=== PATIENT | male | born 1950 | race Caucasian/White ===

== ENCOUNTER → 2016-05-20 | Outpatient (CLI) | payer MEDICARE, BC | LOC: MW.CHNEURO 14:39 | PROVIDERS: ATTEND Psychiatry & Neurology Neuromuscular Medicine | DX: G62.9 Polyneuropathy, unspecified (principal) | CPT/HCPCS: 36415; 82607; 83921; 84165; 99204 ==

== ENCOUNTER 2016-06-06 11:41 | Emergency (ER) | payer MEDICARE, BC ==
[2016-06-06] MEDS ORDERED: Bacitracin Oint 1 GM U/D Packet TOP ONE (12:20)
--- NOTE | 2016-06-06 12:21 | EDM.PDOC ---
ED HPI Trauma - General Chief Complaint: Lower Extremity Injury/Pain Stated Complaint: SICK Time Seen by Provider: 06/06/16 12:00 Source: Reports: Patient History Limitations: Reports: No limitations - History of Present Illness INITIAL COMMENTS - FREE TEXT/NARRATIVE: History of present illness: [65-year-old male presenting with acute onset blister to bottom of right foot immediately under the fifth digit. Patient indicates that he has neuropathy to both of his legs and feet, is receiving treatment for this and has no problems. Cannot indicates when the blister appeared to indicated this morning when he got to the bathroom it had ruptured and sprayed blood everywhere. Patient comes in today seeking treatment.] Review of systems: As per history of present illness and below otherwise all systems reviewed and negative. Past medical history: As per history of present illness and as reviewed below otherwise noncontributory. Surgical history: As per history of present illness and as reviewed below otherwise noncontributory. Social history: No reported history of drug or alcohol abuse. Family history: As per history of present illness and as reviewed below otherwise noncontributory. Physical exam: HEENT: Atraumatic, normocephalic, pupils reactive, negative for conjunctival pallor or scleral icterus, mucous membranes moist, throat clear, neck supple, nontender, trachea midline. Lungs: Clear to auscultation, breath sounds equal bilaterally, chest nontender. Heart: S1S2, regular, negative for clicks, rubs, or JVD. Abdomen: Soft, nondistended, nontender. Negative for masses or hepatosplenomegaly. Negative for costovertebral tenderness. Pelvis: Stable nontender. Genitourinary: Deferred. Rectal: Deferred. Extremities: Atraumatic, negative for cords or calf pain. Neurovascular unremarkable. Neuro: Awake, alert, oriented. Cranial nerves II through XII unremarkable. Cerebellum unremarkable. Motor and sensory unremarkable throughout. Exam nonfocal. Skin: Blood blister to pedal aspect of right foot. Immediately beneath the fourth and fifth phalanges. Skin slightly flat with blood having already drained out. No current purulent and/or excessive erythema beyond the blister. Flap of skin still intact. Patient indicates he has no neuropathies to bilateral feet and he does tend to check him but he doesn't know how he obtained this blister. Diagnostics: [] Therapeutics: [] Impression: [Blood blister on right foot Plan: [Antibiotics followup with PCP] Definitive disposition and diagnosis as appropriate pending reevaluation and review of above. Allergies/ADRs: Allergies No Known Allergies Allergy (Verified 06/06/16 11:48) Home Medications: Ambulatory Orders Cephalexin [Keflex] 500 mg PO QID #40 capsule 06/06/16 Hydrochlorothiazide [Hydrochlorothiazide] 12.5 mg PO DAILY 06/06/16 [Confirmed 06/06/16] Past Medical History HEENT History: Reports: None Cardiovascular History: Reports: Hypertension Respiratory History: Reports: Sleep apnea Gastrointestinal History: Reports: None Genitourinary History: Reports: None Musculoskeletal History: Reports: Amputation Other Musculoskeletal History: tip of right middle finger Neurological History: Reports: None Psychiatric History: Reports: None Endocrine/Metabolic History: Reports: Obesity/BMI 30+ Hematologic History: Reports: B12 deficiency Immunologic History: Reports: None Oncologic (Cancer) History: Reports: None Dermatologic History: Reports: None - Infectious Disease History Infectious Disease History: Reports: Chicken pox, Measles - Past Surgical History Head Surgeries/Procedures: Reports: None Social & Family History - Family History Family Medical History: Noncontributory - Tobacco Use Smoking Status *Q: Never Smoker - Caffeine Use Caffeine Use: Reports: Coffee - Recreational Drug Use Recreational Drug Use: No Review of Systems - Review of Systems Review Of Systems: See Below (See history of present illness) Trauma Exam - Physical Exam Exam: See Below (See history of present illness) Course - Vital Signs Last Recorded V/S: Last Vital Signs Temp 37.4 C 06/06/16 11:46 Pulse 84 06/06/16 11:46 Resp 18 06/06/16 11:46 BP 198/88 H 06/06/16 11:46 Pulse Ox 96 06/06/16 11:46 - Orders/Labs/Meds Meds: Medications Discontinued Medications Generic Name Dose Route Start Last Admin Trade Name Freq PRN Reason Stop Dose Admin Bacitracin 1 dose 06/06/16 12:20 Bacitracin Oint 1 Gm TOP 06/06/16 12:21 ONETIME ONE Departure - Departure Time of Disposition: 12:23 Disposition: Home, Self-Care 01 Condition: good Clinical Impression: Broken skin Prescriptions: Cephalexin [Keflex] 500 mg PO QID #40 capsule Forms: ED Department Discharge Additional Instructions: The following information is given to patients seen in the emergency department who are being discharged to home. This information is to outline your options for follow-up care. We provide all patients seen in our emergency department with a follow-up referral. The need for follow-up, as well as the timing and circumstances, are variable depending upon the specifics of your emergency department visit. If you don't have a primary care physician on staff, we will provide you with a referral. We always advise you to contact your personal physician following an emergency department visit to inform them of the circumstance of the visit and for follow-up with them and/or the need for any referrals to a consulting specialist. The emergency department will also refer you to a specialist when appropriate. This referral assures that you have the opportunity for follow-up care with a specialist. All of these measure are taken in an effort to provide you with optimal care, which includes your follow-up. Under all circumstances we always encourage you to contact your private physician who remains a resource for coordinating your care. When calling for follow-up care, please make the office aware that this follow-up is from your recent emergency room visit. If for any reason you are refused follow-up, please contact the [facility] Emergency Department at and asked to speak to the emergency department charge nurse. Take medication as directed Followup with PCP or neurologist in one to 2 days Return to ED as needed as discussed
[2016-06-06 14:19] VITALS: BP 152/70
== END 2016-06-06 12:50 | disposition home or self-care (01) ==
LOC: MW.ED 11:41
DX: S90.821A Blister (nonthermal), right foot, initial encounter (principal); I10 Essential (primary) hypertension; E66.9 Obesity, unspecified; Z79.899 Other long term (current) drug therapy; X58.XXXA Exposure to other specified factors, initial encounter
CPT/HCPCS: 99282; 99283

== ENCOUNTER → 2016-06-14 | Outpatient (CLI) | payer MEDICARE, BC ==
--- NOTE | 2016-06-14 13:48 | CR ---
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 No fracture or acute osseous abnormality is noted. Moderate Achilles and plantar ca lcaneal enthesophytes are present. Bone mineralization is otherwise normal. IMPRESSION: Degenerative changes without acute findings.
== END ==
LOC: MW.CHIM 11:09
PROVIDERS: ATTEND Internal Medicine
DX: L97.519 Non-pressure chronic ulcer of other part of right foot with unspecified severity (principal); I10 Essential (primary) hypertension; G60.3 Idiopathic progressive neuropathy
CPT/HCPCS: 73620-26-RT; 73620-RT; 99214

== ENCOUNTER 2018-12-24 12:53 | Inpatient (IN) | payer MEDICARE, BC ==
[2018-12-24] MEDS ORDERED: Sodium Chloride 0.9% 1,000 ML IV ONE (13:28)
--- NOTE | 2018-12-24 13:33 | EDM.PDOC ---
ED HPI GENERAL MEDICAL PROBLEM - General Chief Complaint: Lower Extremity Injury/Pain Stated Complaint: LEFT LEG CONCERN;SWOLLEN Time Seen by Provider: 12/24/18 13:24 - History of Present Illness INITIAL COMMENTS - FREE TEXT/NARRATIVE: HISTORY AND PHYSICAL: History of present illness: Patient is a 68-year-old white male who presents with concern of redness pain swelling of the left lower extremity primarily distal leg and foot. Patient has a history of neuropathy of which the etiology remains unclear he states this is been worse over the last 2-3 days he denies associated trauma there's been no fever chills chest pain shortness breath or other concern. Patient denies known diabetes Review of systems: As per history of present illness and below otherwise all systems reviewed and negative. Past medical history: As per history of present illness and as reviewed below otherwise noncontributory. Surgical history: As per history of present illness and as reviewed below otherwise noncontributory. Social history: No reported history of drug or alcohol abuse. Family history: As per history of present illness and as reviewed below otherwise noncontributory. Physical exam: HEENT: Atraumatic, normocephalic, pupils reactive, negative for conjunctival pallor or scleral icterus, mucous membranes moist, throat clear, neck supple, nontender, trachea midline. Lungs: Clear to auscultation, breath sounds equal bilaterally, chest nontender. Heart: S1S2, regular, negative for clicks, rubs, or JVD. Abdomen: Soft, nondistended, nontender. Negative for masses or hepatosplenomegaly. Negative for costovertebral tenderness. Pelvis: Stable nontender. Genitourinary: Deferred. Rectal: Deferred. Extremities: Patient has erythema of the distal leg with marked swelling of the left foot and great toe with a callus on the plantar aspect over the distal first metatarsal there is some malodor to this neurovascular exam is unremarkable Neuro: Awake, alert, oriented. Cranial nerves II through XII unremarkable. Cerebellum unremarkable. Motor and sensory unremarkable throughout. Exam nonfocal. Diagnostics: CBC CMP blood culture 2 x-ray left tib-fib ankle and foot CRP ESR Therapeutics: Vancomycin 1 g IV clindamycin 900 mg IV Impression: #1 cellulitis left lower extremity #2 history of neuropathy Definitive disposition and diagnosis as appropriate pending reevaluation and review of above. - Related Data Allergies Allergy/AdvReac Type Severity Reaction Status Date / Time Penicillins Allergy Other Verified 12/24/18 13:38 Home Meds: Home Meds Allopurinol [Zyloprim] 1 tab PO DAILY 12/24/18 [History] Multivitamin [Multivitamins] 1 each PO DAILY 12/24/18 [History] Triamterene/Hydrochlorothiazid [Triamterene-HCTZ 37.5-25 MG] 1 tab PO DAILY [History] Past Medical History HEENT History: Reports: None Cardiovascular History: Reports: Hypertension Respiratory History: Reports: Sleep Apnea Gastrointestinal History: Reports: None Genitourinary History: Reports: None Musculoskeletal History: Reports: Amputation Other Musculoskeletal History: tip of right middle finger Neurological History: Reports: None Psychiatric History: Reports: None Endocrine/Metabolic History: Reports: Obesity/BMI 30+ Hematologic History: Reports: B12 Deficiency Immunologic History: Reports: None Oncologic (Cancer) History: Reports: None Dermatologic History: Reports: None - Infectious Disease History Infectious Disease History: Reports: Chicken Pox, Measles - Past Surgical History Head Surgeries/Procedures: Reports: None Social & Family History - Family History Family Medical History: Noncontributory - Caffeine Use Caffeine Use: Reports: Coffee Review of Systems - Review of Systems Review Of Systems: Comprehensive ROS is negative, except as noted in HPI. ED EXAM, GENERAL - Physical Exam Exam: See Below (dictation) Course - Vital Signs Last Recorded V/S: Last Vital Signs Temp 36.4 C 12/24/18 13:36 Pulse 74 12/24/18 13:36 Resp 18 12/24/18 13:36 BP 157/66 H 12/24/18 13:36 Pulse Ox 95 12/24/18 13:36 - Orders/Labs/Meds Orders: Active Orders 24 hr Category Date Time Status Patient Status [ADT] Stat ADT 12/24/18 13:34 Active COMPREHENSIVE METABOLIC PN,CMP [CHEM] Stat Lab 12/24/18 14:05 Received CRP [C-REACTIVE PROTEIN] [CHEM] Stat Lab 12/24/18 13:33 Ordered CULTURE BLOOD [BC] Stat Lab 12/24/18 14:05 Received CULTURE BLOOD [BC] Stat Lab 12/24/18 14:10 Results ESR [SEDIMENTATION RATE AUTO] [HEME] Stat Lab 12/24/18 13:33 Ordered INR,PT,PROTHROMBIN TIME [COAG] Stat Lab 12/24/18 14:10 Received UA RFX KIMBERLY AND CULT IF INDIC [URIN] Stat Lab 12/24/18 13:27 Ordered Vancomycin 1 gm Med 12/24/18 13:28 Active Sodium Chloride 0.9% [Normal Saline (AdvBag)] 250 ml IV ONETIME Blood Culture x2 Reflex Set [OM.PC] Stat Oth 12/24/18 13:27 Ordered Medication Orders Vancomycin HCl 1 gm/ Sodium (Chloride) 250 mls @ 166 mls/hr IV ONETIME ONE Stop: 12/24/18 14:58 Last Admin: 12/24/18 14:19 Dose: 166 mls/hr Labs: Laboratory Tests 12/24/18 Range/Units 14:10 WBC 14.26 H (4.0-11.0) K/uL RBC 5.21 (4.50-5.90) M/uL Hgb 15.8 (13.0-17.0) g/dL Hct 47.1 (38.0-50.0) % MCV 90.4 (80.0-98.0) fL MCH 30.3 (27.0-32.0) pg MCHC 33.5 (31.0-37.0) g/dL RDW Std Deviation 45.3 (28.0-62.0) fl RDW Coeff of Janeth 14 (11.0-15.0) % Plt Count 268 (150-400) K/uL MPV 10.30 (7.40-12.00) fL Neut % (Auto) 82.2 H (48.0-80.0) % Lymph % (Auto) 8.4 L (16.0-40.0) % [place] % (Auto) 8.2 (0.0-15.0) % Eos % (Auto) 1.1 (0.0-7.0) % Baso % (Auto) 0.1 (0.0-1.5) % Neut # (Auto) 11.7 H (1.4-5.7) K/uL Lymph # (Auto) 1.2 (0.6-2.4) K/uL [place] # (Auto) 1.2 H (0.0-0.8) K/uL Eos # (Auto) 0.2 (0.0-0.7) K/uL Baso # (Auto) 0.0 (0.0-0.1) K/uL Nucleated RBC % 0.0 /100WBC Nucleated RBCs # 0 K/uL Meds: Medications Generic Name Dose Route Start Last Admin Trade Name Leonila PRN Reason Stop Dose Admin Vancomycin HCl 1 gm/ Sodium 250 mls @ 166 mls/hr 12/24/18 13:28 12/24/18 14: 19 Chloride IV 12/24/18 14:58 166 mls/hr ONETIME ONE Administration Discontinued Medications Generic Name Dose Route Start Last Admin Trade Name Leonila PRN Reason Stop Dose Admin Sodium Chloride 1,000 mls @ 999 mls/hr 12/24/18 13:28 12/24/18 14:15 Normal Saline IV 12/24/18 14:28 999 mls/hr STAT ONE Administration Clindamycin Phosphate 900 mg/ 56 mls @ 100 mls/hr 12/24/18 13:33 Sodium Chloride IV 12/24/18 14:06 ONETIME ONE Departure - Departure Time of Disposition: 14:36 Disposition: Home, Self-Care 01 Condition: Good Clinical Impression: Cellulitis - Discharge Information Referrals: Edwar Valadez MD [Primary Care Provider] - Forms: ED Department Discharge - My Orders Last 24 Hours: My Active Orders 12/24/18 13:27 UA RFX KIMBERLY AND CULT IF INDIC [URIN] Stat Blood Culture x2 Reflex Set [OM.PC] Stat 12/24/18 13:28 Vancomycin 1 gm Sodium Chloride 0.9% [Normal Saline (AdvBag)] 250 ml IV ONETIME 12/24/18 13:33 CRP [C-REACTIVE PROTEIN] [CHEM] Stat ESR [SEDIMENTATION RATE AUTO] [HEME] Stat 12/24/18 13:34 Patient Status [ADT] Stat 12/24/18 14:05 COMPREHENSIVE METABOLIC PN,CMP [CHEM] Stat CULTURE BLOOD [BC] Stat 12/24/18 14:10 CULTURE BLOOD [BC] Stat INR,PT,PROTHROMBIN TIME [COAG] Stat - Assessment/Plan Last 24 Hours: My Active Orders 12/24/18 13:27 UA RFX KIMBERLY AND CULT IF INDIC [URIN] Stat Blood Culture x2 Reflex Set [OM.PC] Stat 12/24/18 13:28 Vancomycin 1 gm Sodium Chloride 0.9% [Normal Saline (AdvBag)] 250 ml IV ONETIME 12/24/18 13:33 CRP [C-REACTIVE PROTEIN] [CHEM] Stat ESR [SEDIMENTATION RATE AUTO] [HEME] Stat 12/24/18 13:34 Patient Status [ADT] Stat 12/24/18 14:05 COMPREHENSIVE METABOLIC PN,CMP [CHEM] Stat CULTURE BLOOD [BC] Stat 12/24/18 14:10 CULTURE BLOOD [BC] Stat INR,PT,PROTHROMBIN TIME [COAG] Stat
--- NOTE | 2018-12-24 14:20 | CR ---
Indication: Pain left lower leg. Older to the bottom of the foot. Technique: Two views of the left foot were obtained. Comparison: None Findings: Degenerative changes the left foot are identified. A plantar calcaneal spur is identified. Enthesophyte is identified at the insertion site of the Achilles down calcaneus. Probable ulcer is identified at the level of the metatarsophalangeal joint spaces. No bony erosions are identified. Impression: No bony erosions. Dictated by Laura Francis MD @ Dec 24 2018 2:18PM Signed by Dr. Laura Francis @ Dec 24 2018 2:19PM
--- NOTE | 2018-12-24 14:20 | CR ---
Indication: Pain left lower leg. Technique: Single AP portable view of the chest was obtained. Comparison: None Findings: Heart is normal in size. The lungs are clear. No infiltrate, pleural effusion, or pneumothorax is identified. Impression: No acute cardiopulmonary process. Dictated by Laura Francis MD @ Dec 24 2018 2:16PM Signed by Dr. Laura Francis @ Dec 24 2018 2:18PM
--- NOTE | 2018-12-24 14:22 | CR ---
Indication: Left leg swollen and red. Altered the bottom of the left foot. Technique: Two views of the left lower leg were obtained. Comparison: None Findings: Degenerative changes are identified at the level of the knee and ankle. Small plantar calcaneal spur is identified. No bony erosions are identified. Impression: Degenerative change. Dictated by Laura Francis MD @ Dec 24 2018 2:19PM Signed by Dr. Laura Francis @ Dec 24 2018 2:19PM
[2018-12-24 14:50] LABS: CARBON DIOXIDE,CO2 24.6 mmol/L (21.0-32.0); POTASSIUM,K 4.1 mmol/L (3.5-5.1)
[2018-12-24] MEDS ORDERED: Albuterol/Ipratropium 3.0-0.5 MG/3 ML Neb Soln NEB PRN (14:59)
[2018-12-24] MEDS ORDERED: Ondansetron 4 MG/2 ML SDV IVPUSH PRN (14:59)
[2018-12-24] MEDS ORDERED: HYDROmorphone 1 MG/ML Syringe IVPUSH ONE (15:03)
--- NOTE | 2018-12-24 15:15 | PCM.HP.2 ---
H&P History of Present Illness - General Date of Service: 12/24/18 Admit Problem/Dx: Admission Diagnosis/Problem Admission Diagnosis/Problem Cellulitis Source of Information: Patient History Limitations: Reports: No Limitations - History of Present Illness Initial Comments - Free Text/Narative: Patient is a 68-year-old male with PMH of HTN and Neuropathy of unknown origin who presents to ER with concern of increasing redness, pain, swelling, open draining wound of the left lower extremity in his distal leg and foot. Patient denies associated trauma there's been no fever chills chest pain shortness breath or other concern. 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 In ER patient received IV vancomycin and clindamycin. Xray of foot showed no bony involvement. Patient is being admitted for management of cellulitis of Left Lower extremity. Onset of Symptoms: Reports: Gradual Duration of Symptoms: Reports: Day(s): Quality: Reports: Dull Severity: Moderate left foot Pain Score (Numeric/FACES): 8 - Related Data Allergies/Adverse Reactions: Allergies Allergy/AdvReac Type Severity Reaction Status Date / Time Penicillins Allergy Other Verified 12/24/18 13:38 Home Medications: Home Meds Allopurinol [Zyloprim] 1 tab PO DAILY 12/24/18 [History] Multivitamin [Multivitamins] 1 each PO DAILY 12/24/18 [History] Triamterene/Hydrochlorothiazid [Triamterene-HCTZ 37.5-25 MG] 1 tab PO DAILY [History] Past Medical History HEENT History: Reports: None Cardiovascular History: Reports: Hypertension Respiratory History: Reports: Sleep Apnea Gastrointestinal History: Reports: None Genitourinary History: Reports: None Musculoskeletal History: Reports: Amputation Other Musculoskeletal History: tip of right middle finger Neurological History: Reports: None Psychiatric History: Reports: None Endocrine/Metabolic History: Reports: Obesity/BMI 30+ Hematologic History: Reports: B12 Deficiency Immunologic History: Reports: None Oncologic (Cancer) History: Reports: None Dermatologic History: Reports: None - Infectious Disease History Infectious Disease History: Reports: Chicken Pox, Measles - Past Surgical History Head Surgeries/Procedures: Reports: None Social & Family History - Family History Family Medical History: Noncontributory - Tobacco Use Smoking Status *Q: Never Smoker - Caffeine Use Caffeine Use: Reports: Coffee - Recreational Drug Use Recreational Drug Use: No H&P Review of Systems - Review of Systems: Review Of Systems: See Below General: Reports: Malaise, Weakness. Denies: Fever, Chills, Fatigue, Night Sweats HEENT: Denies: Headaches, Rhinitis Pulmonary: Denies: Shortness of Breath, Wheezing Cardiovascular: Denies: Chest Pain, Palpitations Gastrointestinal: Denies: Abdominal Pain, Anorexia, Black Stool, Diarrhea, Decreased Appetite Genitourinary: Denies: Dysuria, Frequency Musculoskeletal: Denies: Neck Pain, Shoulder Pain Skin: Denies: Cyanosis, Jaundice Exam - Exam Exam: See Below - Vital Signs Vital Signs: Last Vital Signs Temp 36.9 C 12/24/18 14:43 Pulse 71 12/24/18 14:43 Resp 18 12/24/18 14:43 BP 156/66 H 12/24/18 14:43 Pulse Ox 95 12/24/18 14:43 Weight: 109.769 kg - Exam General: Alert, Oriented HEENT: Conjunctiva Clear Neck: Supple, Trachea Midline Lungs: Clear to Auscultation, Normal Respiratory Effort Cardiovascular: Regular Rate, Regular Rhythm GI/Abdominal Exam: Normal Bowel Sounds, Soft, Non-Tender Extremities: Joint Swelling, Increased Warmth, Redness, Other (left foot redness , swelling) - Patient Data Lab Results Last 24 hrs: Laboratory Results - last 24 hr 12/24/18 12/24/18 12/24/18 Range/Units 14:05 14:10 14:10 WBC 14.26 H (4.0-11.0) K/uL RBC 5.21 (4.50-5.90) M/uL Hgb 15.8 (13.0-17.0) g/dL Hct 47.1 (38.0-50.0) % MCV 90.4 (80.0-98.0) fL MCH 30.3 (27.0-32.0) pg MCHC 33.5 (31.0-37.0) g/dL RDW Std Deviation 45.3 (28.0-62.0) fl RDW Coeff of Janeth 14 (11.0-15.0) % Plt Count 268 (150-400) K/uL MPV 10.30 (7.40-12.00) fL Neut % (Auto) 82.2 H (48.0-80.0) % Lymph % (Auto) 8.4 L (16.0-40.0) % Rice % (Auto) 8.2 (0.0-15.0) % Eos % (Auto) 1.1 (0.0-7.0) % Baso % (Auto) 0.1 (0.0-1.5) % Neut # (Auto) 11.7 H (1.4-5.7) K/uL Lymph # (Auto) 1.2 (0.6-2.4) K/uL Rice # (Auto) 1.2 H (0.0-0.8) K/uL Eos # (Auto) 0.2 (0.0-0.7) K/uL Baso # (Auto) 0.0 (0.0-0.1) K/uL Nucleated RBC % 0.0 /100WBC Nucleated RBCs # 0 K/uL INR 0.97 Lactate (0.20-2.00) mmol/L Sodium 136 (136-148) mmol/L Potassium 4.1 (3.5-5.1) mmol/L Chloride 101 (98-107) mmol/L Carbon Dioxide 24.6 (21.0-32.0) mmol/L BUN 12 (7.0-18.0) mg/dL Creatinine 1.3 (0.8-1.3) mg/dL Est Cr Clr Drug Dosing 56.31 mL/min Estimated GFR (MDRD) 54.6 ml/min Glucose 93 (74-106) mg/dL Calcium 9.2 (8.5-10.1) mg/dL Total Bilirubin 1.2 H (0.2-1.0) mg/dL AST 27 (15-37) IU/L ALT 22 (14-63) IU/L Alkaline Phosphatase 108 (46-116) U/L Total Protein 8.6 H (6.4-8.2) g/dL Albumin 3.2 L (3.4-5.0) g/dL Globulin 5.4 H (2.6-4.0) g/dL Albumin/Globulin Ratio 0.6 L (0.9-1.6) // Range/Units 14:10 WBC (4.0-11.0) K/uL RBC (4.50-5.90) M/uL Hgb (13.0-17.0) g/dL Hct (38.0-50.0) % MCV (80.0-98.0) fL MCH (27.0-32.0) pg MCHC (31.0-37.0) g/dL RDW Std Deviation (28.0-62.0) fl RDW Coeff of Janeth (11.0-15.0) % Plt Count (150-400) K/uL MPV (7.40-12.00) fL Neut % (Auto) (48.0-80.0) % Lymph % (Auto) (16.0-40.0) % Rice % (Auto) (0.0-15.0) % Eos % (Auto) (0.0-7.0) % Baso % (Auto) (0.0-1.5) % Neut # (Auto) (1.4-5.7) K/uL Lymph # (Auto) (0.6-2.4) K/uL Rice # (Auto) (0.0-0.8) K/uL Eos # (Auto) (0.0-0.7) K/uL Baso # (Auto) (0.0-0.1) K/uL Nucleated RBC % /100WBC Nucleated RBCs # K/uL INR Lactate 1.6 (0.20-2.00) mmol/L Sodium (136-148) mmol/L Potassium (3.5-5.1) mmol/L Chloride (98-107) mmol/L Carbon Dioxide (21.0-32.0) mmol/L BUN (7.0-18.0) mg/dL Creatinine (0.8-1.3) mg/dL Est Cr Clr Drug Dosing mL/min Estimated GFR (MDRD) ml/min Glucose (74-106) mg/dL Calcium (8.5-10.1) mg/dL Total Bilirubin (0.2-1.0) mg/dL AST (15-37) IU/L ALT (14-63) IU/L Alkaline Phosphatase (46-116) U/L Total Protein (6.4-8.2) g/dL Albumin (3.4-5.0) g/dL Globulin (2.6-4.0) g/dL Albumin/Globulin Ratio (0.9-1.6) Result Diagrams: 12/24/18 14:10 12/24/18 14:05 Percy Results Last 24 hrs: Microbiology 12/24/18 14:10 Anaerobic Blood Culture - Final Blood - Venous *Q Meaningful Use (ADM) - VTE Risk Assess *Q Each Risk Factor Represents 2 Points: Age 60 - 74 Years Total Score 2 Point Risk Factors: 2 - Problem List (1) Cellulitis SNOMED Code(s): 889054138 ICD Code: L03.90 - CELLULITIS, UNSPECIFIED Status: Acute Current Visit: Yes (2) HTN (hypertension) SNOMED Code(s): 43797298 ICD Code: I10 - ESSENTIAL (PRIMARY) HYPERTENSION Status: Acute Current Visit: Yes Problem List Initiated/Reviewed/Updated: Yes Orders Last 24hrs: Active Orders 24 hr Category Date Time Status Patient Status [ADT] Stat ADT 12/24/18 13:34 Active Patient Status [ADT] Stat ADT 12/24/18 14:38 Active Ambulate [RC] ASDIRECTED Care 12/24/18 14:59 Ordered Oxygen Therapy [RC] PRN Care 12/24/18 14:59 Ordered Pulse Oximetry [RC] PRN Care 12/24/18 15:00 Ordered RT Aerosol Therapy [RC] ASDIRECTED Care 12/24/18 15:03 Ordered VTE/DVT Education [RC] PER UNIT ROUTINE Care 12/24/18 14:59 Ordered Vital Signs [RC] Q4H Care 12/24/18 14:59 Ordered Heart Healthy Diet [DIET] Diet 12/24/18 Dinner Ordered BMP [BASIC METABOLIC PANEL,BMP] [CHEM] AM Lab 12/25/18 05:11 Ordered CBC WITH AUTO DIFF [HEME] AM Lab 12/25/18 05:11 Ordered CRP [C-REACTIVE PROTEIN] [CHEM] Stat Lab 12/24/18 13:33 Ordered CULTURE BLOOD [BC] Stat Lab 12/24/18 14:05 Received CULTURE BLOOD [BC] Stat Lab 12/24/18 14:10 Results CULTURE MRSA [RM] Stat Lab 12/24/18 14:59 Ordered ESR [SEDIMENTATION RATE AUTO] [HEME] Stat Lab 12/24/18 13:33 Ordered MAGNESIUM [CHEM] AM Lab 12/25/18 05:11 Ordered PHOSPHORUS [CHEM] AM Lab 12/25/18 05:11 Ordered UA RFX PERCY AND CULT IF INDIC [URIN] Stat Lab 12/24/18 13:27 Ordered Albuterol/Ipratropium [DuoNeb 3.0-0.5 MG/3 ML] Med 12/24/18 14:59 Ordered 3 ml NEB Q4HRRT PRN Allopurinol [Zyloprim] Med 12/25/18 09:00 Ordered 300 mg PO DAILY Clindamycin Phosphate [Cleocin] 300 mg Med 12/24/18 20:00 Ordered Sodium Chloride 0.9% [Normal Saline] 50 ml IV Q8H Ketorolac [Toradol] Med 12/24/18 14:59 Ordered 30 mg IV Q6H PRN Morphine Med 12/24/18 14:59 Ordered 2 mg IVPUSH Q4H PRN Multivitamin [Multivitamins] Med 12/25/18 09:00 Ordered 1 each PO DAILY Ondansetron [Zofran] Med 12/24/18 14:59 Ordered 4 mg IVPUSH Q4H PRN Pharmacy to Dose - Vancomycin Med 12/24/18 15:15 Ordered 1 dose .XX ASDIRECTED amLODIPine [Norvasc] Med 12/24/18 15:15 Ordered 5 mg PO DAILY Blood Culture x2 Reflex Set [OM.PC] Stat Oth 12/24/18 13:27 Ordered Resuscitation Status Routine Resus Stat 12/24/18 14:59 Ordered Medication Orders Albuterol/Ipratropium (Duoneb 3.0-0.5 Mg/3 Ml) 3 ml NEB Q4HRRT PRN PRN Reason: Shortness Of Breath/wheezing Allopurinol (Zyloprim) 300 mg PO DAILY ANNA Amlodipine Besylate (Norvasc) 5 mg PO DAILY ANNA Clindamycin Phosphate 300 mg/ (Sodium Chloride) 52 mls @ 100 mls/hr IV Q8H ANNA Ketorolac Tromethamine (Toradol) 30 mg IV Q6H PRN PRN Reason: Pain (moderate 4-6) Morphine Sulfate (Morphine) 2 mg IVPUSH Q4H PRN PRN Reason: Pain (severe 7-10) Stop: 12/25/18 15:01 Non-Formulary Medication (Multivitamin [Multivitamins]) 1 each PO DAILY ANNA Ondansetron HCl (Zofran) 4 mg IVPUSH Q4H PRN PRN Reason: Nausea/Vomiting Vancomycin HCl (Pharmacy To Dose - Vancomycin) 1 dose .XX ASDIRECTED ANNA Assessment/Plan Comment:: A/P: 1) Cellulitis: likely secondary to the wound on left foot, plantar aspect Leucocytosis, no concern of sepsis currently X-ray foot shows no bony involvement cont IV vancomycin and IV clindamycin f/u on vancomycin trough Would care pain control with Toradol and morphine f/u on blood cultures , f/u on MRSA check HbA1c 2)HTN: start amlodipine
[2018-12-24 15:39] LABS: HEMOGLOBIN A1C 5.1 % (4.5-6.2)
[2018-12-24] MEDS ORDERED: Clindamycin Phosphate in D5W 900 MG in Premix Bag 1 BAG IV ONE ×2 (16:15)
[2018-12-24] MEDS ORDERED: Clindamycin Phosphate in D5W 300 MG in Premix Bag 1 BAG IV SCH ×2 (16:15)
[2018-12-24] MEDS: amLODIPine 5 MG Tab PO SCH (16:20)
[2018-12-24] MEDS: Sodium Chloride 0.9% 1,000 ML IV SCH (18:43)
[2018-12-24] MEDS: Ketorolac 30 MG/ML SDV IV PRN (19:22)
--- NOTE | 2018-12-24 20:00 | US ---
INDICATION: Left calf swelling. COMPARISON: None. TECHNIQUE: A compression venous ultrasound exam was performed of the left lower extremity using montes-scale imaging, color Doppler and spectral Doppler analysis. FINDINGS: Sonographic imaging of the left lower extremity demonstrates normal compressibility and color Doppler venous blood flow within the common femoral vein, deep femoral vein, and the proximal greater saphenous vein. Within the thigh, the femoral vein is patent and compressible. At a lower level, the popliteal and posterior tibial veins also show normal compressibility and color Doppler venous blood flow. Limited imaging of the contralateral groin demonstrates a normal spectral waveform and color Doppler venous blood flow within the right common femoral vein. IMPRESSION: Normal venous ultrasound exam. No evidence of deep vein thrombosis within the left lower extremity. Dictated by Laura Francis MD @ Dec 24 2018 8:00PM Signed by Dr. Laura Francis @ Dec 24 2018 8:00PM
[2018-12-24] MEDS: Morphine 10 MG/ML Syringe IVPUSH PRN (22:02)
[2018-12-24] MEDS: Clindamycin Phosphate in D5W 300 MG in Premix Bag 1 BAG IV SCH ×2 (23:27)
[2018-12-25] MEDS: Morphine 10 MG/ML Syringe IVPUSH PRN (04:26)
[2018-12-25] MEDS: Ketorolac 30 MG/ML SDV IV PRN ×2 (06:22→18:34)
[2018-12-25] MEDS: Sodium Chloride 0.9% 1,000 ML IV SCH ×2 (06:24→19:27)
[2018-12-25 06:33] LABS: CARBON DIOXIDE,CO2 24.9 mmol/L (21.0-32.0); POTASSIUM,K 3.2 mmol/L (3.5-5.1)
[2018-12-25] MEDS: Multivitamins with Iron/Calcium/Folic Acid/Minerals Tab PO SCH (08:59)
[2018-12-25] MEDS: amLODIPine 5 MG Tab PO SCH (08:59)
[2018-12-25] MEDS ORDERED: Allopurinol 300 MG Tab PO SCH (09:00)
[2018-12-25] MEDS: Clindamycin Phosphate in D5W 300 MG in Premix Bag 1 BAG IV SCH ×2 (09:01)
[2018-12-25] MEDS ORDERED: Potassium Chloride 20 MEQ Tab.ER PO STA (12:07)
[2018-12-25] MEDS ORDERED: Calcium Carbonate 500 MG Tab.Chew PO ONE (12:08)
[2018-12-25] MEDS: Cefepime 2 GM in Premix Bag 1 BAG IV SCH ×2 (12:21→18:33)
[2018-12-25] MEDS: metroNIDAZOLE 250 MG Tab PO SCH ×2 (13:23→20:41)
--- NOTE | 2018-12-25 17:58 | PCM.PN ---
<Wili Melgar M - Last Filed: 12/25/18 18:00> - General Info Date of Service: 12/25/18 Subjective Update: 68-year-old male admitted for left foot cellulitis. Currently on IV vancomycin, metronidazole PO and IV cefepime. X-rays negative for bone involvement. Venous Doppler U/S ruled out DVT. At bedside this morning, patient reports no complaints. Remains afebrile and reports improvement in the redness and swelling of his left foot - Patient Data Vitals - Most Recent: Last Vital Signs Temp 97.4 F 12/25/18 16:00 Pulse 61 12/25/18 16:00 Resp 18 12/25/18 16:00 BP 133/64 12/25/18 16:00 Pulse Ox 95 12/25/18 16:00 Weight - Most Recent: 109.769 kg I&O - Last 24 Hours: Intake & Output 12/25/18 12/25/18 12/25/18 06:59 14:59 22:59 Intake Total 2610 Output Total 900 Balance 1710 Lab Results Last 24 Hours: Laboratory Results - last 24 hr 12/25/18 12/25/18 12/25/18 Range/Units 05:12 06:05 06:05 WBC 9.32 (4.0-11.0) K/uL RBC 4.31 L (4.50-5.90) M/uL Hgb 13.0 (13.0-17.0) g/dL Hct 39.1 (38.0-50.0) % MCV 90.7 (80.0-98.0) fL MCH 30.2 (27.0-32.0) pg MCHC 33.2 (31.0-37.0) g/dL RDW Std Deviation 44.9 (28.0-62.0) fl RDW Coeff of Janeth 14 (11.0-15.0) % Plt Count 216 (150-400) K/uL MPV 9.50 (7.40-12.00) fL Neut % (Auto) 74.8 (48.0-80.0) % Lymph % (Auto) 11.1 L (16.0-40.0) % [place] % (Auto) 9.0 (0.0-15.0) % Eos % (Auto) 4.8 (0.0-7.0) % Baso % (Auto) 0.3 (0.0-1.5) % Neut # (Auto) 7.0 H (1.4-5.7) K/uL Lymph # (Auto) 1.0 (0.6-2.4) K/uL [place] # (Auto) 0.8 (0.0-0.8) K/uL Eos # (Auto) 0.5 (0.0-0.7) K/uL Baso # (Auto) 0.0 (0.0-0.1) K/uL Nucleated RBC % 0.0 /100WBC Nucleated RBCs # 0 K/uL Sodium 133 L (136-148) mmol/L Potassium 3.2 L (3.5-5.1) mmol/L Chloride 98 (98-107) mmol/L Carbon Dioxide 24.9 (21.0-32.0) mmol/L BUN 17 (7.0-18.0) mg/dL Creatinine 1.2 (0.8-1.3) mg/dL Est Cr Clr Drug Dosing 61.94 mL/min Estimated GFR (MDRD) 59.9 ml/min Glucose 95 (74-106) mg/dL Calcium 7.5 L (8.5-10.1) mg/dL Phosphorus 3.1 (2.6-4.7) mg/dL Magnesium 1.9 (1.8-2.4) mg/dL Urine Color YELLOW Urine Appearance SLT CLOUDY Urine pH 6.0 (5.0-8.0) Ur Specific [place] 1.010 (1.001-1.035) Urine Protein NEGATIVE (NEGATIVE) mg/dL Urine Glucose (UA) NEGATIVE (NEGATIVE) mg/dL Urine Ketones TRACE H (NEGATIVE) mg/dL Urine Occult Blood LARGE H (NEGATIVE) Urine Nitrite NEGATIVE (NEGATIVE) Urine Bilirubin NEGATIVE (NEGATIVE) Urine Urobilinogen 2.0 H (<2.0) EU/dL Ur Leukocyte Esterase NEGATIVE (NEGATIVE) Urine RBC 12-18 (0-2/HPF) Urine WBC 0-3 (0-5/HPF) Ur Epithelial Cells OCCASIONAL (NONE-FEW) Urine Bacteria RARE (NEGATIVE) Percy Results Last 24 Hours: Microbiology 12/24/18 14:10 Aerobic Blood Culture - Preliminary Blood - Venous NO GROWTH AFTER 1 DAY Anaerobic Blood Culture - Final 12/24/18 14:05 Aerobic Blood Culture - Preliminary Blood - Venous - Lab Draw NO GROWTH AFTER 1 DAY Anaerobic Blood Culture - Preliminary NO GROWTH AFTER 1 DAY Med Orders - Current: Current Medications Albuterol/Ipratropium (Duoneb 3.0-0.5 Mg/3 Ml) 3 ml NEB Q4HRRT PRN PRN Reason: Shortness Of Breath/wheezing Amlodipine Besylate (Norvasc) 5 mg PO DAILY [facility] Last Admin: 12/25/18 08:59 Dose: 5 mg Sodium Chloride (Normal Saline) 1,000 mls @ 100 mls/hr IV ASDIRECTED [facility] Last Admin: 12/25/18 06:24 Dose: 100 mls/hr Vancomycin HCl 1.25 gm/ Sodium (Chloride) 250 mls @ 250 mls/hr IV Q12H [facility] Last Admin: 12/25/18 15:06 Dose: 250 mls/hr Cefepime HCl 2 gm/ Premix 50 mls @ 100 mls/hr IV Q8H [facility] Last Admin: 12/25/18 12:21 Dose: 100 mls/hr Ketorolac Tromethamine (Toradol) 30 mg IV Q6H PRN PRN Reason: Pain (moderate 4-6) Last Admin: 12/25/18 06:22 Dose: 30 mg Metronidazole (Metronidazole) 500 mg PO Q8H [facility] Last Admin: 12/25/18 13:23 Dose: 500 mg Multivitamins/Minerals (Thera M Plus) 1 tab PO DAILY [facility] Last Admin: 12/25/18 08:59 Dose: 1 tab Ondansetron HCl (Zofran) 4 mg IVPUSH Q4H PRN PRN Reason: Nausea/Vomiting Discontinued Medications Allopurinol (Zyloprim) 300 mg PO DAILY [facility] Calcium Carbonate/Glycine (Tums) 1,000 mg PO ONETIME ONE Stop: 12/25/18 12:09 Last Admin: 12/25/18 13:24 Dose: 1,000 mg Hydromorphone HCl (Dilaudid) 1 mg IVPUSH ONETIME ONE Stop: 12/24/18 15:04 Last Admin: 12/24/18 15:11 Dose: 1 mg Sodium Chloride (Normal Saline) 1,000 mls @ 999 mls/hr IV STAT ONE Stop: 12/24/18 14:28 Last Admin: 12/24/18 14:15 Dose: 999 mls/hr Vancomycin HCl 1 gm/ Sodium (Chloride) 250 mls @ 166 mls/hr IV ONETIME ONE Stop: 12/24/18 14:58 Last Admin: 12/24/18 14:19 Dose: 166 mls/hr Clindamycin Phosphate 900 mg/ (Premix) 50 mls @ 100 mls/hr IV ONETIME ONE Stop: 12/24/18 16:44 Last Admin: 12/24/18 16:22 Dose: 100 mls/hr Clindamycin Phosphate 300 mg/ (Premix) 50 mls @ 100 mls/hr IV Q8H [facility] Last Admin: 12/25/18 09:01 Dose: 100 mls/hr Morphine Sulfate (Morphine) 2 mg IVPUSH Q4H PRN PRN Reason: Pain (severe 7-10) Stop: 12/25/18 15:01 Last Admin: 12/25/18 04:26 Dose: 2 mg Potassium Chloride (Klor-Con M20) 40 meq PO ONETIME STA Stop: 12/25/18 12:08 Last Admin: 12/25/18 13:23 Dose: 40 meq Vancomycin HCl (Pharmacy To Dose - Vancomycin) 1 dose .XX ASDIRECTED ANNA - Exam General: Alert, Oriented, Cooperative, No Acute Distress Lungs: Clear to Auscultation Cardiovascular: Regular Rate, Regular Rhythm GI/Abdominal Exam: Normal Bowel Sounds, Soft, Non-Tender, No Distention Extremities: Other (Left lower extremity: edema and erythema extending from ankle level to distal toes. Warm to touch, non-tender to palpation. Full ROM of foot and digits.) Peripheral Pulses: 1+: Posterior Tibial (L), Posterior Tibial (R) - Problem List & Annotations (1) Hypokalemia SNOMED Code(s): 54639150 Code(s): E87.6 - HYPOKALEMIA Status: Acute Current Visit: Yes (2) Hypocalcemia SNOMED Code(s): 3334895 Code(s): E83.51 - HYPOCALCEMIA Status: Acute Current Visit: Yes (3) Cellulitis SNOMED Code(s): 508578524 Code(s): L03.90 - CELLULITIS, UNSPECIFIED Status: Acute Current Visit: Yes (4) HTN (hypertension) SNOMED Code(s): 81586547 Code(s): I10 - ESSENTIAL (PRIMARY) HYPERTENSION Status: Acute Current Visit: Yes - Problem List Review Problem List Initiated/Reviewed/Updated: Yes - My Orders Last 24 Hours: My Active Orders 12/25/18 12:15 metroNIDAZOLE 500 mg PO Q8H - Assessment Assessment:: Assessment: 1. Cellulitis of left lower extremity. 2. Hypokalemia. 3. Hypocalcemia, mild. 4. Hypertension. 5. Hematuria, chronic. 6. Leukocytosis, resolved. 7. Past medical history of peripheral neuropathy. Plan: 1. For cellulitis, will continue with IV vancomycin, IV cefepime and metronidazole as per pharmacy recommendation. Will also consult wound care. Noted clinical improvement in area of erythema and edema and will continue to monitor. Blood cultures and wound cultures are pending. 2. For hypokalemia, will replete with KCl 40 mEq PO. Will recheck with AM labs. 3. For hypocalcemia, will replete with calcium carbonate PO. Will monitor with AM labs. 4. For hypertension, continue amlodipine 5 mg PO qd. 5. For chronic hematuria, will require outpatient follow-up with urology. - Plan Plan:: A/P: 1) Cellulitis: likely secondary to the wound on left foot, plantar aspect Leucocytosis, no concern of sepsis currently X-ray foot shows no bony involvement cont IV vancomycin and IV clindamycin f/u on vancomycin trough Would care pain control with Toradol and morphine f/u on blood cultures , f/u on MRSA check HbA1c 2)HTN: start amlodipine <Huseyin Hahn - Last Filed: 12/31/18 09:10> - Patient Data Vitals - Most Recent: Last Vital Signs Temp 37.0 C 12/31/18 08:00 Pulse 76 12/31/18 08:00 Resp 14 12/31/18 08:00 BP 164/76 H 12/31/18 08:23 Pulse Ox 91 L 12/31/18 08:00 I&O - Last 24 Hours: Intake & Output 12/30/18 12/31/18 12/31/18 22:59 06:59 14:59 Intake Total 880 813 Output Total 295 750 Balance 585 63 Lab Results Last 24 Hours: Laboratory Results - last 24 hr 12/31/18 12/31/18 Range/Units 05:55 05:55 WBC 6.03 (4.0-11.0) K/uL RBC 4.30 L (4.50-5.90) M/uL Hgb 13.4 (13.0-17.0) g/dL Hct 39.1 (38.0-50.0) % MCV 90.9 (80.0-98.0) fL MCH 31.2 (27.0-32.0) pg MCHC 34.3 (31.0-37.0) g/dL RDW Std Deviation 45.9 (28.0-62.0) fl RDW Coeff of Janeth 14 (11.0-15.0) % Plt Count 307 (150-400) K/uL MPV 9.50 (7.40-12.00) fL Neut % (Auto) 57.7 (48.0-80.0) % Lymph % (Auto) 24.7 (16.0-40.0) % [place] % (Auto) 10.4 (0.0-15.0) % Eos % (Auto) 6.5 (0.0-7.0) % Baso % (Auto) 0.7 (0.0-1.5) % Neut # (Auto) 3.5 (1.4-5.7) K/uL Lymph # (Auto) 1.5 (0.6-2.4) K/uL [place] # (Auto) 0.6 (0.0-0.8) K/uL Eos # (Auto) 0.4 (0.0-0.7) K/uL Baso # (Auto) 0.0 (0.0-0.1) K/uL Nucleated RBC % 0.0 /100WBC Nucleated RBCs # 0 K/uL Sodium 142 (136-148) mmol/L Potassium 4.5 (3.5-5.1) mmol/L Chloride 110 H (98-107) mmol/L Carbon Dioxide 26.8 (21.0-32.0) mmol/L BUN 8 (7.0-18.0) mg/dL Creatinine 1.0 (0.8-1.3) mg/dL Est Cr Clr Drug Dosing 74.33 mL/min Estimated GFR (MDRD) > 60.0 ml/min Glucose 88 (74-106) mg/dL Calcium 8.2 L (8.5-10.1) mg/dL Med Orders - Current: Current Medications Acetaminophen (Tylenol Extra Strength) 500 mg PO Q6H PRN PRN Reason: Headache Last Admin: 12/30/18 15:57 Dose: 500 mg Hydrocodone Bitart/Acetaminophen ([place] 325-5 Mg) 1 tab PO Q6H PRN PRN Reason: Pain Last Admin: 12/30/18 23:58 Dose: 1 tab Albuterol/Ipratropium (Duoneb 3.0-0.5 Mg/3 Ml) 3 ml NEB Q4HRRT PRN PRN Reason: Shortness Of Breath/wheezing Last Admin: 12/29/18 04:13 Dose: 3 ml Amlodipine Besylate (Norvasc) 5 mg PO DAILY [facility] Last Admin: 12/31/18 08:23 Dose: 5 mg Benzonatate (Tessalon Perles) 100 mg PO TID PRN PRN Reason: Cough Last Admin: 12/31/18 08:23 Dose: 100 mg Cyanocobalamin (Vitamin B12) 1,000 mcg PO DAILY [facility] Last Admin: 12/30/18 09:08 Dose: 1,000 mcg Daptomycin 700 mg/ Sodium (Chloride) 14 mls @ 420 mls/hr IV Q24H [facility] Last Admin: 12/30/18 11:27 Dose: 420 mls/hr Lactated Ringer's (Ringers, Lactated) 1,000 mls @ 75 mls/hr IV ASDIRECTED [facility] Last Admin: 12/31/18 00:01 Dose: 75 mls/hr Pantoprazole Sodium 40 mg/ (Sodium Chloride) 10 mls @ 300 mls/hr IV BIDAC [facility] Last Admin: 12/31/18 06:34 Dose: 300 mls/hr Ketorolac Tromethamine (Toradol) 30 mg IV Q6H PRN PRN Reason: Pain (moderate 4-6) Last Admin: 12/30/18 14:29 Dose: 30 mg Multivitamins/Minerals (Thera M Plus) 1 tab PO DAILY [facility] Last Admin: 12/30/18 08:17 Dose: 1 tab Ondansetron HCl (Zofran) 4 mg IVPUSH Q4H PRN PRN Reason: Nausea/Vomiting Last Admin: 12/29/18 09:25 Dose: 4 mg Discontinued Medications Albuterol (Proventil Neb Soln) 2.5 mg NEB ONETIME PRN PRN Reason: Wheezing Allopurinol (Zyloprim) 300 mg PO DAILY [facility] Atropine Sulfate (Atropine 0.1 Mg/Ml) 0.5 mg IVPUSH ASDIRECTED PRN PRN Reason: Hypo-perfusion Atropine Sulfate (Atropine 0.1 Mg/Ml) 1 mg IVPUSH ASDIRECTED PRN PRN Reason: Hypo-Perfusion Bupivacaine HCl (Marcaine 0.5%) Confirm Administered Dose 30 ml .ROUTE .STK-MED ONE Stop: 12/28/18 11:43 Calcium Carbonate/Glycine (Tums) 1,000 mg PO ONETIME ONE Stop: 12/25/18 12:09 Last Admin: 12/25/18 13:24 Dose: 1,000 mg Daptomycin (Cubicin) 700 mg IV Q24H [facility] Dextrose/Water (Dextrose 50% In Water) 50 ml IVPUSH ASDIRECTED PRN PRN Reason: Hypoglycemia Epinephrine HCl (Epinephrine 1:10,000) 1 mg IVPUSH ASDIRECTED PRN PRN Reason: ACLS Guidelines Fentanyl (Fentanyl) 50 mcg IVPUSH ONETIME ONE Stop: 12/28/18 10:45 Last Admin: 12/28/18 12:01 Dose: Not Given Fentanyl (Sublimaze) 50 mcg IVPUSH ONETIME ONE Stop: 12/28/18 11:31 Last Admin: 12/28/18 11:31 Dose: 50 mcg Fentanyl (Sublimaze) Confirm Administered Dose 100 mcg .ROUTE .STK-MED ONE Stop: 12/28/18 11:41 Fentanyl (Sublimaze) 50 mcg IVPUSH Q5M PRN PRN Reason: Pain Hydromorphone HCl (Dilaudid) 1 mg IVPUSH ONETIME ONE Stop: 12/24/18 15:04 Last Admin: 12/24/18 15:11 Dose: 1 mg Sodium Chloride (Normal Saline) 1,000 mls @ 999 mls/hr IV STAT ONE Stop: 12/24/18 14:28 Last Admin: 12/24/18 14:15 Dose: 999 mls/hr Vancomycin HCl 1 gm/ Sodium (Chloride) 250 mls @ 166 mls/hr IV ONETIME ONE Stop: 12/24/18 14:58 Last Admin: 11/17/19 14:19 Dose: 166 mls/hr Sodium Chloride (Normal Saline) 1,000 mls @ 100 mls/hr IV ASDIRECTED [facility] Last Admin: 12/26/18 07:21 Dose: 100 mls/hr Vancomycin HCl 1.25 gm/ Sodium (Chloride) 250 mls @ 250 mls/hr IV Q12H [facility] Last Admin: 12/26/18 01:19 Dose: 250 mls/hr Clindamycin Phosphate 900 mg/ (Premix) 50 mls @ 100 mls/hr IV ONETIME ONE Stop: 12/24/18 16:44 Last Admin: 12/24/18 16:22 Dose: 100 mls/hr Clindamycin Phosphate 300 mg/ (Premix) 50 mls @ 100 mls/hr IV Q8H [facility] Last Admin: 12/25/18 09:01 Dose: 100 mls/hr Cefepime HCl 2 gm/ Premix 50 mls @ 100 mls/hr IV Q8H [facility] Last Admin: 12/26/18 02:36 Dose: 100 mls/hr Vancomycin HCl 1 gm/ Sodium (Chloride) 250 mls @ 166 mls/hr IV Q12H [facility] Last Admin: 12/26/18 02:35 Dose: Not Given Vancomycin HCl 1.25 gm/ Sodium (Chloride) 250 mls @ 250 mls/hr IV Q12H [facility] Sodium Chloride (Normal Saline) 1,000 mls @ 75 mls/hr IV ASDIRECTED [facility] Last Admin: 12/29/18 20:54 Dose: 75 mls/hr Sodium Chloride (Normal Saline) Confirm Administered Dose 20 mls @ as directed .ROUTE .STK-MED ONE Stop: 12/28/18 12:36 Iopamidol (Isovue Multipack-370 (76%)) 100 ml IVPUSH ONETIME STA Stop: 12/29/18 12:47 Last Admin: 12/29/18 12:47 Dose: 100 ml Lidocaine (Xylocaine-Mpf 2%) Confirm Administered Dose 5 ml .ROUTE .STK-MED ONE Stop: 12/28/18 11:41 Metronidazole (Metronidazole) 500 mg PO Q8H [facility] Last Admin: 12/27/18 03:45 Dose: 500 mg Midazolam HCl (Versed 1 Mg/Ml) Confirm Administered Dose 2 mg .ROUTE .STK-MED ONE Stop: 12/28/18 11:41 Morphine Sulfate (Morphine) 2 mg IVPUSH Q4H PRN PRN Reason: Pain (severe 7-10) Stop: 12/25/18 15:01 Last Admin: 12/25/18 04:26 Dose: 2 mg Naloxone HCl (Narcan) 0.1 mg IVPUSH ASDIRECTED PRN PRN Reason: Respiratory Depression Potassium Chloride (Klor-Con M20) 40 meq PO ONETIME STA Stop: 12/25/18 12:08 Last Admin: 12/25/18 13:23 Dose: 40 meq Propofol (Diprivan 20 Ml) Confirm Administered Dose 200 mg .ROUTE .STK-MED ONE Stop: 12/28/18 11:41 Vancomycin HCl (Pharmacy To Dose - Vancomycin) 1 dose .XX ASDIRECTED [facility] - Problem List & Annotations (1) Cellulitis SNOMED Code(s): 977072324 Code(s): L03.90 - CELLULITIS, UNSPECIFIED Status: Acute Current Visit: Yes Qualifiers: Site of cellulitis of extremity: toe Laterality: left (2) HTN (hypertension) SNOMED Code(s): 17994022 Code(s): I10 - ESSENTIAL (PRIMARY) HYPERTENSION Status: Acute Current Visit: Yes - My Orders Last 24 Hours: My Active Orders 12/30/18 23:15 Pantoprazole [ProTONIX IV] 40 mg Sodium Chloride 0.9% [Normal Saline] 10 ml IV BIDAC - Plan Plan:: I have seen and examined the patient, i have discussed the management plan with the resident and agree with the documentation unless specified otherwise in my note.
[2018-12-26] MEDS: Cefepime 2 GM in Premix Bag 1 BAG IV SCH (02:36)
[2018-12-26] MEDS: metroNIDAZOLE 250 MG Tab PO SCH ×3 (03:45→20:12)
[2018-12-26] MEDS: Sodium Chloride 0.9% 1,000 ML IV SCH (07:21)
[2018-12-26] MEDS: Ketorolac 30 MG/ML SDV IV PRN ×3 (07:33→22:25)
[2018-12-26 07:52] LABS: CARBON DIOXIDE,CO2 26.2 mmol/L (21.0-32.0); POTASSIUM,K 4.5 mmol/L (3.5-5.1)
[2018-12-26] MEDS: Multivitamins with Iron/Calcium/Folic Acid/Minerals Tab PO SCH (10:24)
[2018-12-26] MEDS: amLODIPine 5 MG Tab PO SCH (10:25)
[2018-12-26] MEDS ORDERED: SODIUM CHLORIDE 0.9% IV SCH (10:30)
[2018-12-26] MEDS ORDERED: DAPTOMYCIN IV SCH (10:30)
[2018-12-26] MEDS ORDERED: DAPTOmycin 500 MG Vial IV SCH (10:30)
[2018-12-26] MEDS: SODIUM CHLORIDE 0.9% IV SCH (11:14)
[2018-12-26] MEDS: DAPTOMYCIN IV SCH (11:14)
--- NOTE | 2018-12-26 11:52 | PCM.PN ---
- General Info Date of Service: 12/26/18 Subjective Update: Patient notes that his left leg swelling and redness has only minimally improved since yesterday. Denies any pain, fevers, shortness of breath. - Patient Data Vitals - Most Recent: Last Vital Signs Temp 97.6 F 12/26/18 08:00 Pulse 69 12/26/18 08:00 Resp 16 12/26/18 08:00 BP 130/60 12/26/18 10:25 Pulse Ox 94 L 12/26/18 08:00 Weight - Most Recent: 242 lb I&O - Last 24 Hours: Intake & Output 12/25/18 12/26/18 12/26/18 22:59 06:59 14:59 Intake Total 900 1520 684 Output Total 960 1950 Balance -60 -430 684 Lab Results Last 24 Hours: Laboratory Results - last 24 hr 12/26/18 12/26/18 12/26/18 Range/Units 01:30 07:31 07:31 WBC 7.85 (4.0-11.0) K/uL RBC 4.45 L (4.50-5.90) M/uL Hgb 13.2 (13.0-17.0) g/dL Hct 40.6 (38.0-50.0) % MCV 91.2 (80.0-98.0) fL MCH 29.7 (27.0-32.0) pg MCHC 32.5 (31.0-37.0) g/dL RDW Std Deviation 45.2 (28.0-62.0) fl RDW Coeff of Janeth 14 (11.0-15.0) % Plt Count 260 (150-400) K/uL MPV 9.40 (7.40-12.00) fL Neut % (Auto) 74.2 (48.0-80.0) % Lymph % (Auto) 11.8 L (16.0-40.0) % [place] % (Auto) 8.3 (0.0-15.0) % Eos % (Auto) 5.2 (0.0-7.0) % Baso % (Auto) 0.5 (0.0-1.5) % Neut # (Auto) 5.8 H (1.4-5.7) K/uL Lymph # (Auto) 0.9 (0.6-2.4) K/uL [place] # (Auto) 0.7 (0.0-0.8) K/uL Eos # (Auto) 0.4 (0.0-0.7) K/uL Baso # (Auto) 0.0 (0.0-0.1) K/uL Nucleated RBC % 0.0 /100WBC Nucleated RBCs # 0 K/uL Sodium 143 (136-148) mmol/L Potassium 4.5 (3.5-5.1) mmol/L Chloride 111 H (98-107) mmol/L Carbon Dioxide 26.2 (21.0-32.0) mmol/L BUN 15 (7.0-18.0) mg/dL Creatinine 1.2 (0.8-1.3) mg/dL Est Cr Clr Drug Dosing 61.94 mL/min Estimated GFR (MDRD) 59.9 ml/min Glucose 100 (74-106) mg/dL Calcium 8.4 L (8.5-10.1) mg/dL Vancomycin Trough 19.4 H (5.0-10.0) ug/mL Percy Results Last 24 Hours: Microbiology 12/24/18 15:41 MRSA Culture - Final Nares, Right (Mrsa) Staphylococcus Aureus 12/24/18 15:22 Wound Culture - Final Metatarsal, Left (Mrsa) Staphylococcus Aureus Normal Urogenital Carly 12/24/18 14:10 Aerobic Blood Culture - Preliminary Blood - Venous NO GROWTH AFTER 1 DAY Anaerobic Blood Culture - Final 12/24/18 14:05 Aerobic Blood Culture - Preliminary Blood - Venous - Lab Draw NO GROWTH AFTER 1 DAY Anaerobic Blood Culture - Preliminary NO GROWTH AFTER 1 DAY Med Orders - Current: Current Medications Albuterol/Ipratropium (Duoneb 3.0-0.5 Mg/3 Ml) 3 ml NEB Q4HRRT PRN PRN Reason: Shortness Of Breath/wheezing Amlodipine Besylate (Norvasc) 5 mg PO DAILY [facility] Last Admin: 12/26/18 10:25 Dose: 5 mg Daptomycin 700 mg/ Sodium (Chloride) 14 mls @ 420 mls/hr IV Q24H [facility] Last Admin: 12/26/18 11:14 Dose: 420 mls/hr Ketorolac Tromethamine (Toradol) 30 mg IV Q6H PRN PRN Reason: Pain (moderate 4-6) Last Admin: 12/26/18 07:33 Dose: 30 mg Metronidazole (Metronidazole) 500 mg PO Q8H [facility] Last Admin: 12/26/18 03:45 Dose: 500 mg Multivitamins/Minerals (Thera M Plus) 1 tab PO DAILY [facility] Last Admin: 12/26/18 10:24 Dose: 1 tab Ondansetron HCl (Zofran) 4 mg IVPUSH Q4H PRN PRN Reason: Nausea/Vomiting Discontinued Medications Allopurinol (Zyloprim) 300 mg PO DAILY [facility] Calcium Carbonate/Glycine (Tums) 1,000 mg PO ONETIME ONE Stop: 12/25/18 12:09 Last Admin: 12/25/18 13:24 Dose: 1,000 mg Daptomycin (Cubicin) 700 mg IV Q24H [facility] Hydromorphone HCl (Dilaudid) 1 mg IVPUSH ONETIME ONE Stop: 12/24/18 15:04 Last Admin: 12/24/18 15:11 Dose: 1 mg Sodium Chloride (Normal Saline) 1,000 mls @ 999 mls/hr IV STAT ONE Stop: 12/24/18 14:28 Last Admin: 12/24/18 14:15 Dose: 999 mls/hr Vancomycin HCl 1 gm/ Sodium (Chloride) 250 mls @ 166 mls/hr IV ONETIME ONE Stop: 12/24/18 14:58 Last Admin: 12/24/18 14:19 Dose: 166 mls/hr Sodium Chloride (Normal Saline) 1,000 mls @ 100 mls/hr IV ASDIRECTED [facility] Last Admin: 12/26/18 07:21 Dose: 100 mls/hr Vancomycin HCl 1.25 gm/ Sodium (Chloride) 250 mls @ 250 mls/hr IV Q12H [facility] Last Admin: 12/26/18 01:19 Dose: 250 mls/hr Clindamycin Phosphate 900 mg/ (Premix) 50 mls @ 100 mls/hr IV ONETIME ONE Stop: 12/24/18 16:44 Last Admin: 12/24/18 16:22 Dose: 100 mls/hr Clindamycin Phosphate 300 mg/ (Premix) 50 mls @ 100 mls/hr IV Q8H [facility] Last Admin: 12/25/18 09:01 Dose: 100 mls/hr Cefepime HCl 2 gm/ Premix 50 mls @ 100 mls/hr IV Q8H [facility] Last Admin: 12/26/18 02:36 Dose: 100 mls/hr Vancomycin HCl 1 gm/ Sodium (Chloride) 250 mls @ 166 mls/hr IV Q12H [facility] Last Admin: 12/26/18 02:35 Dose: Not Given Vancomycin HCl 1.25 gm/ Sodium (Chloride) 250 mls @ 250 mls/hr IV Q12H [facility] Morphine Sulfate (Morphine) 2 mg IVPUSH Q4H PRN PRN Reason: Pain (severe 7-10) Stop: 12/25/18 15:01 Last Admin: 12/25/18 04:26 Dose: 2 mg Potassium Chloride (Klor-Con M20) 40 meq PO ONETIME STA Stop: 12/25/18 12:08 Last Admin: 12/25/18 13:23 Dose: 40 meq Vancomycin HCl (Pharmacy To Dose - Vancomycin) 1 dose .XX ASDIRECTED [facility] - Exam General: No Acute Distress Lungs: Clear to Auscultation Cardiovascular: Regular Rate, Regular Rhythm Extremities: Other (Left foot edema and erythema minimally changed since previous exam. Warm to touch, no ttp.) - Problem List & Annotations (1) Hypokalemia SNOMED Code(s): 23892578 Code(s): E87.6 - HYPOKALEMIA Status: Acute Current Visit: Yes (2) Hypocalcemia SNOMED Code(s): 1852305 Code(s): E83.51 - HYPOCALCEMIA Status: Acute Current Visit: Yes (3) Cellulitis SNOMED Code(s): 402339495 Code(s): L03.90 - CELLULITIS, UNSPECIFIED Status: Acute Current Visit: Yes (4) HTN (hypertension) SNOMED Code(s): 01917547 Code(s): I10 - ESSENTIAL (PRIMARY) HYPERTENSION Status: Acute Current Visit: Yes - Problem List Review Problem List Initiated/Reviewed/Updated: Yes - My Orders Last 24 Hours: My Active Orders 12/25/18 12:15 metroNIDAZOLE 500 mg PO Q8H 12/26/18 11:06 [facility] [Consult to Wound Care Services] [CONS] Routine - Assessment Assessment:: Assessment: 1. Cellulitis of left lower extremity. 2. Hypertension. 3. Hematuria, chronic. 4. Hypokalemia, resolved 5. Hypocalcemia, resolved. 6. Leukocytosis, resolved. 7. Past medical history of peripheral neuropathy. Plan: 1. For cellulitis, will start IV daptomycin. Wound culture growing MRSA. Blood culture negative. X-ray showed no bone involvement. Will also consult wound care. 2. For hypertension, continue amlodipine 5 mg PO qd. 3. For chronic hematuria, will require rescheduling of CT abd/pelvis with hematuria protocol and follow-up with urology.
[2018-12-27] MEDS: metroNIDAZOLE 250 MG Tab PO SCH (03:45)
[2018-12-27 05:22] LABS: BLOOD UREA NITROGEN,BUN 18 mg/dL (7.0-18.0); CARBON DIOXIDE,CO2 22.4 mmol/L (21.0-32.0); CHLORIDE,CL 109 mmol/L (98-107); GLUCOSE RANDOM 94 mg/dL (74-106); POTASSIUM,K 4.2 mmol/L (3.5-5.1); SODIUM,NA 142 mmol/L (136-148)
[2018-12-27] MEDS: Multivitamins with Iron/Calcium/Folic Acid/Minerals Tab PO SCH (09:15)
[2018-12-27] MEDS: amLODIPine 5 MG Tab PO SCH (09:15)
[2018-12-27] MEDS: Ketorolac 30 MG/ML SDV IV PRN ×2 (09:16→16:58)
[2018-12-27] MEDS: DAPTOMYCIN IV SCH (11:44)
[2018-12-27] MEDS: SODIUM CHLORIDE 0.9% IV SCH (11:44)
--- NOTE | 2018-12-27 15:15 | PCM.PN ---
- General Info Date of Service: 12/27/18 Subjective Update: Patient reports having diarrhea overnight. Reports that swelling and redness of left foot has improved since yesterday. Denies fevers, chills, nausea or vomiting. - Patient Data Vitals - Most Recent: Last Vital Signs Temp 98.6 F 12/27/18 12:00 Pulse 62 12/27/18 12:00 Resp 18 12/27/18 12:00 BP 129/64 12/27/18 12:00 Pulse Ox 96 12/27/18 12:00 Weight - Most Recent: 242 lb I&O - Last 24 Hours: Intake & Output 12/27/18 12/27/18 12/27/18 06:59 14:59 22:59 Intake Total 940 Output Total 1050 Balance -110 Lab Results Last 24 Hours: Laboratory Results - last 24 hr 12/27/18 12/27/18 Range/Units 04:40 04:40 WBC 8.86 (4.0-11.0) K/uL RBC 4.41 L (4.50-5.90) M/uL Hgb 13.3 (13.0-17.0) g/dL Hct 40.0 (38.0-50.0) % MCV 90.7 (80.0-98.0) fL MCH 30.2 (27.0-32.0) pg MCHC 33.3 (31.0-37.0) g/dL RDW Std Deviation 44.5 (28.0-62.0) fl RDW Coeff of Janeth 14 (11.0-15.0) % Plt Count 289 (150-400) K/uL MPV 9.50 (7.40-12.00) fL Neut % (Auto) 73.5 (48.0-80.0) % Lymph % (Auto) 12.6 L (16.0-40.0) % [place] % (Auto) 9.0 (0.0-15.0) % Eos % (Auto) 4.3 (0.0-7.0) % Baso % (Auto) 0.6 (0.0-1.5) % Neut # (Auto) 6.5 H (1.4-5.7) K/uL Lymph # (Auto) 1.1 (0.6-2.4) K/uL [place] # (Auto) 0.8 (0.0-0.8) K/uL Eos # (Auto) 0.4 (0.0-0.7) K/uL Baso # (Auto) 0.1 (0.0-0.1) K/uL Nucleated RBC % 0.0 /100WBC Nucleated RBCs # 0 K/uL Sodium 142 (136-148) mmol/L Potassium 4.2 (3.5-5.1) mmol/L Chloride 109 H (98-107) mmol/L Carbon Dioxide 22.4 (21.0-32.0) mmol/L BUN 18 (7.0-18.0) mg/dL Creatinine 1.1 (0.8-1.3) mg/dL Est Cr Clr Drug Dosing 67.57 mL/min Estimated GFR (MDRD) > 60.0 ml/min Glucose 94 (74-106) mg/dL Calcium 8.4 L (8.5-10.1) mg/dL Total Bilirubin 0.5 (0.2-1.0) mg/dL AST 25 (15-37) IU/L ALT 14 (14-63) IU/L Alkaline Phosphatase 83 (46-116) U/L Total Protein 6.6 (6.4-8.2) g/dL Albumin 2.4 L (3.4-5.0) g/dL Globulin 4.2 H (2.6-4.0) g/dL Albumin/Globulin Ratio 0.6 L (0.9-1.6) Percy Results Last 24 Hours: Microbiology 12/24/18 14:10 Aerobic Blood Culture - Preliminary Blood - Venous NO GROWTH AFTER 3 DAYS Anaerobic Blood Culture - Final 12/24/18 14:05 Aerobic Blood Culture - Preliminary Blood - Venous - Lab Draw NO GROWTH AFTER 3 DAYS Anaerobic Blood Culture - Preliminary NO GROWTH AFTER 3 DAYS 12/27/18 08:10 C. difficile Antigen & Toxins A,B - Final Stool / Feces Med Orders - Current: Current Medications Albuterol/Ipratropium (Duoneb 3.0-0.5 Mg/3 Ml) 3 ml NEB Q4HRRT PRN PRN Reason: Shortness Of Breath/wheezing Amlodipine Besylate (Norvasc) 5 mg PO DAILY [facility] Last Admin: 12/27/18 09:15 Dose: 5 mg Daptomycin 700 mg/ Sodium (Chloride) 14 mls @ 420 mls/hr IV Q24H [facility] Last Admin: 12/27/18 11:44 Dose: 420 mls/hr Ketorolac Tromethamine (Toradol) 30 mg IV Q6H PRN PRN Reason: Pain (moderate 4-6) Last Admin: 12/27/18 09:16 Dose: 30 mg Multivitamins/Minerals (Thera M Plus) 1 tab PO DAILY [facility] Last Admin: 12/27/18 09:15 Dose: 1 tab Ondansetron HCl (Zofran) 4 mg IVPUSH Q4H PRN PRN Reason: Nausea/Vomiting Discontinued Medications Allopurinol (Zyloprim) 300 mg PO DAILY [facility] Calcium Carbonate/Glycine (Tums) 1,000 mg PO ONETIME ONE Stop: 12/25/18 12:09 Last Admin: 12/25/18 13:24 Dose: 1,000 mg Daptomycin (Cubicin) 700 mg IV Q24H [facility] Hydromorphone HCl (Dilaudid) 1 mg IVPUSH ONETIME ONE Stop: 12/24/18 15:04 Last Admin: 12/24/18 15:11 Dose: 1 mg Sodium Chloride (Normal Saline) 1,000 mls @ 999 mls/hr IV STAT ONE Stop: 12/24/18 14:28 Last Admin: 12/24/18 14:15 Dose: 999 mls/hr Vancomycin HCl 1 gm/ Sodium (Chloride) 250 mls @ 166 mls/hr IV ONETIME ONE Stop: 12/24/18 14:58 Last Admin: 12/24/18 14:19 Dose: 166 mls/hr Sodium Chloride (Normal Saline) 1,000 mls @ 100 mls/hr IV ASDIRECTED [facility] Last Admin: 12/26/18 07:21 Dose: 100 mls/hr Vancomycin HCl 1.25 gm/ Sodium (Chloride) 250 mls @ 250 mls/hr IV Q12H [facility] Last Admin: 12/26/18 01:19 Dose: 250 mls/hr Clindamycin Phosphate 900 mg/ (Premix) 50 mls @ 100 mls/hr IV ONETIME ONE Stop: 12/24/18 16:44 Last Admin: 12/24/18 16:22 Dose: 100 mls/hr Clindamycin Phosphate 300 mg/ (Premix) 50 mls @ 100 mls/hr IV Q8H [facility] Last Admin: 12/25/18 09:01 Dose: 100 mls/hr Cefepime HCl 2 gm/ Premix 50 mls @ 100 mls/hr IV Q8H [facility] Last Admin: 12/26/18 02:36 Dose: 100 mls/hr Vancomycin HCl 1 gm/ Sodium (Chloride) 250 mls @ 166 mls/hr IV Q12H [facility] Last Admin: 12/26/18 02:35 Dose: Not Given Vancomycin HCl 1.25 gm/ Sodium (Chloride) 250 mls @ 250 mls/hr IV Q12H [facility] Metronidazole (Metronidazole) 500 mg PO Q8H [facility] Last Admin: 12/27/18 03:45 Dose: 500 mg Morphine Sulfate (Morphine) 2 mg IVPUSH Q4H PRN PRN Reason: Pain (severe 7-10) Stop: 12/25/18 15:01 Last Admin: 12/25/18 04:26 Dose: 2 mg Potassium Chloride (Klor-Con M20) 40 meq PO ONETIME STA Stop: 12/25/18 12:08 Last Admin: 12/25/18 13:23 Dose: 40 meq Vancomycin HCl (Pharmacy To Dose - Vancomycin) 1 dose .XX ASDIRECTED [facility] - Exam General: Alert, Oriented, Cooperative, No Acute Distress Lungs: Clear to Auscultation Cardiovascular: Regular Rate, Regular Rhythm Skin: Other (edema and erythema of left foot shows significant interval improvement. not warm to touch, non-tender to palpation.) - Problem List & Annotations (1) Hypokalemia SNOMED Code(s): 10594494 Code(s): E87.6 - HYPOKALEMIA Status: Acute Current Visit: Yes (2) Hypocalcemia SNOMED Code(s): 0610001 Code(s): E83.51 - HYPOCALCEMIA Status: Acute Current Visit: Yes (3) Cellulitis SNOMED Code(s): 866718190 Code(s): L03.90 - CELLULITIS, UNSPECIFIED Status: Acute Current Visit: Yes (4) HTN (hypertension) SNOMED Code(s): 08840604 Code(s): I10 - ESSENTIAL (PRIMARY) HYPERTENSION Status: Acute Current Visit: Yes - Problem List Review Problem List Initiated/Reviewed/Updated: Yes - My Orders Last 24 Hours: My Active Orders 12/27/18 14:25 Foot w wo Cont Lt [MR] Urgent - Assessment Assessment:: Assessment: 1. Cellulitis of left lower extremity. 2. Hypertension. 3. Hematuria, chronic. 4. Hypokalemia, resolved 5. Hypocalcemia, resolved. 6. Leukocytosis, resolved. 7. Past medical history of peripheral neuropathy. Plan: 1. For cellulitis, continue IV daptomycin. Wound culture growing MRSA. Blood culture negative. X-ray showed no bone involvement. MRI is pending. Orthopedic surgery consulted and recommended keeping patient NPO at midnight and to get wound care to place wound vac. 2. For hypertension, continue amlodipine 5 mg PO qd. 3. For chronic hematuria, will require rescheduling of CT abd/pelvis with hematuria protocol and follow-up with urology outpatient.
--- NOTE | 2018-12-27 17:28 | MR ---
HISTORY: Left foot wound. TECHNIQUE: Axial, sagittal and coronal T1, proton density, proton density fat-sat, stir and postcontrast T1 images with fat saturation were obtained of the left foot. COMPARISON: Radiographs 12/24/2018. FINDINGS: There is a soft tissue wound involving the plantar medial aspect of the forefoot present at approximately the proximal phalangeal level of the great toe. Soft tissue tract extends towards the distal margin of the medial sesamoid. There is associated underlying soft tissue signal abnormality and enhancement compatible with cellulitis. There is no localized soft tissue fluid collection. First MTP joint degenerative changes are present with high-grade cartilage loss, minor effusion and synovitis. There is bone marrow edema and increased enhancement involving the 1st metatarsal head and 1st digit proximal phalanx. Bone marrow edema is also noted within the medial greater than lateral sesamoid bones. There is only partial effacement of the fatty marrow signal within the medial sesamoid bone as seen on axial T1 precontrast image #23 of series 301. Without complete effacement of the fatty marrow signal, the changes are not specific for osteomyelitis and the differential includes both limited area of osteomyelitis or reactive marrow changes. No definite osteomyelitis of the 1st metatarsal head, 1st digit proximal phalanx or lateral sesamoid bone as the fatty marrow is maintained within those bones on the precontrast T1 images. - There is generalized soft tissue edema involving the foot. Atrophy of the foot musculature compatible with chronic denervation changes. No acute fracture. Plantar calcaneal spur. Thickening of proximal plantar fascia. IMPRESSION: 1. Soft tissue wound involving the plantar medial aspect of the forefoot present at approximately the great toe proximal phalangeal level. There is associated cellulitis without a well-defined fluid collection. A soft tissue tract extends from the region of the ulcer towards the distal margin of the medial sesamoid bone. 2. Abnormal marrow signal within the medial sesamoid bone for which osteomyelitis is not excluded. Without complete effacement of the fatty marrow signal, the changes are not specific for osteomyelitis and the differential includes both limited area of osteomyelitis or reactive marrow changes. 3. The marrow changes involving the 1st metatarsal head, lateral sesamoid bone and 1st digit proximal phalanx are likely degenerative or reactive. 4. First MTP joint degenerative changes with minor effusion and synovitis. Dictated by Imtiaz Luke MD @ Dec 28 2018 6:57AM Signed by Dr. Imtiaz Luke @ Dec 28 2018 7:10AM
[2018-12-28] MEDS: Ketorolac 30 MG/ML SDV IV PRN ×3 (00:21→17:03)
--- NOTE | 2018-12-28 05:39 | PCM.CONS ---
H&P History of Present Illness - General Date of Service: 12/27/18 Admit Problem/Dx: Admission Diagnosis/Problem Admission Diagnosis/Problem Cellulitis with abscess left foot medial to big toe Source of Information: Patient, Provider, RN History Limitations: Reports: No Limitations - History of Present Illness Onset of Symptoms: Reports: Gradual Duration of Symptoms: Reports: Day(s): Location: Reports: Lower Extremity, Left Quality: Reports: Burning, Dull, Pressure Severity: Moderate Improves with: Reports: Immobilization Worsens with: Reports: Movement Associated Symptoms: Reports: No Other Symptoms left foot Pain Score (Numeric/FACES): 2 - Related Data Allergies/Adverse Reactions: Allergies Allergy/AdvReac Type Severity Reaction Status Date / Time Penicillins Allergy Other Verified 12/24/18 15:46 Home Medications: Home Meds Allopurinol [Zyloprim] 1 tab PO DAILY 12/24/18 [History] Cyanocobalamin (Vitamin B12) [Vitamin B12] 1 tab PO DAILY 12/24/18 [History] Multivit-Min/FA/Lycopen/Lutein [Centrum Silver Tablet] 1 tab PO DAILY 12/24/18 [ History] Multivitamin [Multivitamins] 1 each PO DAILY 12/24/18 [History] Triamterene/Hydrochlorothiazid [Triamterene-HCTZ 37.5-25 MG] 1 tab PO DAILY [History] Past Medical History HEENT History: Reports: None Cardiovascular History: Reports: Hypertension Respiratory History: Reports: Sleep Apnea Gastrointestinal History: Reports: None Genitourinary History: Reports: None Musculoskeletal History: Reports: Amputation Other Musculoskeletal History: tip of right middle finger Neurological History: Reports: None Psychiatric History: Reports: None Endocrine/Metabolic History: Reports: Obesity/BMI 30+ Hematologic History: Reports: B12 Deficiency Immunologic History: Reports: None Oncologic (Cancer) History: Reports: None Dermatologic History: Reports: None - Infectious Disease History Infectious Disease History: Reports: Chicken Pox, Measles - Past Surgical History Head Surgeries/Procedures: Reports: None Social & Family History - Family History Family Medical History: Noncontributory - Tobacco Use Smoking Status *Q: Never Smoker - Caffeine Use Caffeine Use: Reports: Coffee - Alcohol Use Days Per Week of Alcohol Use: 7 Number of Drinks Per Day: 6 Total Drinks Per Week: 42 Date of Last Drink: 12/23/18 - Recreational Drug Use Recreational Drug Use: No H&P Review of Systems - Review of Systems: Review Of Systems: See Below General: Reports: No Symptoms HEENT: Reports: No Symptoms Pulmonary: Reports: No Symptoms Cardiovascular: Reports: No Symptoms Gastrointestinal: Reports: No Symptoms Genitourinary: Reports: No Symptoms Musculoskeletal: Reports: Foot Pain, Joint Pain Skin: Reports: No Symptoms Psychiatric: Reports: No Symptoms Neurological: Reports: No Symptoms Hematologic/Lymphatic: Reports: No Symptoms Immunologic: Reports: No Symptoms Exam - Exam Exam: See Below - Vital Signs Vital Signs: Last Vital Signs Temp 36.9 C 12/28/18 04:00 Pulse 65 12/28/18 04:00 Resp 18 12/28/18 04:00 BP 118/64 12/28/18 04:00 Pulse Ox 93 L 12/28/18 04:00 Weight: 109.769 kg - Exam General: Alert, Oriented, Cooperative HEENT: Conjunctiva Clear, Hearing Intact, Mucosa Moist & Vermilion, Pupils Equal, Pupils Reactive Neck: Supple, Trachea Midline Lungs: Normal Respiratory Effort GI/Abdominal Exam: No Distention Extremities: Leg Pain, Limited Range of Motion, Increased Warmth Peripheral Pulses: 2+: Posterior Tibial (L), Dorsalis Pedis (L) Skin: Ecchymosis, Wound Neuro Extensive - Mental Status: Alert, Oriented x3, Normal Mood/Affect, Normal Cognition, Memory Intact Psychiatric: Alert, Normal Affect, Normal Mood - Patient Data Result Diagrams: 12/27/18 04:40 12/27/18 04:40 Percy Results Last 24 hrs: Microbiology 12/24/18 14:10 Aerobic Blood Culture - Preliminary Blood - Venous NO GROWTH AFTER 3 DAYS Anaerobic Blood Culture - Final 12/24/18 14:05 Aerobic Blood Culture - Preliminary Blood - Venous - Lab Draw NO GROWTH AFTER 3 DAYS Anaerobic Blood Culture - Preliminary NO GROWTH AFTER 3 DAYS 12/27/18 08:10 C. difficile Antigen & Toxins A,B - Final Stool / Feces Consult PN Assessment/Plan POD#: 0 Procedures: Procedures ASSAY OF BLOOD/URIC ACID (05/27/17) ASSAY THYROID STIM HORMONE (05/27/17) COMPLETE CBC W/AUTO DIFF WBC (05/27/17) COMPREHEN METABOLIC PANEL (05/27/17) EMERGENCY DEPT VISIT (06/06/16) LIPID PANEL (05/27/17) OFFICE/OUTPATIENT VISIT EST (05/27/17) ORGANIC ACID SINGLE QUANT (05/20/16) PROTEIN E-PHORESIS SERUM (05/20/16) ROUTINE VENIPUNCTURE (05/27/17) THER/PROPH/DIAG IV INF ADDON (06/06/17) THER/PROPH/DIAG IV INF INIT (06/06/17) VIT D 1 25-DIHYDROXY (05/27/17) VITAMIN B-12 (05/20/16) Problem List Initiated/Reviewed/Updated: Yes Plan: A: 68 year old male treated for cellulitis. Wound care nurse was concerned about medial wound near great toe. P: tracked 3 cm with q tip. No pain during probe. 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 no osteomyelitis of MTP but has degenerative change To OR 12/28 at noon for I and D, wound vac placement Continue Abx IV Requesting Provider: suellen Date Consult Requested: 12/27/18 Reason for Consult: left foot abscess Patient History Reviewed: Yes Admission H&P Reviewed: Yes Notified Requestor: Yes Time Spent (in minutes): 45
[2018-12-28 05:52] LABS: BLOOD UREA NITROGEN,BUN 14 mg/dL (7.0-18.0); CARBON DIOXIDE,CO2 24.9 mmol/L (21.0-32.0); CHLORIDE,CL 110 mmol/L (98-107); GLUCOSE RANDOM 99 mg/dL (74-106); SODIUM,NA 142 mmol/L (136-148)
--- NOTE | 2018-12-28 07:17 | PCM.PREANE ---
Preanesthetic Assessment - Anesthesia/Transfusion/Family Hx Anesthesia History: Prior Anesthesia Without Reaction Family History of Anesthesia Reaction: No Transfusion History: No Prior Transfusion(s) - Physical Assessment NPO Status Date: 12/28/18 NPO Status Time: 00:05 Vital Signs: Last Vital Signs Temp 36.9 C 12/28/18 04:00 Pulse 65 12/28/18 04:00 Resp 18 12/28/18 04:00 BP 118/64 12/28/18 04:00 Pulse Ox 93 L 12/28/18 04:00 Height: 1.82 m Weight: 109.769 kg ASA Class: 2 Mental Status: Alert & Oriented x3 Dentition: Reports: Normal Dentition Cardiovascular: Regular Rate, Regular Rhythm - Lab Values: Laboratory Last Values WBC 5.41 K/uL (4.0-11.0) 12/28/18 05:18 RBC 4.56 M/uL (4.50-5.90) 12/28/18 05:18 Hgb 13.5 g/dL (13.0-17.0) 12/28/18 05:18 Hct 41.5 % (38.0-50.0) 12/28/18 05:18 MCV 91.0 fL (80.0-98.0) 12/28/18 05:18 MCH 29.6 pg (27.0-32.0) 12/28/18 05:18 MCHC 32.5 g/dL (31.0-37.0) 12/28/18 05:18 RDW Std Deviation 45.2 fl (28.0-62.0) 12/28/18 05:18 RDW Coeff of Janeth 14 % (11.0-15.0) 12/28/18 05:18 Plt Count 288 K/uL (150-400) 12/28/18 05:18 MPV 9.40 fL (7.40-12.00) 12/28/18 05:18 Neut % (Auto) 73.8 % (48.0-80.0) 12/28/18 05:18 Lymph % (Auto) 14.4 % (16.0-40.0) L 12/28/18 05:18 [place] % (Auto) 8.1 % (0.0-15.0) 12/28/18 05:18 Eos % (Auto) 3.0 % (0.0-7.0) 12/28/18 05:18 Baso % (Auto) 0.7 % (0.0-1.5) 12/28/18 05:18 Neut # (Auto) 4.0 K/uL (1.4-5.7) 12/28/18 05:18 Lymph # (Auto) 0.8 K/uL (0.6-2.4) 12/28/18 05:18 [place] # (Auto) 0.4 K/uL (0.0-0.8) 12/28/18 05:18 Eos # (Auto) 0.2 K/uL (0.0-0.7) 12/28/18 05:18 Baso # (Auto) 0.0 K/uL (0.0-0.1) 12/28/18 05:18 Nucleated RBC % 0.0 /100WBC 12/28/18 05:18 Nucleated RBCs # 0 K/uL 12/28/18 05:18 ESR 35 mm/hr (0-19) H 12/24/18 15:15 INR 0.97 12/24/18 14:10 Lactate 1.6 mmol/L (0.20-2.00) 12/24/18 14:10 Sodium 142 mmol/L (136-148) 12/28/18 05:18 Potassium 4.0 mmol/L (3.5-5.1) 12/28/18 05:18 Chloride 110 mmol/L (98-107) H 12/28/18 05:18 Carbon Dioxide 24.9 mmol/L (21.0-32.0) 12/28/18 05:18 BUN 14 mg/dL (7.0-18.0) 12/28/18 05:18 Creatinine 1.1 mg/dL (0.8-1.3) 12/28/18 05:18 Est Cr Clr Drug Dosing 67.57 mL/min 12/28/18 05:18 Estimated GFR (MDRD) > 60.0 ml/min 12/28/18 05:18 Glucose 99 mg/dL (74-106) 12/28/18 05:18 Hemoglobin A1c 5.1 % (4.5-6.2) 12/24/18 15:15 Calcium 7.8 mg/dL (8.5-10.1) L 12/28/18 05:18 Phosphorus 3.1 mg/dL (2.6-4.7) 12/25/18 06:05 Magnesium 1.9 mg/dL (1.8-2.4) 12/25/18 06:05 Total Bilirubin 0.5 mg/dL (0.2-1.0) 12/27/18 04:40 AST 25 IU/L (15-37) 12/27/18 04:40 ALT 14 IU/L (14-63) 12/27/18 04:40 Alkaline Phosphatase 83 U/L (46-116) 12/27/18 04:40 C-Reactive Protein 25.10 mg/dL (0.00-0.90) H 12/24/18 14:05 Total Protein 6.6 g/dL (6.4-8.2) 12/27/18 04:40 Albumin 2.4 g/dL (3.4-5.0) L 12/27/18 04:40 Globulin 4.2 g/dL (2.6-4.0) H 12/27/18 04:40 Albumin/Globulin Ratio 0.6 (0.9-1.6) L 12/27/18 04:40 Urine Color YELLOW 12/25/18 05:12 Urine Appearance SLT CLOUDY 12/25/18 05:12 Urine pH 6.0 (5.0-8.0) 12/25/18 05:12 Ur Specific [place] 1.010 (1.001-1.035) 12/25/18 05:12 Urine Protein NEGATIVE mg/dL (NEGATIVE) 12/25/18 05:12 Urine Glucose (UA) NEGATIVE mg/dL (NEGATIVE) 12/25/18 05:12 Urine Ketones TRACE mg/dL (NEGATIVE) H 12/25/18 05:12 Urine Occult Blood LARGE (NEGATIVE) H 12/25/18 05:12 Urine Nitrite NEGATIVE (NEGATIVE) 12/25/18 05:12 Urine Bilirubin NEGATIVE (NEGATIVE) 12/25/18 05:12 Urine Urobilinogen 2.0 EU/dL (<2.0) H 12/25/18 05:12 Ur Leukocyte Esterase NEGATIVE (NEGATIVE) 12/25/18 05:12 Urine RBC 12-18 (0-2/HPF) 12/25/18 05:12 Urine WBC 0-3 (0-5/HPF) 12/25/18 05:12 Ur Epithelial Cells OCCASIONAL (NONE-FEW) 12/25/18 05:12 Urine Bacteria RARE (NEGATIVE) 12/25/18 05:12 Vancomycin Trough 19.4 ug/mL (5.0-10.0) H 12/26/18 01:30 - Allergies Allergies/Adverse Reactions: Allergies Allergy/AdvReac Type Severity Reaction Status Date / Time Penicillins Allergy Other Verified 12/24/18 15:46 - Acknowledgements Anesthesia Type Planned: General Anesthesia Pt an Appropriate Candidate for the Planned Anesthesia: Yes Alternatives and Risks of Anesthesia Discussed w Pt/Guardian: Yes Pt/Guardian Understands and Agrees with Anesthesia Plan: Yes PreAnesthesia Questionnaire HEENT History: Reports: None Cardiovascular History: Reports: Hypertension Respiratory History: Reports: Sleep Apnea Gastrointestinal History: Reports: None Genitourinary History: Reports: None Musculoskeletal History: Reports: Amputation Other Musculoskeletal History: tip of right middle finger Neurological History: Reports: None Psychiatric History: Reports: None Endocrine/Metabolic History: Reports: Obesity/BMI 30+ Hematologic History: Reports: B12 Deficiency Immunologic History: Reports: None Oncologic (Cancer) History: Reports: None Dermatologic History: Reports: None - Infectious Disease History Infectious Disease History: Reports: Chicken Pox, Measles - Past Surgical History Head Surgeries/Procedures: Reports: None - SUBSTANCE USE Smoking Status *Q: Never Smoker Days Per Week of Alcohol Use: 7 Number of Drinks Per Day: 6 Total Drinks Per Week: 42 Date of Last Drink: 12/23/18 Recreational Drug Use History: No - HOME MEDS Home Medications: Home Meds Allopurinol [Zyloprim] 1 tab PO DAILY 12/24/18 [History] Cyanocobalamin (Vitamin B12) [Vitamin B12] 1 tab PO DAILY 12/24/18 [History] Multivit-Min/FA/Lycopen/Lutein [Centrum Silver Tablet] 1 tab PO DAILY 12/24/18 [ History] Multivitamin [Multivitamins] 1 each PO DAILY 12/24/18 [History] Triamterene/Hydrochlorothiazid [Triamterene-HCTZ 37.5-25 MG] 1 tab PO DAILY [History] - CURRENT (IN HOUSE) MEDS Current Meds: Current Medications Albuterol/Ipratropium (Duoneb 3.0-0.5 Mg/3 Ml) 3 ml NEB Q4HRRT PRN PRN Reason: Shortness Of Breath/wheezing Amlodipine Besylate (Norvasc) 5 mg PO DAILY [facility] Last Admin: 12/27/18 09:15 Dose: 5 mg Daptomycin 700 mg/ Sodium (Chloride) 14 mls @ 420 mls/hr IV Q24H [facility] Last Admin: 12/27/18 11:44 Dose: 420 mls/hr Ketorolac Tromethamine (Toradol) 30 mg IV Q6H PRN PRN Reason: Pain (moderate 4-6) Last Admin: 12/28/18 00:21 Dose: 30 mg Multivitamins/Minerals (Thera M Plus) 1 tab PO DAILY [facility] Last Admin: 12/27/18 09:15 Dose: 1 tab Ondansetron HCl (Zofran) 4 mg IVPUSH Q4H PRN PRN Reason: Nausea/Vomiting Discontinued Medications Allopurinol (Zyloprim) 300 mg PO DAILY [facility] Calcium Carbonate/Glycine (Tums) 1,000 mg PO ONETIME ONE Stop: 12/25/18 12:09 Last Admin: 12/25/18 13:24 Dose: 1,000 mg Daptomycin (Cubicin) 700 mg IV Q24H [facility] Hydromorphone HCl (Dilaudid) 1 mg IVPUSH ONETIME ONE Stop: 12/24/18 15:04 Last Admin: 12/24/18 15:11 Dose: 1 mg Sodium Chloride (Normal Saline) 1,000 mls @ 999 mls/hr IV STAT ONE Stop: 12/24/18 14:28 Last Admin: 12/24/18 14:15 Dose: 999 mls/hr Vancomycin HCl 1 gm/ Sodium (Chloride) 250 mls @ 166 mls/hr IV ONETIME ONE Stop: 12/24/18 14:58 Last Admin: 12/24/18 14:19 Dose: 166 mls/hr Sodium Chloride (Normal Saline) 1,000 mls @ 100 mls/hr IV ASDIRECTED [facility] Last Admin: 12/26/18 07:21 Dose: 100 mls/hr Vancomycin HCl 1.25 gm/ Sodium (Chloride) 250 mls @ 250 mls/hr IV Q12H [facility] Last Admin: 12/26/18 01:19 Dose: 250 mls/hr Clindamycin Phosphate 900 mg/ (Premix) 50 mls @ 100 mls/hr IV ONETIME ONE Stop: 12/24/18 16:44 Last Admin: 12/24/18 16:22 Dose: 100 mls/hr Clindamycin Phosphate 300 mg/ (Premix) 50 mls @ 100 mls/hr IV Q8H [facility] Last Admin: 12/25/18 09:01 Dose: 100 mls/hr Cefepime HCl 2 gm/ Premix 50 mls @ 100 mls/hr IV Q8H [facility] Last Admin: 12/26/18 02:36 Dose: 100 mls/hr Vancomycin HCl 1 gm/ Sodium (Chloride) 250 mls @ 166 mls/hr IV Q12H [facility] Last Admin: 12/26/18 02:35 Dose: Not Given Vancomycin HCl 1.25 gm/ Sodium (Chloride) 250 mls @ 250 mls/hr IV Q12H [facility] Metronidazole (Metronidazole) 500 mg PO Q8H [facility] Last Admin: 12/27/18 03:45 Dose: 500 mg Morphine Sulfate (Morphine) 2 mg IVPUSH Q4H PRN PRN Reason: Pain (severe 7-10) Stop: 12/25/18 15:01 Last Admin: 12/25/18 04:26 Dose: 2 mg Potassium Chloride (Klor-Con M20) 40 meq PO ONETIME STA Stop: 12/25/18 12:08 Last Admin: 12/25/18 13:23 Dose: 40 meq Vancomycin HCl (Pharmacy To Dose - Vancomycin) 1 dose .XX ASDIRECTED [facility]
[2018-12-28] MEDS: Sodium Chloride 0.9% 1,000 ML IV SCH ×2 (08:08→14:38)
[2018-12-28] MEDS: amLODIPine 5 MG Tab PO SCH (08:10)
[2018-12-28] MEDS: Multivitamins with Iron/Calcium/Folic Acid/Minerals Tab PO SCH (08:11)
[2018-12-28] MEDS: SODIUM CHLORIDE 0.9% IV SCH (10:41)
[2018-12-28] MEDS: DAPTOMYCIN IV SCH (10:41)
[2018-12-28] MEDS ORDERED: fentaNYL 50 MCG/ML SDV IVPUSH ONE (10:44)
--- NOTE | 2018-12-28 10:49 | PCM.PN ---
- General Info Date of Service: 12/28/18 Admission Dx/Problem (Free Text): At bedside this morning patient reports no complaints. Notes improvement in erythema and edema of left foot. Will be going to OR today. - Patient Data Vitals - Most Recent: Last Vital Signs Temp 98.7 F 12/28/18 07:23 Pulse 71 12/28/18 07:23 Resp 16 12/28/18 07:23 BP 111/66 12/28/18 08:10 Pulse Ox 95 12/28/18 07:23 Weight - Most Recent: 242 lb I&O - Last 24 Hours: Intake & Output 12/27/18 12/28/18 12/28/18 22:59 06:59 14:59 Intake Total 800 600 Output Total 350 600 Balance 450 0 Lab Results Last 24 Hours: Laboratory Results - last 24 hr 12/28/18 12/28/18 Range/Units 05:18 05:18 WBC 5.41 (4.0-11.0) K/uL RBC 4.56 (4.50-5.90) M/uL Hgb 13.5 (13.0-17.0) g/dL Hct 41.5 (38.0-50.0) % MCV 91.0 (80.0-98.0) fL MCH 29.6 (27.0-32.0) pg MCHC 32.5 (31.0-37.0) g/dL RDW Std Deviation 45.2 (28.0-62.0) fl RDW Coeff of Janeth 14 (11.0-15.0) % Plt Count 288 (150-400) K/uL MPV 9.40 (7.40-12.00) fL Neut % (Auto) 73.8 (48.0-80.0) % Lymph % (Auto) 14.4 L (16.0-40.0) % Jones % (Auto) 8.1 (0.0-15.0) % Eos % (Auto) 3.0 (0.0-7.0) % Baso % (Auto) 0.7 (0.0-1.5) % Neut # (Auto) 4.0 (1.4-5.7) K/uL Lymph # (Auto) 0.8 (0.6-2.4) K/uL Jones # (Auto) 0.4 (0.0-0.8) K/uL Eos # (Auto) 0.2 (0.0-0.7) K/uL Baso # (Auto) 0.0 (0.0-0.1) K/uL Nucleated RBC % 0.0 /100WBC Nucleated RBCs # 0 K/uL Sodium 142 (136-148) mmol/L Potassium 4.0 (3.5-5.1) mmol/L Chloride 110 H (98-107) mmol/L Carbon Dioxide 24.9 (21.0-32.0) mmol/L BUN 14 (7.0-18.0) mg/dL Creatinine 1.1 (0.8-1.3) mg/dL Est Cr Clr Drug Dosing 67.57 mL/min Estimated GFR (MDRD) > 60.0 ml/min Glucose 99 (74-106) mg/dL Calcium 7.8 L (8.5-10.1) mg/dL Percy Results Last 24 Hours: Microbiology 12/24/18 14:10 Aerobic Blood Culture - Preliminary Blood - Venous NO GROWTH AFTER 3 DAYS Anaerobic Blood Culture - Final 12/24/18 14:05 Aerobic Blood Culture - Preliminary Blood - Venous - Lab Draw NO GROWTH AFTER 3 DAYS Anaerobic Blood Culture - Preliminary NO GROWTH AFTER 3 DAYS 12/27/18 08:10 C. difficile Antigen & Toxins A,B - Final Stool / Feces Med Orders - Current: Current Medications Albuterol/Ipratropium (Duoneb 3.0-0.5 Mg/3 Ml) 3 ml NEB Q4HRRT PRN PRN Reason: Shortness Of Breath/wheezing Amlodipine Besylate (Norvasc) 5 mg PO DAILY [facility] Last Admin: 12/28/18 08:10 Dose: 5 mg Daptomycin 700 mg/ Sodium (Chloride) 14 mls @ 420 mls/hr IV Q24H [facility] Last Admin: 12/28/18 10:41 Dose: 420 mls/hr Sodium Chloride (Normal Saline) 1,000 mls @ 75 mls/hr IV ASDIRECTED [facility] Last Admin: 12/28/18 08:08 Dose: 75 mls/hr Ketorolac Tromethamine (Toradol) 30 mg IV Q6H PRN PRN Reason: Pain (moderate 4-6) Last Admin: 12/28/18 08:11 Dose: 30 mg Multivitamins/Minerals (Thera M Plus) 1 tab PO DAILY [facility] Last Admin: 12/28/18 08:11 Dose: 1 tab Ondansetron HCl (Zofran) 4 mg IVPUSH Q4H PRN PRN Reason: Nausea/Vomiting Discontinued Medications Allopurinol (Zyloprim) 300 mg PO DAILY [facility] Calcium Carbonate/Glycine (Tums) 1,000 mg PO ONETIME ONE Stop: 12/25/18 12:09 Last Admin: 12/25/18 13:24 Dose: 1,000 mg Daptomycin (Cubicin) 700 mg IV Q24H [facility] Hydromorphone HCl (Dilaudid) 1 mg IVPUSH ONETIME ONE Stop: 12/24/18 15:04 Last Admin: 12/24/18 15:11 Dose: 1 mg Sodium Chloride (Normal Saline) 1,000 mls @ 999 mls/hr IV STAT ONE Stop: 12/24/18 14:28 Last Admin: 12/24/18 14:15 Dose: 999 mls/hr Vancomycin HCl 1 gm/ Sodium (Chloride) 250 mls @ 166 mls/hr IV ONETIME ONE Stop: 12/24/18 14:58 Last Admin: 12/24/18 14:19 Dose: 166 mls/hr Sodium Chloride (Normal Saline) 1,000 mls @ 100 mls/hr IV ASDIRECTED [facility] Last Admin: 12/26/18 07:21 Dose: 100 mls/hr Vancomycin HCl 1.25 gm/ Sodium (Chloride) 250 mls @ 250 mls/hr IV Q12H [facility] Last Admin: 12/26/18 01:19 Dose: 250 mls/hr Clindamycin Phosphate 900 mg/ (Premix) 50 mls @ 100 mls/hr IV ONETIME ONE Stop: 12/24/18 16:44 Last Admin: 12/24/18 16:22 Dose: 100 mls/hr Clindamycin Phosphate 300 mg/ (Premix) 50 mls @ 100 mls/hr IV Q8H [facility] Last Admin: 12/25/18 09:01 Dose: 100 mls/hr Cefepime HCl 2 gm/ Premix 50 mls @ 100 mls/hr IV Q8H [facility] Last Admin: 12/26/18 02:36 Dose: 100 mls/hr Vancomycin HCl 1 gm/ Sodium (Chloride) 250 mls @ 166 mls/hr IV Q12H [facility] Last Admin: 12/26/18 02:35 Dose: Not Given Vancomycin HCl 1.25 gm/ Sodium (Chloride) 250 mls @ 250 mls/hr IV Q12H [facility] Metronidazole (Metronidazole) 500 mg PO Q8H [facility] Last Admin: 12/27/18 03:45 Dose: 500 mg Morphine Sulfate (Morphine) 2 mg IVPUSH Q4H PRN PRN Reason: Pain (severe 7-10) Stop: 12/25/18 15:01 Last Admin: 12/25/18 04:26 Dose: 2 mg Potassium Chloride (Klor-Con M20) 40 meq PO ONETIME STA Stop: 12/25/18 12:08 Last Admin: 12/25/18 13:23 Dose: 40 meq Vancomycin HCl (Pharmacy To Dose - Vancomycin) 1 dose .XX ASDIRECTED [facility] - Exam General: Alert, Oriented, Cooperative, No Acute Distress Lungs: Clear to Auscultation Cardiovascular: Regular Rate, Regular Rhythm Extremities: Other (left foot erythema and edema improved since last exam. Wound on medial left big toe non-draining.) - Problem List & Annotations (1) Hypokalemia SNOMED Code(s): 17288433 Code(s): E87.6 - HYPOKALEMIA Status: Acute Current Visit: Yes (2) Hypocalcemia SNOMED Code(s): 8108558 Code(s): E83.51 - HYPOCALCEMIA Status: Acute Current Visit: Yes (3) Cellulitis SNOMED Code(s): 125629964 Code(s): L03.90 - CELLULITIS, UNSPECIFIED Status: Acute Current Visit: Yes (4) HTN (hypertension) SNOMED Code(s): 07246702 Code(s): I10 - ESSENTIAL (PRIMARY) HYPERTENSION Status: Acute Current Visit: Yes - Problem List Review Problem List Initiated/Reviewed/Updated: Yes - My Orders Last 24 Hours: My Active Orders 12/27/18 15:16 Notify Provider Consults [RC] ASDIRECTED Consult to Orthopedics [CONS] Routine 12/27/18 Dinner NPO After Midnight [Nothing per Oral After Midnight Diet] [DIET] - Assessment Assessment:: Assessment: 1. Cellulitis of left lower extremity with concern of osteomyelitis. 2. Hypertension. 3. Hematuria, chronic. 4. Hypokalemia, resolved 5. Hypocalcemia, resolved. 6. Leukocytosis, resolved. 7. Past medical history of peripheral neuropathy. Plan: 1. MRI of left foot could not exclude osteomyelitis of of medial sesamoid bone. Patient will be going to OR by orthopedic surgery for I and D and would vac placement. Will continue IV daptomycin. Patient has been NPO since midnight. 2. For hypertension, continue amlodipine 5 mg PO qd. 3. For chronic hematuria, will require rescheduling of CT abd/pelvis with hematuria protocol and follow-up with urology outpatient.
[2018-12-28] MEDS ORDERED: fentaNYL 100 MCG/2 ML SDV IVPUSH ONE (11:30)
[2018-12-28] MEDS ORDERED: Lidocaine 2% 5 ML SDV ONE (11:40)
[2018-12-28] MEDS ORDERED: Propofol 200 MG/20 ML SDV ONE (11:40)
[2018-12-28] MEDS ORDERED: fentaNYL 100 MCG/2 ML SDV ONE (11:40)
[2018-12-28] MEDS ORDERED: Midazolam 1 MG/ML 2 ML SDV ONE (11:40)
[2018-12-28] MEDS ORDERED: Bupivacaine 0.5% 30 ML SDV ONE (11:42)
[2018-12-28] MEDS ORDERED: Sodium Chloride 0.9% 20 ML ONE (12:35)
--- NOTE | 2018-12-28 13:34 | PCM.SN ---
- Free Text/Narrative Note: Comes to OR with a 22g in right FA. Dr Munoz states he will remain inpatient for IV antibiotics. Second IV site is preferred. TQ applied to right forearm. Site cleansed with chloraprep. 18g IV started on first attempt. Secured with tegaderm and tape. Flushed with NS.
[2018-12-28] MEDS ORDERED: 50% Dextrose in Water 50 ML Syringe IVPUSH PRN (13:35)
[2018-12-28] MEDS ORDERED: Naloxone 0.4 MG/ML Syringe IVPUSH PRN (13:35)
[2018-12-28] MEDS ORDERED: Atropine 0.1 MG/ML 10 ML Syringe IVPUSH PRN ×2 (13:35)
[2018-12-28] MEDS ORDERED: Albuterol 0.083% 2.5 MG/3 ML Neb Soln NEB PRN (13:35)
[2018-12-28] MEDS ORDERED: fentaNYL 100 MCG/2 ML SDV IVPUSH PRN (13:35)
[2018-12-28] MEDS ORDERED: EPINEPHrine 1:10,000 1 MG/10 ML Syringe IVPUSH PRN (13:35)
--- NOTE | 2018-12-28 14:04 | PCM.POSTAN ---
POST ANESTHESIA ASSESSMENT - MENTAL STATUS Mental Status: Alert, Oriented - VITAL SIGNS Vital Signs: Last Vital Signs Temp 36 C 12/28/18 13:27 Pulse 58 L 12/28/18 13:57 Resp 19 12/28/18 13:57 BP 129/59 L 12/28/18 13:57 Pulse Ox 93 L 12/28/18 13:57 - RESPIRATORY Respiratory Status: Respiratory Rate WNL, Airway Patent, O2 Saturation Stable - CARDIOVASCULAR CV Status: Pulse Rate WNL, Blood Pressure Stable - GASTROINTESTINAL GI Status: No Symptoms - PAIN Pain Score: 0 - POST OP HYDRATION Hydration Status: Adequate & Stable - OBSERVATIONS Free Text/Narrative:: No anesthesia problems
--- NOTE | 2018-12-28 14:26 | PCM.OPNOTE ---
- General Post-Op/Procedure Note Date of Surgery/Procedure: 12/28/18 Operative Procedure(s): irrigation and debridement left foot. wound vac application <50cm2 Pre Op Diagnosis: abscess left foot Post-Op Diagnosis: Same Anesthesia Technique: General ET Tube Primary Surgeon: Hguh Munoz EBL in mLs: 25 Complications: None Condition: Stable Free Text/Narrative:: Intake & Output 12/27/18 12/28/18 12/28/18 22:59 06:59 14:59 Intake Total 661 241 5534 Output Total 350 600 Balance 450 0 1000
--- NOTE | 2018-12-28 15:01 | PCM48HPAN ---
Post Anesthesia Note - EVALUATION WITHIN 48HRS OF ANESTHETIC Vital Signs in Normal Range: Yes Patient Participated in Evaluation: Yes Respiratory Function Stable: Yes Airway Patent: Yes Cardiovascular Function Stable: Yes Hydration Status Stable: Yes Pain Control Satisfactory: Yes Nausea and Vomiting Control Satisfactory: Yes Mental Status Recovered: Yes Vital Signs: Last Vital Signs Temp 37.0 C 12/28/18 14:45 Pulse 66 12/28/18 14:45 Resp 20 12/28/18 14:45 BP 138/66 12/28/18 14:45 Pulse Ox 95 12/28/18 14:45 - COMMENTS/OBSERVATIONS Free Text/Narrative:: no anesthesia problems
--- NOTE | 2018-12-28 15:56 | CR ---
EXAM DATE: 12/25/18 PATIENT'S AGE: 68 Left first toe: Single fluoroscopic spot view was obtained utilizing C-arm device. Surgical instruments are seen overlying the proximal phalanx. Fluoroscopy time is given as 6.6 seconds. Impression: 1. Procedural study as noted above. Diagnostic code #2 Report Signed by Proxy. ALESSANDRA
[2018-12-28] MEDS: Acetaminophen/HYDROcodone 325-5 MG Tab PO PRN (19:33)
[2018-12-29] MEDS: Benzonatate 100 MG Cap PO PRN ×3 (00:32→23:42)
[2018-12-29] MEDS: Ketorolac 30 MG/ML SDV IV PRN (03:47)
[2018-12-29] MEDS: Sodium Chloride 0.9% 1,000 ML IV SCH ×2 (03:49→20:54)
[2018-12-29 06:35] LABS: BLOOD UREA NITROGEN,BUN 12 mg/dL (7.0-18.0); CARBON DIOXIDE,CO2 21.8 mmol/L (21.0-32.0); CHLORIDE,CL 110 mmol/L (98-107); GLUCOSE RANDOM 89 mg/dL (74-106); POTASSIUM,K 3.8 mmol/L (3.5-5.1); SODIUM,NA 142 mmol/L (136-148)
--- NOTE | 2018-12-29 08:04 | PCM48HPAN ---
Post Anesthesia Note - EVALUATION WITHIN 48HRS OF ANESTHETIC Vital Signs in Normal Range: Yes Patient Participated in Evaluation: Yes Respiratory Function Stable: Yes Airway Patent: Yes Cardiovascular Function Stable: Yes Hydration Status Stable: Yes Pain Control Satisfactory: Yes Nausea and Vomiting Control Satisfactory: Yes Mental Status Recovered: Yes Vital Signs: Last Vital Signs Temp 36.8 C 12/29/18 04:00 Pulse 71 12/29/18 04:00 Resp 17 12/29/18 04:00 BP 140/72 12/29/18 04:00 Pulse Ox 94 L 12/29/18 04:00
[2018-12-29] MEDS: amLODIPine 5 MG Tab PO SCH (08:28)
[2018-12-29] MEDS: Multivitamins with Iron/Calcium/Folic Acid/Minerals Tab PO SCH (08:28)
[2018-12-29] MEDS: Acetaminophen/HYDROcodone 325-5 MG Tab PO PRN ×3 (09:25→23:42)
[2018-12-29] MEDS: DAPTOMYCIN IV SCH (11:27)
[2018-12-29] MEDS: SODIUM CHLORIDE 0.9% IV SCH (11:27)
[2018-12-29] MEDS ORDERED: Iopamidol 755 MG/ML 500 ML Multipack Bottle IVPUSH STA (12:46)
--- NOTE | 2018-12-29 13:40 | CT ---
CT abdomen and pelvis (without and with intravenous contrast) Comparison: No prior abdominal imaging is available. Technique: Multiple axial sections were obtained from above the dome of the diaphragm inferiorly through the pubic symphysis. Intravenous and oral contrast not utilized. Intravenous contrast then given and imaging was repeated through the abdomen and pelvis. Delayed images at 6 minutes were also obtained through the abdomen and pelvis. Findings: Fatty infiltration is noted throughout the liver. No focal parenchymal abnormality is appreciated within the liver. Spleen appears within normal limits. Adrenal glands show no nodule. Pancreas is within normal limits. Gallbladder contains no calcified gallstones. Kidney show no abnormal calcifications. Very minimal cortical cyst believed to be present within the left kidney. Slightly larger cortical cyst on the right side measuring 1.0 cm. No additional renal abnormalities are seen. Delayed images shows no filling defects within the opacified collecting systems. Ureters show contrast. Contrast is noted within the bladder on delayed images. Aorta shows no aneurysm. No retroperitoneal adenopathy is seen. No mesenteric abnormalities are seen. Appendix is not visualized with certainty. Small amount of free fluid is seen within the pelvis. No pelvic mass or adenopathy is seen. Small bilateral pleural effusions are present. Minimal adjacent compressive type atelectasis also noted within both lung bases. Bone window settings were reviewed which shows degenerative change scattered within the spine. Impression: 1. Small cyst within each kidney. No additional renal abnormality is seen. 2. Fatty infiltration within the liver. 3. Small bilateral pleural effusions with minimal compressive atelectasis within both lung bases. 4. Minimal fluid within the pelvis. Diagnostic code #3 MTDD
--- NOTE | 2018-12-29 14:48 | PCM.PN ---
- General Info Date of Service: 12/29/18 Subjective Update: Patient reports no complaints this morning. Patient had I and D by orthopedic surgery yesterday and reports feeling well today. He is complaining of cough and requesting medication for it. No fevers, productive sputum or shortness of breath. - Patient Data Vitals - Most Recent: Last Vital Signs Temp 97 F 12/29/18 08:00 Pulse 70 12/29/18 08:00 Resp 18 12/29/18 08:00 BP 155/73 H 12/29/18 08:28 Pulse Ox 97 12/29/18 12:00 Weight - Most Recent: 242 lb I&O - Last 24 Hours: Intake & Output 12/28/18 12/29/18 12/29/18 22:59 06:59 14:59 Intake Total 800 1460 Output Total 680 30 Balance 120 1430 Lab Results Last 24 Hours: Laboratory Results - last 24 hr 12/29/18 12/29/18 Range/Units 05:55 05:55 WBC 7.16 (4.0-11.0) K/uL RBC 4.54 (4.50-5.90) M/uL Hgb 13.3 (13.0-17.0) g/dL Hct 41.5 (38.0-50.0) % MCV 91.4 (80.0-98.0) fL MCH 29.3 (27.0-32.0) pg MCHC 32.0 (31.0-37.0) g/dL RDW Std Deviation 45.9 (28.0-62.0) fl RDW Coeff of Janeth 14 (11.0-15.0) % Plt Count 290 (150-400) K/uL MPV 9.20 (7.40-12.00) fL Neut % (Auto) 70.1 (48.0-80.0) % Lymph % (Auto) 14.9 L (16.0-40.0) % Blair % (Auto) 10.9 (0.0-15.0) % Eos % (Auto) 3.4 (0.0-7.0) % Baso % (Auto) 0.7 (0.0-1.5) % Neut # (Auto) 5.0 (1.4-5.7) K/uL Lymph # (Auto) 1.1 (0.6-2.4) K/uL Blair # (Auto) 0.8 (0.0-0.8) K/uL Eos # (Auto) 0.2 (0.0-0.7) K/uL Baso # (Auto) 0.1 (0.0-0.1) K/uL Nucleated RBC % 0.0 /100WBC Nucleated RBCs # 0 K/uL Sodium 142 (136-148) mmol/L Potassium 3.8 (3.5-5.1) mmol/L Chloride 110 H (98-107) mmol/L Carbon Dioxide 21.8 (21.0-32.0) mmol/L BUN 12 (7.0-18.0) mg/dL Creatinine 1.0 (0.8-1.3) mg/dL Est Cr Clr Drug Dosing 74.33 mL/min Estimated GFR (MDRD) > 60.0 ml/min Glucose 89 (74-106) mg/dL Calcium 7.9 L (8.5-10.1) mg/dL Total Bilirubin 0.4 (0.2-1.0) mg/dL AST 47 H (15-37) IU/L ALT 34 (14-63) IU/L Alkaline Phosphatase 70 (46-116) U/L Total Protein 6.4 (6.4-8.2) g/dL Albumin 2.2 L (3.4-5.0) g/dL Globulin 4.2 H (2.6-4.0) g/dL Albumin/Globulin Ratio 0.5 L (0.9-1.6) Percy Results Last 24 Hours: Microbiology 12/24/18 14:10 Aerobic Blood Culture - Final Blood - Venous NO GROWTH AFTER 5 DAYS Anaerobic Blood Culture - Final 12/24/18 14:05 Aerobic Blood Culture - Final Blood - Venous - Lab Draw NO GROWTH AFTER 5 DAYS Anaerobic Blood Culture - Final NO GROWTH AFTER 5 DAYS 12/28/18 12:42 Gram Stain - Preliminary Foot, Left Med Orders - Current: Current Medications Hydrocodone Bitart/Acetaminophen ([place] 325-5 Mg) 1 tab PO Q6H PRN PRN Reason: Pain Last Admin: 12/29/18 09:25 Dose: 1 tab Albuterol/Ipratropium (Duoneb 3.0-0.5 Mg/3 Ml) 3 ml NEB Q4HRRT PRN PRN Reason: Shortness Of Breath/wheezing Last Admin: 12/29/18 04:13 Dose: 3 ml Amlodipine Besylate (Norvasc) 5 mg PO DAILY [facility] Last Admin: 12/29/18 08:28 Dose: 5 mg Benzonatate (Tessalon Perles) 100 mg PO TID PRN PRN Reason: Cough Last Admin: 12/29/18 00:32 Dose: 100 mg Daptomycin 700 mg/ Sodium (Chloride) 14 mls @ 420 mls/hr IV Q24H [facility] Last Admin: 12/29/18 11:27 Dose: 420 mls/hr Sodium Chloride (Normal Saline) 1,000 mls @ 75 mls/hr IV ASDIRECTED [facility] Last Admin: 12/29/18 03:49 Dose: 75 mls/hr Ketorolac Tromethamine (Toradol) 30 mg IV Q6H PRN PRN Reason: Pain (moderate 4-6) Last Admin: 12/29/18 03:47 Dose: 30 mg Multivitamins/Minerals (Thera M Plus) 1 tab PO DAILY [facility] Last Admin: 12/29/18 08:28 Dose: 1 tab Ondansetron HCl (Zofran) 4 mg IVPUSH Q4H PRN PRN Reason: Nausea/Vomiting Last Admin: 12/29/18 09:25 Dose: 4 mg Discontinued Medications Albuterol (Proventil Neb Soln) 2.5 mg NEB ONETIME PRN PRN Reason: Wheezing Allopurinol (Zyloprim) 300 mg PO DAILY [facility] Atropine Sulfate (Atropine 0.1 Mg/Ml) 0.5 mg IVPUSH ASDIRECTED PRN PRN Reason: Hypo-perfusion Atropine Sulfate (Atropine 0.1 Mg/Ml) 1 mg IVPUSH ASDIRECTED PRN PRN Reason: Hypo-Perfusion Bupivacaine HCl (Marcaine 0.5%) Confirm Administered Dose 30 ml .ROUTE .STK-MED ONE Stop: 12/28/18 11:43 Calcium Carbonate/Glycine (Tums) 1,000 mg PO ONETIME ONE Stop: 12/25/18 12:09 Last Admin: 12/25/18 13:24 Dose: 1,000 mg Daptomycin (Cubicin) 700 mg IV Q24H [facility] Dextrose/Water (Dextrose 50% In Water) 50 ml IVPUSH ASDIRECTED PRN PRN Reason: Hypoglycemia Epinephrine HCl (Epinephrine 1:10,000) 1 mg IVPUSH ASDIRECTED PRN PRN Reason: ACLS Guidelines Fentanyl (Fentanyl) 50 mcg IVPUSH ONETIME ONE Stop: 12/28/18 10:45 Last Admin: 12/28/18 12:01 Dose: Not Given Fentanyl (Sublimaze) 50 mcg IVPUSH ONETIME ONE Stop: 12/28/18 11:31 Last Admin: 12/28/18 11:31 Dose: 50 mcg Fentanyl (Sublimaze) Confirm Administered Dose 100 mcg .ROUTE .STK-MED ONE Stop: 12/28/18 11:41 Fentanyl (Sublimaze) 50 mcg IVPUSH Q5M PRN PRN Reason: Pain Hydromorphone HCl (Dilaudid) 1 mg IVPUSH ONETIME ONE Stop: 12/24/18 15:04 Last Admin: 12/24/18 15:11 Dose: 1 mg Sodium Chloride (Normal Saline) 1,000 mls @ 999 mls/hr IV STAT ONE Stop: 12/24/18 14:28 Last Admin: 12/24/18 14:15 Dose: 999 mls/hr Vancomycin HCl 1 gm/ Sodium (Chloride) 250 mls @ 166 mls/hr IV ONETIME ONE Stop: 12/24/18 14:58 Last Admin: 12/24/18 14:19 Dose: 166 mls/hr Sodium Chloride (Normal Saline) 1,000 mls @ 100 mls/hr IV ASDIRECTED [facility] Last Admin: 12/26/18 07:21 Dose: 100 mls/hr Vancomycin HCl 1.25 gm/ Sodium (Chloride) 250 mls @ 250 mls/hr IV Q12H [facility] Last Admin: 12/26/18 01:19 Dose: 250 mls/hr Clindamycin Phosphate 900 mg/ (Premix) 50 mls @ 100 mls/hr IV ONETIME ONE Stop: 12/24/18 16:44 Last Admin: 12/24/18 16:22 Dose: 100 mls/hr Clindamycin Phosphate 300 mg/ (Premix) 50 mls @ 100 mls/hr IV Q8H [facility] Last Admin: 12/25/18 09:01 Dose: 100 mls/hr Cefepime HCl 2 gm/ Premix 50 mls @ 100 mls/hr IV Q8H [facility] Last Admin: 12/26/18 02:36 Dose: 100 mls/hr Vancomycin HCl 1 gm/ Sodium (Chloride) 250 mls @ 166 mls/hr IV Q12H [facility] Last Admin: 12/26/18 02:35 Dose: Not Given Vancomycin HCl 1.25 gm/ Sodium (Chloride) 250 mls @ 250 mls/hr IV Q12H [facility] Sodium Chloride (Normal Saline) Confirm Administered Dose 20 mls @ as directed .ROUTE .STK-MED ONE Stop: 12/28/18 12:36 Iopamidol (Isovue Multipack-370 (76%)) 100 ml IVPUSH ONETIME STA Stop: 12/29/18 12:47 Last Admin: 12/29/18 12:47 Dose: 100 ml Lidocaine (Xylocaine-Mpf 2%) Confirm Administered Dose 5 ml .ROUTE .STK-MED ONE Stop: 12/28/18 11:41 Metronidazole (Metronidazole) 500 mg PO Q8H [facility] Last Admin: 12/27/18 03:45 Dose: 500 mg Midazolam HCl (Versed 1 Mg/Ml) Confirm Administered Dose 2 mg .ROUTE .STK-MED ONE Stop: 12/28/18 11:41 Morphine Sulfate (Morphine) 2 mg IVPUSH Q4H PRN PRN Reason: Pain (severe 7-10) Stop: 12/25/18 15:01 Last Admin: 12/25/18 04:26 Dose: 2 mg Naloxone HCl (Narcan) 0.1 mg IVPUSH ASDIRECTED PRN PRN Reason: Respiratory Depression Potassium Chloride (Klor-Con M20) 40 meq PO ONETIME STA Stop: 12/25/18 12:08 Last Admin: 12/25/18 13:23 Dose: 40 meq Propofol (Diprivan 20 Ml) Confirm Administered Dose 200 mg .ROUTE .STK-MED ONE Stop: 12/28/18 11:41 Vancomycin HCl (Pharmacy To Dose - Vancomycin) 1 dose .XX ASDIRECTED [facility] - Exam General: Alert, Oriented, Cooperative, No Acute Distress Lungs: Clear to Auscultation, Normal Respiratory Effort Cardiovascular: Regular Rate, Regular Rhythm Extremities: Other (Left foot: edema and erythema decreased since previous exam , wound vac in place.) - Problem List & Annotations (1) Hypokalemia SNOMED Code(s): 61278332 Code(s): E87.6 - HYPOKALEMIA Status: Acute Current Visit: Yes (2) Hypocalcemia SNOMED Code(s): 9961395 Code(s): E83.51 - HYPOCALCEMIA Status: Acute Current Visit: Yes (3) Cellulitis SNOMED Code(s): 075171649 Code(s): L03.90 - CELLULITIS, UNSPECIFIED Status: Acute Current Visit: Yes (4) HTN (hypertension) SNOMED Code(s): 23469740 Code(s): I10 - ESSENTIAL (PRIMARY) HYPERTENSION Status: Acute Current Visit: Yes - Problem List Review Problem List Initiated/Reviewed/Updated: Yes - My Orders Last 24 Hours: My Active Orders 12/28/18 18:41 Benzonatate [Tessalon Perles] 100 mg PO TID PRN 12/28/18 19:07 Acetaminophen/HYDROcodone [[place] 325-5 MG] 1 tab PO Q6H PRN 12/29/18 08:00 Bladder Scan [RC] ASDIRECTED - Assessment Assessment:: Assessment: 1. Left foot cellulitis with abscess s/p I and D with wound vac placement POD#1. 2. Hematuria, chronic. 3. Hypertension. 4. Hypokalemia, resolved 5. Hypocalcemia, resolved. 6. Leukocytosis, resolved. 7. Past medical history of peripheral neuropathy. Plan: 1. For left foot cellulitis with abscess, patient was taken by orthopedic surgery for I and D and wound vac placement yesterday. Patient is stable and doing well after surgery. As per orthopedic surgery, patient will be going for further I and D today and replacement of wound vac. Will continue IV daptomycin. 2. For chronic hematuria, will order CT abd/pelvis with hematuria protocol today. 3. For hypertension, continue amlodipine 5 mg PO qd. 4. For DVT prophylaxis, patient is on SCD's. He was not started on anti- coagulation as to not worsen his chronic hematuria.
[2018-12-30] MEDS: Acetaminophen/HYDROcodone 325-5 MG Tab PO PRN ×3 (05:57→23:58)
[2018-12-30 06:23] LABS: BLOOD UREA NITROGEN,BUN 10 mg/dL (7.0-18.0); CARBON DIOXIDE,CO2 24.3 mmol/L (21.0-32.0); CHLORIDE,CL 110 mmol/L (98-107); GLUCOSE RANDOM 87 mg/dL (74-106); POTASSIUM,K 4.1 mmol/L (3.5-5.1); SODIUM,NA 142 mmol/L (136-148)
[2018-12-30] MEDS: Ketorolac 30 MG/ML SDV IV PRN ×2 (08:17→14:29)
[2018-12-30] MEDS: Benzonatate 100 MG Cap PO PRN ×3 (08:17→23:58)
[2018-12-30] MEDS: Multivitamins with Iron/Calcium/Folic Acid/Minerals Tab PO SCH (08:17)
[2018-12-30] MEDS: amLODIPine 5 MG Tab PO SCH (08:29)
--- NOTE | 2018-12-30 08:45 | PCM.PN ---
- General Info Date of Service: 12/30/18 Subjective Update: Patient reports sleeping well overnight, urinated and had bowel movement. Reports pain in his left foot on and off throughout the night. - Patient Data Vitals - Most Recent: Last Vital Signs Temp 97.5 F 12/30/18 08:00 Pulse 74 12/30/18 08:00 Resp 16 12/30/18 08:00 BP 147/73 H 12/30/18 08:29 Pulse Ox 93 L 12/30/18 08:00 Weight - Most Recent: 242 lb I&O - Last 24 Hours: Intake & Output 12/29/18 12/30/18 12/30/18 22:59 06:59 14:59 Intake Total 600 1498 Output Total 915 200 Balance -315 1298 Lab Results Last 24 Hours: Laboratory Results - last 24 hr 12/30/18 12/30/18 Range/Units 05:55 05:55 WBC 6.35 (4.0-11.0) K/uL RBC 4.51 (4.50-5.90) M/uL Hgb 13.1 (13.0-17.0) g/dL Hct 41.4 (38.0-50.0) % MCV 91.8 (80.0-98.0) fL MCH 29.0 (27.0-32.0) pg MCHC 31.6 (31.0-37.0) g/dL RDW Std Deviation 47.2 (28.0-62.0) fl RDW Coeff of Janeth 14 (11.0-15.0) % Plt Count 288 (150-400) K/uL MPV 9.50 (7.40-12.00) fL Neut % (Auto) 67.2 (48.0-80.0) % Lymph % (Auto) 17.6 (16.0-40.0) % [place] % (Auto) 10.1 (0.0-15.0) % Eos % (Auto) 4.6 (0.0-7.0) % Baso % (Auto) 0.5 (0.0-1.5) % Neut # (Auto) 4.3 (1.4-5.7) K/uL Lymph # (Auto) 1.1 (0.6-2.4) K/uL [place] # (Auto) 0.6 (0.0-0.8) K/uL Eos # (Auto) 0.3 (0.0-0.7) K/uL Baso # (Auto) 0.0 (0.0-0.1) K/uL Nucleated RBC % 0.0 /100WBC Nucleated RBCs # 0 K/uL Sodium 142 (136-148) mmol/L Potassium 4.1 (3.5-5.1) mmol/L Chloride 110 H (98-107) mmol/L Carbon Dioxide 24.3 (21.0-32.0) mmol/L BUN 10 (7.0-18.0) mg/dL Creatinine 1.0 (0.8-1.3) mg/dL Est Cr Clr Drug Dosing 74.33 mL/min Estimated GFR (MDRD) > 60.0 ml/min Glucose 87 (74-106) mg/dL Calcium 8.0 L (8.5-10.1) mg/dL Percy Results Last 24 Hours: Microbiology 12/24/18 14:10 Aerobic Blood Culture - Final Blood - Venous NO GROWTH AFTER 5 DAYS Anaerobic Blood Culture - Final 12/24/18 14:05 Aerobic Blood Culture - Final Blood - Venous - Lab Draw NO GROWTH AFTER 5 DAYS Anaerobic Blood Culture - Final NO GROWTH AFTER 5 DAYS Med Orders - Current: Current Medications Acetaminophen (Tylenol Extra Strength) 500 mg PO Q6H PRN PRN Reason: Headache Hydrocodone Bitart/Acetaminophen ([place] 325-5 Mg) 1 tab PO Q6H PRN PRN Reason: Pain Last Admin: 12/30/18 05:57 Dose: 1 tab Albuterol/Ipratropium (Duoneb 3.0-0.5 Mg/3 Ml) 3 ml NEB Q4HRRT PRN PRN Reason: Shortness Of Breath/wheezing Last Admin: 12/29/18 04:13 Dose: 3 ml Amlodipine Besylate (Norvasc) 5 mg PO DAILY ANNA Last Admin: 12/30/18 08:29 Dose: 5 mg Benzonatate (Tessalon Perles) 100 mg PO TID PRN PRN Reason: Cough Last Admin: 12/30/18 08:17 Dose: 100 mg Daptomycin 700 mg/ Sodium (Chloride) 14 mls @ 420 mls/hr IV Q24H ANNA Last Admin: 12/29/18 11:27 Dose: 420 mls/hr Sodium Chloride (Normal Saline) 1,000 mls @ 75 mls/hr IV ASDIRECTED [facility] Last Admin: 12/29/18 20:54 Dose: 75 mls/hr Ketorolac Tromethamine (Toradol) 30 mg IV Q6H PRN PRN Reason: Pain (moderate 4-6) Last Admin: 12/30/18 08:17 Dose: 30 mg Multivitamins/Minerals (Thera M Plus) 1 tab PO DAILY [facility] Last Admin: 12/30/18 08:17 Dose: 1 tab Non-Formulary Medication (Cyanocobalamin (Vitamin B12)) 1 tab PO DAILY [facility] Ondansetron HCl (Zofran) 4 mg IVPUSH Q4H PRN PRN Reason: Nausea/Vomiting Last Admin: 12/29/18 09:25 Dose: 4 mg Discontinued Medications Albuterol (Proventil Neb Soln) 2.5 mg NEB ONETIME PRN PRN Reason: Wheezing Allopurinol (Zyloprim) 300 mg PO DAILY [facility] Atropine Sulfate (Atropine 0.1 Mg/Ml) 0.5 mg IVPUSH ASDIRECTED PRN PRN Reason: Hypo-perfusion Atropine Sulfate (Atropine 0.1 Mg/Ml) 1 mg IVPUSH ASDIRECTED PRN PRN Reason: Hypo-Perfusion Bupivacaine HCl (Marcaine 0.5%) Confirm Administered Dose 30 ml .ROUTE .STK-MED ONE Stop: 12/28/18 11:43 Calcium Carbonate/Glycine (Tums) 1,000 mg PO ONETIME ONE Stop: 12/25/18 12:09 Last Admin: 12/25/18 13:24 Dose: 1,000 mg Daptomycin (Cubicin) 700 mg IV Q24H [facility] Dextrose/Water (Dextrose 50% In Water) 50 ml IVPUSH ASDIRECTED PRN PRN Reason: Hypoglycemia Epinephrine HCl (Epinephrine 1:10,000) 1 mg IVPUSH ASDIRECTED PRN PRN Reason: ACLS Guidelines Fentanyl (Fentanyl) 50 mcg IVPUSH ONETIME ONE Stop: 12/28/18 10:45 Last Admin: 12/28/18 12:01 Dose: Not Given Fentanyl (Sublimaze) 50 mcg IVPUSH ONETIME ONE Stop: 12/28/18 11:31 Last Admin: 12/28/18 11:31 Dose: 50 mcg Fentanyl (Sublimaze) Confirm Administered Dose 100 mcg .ROUTE .STK-MED ONE Stop: 12/28/18 11:41 Fentanyl (Sublimaze) 50 mcg IVPUSH Q5M PRN PRN Reason: Pain Hydromorphone HCl (Dilaudid) 1 mg IVPUSH ONETIME ONE Stop: 12/24/18 15:04 Last Admin: 12/24/18 15:11 Dose: 1 mg Sodium Chloride (Normal Saline) 1,000 mls @ 999 mls/hr IV STAT ONE Stop: 12/24/18 14:28 Last Admin: 12/24/18 14:15 Dose: 999 mls/hr Vancomycin HCl 1 gm/ Sodium (Chloride) 250 mls @ 166 mls/hr IV ONETIME ONE Stop: 12/24/18 14:58 Last Admin: 12/24/18 14:19 Dose: 166 mls/hr Sodium Chloride (Normal Saline) 1,000 mls @ 100 mls/hr IV ASDIRECTED [facility] Last Admin: 12/26/18 07:21 Dose: 100 mls/hr Vancomycin HCl 1.25 gm/ Sodium (Chloride) 250 mls @ 250 mls/hr IV Q12H [facility] Last Admin: 12/26/18 01:19 Dose: 250 mls/hr Clindamycin Phosphate 900 mg/ (Premix) 50 mls @ 100 mls/hr IV ONETIME ONE Stop: 12/24/18 16:44 Last Admin: 12/24/18 16:22 Dose: 100 mls/hr Clindamycin Phosphate 300 mg/ (Premix) 50 mls @ 100 mls/hr IV Q8H [facility] Last Admin: 12/25/18 09:01 Dose: 100 mls/hr Cefepime HCl 2 gm/ Premix 50 mls @ 100 mls/hr IV Q8H [facility] Last Admin: 12/26/18 02:36 Dose: 100 mls/hr Vancomycin HCl 1 gm/ Sodium (Chloride) 250 mls @ 166 mls/hr IV Q12H [facility] Last Admin: 12/26/18 02:35 Dose: Not Given Vancomycin HCl 1.25 gm/ Sodium (Chloride) 250 mls @ 250 mls/hr IV Q12H [facility] Sodium Chloride (Normal Saline) Confirm Administered Dose 20 mls @ as directed .ROUTE .STK-MED ONE Stop: 12/28/18 12:36 Iopamidol (Isovue Multipack-370 (76%)) 100 ml IVPUSH ONETIME STA Stop: 12/29/18 12:47 Last Admin: 12/29/18 12:47 Dose: 100 ml Lidocaine (Xylocaine-Mpf 2%) Confirm Administered Dose 5 ml .ROUTE .STK-MED ONE Stop: 12/28/18 11:41 Metronidazole (Metronidazole) 500 mg PO Q8H ANNA Last Admin: 12/27/18 03:45 Dose: 500 mg Midazolam HCl (Versed 1 Mg/Ml) Confirm Administered Dose 2 mg .ROUTE .STK-MED ONE Stop: 12/28/18 11:41 Morphine Sulfate (Morphine) 2 mg IVPUSH Q4H PRN PRN Reason: Pain (severe 7-10) Stop: 12/25/18 15:01 Last Admin: 12/25/18 04:26 Dose: 2 mg Naloxone HCl (Narcan) 0.1 mg IVPUSH ASDIRECTED PRN PRN Reason: Respiratory Depression Potassium Chloride (Klor-Con M20) 40 meq PO ONETIME STA Stop: 12/25/18 12:08 Last Admin: 12/25/18 13:23 Dose: 40 meq Propofol (Diprivan 20 Ml) Confirm Administered Dose 200 mg .ROUTE .STK-MED ONE Stop: 12/28/18 11:41 Vancomycin HCl (Pharmacy To Dose - Vancomycin) 1 dose .XX ASDIRECTED ANNA - Exam General: Alert, Oriented, Cooperative, No Acute Distress Lungs: Clear to Auscultation, Normal Respiratory Effort Cardiovascular: Regular Rate, Regular Rhythm GI/Abdominal Exam: Normal Bowel Sounds, Soft, Non-Tender, No Distention Extremities: Other (Left foot: wound vac in place. mild erythema and edema.) - Problem List & Annotations (1) Hypokalemia SNOMED Code(s): 38827681 Code(s): E87.6 - HYPOKALEMIA Status: Acute Current Visit: Yes (2) Hypocalcemia SNOMED Code(s): 9393248 Code(s): E83.51 - HYPOCALCEMIA Status: Acute Current Visit: Yes (3) Cellulitis SNOMED Code(s): 063947367 Code(s): L03.90 - CELLULITIS, UNSPECIFIED Status: Acute Current Visit: Yes (4) HTN (hypertension) SNOMED Code(s): 66825913 Code(s): I10 - ESSENTIAL (PRIMARY) HYPERTENSION Status: Acute Current Visit: Yes - Problem List Review Problem List Initiated/Reviewed/Updated: Yes - My Orders Last 24 Hours: My Active Orders 12/29/18 08:00 Bladder Scan [RC] ASDIRECTED 12/29/18 Dinner Regular Diet [DIET] 12/30/18 08:30 Acetaminophen [Tylenol Extra Strength] 500 mg PO Q6H PRN 12/30/18 09:00 Cyanocobalamin (Vitamin B12) 1 tab PO DAILY - Assessment Assessment:: Assessment: 1. Left foot cellulitis with abscess s/p I and D with wound vac placement POD#2. 2. Chronic hematuria. 3. Hypertension, stable. 4. Hypokalemia, resolved 5. Hypocalcemia, resolved. 6. Leukocytosis, resolved. 7. Past medical history of peripheral neuropathy. Plan: 1. For left foot cellulitis with abscess, patient will require additional I and D as per orthopedic surgery. Patient will be going for I and D tomorrow. Will continue IV daptomycin. Wound vac is in place. For pain, patient has norco 325/ 5 q6h prn. Wound cultures pending. 2. For chronic hematuria, CT abd/pelvis with hematuria protocol showed renal cyst in both left and right kidneys. Patient will need to follow-up with urologist in the outpatient setting. 3. For hypertension, continue amlodipine 5 mg PO qd. 4. For DVT prophylaxis, patient is on SCD's. He was not started on anti- coagulation because of chronic hematuria.
[2018-12-30] MEDS: Acetaminophen 500 MG Tab PO PRN ×2 (09:07→15:57)
[2018-12-30] MEDS: Cyanocobalamin (Vitamin B12) 500 MCG Tab PO SCH (09:08)
--- NOTE | 2018-12-30 11:06 | PCM.PN ---
- General Info Date of Service: 12/30/18 Functional Status: Reports: Pain Controlled, Tolerating Diet, Ambulating - Review of Systems General: Reports: No Symptoms Pulmonary: Reports: Cough Cardiovascular: Reports: No Symptoms Gastrointestinal: Reports: No Symptoms Genitourinary: Reports: No Symptoms Musculoskeletal: Reports: Foot Pain Skin: Reports: Mottled Neurological: Reports: No Symptoms Psychiatric: Reports: No Symptoms - Patient Data Vitals - Most Recent: Last Vital Signs Temp 36.4 C 12/30/18 08:00 Pulse 74 12/30/18 08:00 Resp 16 12/30/18 08:00 BP 147/73 H 12/30/18 08:29 Pulse Ox 93 L 12/30/18 08:00 Weight - Most Recent: 109.769 kg I&O - Last 24 Hours: Intake & Output 12/29/18 12/30/18 12/30/18 22:59 06:59 14:59 Intake Total 600 1498 1290 Output Total 915 200 Balance -315 1298 1290 Lab Results Last 24 Hours: Laboratory Results - last 24 hr 12/30/18 12/30/18 Range/Units 05:55 05:55 WBC 6.35 (4.0-11.0) K/uL RBC 4.51 (4.50-5.90) M/uL Hgb 13.1 (13.0-17.0) g/dL Hct 41.4 (38.0-50.0) % MCV 91.8 (80.0-98.0) fL MCH 29.0 (27.0-32.0) pg MCHC 31.6 (31.0-37.0) g/dL RDW Std Deviation 47.2 (28.0-62.0) fl RDW Coeff of Janeth 14 (11.0-15.0) % Plt Count 288 (150-400) K/uL MPV 9.50 (7.40-12.00) fL Neut % (Auto) 67.2 (48.0-80.0) % Lymph % (Auto) 17.6 (16.0-40.0) % [place] % (Auto) 10.1 (0.0-15.0) % Eos % (Auto) 4.6 (0.0-7.0) % Baso % (Auto) 0.5 (0.0-1.5) % Neut # (Auto) 4.3 (1.4-5.7) K/uL Lymph # (Auto) 1.1 (0.6-2.4) K/uL [place] # (Auto) 0.6 (0.0-0.8) K/uL Eos # (Auto) 0.3 (0.0-0.7) K/uL Baso # (Auto) 0.0 (0.0-0.1) K/uL Nucleated RBC % 0.0 /100WBC Nucleated RBCs # 0 K/uL Sodium 142 (136-148) mmol/L Potassium 4.1 (3.5-5.1) mmol/L Chloride 110 H (98-107) mmol/L Carbon Dioxide 24.3 (21.0-32.0) mmol/L BUN 10 (7.0-18.0) mg/dL Creatinine 1.0 (0.8-1.3) mg/dL Est Cr Clr Drug Dosing 74.33 mL/min Estimated GFR (MDRD) > 60.0 ml/min Glucose 87 (74-106) mg/dL Calcium 8.0 L (8.5-10.1) mg/dL Percy Results Last 24 Hours: Microbiology 12/24/18 14:10 Aerobic Blood Culture - Final Blood - Venous NO GROWTH AFTER 5 DAYS Anaerobic Blood Culture - Final 12/24/18 14:05 Aerobic Blood Culture - Final Blood - Venous - Lab Draw NO GROWTH AFTER 5 DAYS Anaerobic Blood Culture - Final NO GROWTH AFTER 5 DAYS Med Orders - Current: Current Medications Acetaminophen (Tylenol Extra Strength) 500 mg PO Q6H PRN PRN Reason: Headache Last Admin: 12/30/18 09:07 Dose: 500 mg Hydrocodone Bitart/Acetaminophen ([place] 325-5 Mg) 1 tab PO Q6H PRN PRN Reason: Pain Last Admin: 12/30/18 05:57 Dose: 1 tab Albuterol/Ipratropium (Duoneb 3.0-0.5 Mg/3 Ml) 3 ml NEB Q4HRRT PRN PRN Reason: Shortness Of Breath/wheezing Last Admin: 12/29/18 04:13 Dose: 3 ml Amlodipine Besylate (Norvasc) 5 mg PO DAILY ANNA Last Admin: 12/30/18 08:29 Dose: 5 mg Benzonatate (Tessalon Perles) 100 mg PO TID PRN PRN Reason: Cough Last Admin: 12/30/18 08:17 Dose: 100 mg Cyanocobalamin (Vitamin B12) 1,000 mcg PO DAILY [facility] Last Admin: 12/30/18 09:08 Dose: 1,000 mcg Daptomycin 700 mg/ Sodium (Chloride) 14 mls @ 420 mls/hr IV Q24H [facility] Last Admin: 12/29/18 11:27 Dose: 420 mls/hr Ketorolac Tromethamine (Toradol) 30 mg IV Q6H PRN PRN Reason: Pain (moderate 4-6) Last Admin: 12/30/18 08:17 Dose: 30 mg Multivitamins/Minerals (Thera M Plus) 1 tab PO DAILY [facility] Last Admin: 12/30/18 08:17 Dose: 1 tab Ondansetron HCl (Zofran) 4 mg IVPUSH Q4H PRN PRN Reason: Nausea/Vomiting Last Admin: 12/29/18 09:25 Dose: 4 mg Discontinued Medications Albuterol (Proventil Neb Soln) 2.5 mg NEB ONETIME PRN PRN Reason: Wheezing Allopurinol (Zyloprim) 300 mg PO DAILY [facility] Atropine Sulfate (Atropine 0.1 Mg/Ml) 0.5 mg IVPUSH ASDIRECTED PRN PRN Reason: Hypo-perfusion Atropine Sulfate (Atropine 0.1 Mg/Ml) 1 mg IVPUSH ASDIRECTED PRN PRN Reason: Hypo-Perfusion Bupivacaine HCl (Marcaine 0.5%) Confirm Administered Dose 30 ml .ROUTE .STK-MED ONE Stop: 12/28/18 11:43 Calcium Carbonate/Glycine (Tums) 1,000 mg PO ONETIME ONE Stop: 12/25/18 12:09 Last Admin: 12/25/18 13:24 Dose: 1,000 mg Daptomycin (Cubicin) 700 mg IV Q24H [facility] Dextrose/Water (Dextrose 50% In Water) 50 ml IVPUSH ASDIRECTED PRN PRN Reason: Hypoglycemia Epinephrine HCl (Epinephrine 1:10,000) 1 mg IVPUSH ASDIRECTED PRN PRN Reason: ACLS Guidelines Fentanyl (Fentanyl) 50 mcg IVPUSH ONETIME ONE Stop: 12/28/18 10:45 Last Admin: 12/28/18 12:01 Dose: Not Given Fentanyl (Sublimaze) 50 mcg IVPUSH ONETIME ONE Stop: 12/28/18 11:31 Last Admin: 12/28/18 11:31 Dose: 50 mcg Fentanyl (Sublimaze) Confirm Administered Dose 100 mcg .ROUTE .STK-MED ONE Stop: 12/28/18 11:41 Fentanyl (Sublimaze) 50 mcg IVPUSH Q5M PRN PRN Reason: Pain Hydromorphone HCl (Dilaudid) 1 mg IVPUSH ONETIME ONE Stop: 12/24/18 15:04 Last Admin: 12/24/18 15:11 Dose: 1 mg Sodium Chloride (Normal Saline) 1,000 mls @ 999 mls/hr IV STAT ONE Stop: 12/24/18 14:28 Last Admin: 12/24/18 14:15 Dose: 999 mls/hr Vancomycin HCl 1 gm/ Sodium (Chloride) 250 mls @ 166 mls/hr IV ONETIME ONE Stop: 12/24/18 14:58 Last Admin: 12/24/18 14:19 Dose: 166 mls/hr Sodium Chloride (Normal Saline) 1,000 mls @ 100 mls/hr IV ASDIRECTED [facility] Last Admin: 12/26/18 07:21 Dose: 100 mls/hr Vancomycin HCl 1.25 gm/ Sodium (Chloride) 250 mls @ 250 mls/hr IV Q12H [facility] Last Admin: 12/26/18 01:19 Dose: 250 mls/hr Clindamycin Phosphate 900 mg/ (Premix) 50 mls @ 100 mls/hr IV ONETIME ONE Stop: 12/24/18 16:44 Last Admin: 12/24/18 16:22 Dose: 100 mls/hr Clindamycin Phosphate 300 mg/ (Premix) 50 mls @ 100 mls/hr IV Q8H [facility] Last Admin: 12/25/18 09:01 Dose: 100 mls/hr Cefepime HCl 2 gm/ Premix 50 mls @ 100 mls/hr IV Q8H [facility] Last Admin: 12/26/18 02:36 Dose: 100 mls/hr Vancomycin HCl 1 gm/ Sodium (Chloride) 250 mls @ 166 mls/hr IV Q12H [facility] Last Admin: 12/26/18 02:35 Dose: Not Given Vancomycin HCl 1.25 gm/ Sodium (Chloride) 250 mls @ 250 mls/hr IV Q12H [facility] Sodium Chloride (Normal Saline) 1,000 mls @ 75 mls/hr IV ASDIRECTED [facility] Last Admin: 12/29/18 20:54 Dose: 75 mls/hr Sodium Chloride (Normal Saline) Confirm Administered Dose 20 mls @ as directed .ROUTE .STK-MED ONE Stop: 12/28/18 12:36 Iopamidol (Isovue Multipack-370 (76%)) 100 ml IVPUSH ONETIME STA Stop: 12/29/18 12:47 Last Admin: 12/29/18 12:47 Dose: 100 ml Lidocaine (Xylocaine-Mpf 2%) Confirm Administered Dose 5 ml .ROUTE .STK-MED ONE Stop: 12/28/18 11:41 Metronidazole (Metronidazole) 500 mg PO Q8H [facility] Last Admin: 12/27/18 03:45 Dose: 500 mg Midazolam HCl (Versed 1 Mg/Ml) Confirm Administered Dose 2 mg .ROUTE .STK-MED ONE Stop: 12/28/18 11:41 Morphine Sulfate (Morphine) 2 mg IVPUSH Q4H PRN PRN Reason: Pain (severe 7-10) Stop: 12/25/18 15:01 Last Admin: 12/25/18 04:26 Dose: 2 mg Naloxone HCl (Narcan) 0.1 mg IVPUSH ASDIRECTED PRN PRN Reason: Respiratory Depression Potassium Chloride (Klor-Con M20) 40 meq PO ONETIME STA Stop: 12/25/18 12:08 Last Admin: 12/25/18 13:23 Dose: 40 meq Propofol (Diprivan 20 Ml) Confirm Administered Dose 200 mg .ROUTE .STK-MED ONE Stop: 12/28/18 11:41 Vancomycin HCl (Pharmacy To Dose - Vancomycin) 1 dose .XX ASDIRECTED [facility] - Exam General: Alert, Oriented, Cooperative, No Acute Distress HEENT: Pupils Equal, Pupils Reactive, EOMI, Mucous Membr. Moist/[place] Lungs: Normal Respiratory Effort Extremities: Mottled Peripheral Pulses: 2+: Dorsalis Pedis (L) Skin: Warm, Dry, Intact Wound/Incisions: Healing Well, Dressing Dry and Intact, No Drainage Neurological: No New Focal Deficit Psy/Mental Status: Alert, Normal Affect, Normal Mood - Problem List & Annotations (1) Abscess of foot including toes SNOMED Code(s): 404583855 Code(s): L02.619 - CUTANEOUS ABSCESS OF UNSPECIFIED FOOT Status: Acute Current Visit: Yes (2) Cellulitis SNOMED Code(s): 287347441 Code(s): L03.90 - CELLULITIS, UNSPECIFIED Status: Acute Current Visit: Yes Qualifiers: Site of cellulitis of extremity: toe Laterality: left - Problem List Review Problem List Initiated/Reviewed/Updated: Yes - Assessment Assessment:: Assessment: 1. Left foot cellulitis with abscess s/p I and D with wound vac placement POD#2. 2. Chronic hematuria. 3. Hypertension, stable. 4. Hypokalemia, resolved 5. Hypocalcemia, resolved. 6. Leukocytosis, resolved. 7. Past medical history of peripheral neuropathy. Plan: 1. For left foot cellulitis with abscess, patient will require additional I and D as per orthopedic surgery. Patient will be going for I and D tomorrow. Will continue IV daptomycin. Wound vac is in place. For pain, patient has norco 325/ 5 q6h prn. Wound cultures pending. 2. For chronic hematuria, CT abd/pelvis with hematuria protocol showed renal cyst in both left and right kidneys. Patient will need to follow-up with urologist in the outpatient setting. 3. For hypertension, continue amlodipine 5 mg PO qd. 4. For DVT prophylaxis, patient is on SCD's. He was not started on anti- coagulation because of chronic hematuria. - Plan Plan:: A/P: Continue IV daptomycin per medicine pain control per medicine continue wound vac NPO at midnight and start LRS To OR tomorrow for vac change and partial closure
[2018-12-30] MEDS: SODIUM CHLORIDE 0.9% IV SCH (11:27)
[2018-12-30] MEDS: DAPTOMYCIN IV SCH (11:27)
[2018-12-31] MEDS: Lactated Ringers 1,000 ML IV SCH ×2 (00:01→13:59)
[2018-12-31 06:26] LABS: BLOOD UREA NITROGEN,BUN 8 mg/dL (7.0-18.0); CARBON DIOXIDE,CO2 26.8 mmol/L (21.0-32.0); CHLORIDE,CL 110 mmol/L (98-107); GLUCOSE RANDOM 88 mg/dL (74-106); POTASSIUM,K 4.5 mmol/L (3.5-5.1); SODIUM,NA 142 mmol/L (136-148)
[2018-12-31] MEDS: Pantoprazole 40 MG in Sodium Chloride 0.9% 10 ML IV SCH ×4 (06:34→15:59)
[2018-12-31] MEDS: amLODIPine 5 MG Tab PO SCH (08:23)
[2018-12-31] MEDS: Benzonatate 100 MG Cap PO PRN ×2 (08:23→14:58)
[2018-12-31] MEDS ORDERED: Midazolam 1 MG/ML 2 ML SDV ONE (10:01)
--- NOTE | 2018-12-31 10:48 | PCM.PREANE ---
Preanesthetic Assessment - Anesthesia/Transfusion/Family Hx Anesthesia History: Prior Anesthesia Without Reaction Family History of Anesthesia Reaction: No Transfusion History: No Prior Transfusion(s) - Physical Assessment NPO Status Date: 12/31/18 NPO Status Time: 00:05 Vital Signs: Last Vital Signs Temp 37.0 C 12/31/18 08:00 Pulse 76 12/31/18 08:00 Resp 14 12/31/18 08:00 BP 164/76 H 12/31/18 08:23 Pulse Ox 91 L 12/31/18 08:00 Height: 1.82 m Weight: 109.769 kg ASA Class: 2 - Lab Values: Laboratory Last Values WBC 6.03 K/uL (4.0-11.0) 12/31/18 05:55 RBC 4.30 M/uL (4.50-5.90) L 12/31/18 05:55 Hgb 13.4 g/dL (13.0-17.0) 12/31/18 05:55 Hct 39.1 % (38.0-50.0) 12/31/18 05:55 MCV 90.9 fL (80.0-98.0) 12/31/18 05:55 MCH 31.2 pg (27.0-32.0) 12/31/18 05:55 MCHC 34.3 g/dL (31.0-37.0) 12/31/18 05:55 RDW Std Deviation 45.9 fl (28.0-62.0) 12/31/18 05:55 RDW Coeff of Janeth 14 % (11.0-15.0) 12/31/18 05:55 Plt Count 307 K/uL (150-400) 12/31/18 05:55 MPV 9.50 fL (7.40-12.00) 12/31/18 05:55 Neut % (Auto) 57.7 % (48.0-80.0) 12/31/18 05:55 Lymph % (Auto) 24.7 % (16.0-40.0) 12/31/18 05:55 [place] % (Auto) 10.4 % (0.0-15.0) 12/31/18 05:55 Eos % (Auto) 6.5 % (0.0-7.0) 12/31/18 05:55 Baso % (Auto) 0.7 % (0.0-1.5) 12/31/18 05:55 Neut # (Auto) 3.5 K/uL (1.4-5.7) 12/31/18 05:55 Lymph # (Auto) 1.5 K/uL (0.6-2.4) 12/31/18 05:55 [place] # (Auto) 0.6 K/uL (0.0-0.8) 12/31/18 05:55 Eos # (Auto) 0.4 K/uL (0.0-0.7) 12/31/18 05:55 Baso # (Auto) 0.0 K/uL (0.0-0.1) 12/31/18 05:55 Nucleated RBC % 0.0 /100WBC 12/31/18 05:55 Nucleated RBCs # 0 K/uL 12/31/18 05:55 ESR 35 mm/hr (0-19) H 12/24/18 15:15 INR 0.97 12/24/18 14:10 Lactate 1.6 mmol/L (0.20-2.00) 12/24/18 14:10 Sodium 142 mmol/L (136-148) 12/31/18 05:55 Potassium 4.5 mmol/L (3.5-5.1) 12/31/18 05:55 Chloride 110 mmol/L (98-107) H 12/31/18 05:55 Carbon Dioxide 26.8 mmol/L (21.0-32.0) 12/31/18 05:55 BUN 8 mg/dL (7.0-18.0) 12/31/18 05:55 Creatinine 1.0 mg/dL (0.8-1.3) 12/31/18 05:55 Est Cr Clr Drug Dosing 74.33 mL/min 12/31/18 05:55 Estimated GFR (MDRD) > 60.0 ml/min 12/31/18 05:55 Glucose 88 mg/dL (74-106) 12/31/18 05:55 Hemoglobin A1c 5.1 % (4.5-6.2) 12/24/18 15:15 Calcium 8.2 mg/dL (8.5-10.1) L 12/31/18 05:55 Phosphorus 3.1 mg/dL (2.6-4.7) 12/25/18 06:05 Magnesium 1.9 mg/dL (1.8-2.4) 12/25/18 06:05 Total Bilirubin 0.4 mg/dL (0.2-1.0) 12/29/18 05:55 AST 47 IU/L (15-37) H 12/29/18 05:55 ALT 34 IU/L (14-63) 12/29/18 05:55 Alkaline Phosphatase 70 U/L (46-116) 12/29/18 05:55 C-Reactive Protein 25.10 mg/dL (0.00-0.90) H 12/24/18 14:05 Total Protein 6.4 g/dL (6.4-8.2) 12/29/18 05:55 Albumin 2.2 g/dL (3.4-5.0) L 12/29/18 05:55 Globulin 4.2 g/dL (2.6-4.0) H 12/29/18 05:55 Albumin/Globulin Ratio 0.5 (0.9-1.6) L 12/29/18 05:55 Urine Color YELLOW 12/25/18 05:12 Urine Appearance SLT CLOUDY 12/25/18 05:12 Urine pH 6.0 (5.0-8.0) 12/25/18 05:12 Ur Specific [place] 1.010 (1.001-1.035) 12/25/18 05:12 Urine Protein NEGATIVE mg/dL (NEGATIVE) 12/25/18 05:12 Urine Glucose (UA) NEGATIVE mg/dL (NEGATIVE) 12/25/18 05:12 Urine Ketones TRACE mg/dL (NEGATIVE) H 12/25/18 05:12 Urine Occult Blood LARGE (NEGATIVE) H 12/25/18 05:12 Urine Nitrite NEGATIVE (NEGATIVE) 12/25/18 05:12 Urine Bilirubin NEGATIVE (NEGATIVE) 12/25/18 05:12 Urine Urobilinogen 2.0 EU/dL (<2.0) H 12/25/18 05:12 Ur Leukocyte Esterase NEGATIVE (NEGATIVE) 12/25/18 05:12 Urine RBC 12-18 (0-2/HPF) 12/25/18 05:12 Urine WBC 0-3 (0-5/HPF) 12/25/18 05:12 Ur Epithelial Cells OCCASIONAL (NONE-FEW) 12/25/18 05:12 Urine Bacteria RARE (NEGATIVE) 12/25/18 05:12 Vancomycin Trough 19.4 ug/mL (5.0-10.0) H 12/26/18 01:30 - Allergies Allergies/Adverse Reactions: Allergies Allergy/AdvReac Type Severity Reaction Status Date / Time Penicillins Allergy Other Verified 12/24/18 15:46 - Acknowledgements Anesthesia Type Planned: MAC Pt an Appropriate Candidate for the Planned Anesthesia: Yes Alternatives and Risks of Anesthesia Discussed w Pt/Guardian: Yes Pt/Guardian Understands and Agrees with Anesthesia Plan: Yes PreAnesthesia Questionnaire HEENT History: Reports: None Cardiovascular History: Reports: Hypertension Respiratory History: Reports: Sleep Apnea Gastrointestinal History: Reports: None Genitourinary History: Reports: None Musculoskeletal History: Reports: Amputation Other Musculoskeletal History: tip of right middle finger Neurological History: Reports: None Psychiatric History: Reports: None Endocrine/Metabolic History: Reports: Obesity/BMI 30+ Hematologic History: Reports: B12 Deficiency Immunologic History: Reports: None Oncologic (Cancer) History: Reports: None Dermatologic History: Reports: None - Infectious Disease History Infectious Disease History: Reports: Chicken Pox, Measles - Past Surgical History Head Surgeries/Procedures: Reports: None - SUBSTANCE USE Smoking Status *Q: Never Smoker Days Per Week of Alcohol Use: 7 Number of Drinks Per Day: 6 Total Drinks Per Week: 42 Date of Last Drink: 12/23/18 Recreational Drug Use History: No - HOME MEDS Home Medications: Home Meds Allopurinol [Zyloprim] 1 tab PO DAILY 12/24/18 [History] Cyanocobalamin (Vitamin B12) [Vitamin B12] 1 tab PO DAILY 12/24/18 [History] Multivit-Min/FA/Lycopen/Lutein [Centrum Silver Tablet] 1 tab PO DAILY 12/24/18 [ History] Multivitamin [Multivitamins] 1 each PO DAILY 12/24/18 [History] Triamterene/Hydrochlorothiazid [Triamterene-HCTZ 37.5-25 MG] 1 tab PO DAILY [History] - CURRENT (IN HOUSE) MEDS Current Meds: Current Medications Acetaminophen (Tylenol Extra Strength) 500 mg PO Q6H PRN PRN Reason: Headache Last Admin: 12/30/18 15:57 Dose: 500 mg Hydrocodone Bitart/Acetaminophen ([place] 325-5 Mg) 1 tab PO Q6H PRN PRN Reason: Pain Last Admin: 12/30/18 23:58 Dose: 1 tab Albuterol/Ipratropium (Duoneb 3.0-0.5 Mg/3 Ml) 3 ml NEB Q4HRRT PRN PRN Reason: Shortness Of Breath/wheezing Last Admin: 12/29/18 04:13 Dose: 3 ml Amlodipine Besylate (Norvasc) 5 mg PO DAILY [facility] Last Admin: 12/31/18 08:23 Dose: 5 mg Benzonatate (Tessalon Perles) 100 mg PO TID PRN PRN Reason: Cough Last Admin: 12/31/18 08:23 Dose: 100 mg Cyanocobalamin (Vitamin B12) 1,000 mcg PO DAILY [facility] Last Admin: 12/30/18 09:08 Dose: 1,000 mcg Daptomycin 700 mg/ Sodium (Chloride) 14 mls @ 420 mls/hr IV Q24H [facility] Last Admin: 12/30/18 11:27 Dose: 420 mls/hr Lactated Ringer's (Ringers, Lactated) 1,000 mls @ 75 mls/hr IV ASDIRECTED [facility] Last Admin: 12/31/18 00:01 Dose: 75 mls/hr Pantoprazole Sodium 40 mg/ (Sodium Chloride) 10 mls @ 300 mls/hr IV BIDAC [facility] Last Admin: 12/31/18 06:34 Dose: 300 mls/hr Vancomycin HCl 1 gm/ Sodium (Chloride) 250 mls @ 166 mls/hr IV ONETIME ONE Stop: 12/31/18 11:44 Last Admin: 12/31/18 10:19 Dose: Not Given Ketorolac Tromethamine (Toradol) 30 mg IV Q6H PRN PRN Reason: Pain (moderate 4-6) Last Admin: 12/30/18 14:29 Dose: 30 mg Multivitamins/Minerals (Thera M Plus) 1 tab PO DAILY [facility] Last Admin: 12/30/18 08:17 Dose: 1 tab Ondansetron HCl (Zofran) 4 mg IVPUSH Q4H PRN PRN Reason: Nausea/Vomiting Last Admin: 12/29/18 09:25 Dose: 4 mg Discontinued Medications Albuterol (Proventil Neb Soln) 2.5 mg NEB ONETIME PRN PRN Reason: Wheezing Allopurinol (Zyloprim) 300 mg PO DAILY [facility] Atropine Sulfate (Atropine 0.1 Mg/Ml) 0.5 mg IVPUSH ASDIRECTED PRN PRN Reason: Hypo-perfusion Atropine Sulfate (Atropine 0.1 Mg/Ml) 1 mg IVPUSH ASDIRECTED PRN PRN Reason: Hypo-Perfusion Bupivacaine HCl (Marcaine 0.5%) Confirm Administered Dose 30 ml .ROUTE .STK-MED ONE Stop: 12/28/18 11:43 Calcium Carbonate/Glycine (Tums) 1,000 mg PO ONETIME ONE Stop: 12/25/18 12:09 Last Admin: 12/25/18 13:24 Dose: 1,000 mg Daptomycin (Cubicin) 700 mg IV Q24H [facility] Dextrose/Water (Dextrose 50% In Water) 50 ml IVPUSH ASDIRECTED PRN PRN Reason: Hypoglycemia Epinephrine HCl (Epinephrine 1:10,000) 1 mg IVPUSH ASDIRECTED PRN PRN Reason: ACLS Guidelines Fentanyl (Fentanyl) 50 mcg IVPUSH ONETIME ONE Stop: 12/28/18 10:45 Last Admin: 12/28/18 12:01 Dose: Not Given Fentanyl (Sublimaze) 50 mcg IVPUSH ONETIME ONE Stop: 12/28/18 11:31 Last Admin: 12/28/18 11:31 Dose: 50 mcg Fentanyl (Sublimaze) Confirm Administered Dose 100 mcg .ROUTE .STK-MED ONE Stop: 12/28/18 11:41 Fentanyl (Sublimaze) 50 mcg IVPUSH Q5M PRN PRN Reason: Pain Hydromorphone HCl (Dilaudid) 1 mg IVPUSH ONETIME ONE Stop: 12/24/18 15:04 Last Admin: 12/24/18 15:11 Dose: 1 mg Sodium Chloride (Normal Saline) 1,000 mls @ 999 mls/hr IV STAT ONE Stop: 12/24/18 14:28 Last Admin: 12/24/18 14:15 Dose: 999 mls/hr Vancomycin HCl 1 gm/ Sodium (Chloride) 250 mls @ 166 mls/hr IV ONETIME ONE Stop: 12/24/18 14:58 Last Admin: 12/24/18 14:19 Dose: 166 mls/hr Sodium Chloride (Normal Saline) 1,000 mls @ 100 mls/hr IV ASDIRECTED [facility] Last Admin: 12/26/18 07:21 Dose: 100 mls/hr Vancomycin HCl 1.25 gm/ Sodium (Chloride) 250 mls @ 250 mls/hr IV Q12H [facility] Last Admin: 12/26/18 01:19 Dose: 250 mls/hr Clindamycin Phosphate 900 mg/ (Premix) 50 mls @ 100 mls/hr IV ONETIME ONE Stop: 12/24/18 16:44 Last Admin: 12/24/18 16:22 Dose: 100 mls/hr Clindamycin Phosphate 300 mg/ (Premix) 50 mls @ 100 mls/hr IV Q8H [facility] Last Admin: 12/25/18 09:01 Dose: 100 mls/hr Cefepime HCl 2 gm/ Premix 50 mls @ 100 mls/hr IV Q8H [facility] Last Admin: 12/26/18 02:36 Dose: 100 mls/hr Vancomycin HCl 1 gm/ Sodium (Chloride) 250 mls @ 166 mls/hr IV Q12H [facility] Last Admin: 12/26/18 02:35 Dose: Not Given Vancomycin HCl 1.25 gm/ Sodium (Chloride) 250 mls @ 250 mls/hr IV Q12H [facility] Sodium Chloride (Normal Saline) 1,000 mls @ 75 mls/hr IV ASDIRECTED [facility] Last Admin: 12/29/18 20:54 Dose: 75 mls/hr Sodium Chloride (Normal Saline) Confirm Administered Dose 20 mls @ as directed .ROUTE .STK-MED ONE Stop: 12/28/18 12:36 Iopamidol (Isovue Multipack-370 (76%)) 100 ml IVPUSH ONETIME STA Stop: 12/29/18 12:47 Last Admin: 12/29/18 12:47 Dose: 100 ml Lidocaine (Xylocaine-Mpf 2%) Confirm Administered Dose 5 ml .ROUTE .STK-MED ONE Stop: 12/28/18 11:41 Metronidazole (Metronidazole) 500 mg PO Q8H [facility] Last Admin: 12/27/18 03:45 Dose: 500 mg Midazolam HCl (Versed 1 Mg/Ml) Confirm Administered Dose 2 mg .ROUTE .STK-MED ONE Stop: 12/28/18 11:41 Midazolam HCl (Versed 1 Mg/Ml) Confirm Administered Dose 2 mg .ROUTE .STK-MED ONE Stop: 12/31/18 10:02 Morphine Sulfate (Morphine) 2 mg IVPUSH Q4H PRN PRN Reason: Pain (severe 7-10) Stop: 12/25/18 15:01 Last Admin: 12/25/18 04:26 Dose: 2 mg Naloxone HCl (Narcan) 0.1 mg IVPUSH ASDIRECTED PRN PRN Reason: Respiratory Depression Potassium Chloride (Klor-Con M20) 40 meq PO ONETIME STA Stop: 12/25/18 12:08 Last Admin: 12/25/18 13:23 Dose: 40 meq Propofol (Diprivan 20 Ml) Confirm Administered Dose 200 mg .ROUTE .STK-MED ONE Stop: 12/28/18 11:41 Vancomycin HCl (Pharmacy To Dose - Vancomycin) 1 dose .XX ASDIRECTED [facility]
--- NOTE | 2018-12-31 10:48 | PCM.POSTAN ---
POST ANESTHESIA ASSESSMENT - MENTAL STATUS Mental Status: Oriented - VITAL SIGNS Vital Signs: Last Vital Signs Temp 37.0 C 12/31/18 08:00 Pulse 76 12/31/18 08:00 Resp 14 12/31/18 08:00 BP 164/76 H 12/31/18 08:23 Pulse Ox 91 L 12/31/18 08:00 - RESPIRATORY Respiratory Status: Respiratory Rate WNL, Airway Patent, O2 Saturation Stable - CARDIOVASCULAR CV Status: Pulse Rate WNL, Blood Pressure Stable - GASTROINTESTINAL GI Status: No Symptoms - POST OP HYDRATION Hydration Status: Adequate & Stable
--- NOTE | 2018-12-31 10:50 | PCM48HPAN ---
Post Anesthesia Note - EVALUATION WITHIN 48HRS OF ANESTHETIC Vital Signs in Normal Range: Yes Patient Participated in Evaluation: Yes Respiratory Function Stable: Yes Airway Patent: Yes Cardiovascular Function Stable: Yes Hydration Status Stable: Yes Pain Control Satisfactory: Yes Nausea and Vomiting Control Satisfactory: Yes Mental Status Recovered: Yes Vital Signs: Last Vital Signs Temp 37.0 C 12/31/18 08:00 Pulse 76 12/31/18 08:00 Resp 14 12/31/18 08:00 BP 164/76 H 12/31/18 08:23 Pulse Ox 91 L 12/31/18 08:00
--- NOTE | 2018-12-31 10:55 | PCM.PN ---
- General Info Date of Service: 12/31/18 Admission Dx/Problem (Free Text): At bedside this morning patient reports no complaints. Notes improvement in erythema and edema of left foot. Will be going to OR today. Subjective Update: Patient examined at bedside, ready to be taken to OR, has been NPO overnight, - Review of Systems General: Denies: Fever, Weakness, Fatigue Pulmonary: Denies: Shortness of Breath, Pleuritic Chest Pain Cardiovascular: Denies: Chest Pain, Palpitations Gastrointestinal: Denies: Abdominal Pain, Constipation, Decreased Appetite Genitourinary: Denies: Dysuria, Frequency, Burning Musculoskeletal: Denies: Neck Pain, Shoulder Pain, Arm Pain Skin: Denies: Cyanosis, Jaundice, Mottled Neurological: Denies: Confusion, Dizziness, Headache - Patient Data Vitals - Most Recent: Last Vital Signs Temp 37.0 C 12/31/18 08:00 Pulse 76 12/31/18 08:00 Resp 14 12/31/18 08:00 BP 164/76 H 12/31/18 08:23 Pulse Ox 91 L 12/31/18 08:00 Weight - Most Recent: 109.769 kg I&O - Last 24 Hours: Intake & Output 12/30/18 12/31/18 12/31/18 22:59 06:59 14:59 Intake Total 880 813 Output Total 295 750 Balance 585 63 Lab Results Last 24 Hours: Laboratory Results - last 24 hr 12/31/18 12/31/18 Range/Units 05:55 05:55 WBC 6.03 (4.0-11.0) K/uL RBC 4.30 L (4.50-5.90) M/uL Hgb 13.4 (13.0-17.0) g/dL Hct 39.1 (38.0-50.0) % MCV 90.9 (80.0-98.0) fL MCH 31.2 (27.0-32.0) pg MCHC 34.3 (31.0-37.0) g/dL RDW Std Deviation 45.9 (28.0-62.0) fl RDW Coeff of Janeth 14 (11.0-15.0) % Plt Count 307 (150-400) K/uL MPV 9.50 (7.40-12.00) fL Neut % (Auto) 57.7 (48.0-80.0) % Lymph % (Auto) 24.7 (16.0-40.0) % [place] % (Auto) 10.4 (0.0-15.0) % Eos % (Auto) 6.5 (0.0-7.0) % Baso % (Auto) 0.7 (0.0-1.5) % Neut # (Auto) 3.5 (1.4-5.7) K/uL Lymph # (Auto) 1.5 (0.6-2.4) K/uL [place] # (Auto) 0.6 (0.0-0.8) K/uL Eos # (Auto) 0.4 (0.0-0.7) K/uL Baso # (Auto) 0.0 (0.0-0.1) K/uL Nucleated RBC % 0.0 /100WBC Nucleated RBCs # 0 K/uL Sodium 142 (136-148) mmol/L Potassium 4.5 (3.5-5.1) mmol/L Chloride 110 H (98-107) mmol/L Carbon Dioxide 26.8 (21.0-32.0) mmol/L BUN 8 (7.0-18.0) mg/dL Creatinine 1.0 (0.8-1.3) mg/dL Est Cr Clr Drug Dosing 74.33 mL/min Estimated GFR (MDRD) > 60.0 ml/min Glucose 88 (74-106) mg/dL Calcium 8.2 L (8.5-10.1) mg/dL Med Orders - Current: Current Medications Acetaminophen (Tylenol Extra Strength) 500 mg PO Q6H PRN PRN Reason: Headache Last Admin: 12/30/18 15:57 Dose: 500 mg Hydrocodone Bitart/Acetaminophen ([place] 325-5 Mg) 1 tab PO Q6H PRN PRN Reason: Pain Last Admin: 12/30/18 23:58 Dose: 1 tab Albuterol/Ipratropium (Duoneb 3.0-0.5 Mg/3 Ml) 3 ml NEB Q4HRRT PRN PRN Reason: Shortness Of Breath/wheezing Last Admin: 12/29/18 04:13 Dose: 3 ml Amlodipine Besylate (Norvasc) 5 mg PO DAILY [facility] Last Admin: 12/31/18 08:23 Dose: 5 mg Benzonatate (Tessalon Perles) 100 mg PO TID PRN PRN Reason: Cough Last Admin: 12/31/18 08:23 Dose: 100 mg Cyanocobalamin (Vitamin B12) 1,000 mcg PO DAILY [facility] Last Admin: 12/30/18 09:08 Dose: 1,000 mcg Daptomycin 700 mg/ Sodium (Chloride) 14 mls @ 420 mls/hr IV Q24H [facility] Last Admin: 12/30/18 11:27 Dose: 420 mls/hr Lactated Ringer's (Ringers, Lactated) 1,000 mls @ 75 mls/hr IV ASDIRECTED [facility] Last Admin: 12/31/18 00:01 Dose: 75 mls/hr Pantoprazole Sodium 40 mg/ (Sodium Chloride) 10 mls @ 300 mls/hr IV BIDAC [facility] Last Admin: 12/31/18 06:34 Dose: 300 mls/hr Vancomycin HCl 1 gm/ Sodium (Chloride) 250 mls @ 166 mls/hr IV ONETIME ONE Stop: 12/31/18 11:44 Last Admin: 12/31/18 10:19 Dose: Not Given Ketorolac Tromethamine (Toradol) 30 mg IV Q6H PRN PRN Reason: Pain (moderate 4-6) Last Admin: 12/30/18 14:29 Dose: 30 mg Multivitamins/Minerals (Thera M Plus) 1 tab PO DAILY [facility] Last Admin: 12/30/18 08:17 Dose: 1 tab Ondansetron HCl (Zofran) 4 mg IVPUSH Q4H PRN PRN Reason: Nausea/Vomiting Last Admin: 12/29/18 09:25 Dose: 4 mg Discontinued Medications Albuterol (Proventil Neb Soln) 2.5 mg NEB ONETIME PRN PRN Reason: Wheezing Allopurinol (Zyloprim) 300 mg PO DAILY [facility] Atropine Sulfate (Atropine 0.1 Mg/Ml) 0.5 mg IVPUSH ASDIRECTED PRN PRN Reason: Hypo-perfusion Atropine Sulfate (Atropine 0.1 Mg/Ml) 1 mg IVPUSH ASDIRECTED PRN PRN Reason: Hypo-Perfusion Bupivacaine HCl (Marcaine 0.5%) Confirm Administered Dose 30 ml .ROUTE .STK-MED ONE Stop: 12/28/18 11:43 Calcium Carbonate/Glycine (Tums) 1,000 mg PO ONETIME ONE Stop: 12/25/18 12:09 Last Admin: 12/25/18 13:24 Dose: 1,000 mg Daptomycin (Cubicin) 700 mg IV Q24H [facility] Dextrose/Water (Dextrose 50% In Water) 50 ml IVPUSH ASDIRECTED PRN PRN Reason: Hypoglycemia Epinephrine HCl (Epinephrine 1:10,000) 1 mg IVPUSH ASDIRECTED PRN PRN Reason: ACLS Guidelines Fentanyl (Fentanyl) 50 mcg IVPUSH ONETIME ONE Stop: 12/28/18 10:45 Last Admin: 12/28/18 12:01 Dose: Not Given Fentanyl (Sublimaze) 50 mcg IVPUSH ONETIME ONE Stop: 12/28/18 11:31 Last Admin: 12/28/18 11:31 Dose: 50 mcg Fentanyl (Sublimaze) Confirm Administered Dose 100 mcg .ROUTE .STK-MED ONE Stop: 12/28/18 11:41 Fentanyl (Sublimaze) 50 mcg IVPUSH Q5M PRN PRN Reason: Pain Hydromorphone HCl (Dilaudid) 1 mg IVPUSH ONETIME ONE Stop: 12/24/18 15:04 Last Admin: 12/24/18 15:11 Dose: 1 mg Sodium Chloride (Normal Saline) 1,000 mls @ 999 mls/hr IV STAT ONE Stop: 12/24/18 14:28 Last Admin: 12/24/18 14:15 Dose: 999 mls/hr Vancomycin HCl 1 gm/ Sodium (Chloride) 250 mls @ 166 mls/hr IV ONETIME ONE Stop: 12/24/18 14:58 Last Admin: 12/24/18 14:19 Dose: 166 mls/hr Sodium Chloride (Normal Saline) 1,000 mls @ 100 mls/hr IV ASDIRECTED [facility] Last Admin: 12/26/18 07:21 Dose: 100 mls/hr Vancomycin HCl 1.25 gm/ Sodium (Chloride) 250 mls @ 250 mls/hr IV Q12H [facility] Last Admin: 12/26/18 01:19 Dose: 250 mls/hr Clindamycin Phosphate 900 mg/ (Premix) 50 mls @ 100 mls/hr IV ONETIME ONE Stop: 12/24/18 16:44 Last Admin: 12/24/18 16:22 Dose: 100 mls/hr Clindamycin Phosphate 300 mg/ (Premix) 50 mls @ 100 mls/hr IV Q8H [facility] Last Admin: 12/25/18 09:01 Dose: 100 mls/hr Cefepime HCl 2 gm/ Premix 50 mls @ 100 mls/hr IV Q8H [facility] Last Admin: 12/26/18 02:36 Dose: 100 mls/hr Vancomycin HCl 1 gm/ Sodium (Chloride) 250 mls @ 166 mls/hr IV Q12H [facility] Last Admin: 12/26/18 02:35 Dose: Not Given Vancomycin HCl 1.25 gm/ Sodium (Chloride) 250 mls @ 250 mls/hr IV Q12H [facility] Sodium Chloride (Normal Saline) 1,000 mls @ 75 mls/hr IV ASDIRECTED [facility] Last Admin: 12/29/18 20:54 Dose: 75 mls/hr Sodium Chloride (Normal Saline) Confirm Administered Dose 20 mls @ as directed .ROUTE .STK-MED ONE Stop: 12/28/18 12:36 Iopamidol (Isovue Multipack-370 (76%)) 100 ml IVPUSH ONETIME STA Stop: 12/29/18 12:47 Last Admin: 12/29/18 12:47 Dose: 100 ml Lidocaine (Xylocaine-Mpf 2%) Confirm Administered Dose 5 ml .ROUTE .STK-MED ONE Stop: 12/28/18 11:41 Metronidazole (Metronidazole) 500 mg PO Q8H [facility] Last Admin: 12/27/18 03:45 Dose: 500 mg Midazolam HCl (Versed 1 Mg/Ml) Confirm Administered Dose 2 mg .ROUTE .STK-MED ONE Stop: 12/28/18 11:41 Midazolam HCl (Versed 1 Mg/Ml) Confirm Administered Dose 2 mg .ROUTE .STK-MED ONE Stop: 12/31/18 10:02 Morphine Sulfate (Morphine) 2 mg IVPUSH Q4H PRN PRN Reason: Pain (severe 7-10) Stop: 12/25/18 15:01 Last Admin: 12/25/18 04:26 Dose: 2 mg Naloxone HCl (Narcan) 0.1 mg IVPUSH ASDIRECTED PRN PRN Reason: Respiratory Depression Potassium Chloride (Klor-Con M20) 40 meq PO ONETIME STA Stop: 12/25/18 12:08 Last Admin: 12/25/18 13:23 Dose: 40 meq Propofol (Diprivan 20 Ml) Confirm Administered Dose 200 mg .ROUTE .STK-MED ONE Stop: 12/28/18 11:41 Vancomycin HCl (Pharmacy To Dose - Vancomycin) 1 dose .XX ASDIRECTED [facility] - Exam General: Alert, Oriented, Cooperative Lungs: Clear to Auscultation, Normal Respiratory Effort Cardiovascular: Regular Rate, Regular Rhythm GI/Abdominal Exam: Normal Bowel Sounds, Soft Back Exam: Normal Inspection Extremities: Other (left leg cellulitis with wound vac) Skin: Warm Wound/Incisions: Healing Well - Problem List & Annotations (1) Cellulitis SNOMED Code(s): 022063189 Code(s): L03.90 - CELLULITIS, UNSPECIFIED Status: Acute Current Visit: Yes Qualifiers: Site of cellulitis of extremity: toe Laterality: left (2) HTN (hypertension) SNOMED Code(s): 43526765 Code(s): I10 - ESSENTIAL (PRIMARY) HYPERTENSION Status: Acute Current Visit: Yes - Problem List Review Problem List Initiated/Reviewed/Updated: Yes - My Orders Last 24 Hours: My Active Orders 12/30/18 23:15 Pantoprazole [ProTONIX IV] 40 mg Sodium Chloride 0.9% [Normal Saline] 10 ml IV BIDAC - Assessment Assessment:: Assessment/Plan: 1.Left foot cellulitis with abscess s/p I and D with wound vac placement POD#3, going for additional I and D as per orthopedic surgery. Will continue IV daptomycin. Wound vac is in place. Pain control with Leopold 325/5 q6h prn. Wound cultures pending. 2. For chronic hematuria, CT abd/pelvis with hematuria protocol showed renal cyst in both left and right kidneys. Patient will need to follow-up with urologist in the outpatient setting. 3. For hypertension, continue amlodipine 5 mg PO qd. 4. For DVT prophylaxis, cont SCD's. - Plan Plan:: I have seen and examined the patient, i have discussed the management plan with the resident and agree with the documentation unless specified otherwise in my note.
--- NOTE | 2018-12-31 10:59 | PCM.OPNOTE ---
- General Post-Op/Procedure Note Date of Surgery/Procedure: 12/31/18 Operative Procedure(s): repeat irrigation and debridement left foot. reapply wound vac <50cm2 Pre Op Diagnosis: left foot deep infection Post-Op Diagnosis: Same Anesthesia Technique: Moderate Sedation Primary Surgeon: Hugh Munoz EBL in mLs: 0 Complications: None Condition: Stable Free Text/Narrative:: Intake & Output 12/30/18 12/31/18 12/31/18 22:59 06:59 14:59 Intake Total 880 813 550 Output Total 295 750 Balance 585 63 550
[2018-12-31] MEDS: Cyanocobalamin (Vitamin B12) 500 MCG Tab PO SCH (11:12)
[2018-12-31] MEDS: DAPTOMYCIN IV SCH (11:12)
[2018-12-31] MEDS: SODIUM CHLORIDE 0.9% IV SCH (11:12)
[2018-12-31] MEDS: Multivitamins with Iron/Calcium/Folic Acid/Minerals Tab PO SCH (11:12)
[2018-12-31] MEDS: Acetaminophen/HYDROcodone 325-5 MG Tab PO PRN ×4 (11:15→23:52)
[2018-12-31] MEDS: Ketorolac 30 MG/ML SDV IV PRN (12:47)
[2018-12-31] MEDS: Acetaminophen 500 MG Tab PO PRN (19:53)
[2019-01-01] MEDS: Acetaminophen/HYDROcodone 325-5 MG Tab PO PRN ×4 (04:09→21:31)
[2019-01-01] MEDS: Benzonatate 100 MG Cap PO PRN ×2 (04:09→17:49)
[2019-01-01] MEDS: Acetaminophen 500 MG Tab PO PRN (04:26)
[2019-01-01 06:17] LABS: BLOOD UREA NITROGEN,BUN 6 mg/dL (7.0-18.0); CARBON DIOXIDE,CO2 27.2 mmol/L (21.0-32.0); CHLORIDE,CL 110 mmol/L (98-107); GLUCOSE RANDOM 85 mg/dL (74-106); POTASSIUM,K 3.9 mmol/L (3.5-5.1); SODIUM,NA 143 mmol/L (136-148)
[2019-01-01] MEDS: Pantoprazole 40 MG in Sodium Chloride 0.9% 10 ML IV SCH ×2 (06:41→17:48)
[2019-01-01] MEDS: Cyanocobalamin (Vitamin B12) 500 MCG Tab PO SCH (08:15)
[2019-01-01] MEDS: amLODIPine 5 MG Tab PO SCH (08:15)
[2019-01-01] MEDS: Multivitamins with Iron/Calcium/Folic Acid/Minerals Tab PO SCH (08:16)
[2019-01-01] MEDS ORDERED: Magnesium Oxide 400 MG Tab PO ONE (09:18)
--- NOTE | 2019-01-01 09:18 | PCM.PN ---
<Wili Melgar M - Last Filed: 01/01/19 19:29> - General Info Date of Service: 01/01/19 Subjective Update: Reports sleeping well overnight, tolerating food and having bowel movements. Reports his bowel movements appear to be less soft. Pain well controlled. - Patient Data Vitals - Most Recent: Last Vital Signs Temp 97.9 F 01/01/19 07:00 Pulse 64 01/01/19 07:00 Resp 18 01/01/19 07:00 BP 161/80 H 01/01/19 08:15 Pulse Ox 93 L 01/01/19 07:00 Weight - Most Recent: 109.769 kg I&O - Last 24 Hours: Intake & Output 12/31/18 01/01/19 01/01/19 22:59 06:59 14:59 Intake Total 2872 300 Output Total 2450 200 Balance 422 100 Lab Results Last 24 Hours: Laboratory Results - last 24 hr 01/01/19 01/01/19 Range/Units 05:50 05:50 WBC 6.31 (4.0-11.0) K/uL RBC 4.51 (4.50-5.90) M/uL Hgb 13.3 (13.0-17.0) g/dL Hct 40.7 (38.0-50.0) % MCV 90.2 (80.0-98.0) fL MCH 29.5 (27.0-32.0) pg MCHC 32.7 (31.0-37.0) g/dL RDW Std Deviation 45.3 (28.0-62.0) fl RDW Coeff of Janeth 14 (11.0-15.0) % Plt Count 326 (150-400) K/uL MPV 9.30 (7.40-12.00) fL Neut % (Auto) 63.1 (48.0-80.0) % Lymph % (Auto) 20.6 (16.0-40.0) % Grainger % (Auto) 10.8 (0.0-15.0) % Eos % (Auto) 4.9 (0.0-7.0) % Baso % (Auto) 0.6 (0.0-1.5) % Neut # (Auto) 4.0 (1.4-5.7) K/uL Lymph # (Auto) 1.3 (0.6-2.4) K/uL Grainger # (Auto) 0.7 (0.0-0.8) K/uL Eos # (Auto) 0.3 (0.0-0.7) K/uL Baso # (Auto) 0.0 (0.0-0.1) K/uL Nucleated RBC % 0.0 /100WBC Nucleated RBCs # 0 K/uL Sodium 143 (136-148) mmol/L Potassium 3.9 (3.5-5.1) mmol/L Chloride 110 H (98-107) mmol/L Carbon Dioxide 27.2 (21.0-32.0) mmol/L BUN 6 L (7.0-18.0) mg/dL Creatinine 1.1 (0.8-1.3) mg/dL Est Cr Clr Drug Dosing 67.57 mL/min Estimated GFR (MDRD) > 60.0 ml/min Glucose 85 (74-106) mg/dL Calcium 8.0 L (8.5-10.1) mg/dL Phosphorus 3.5 (2.6-4.7) mg/dL Magnesium 1.7 L (1.8-2.4) mg/dL Percy Results Last 24 Hours: Microbiology 12/28/18 12:42 Gram Stain - Preliminary Foot, Left Wound Culture - Final (Mrsa) Staphylococcus Aureus Skin Carly Anaerobic Culture - Final NO ANAEROBES ISOLATED Med Orders - Current: Current Medications Acetaminophen (Tylenol Extra Strength) 500 mg PO Q6H PRN PRN Reason: Headache Last Admin: 01/01/19 04:26 Dose: 500 mg Hydrocodone Bitart/Acetaminophen ([place] 325-5 Mg) 1 tab PO Q4H PRN PRN Reason: Pain Last Admin: 01/01/19 08:15 Dose: 1 tab Albuterol/Ipratropium (Duoneb 3.0-0.5 Mg/3 Ml) 3 ml NEB Q4HRRT PRN PRN Reason: Shortness Of Breath/wheezing Last Admin: 12/29/18 04:13 Dose: 3 ml Amlodipine Besylate (Norvasc) 5 mg PO DAILY ANNA Last Admin: 01/01/19 08:15 Dose: 5 mg Benzonatate (Tessalon Perles) 100 mg PO TID PRN PRN Reason: Cough Last Admin: 01/01/19 04:09 Dose: 100 mg Cyanocobalamin (Vitamin B12) 1,000 mcg PO DAILY [facility] Last Admin: 01/01/19 08:15 Dose: 1,000 mcg Daptomycin 700 mg/ Sodium (Chloride) 14 mls @ 420 mls/hr IV Q24H [facility] Last Admin: 12/31/18 11:12 Dose: 420 mls/hr Pantoprazole Sodium 40 mg/ (Sodium Chloride) 10 mls @ 300 mls/hr IV BIDAC [facility] Last Admin: 01/01/19 06:41 Dose: 300 mls/hr Ketorolac Tromethamine (Toradol) 30 mg IV Q6H PRN PRN Reason: Pain (moderate 4-6) Last Admin: 12/31/18 12:47 Dose: 30 mg Multivitamins/Minerals (Thera M Plus) 1 tab PO DAILY [facility] Last Admin: 01/01/19 08:16 Dose: 1 tab Ondansetron HCl (Zofran) 4 mg IVPUSH Q4H PRN PRN Reason: Nausea/Vomiting Last Admin: 12/29/18 09:25 Dose: 4 mg Discontinued Medications Hydrocodone Bitart/Acetaminophen ([place] 325-5 Mg) 1 tab PO Q6H PRN PRN Reason: Pain Last Admin: 12/31/18 11:15 Dose: 1 tab Albuterol (Proventil Neb Soln) 2.5 mg NEB ONETIME PRN PRN Reason: Wheezing Allopurinol (Zyloprim) 300 mg PO DAILY [facility] Atropine Sulfate (Atropine 0.1 Mg/Ml) 0.5 mg IVPUSH ASDIRECTED PRN PRN Reason: Hypo-perfusion Atropine Sulfate (Atropine 0.1 Mg/Ml) 1 mg IVPUSH ASDIRECTED PRN PRN Reason: Hypo-Perfusion Bupivacaine HCl (Marcaine 0.5%) Confirm Administered Dose 30 ml .ROUTE .STK-MED ONE Stop: 12/28/18 11:43 Calcium Carbonate/Glycine (Tums) 1,000 mg PO ONETIME ONE Stop: 12/25/18 12:09 Last Admin: 12/25/18 13:24 Dose: 1,000 mg Daptomycin (Cubicin) 700 mg IV Q24H [facility] Dextrose/Water (Dextrose 50% In Water) 50 ml IVPUSH ASDIRECTED PRN PRN Reason: Hypoglycemia Epinephrine HCl (Epinephrine 1:10,000) 1 mg IVPUSH ASDIRECTED PRN PRN Reason: ACLS Guidelines Fentanyl (Fentanyl) 50 mcg IVPUSH ONETIME ONE Stop: 12/28/18 10:45 Last Admin: 12/28/18 12:01 Dose: Not Given Fentanyl (Sublimaze) 50 mcg IVPUSH ONETIME ONE Stop: 12/28/18 11:31 Last Admin: 12/28/18 11:31 Dose: 50 mcg Fentanyl (Sublimaze) Confirm Administered Dose 100 mcg .ROUTE .STK-MED ONE Stop: 12/28/18 11:41 Fentanyl (Sublimaze) 50 mcg IVPUSH Q5M PRN PRN Reason: Pain Hydromorphone HCl (Dilaudid) 1 mg IVPUSH ONETIME ONE Stop: 12/24/18 15:04 Last Admin: 12/24/18 15:11 Dose: 1 mg Sodium Chloride (Normal Saline) 1,000 mls @ 999 mls/hr IV STAT ONE Stop: 12/24/18 14:28 Last Admin: 12/24/18 14:15 Dose: 999 mls/hr Vancomycin HCl 1 gm/ Sodium (Chloride) 250 mls @ 166 mls/hr IV ONETIME ONE Stop: 12/24/18 14:58 Last Admin: 12/24/18 14:19 Dose: 166 mls/hr Sodium Chloride (Normal Saline) 1,000 mls @ 100 mls/hr IV ASDIRECTED [facility] Last Admin: 12/26/18 07:21 Dose: 100 mls/hr Vancomycin HCl 1.25 gm/ Sodium (Chloride) 250 mls @ 250 mls/hr IV Q12H [facility] Last Admin: 12/26/18 01:19 Dose: 250 mls/hr Clindamycin Phosphate 900 mg/ (Premix) 50 mls @ 100 mls/hr IV ONETIME ONE Stop: 12/24/18 16:44 Last Admin: 12/24/18 16:22 Dose: 100 mls/hr Clindamycin Phosphate 300 mg/ (Premix) 50 mls @ 100 mls/hr IV Q8H [facility] Last Admin: 12/25/18 09:01 Dose: 100 mls/hr Cefepime HCl 2 gm/ Premix 50 mls @ 100 mls/hr IV Q8H [facility] Last Admin: 12/26/18 02:36 Dose: 100 mls/hr Vancomycin HCl 1 gm/ Sodium (Chloride) 250 mls @ 166 mls/hr IV Q12H [facility] Last Admin: 12/26/18 02:35 Dose: Not Given Vancomycin HCl 1.25 gm/ Sodium (Chloride) 250 mls @ 250 mls/hr IV Q12H [facility] Sodium Chloride (Normal Saline) 1,000 mls @ 75 mls/hr IV ASDIRECTED [facility] Last Admin: 12/29/18 20:54 Dose: 75 mls/hr Sodium Chloride (Normal Saline) Confirm Administered Dose 20 mls @ as directed .ROUTE .STK-MED ONE Stop: 12/28/18 12:36 Lactated Ringer's (Ringers, Lactated) 1,000 mls @ 75 mls/hr IV ASDIRECTED [facility] Last Admin: 12/31/18 13:59 Dose: 75 mls/hr Vancomycin HCl 1 gm/ Sodium (Chloride) 250 mls @ 166 mls/hr IV ONETIME ONE Stop: 12/31/18 11:44 Last Admin: 12/31/18 10:19 Dose: Not Given Iopamidol (Isovue Multipack-370 (76%)) 100 ml IVPUSH ONETIME STA Stop: 12/29/18 12:47 Last Admin: 12/29/18 12:47 Dose: 100 ml Lidocaine (Xylocaine-Mpf 2%) Confirm Administered Dose 5 ml .ROUTE .STK-MED ONE Stop: 12/28/18 11:41 Metronidazole (Metronidazole) 500 mg PO Q8H [facility] Last Admin: 12/27/18 03:45 Dose: 500 mg Midazolam HCl (Versed 1 Mg/Ml) Confirm Administered Dose 2 mg .ROUTE .STK-MED ONE Stop: 12/28/18 11:41 Midazolam HCl (Versed 1 Mg/Ml) Confirm Administered Dose 2 mg .ROUTE .STK-MED ONE Stop: 12/31/18 10:02 Morphine Sulfate (Morphine) 2 mg IVPUSH Q4H PRN PRN Reason: Pain (severe 7-10) Stop: 12/25/18 15:01 Last Admin: 12/25/18 04:26 Dose: 2 mg Naloxone HCl (Narcan) 0.1 mg IVPUSH ASDIRECTED PRN PRN Reason: Respiratory Depression Potassium Chloride (Klor-Con M20) 40 meq PO ONETIME STA Stop: 12/25/18 12:08 Last Admin: 12/25/18 13:23 Dose: 40 meq Propofol (Diprivan 20 Ml) Confirm Administered Dose 200 mg .ROUTE .STK-MED ONE Stop: 12/28/18 11:41 Vancomycin HCl (Pharmacy To Dose - Vancomycin) 1 dose .XX ASDIRECTED ANNA - Exam General: Alert, Oriented, Cooperative, No Acute Distress Lungs: Clear to Auscultation, Normal Respiratory Effort Cardiovascular: Regular Rate, Regular Rhythm GI/Abdominal Exam: Normal Bowel Sounds, Soft, Non-Tender, No Distention Extremities: Other (Left foot wound vac in place. Minimal erythema and mild edema.) - Problem List & Annotations (1) Hypokalemia SNOMED Code(s): 64864957 Code(s): E87.6 - HYPOKALEMIA Status: Acute (2) Hypocalcemia SNOMED Code(s): 5867693 Code(s): E83.51 - HYPOCALCEMIA Status: Acute (3) Cellulitis SNOMED Code(s): 307893601 Code(s): L03.90 - CELLULITIS, UNSPECIFIED Status: Acute Qualifiers: Site of cellulitis of extremity: toe Laterality: left (4) HTN (hypertension) SNOMED Code(s): 35468809 Code(s): I10 - ESSENTIAL (PRIMARY) HYPERTENSION Status: Acute - Problem List Review Problem List Initiated/Reviewed/Updated: Yes - Assessment Assessment:: Assessment/Plan: 1. Left foot cellulitis with abscess s/p I and D x2 with wound vac placement POD #4. Will continue IV daptomycin. Pain control with [place] 325/5 q6h prn. Wound cultures positive for MRSA. Patient will require long-term IV antibiotics and will require a PICC line. Attempts were made to make arrangement for PICC line placement at [facility] here in [place], however, no answer. Will reattempt tomorrow. 2. For chronic hematuria, CT abd/pelvis with hematuria protocol showed renal cyst in both left and right kidneys. Patient will need to follow-up with urologist in the outpatient setting. 3. For hypertension, continue amlodipine 5 mg PO qd. 4. For DVT prophylaxis, cont SCD's. <Huseyin Hahn - Last Filed: 01/03/19 20:20> - Patient Data Vitals - Most Recent: Last Vital Signs Temp 37.2 C 01/03/19 08:00 Pulse 65 01/03/19 08:00 Resp 17 01/03/19 08:00 BP 156/71 H 01/03/19 08:58 Pulse Ox 94 L 01/03/19 08:00 I&O - Last 24 Hours: Intake & Output 01/03/19 01/03/19 01/03/19 06:59 14:59 22:59 Intake Total 700 314 Output Total 1050 200 Balance -350 114 Lab Results Last 24 Hours: Laboratory Results - last 24 hr 01/03/19 01/03/19 Range/Units 06:13 06:13 WBC 7.92 (4.0-11.0) K/uL RBC 4.67 (4.50-5.90) M/uL Hgb 13.7 (13.0-17.0) g/dL Hct 41.4 (38.0-50.0) % MCV 88.7 (80.0-98.0) fL MCH 29.3 (27.0-32.0) pg MCHC 33.1 (31.0-37.0) g/dL RDW Std Deviation 44.1 (28.0-62.0) fl RDW Coeff of Janeth 14 (11.0-15.0) % Plt Count 308 (150-400) K/uL MPV 8.80 (7.40-12.00) fL Neut % (Auto) 66.7 (48.0-80.0) % Lymph % (Auto) 21.3 (16.0-40.0) % Grainger % (Auto) 7.2 (0.0-15.0) % Eos % (Auto) 4.2 (0.0-7.0) % Baso % (Auto) 0.6 (0.0-1.5) % Neut # (Auto) 5.3 (1.4-5.7) K/uL Lymph # (Auto) 1.7 (0.6-2.4) K/uL Grainger # (Auto) 0.6 (0.0-0.8) K/uL Eos # (Auto) 0.3 (0.0-0.7) K/uL Baso # (Auto) 0.1 (0.0-0.1) K/uL Nucleated RBC % 0.0 /100WBC Nucleated RBCs # 0 K/uL Sodium 141 (136-148) mmol/L Potassium 3.9 (3.5-5.1) mmol/L Chloride 108 H (98-107) mmol/L Carbon Dioxide 25.7 (21.0-32.0) mmol/L BUN 10 (7.0-18.0) mg/dL Creatinine 1.1 (0.8-1.3) mg/dL Est Cr Clr Drug Dosing 67.57 mL/min Estimated GFR (MDRD) > 60.0 ml/min Glucose 90 (74-106) mg/dL Calcium 8.4 L (8.5-10.1) mg/dL Med Orders - Current: Current Medications Discontinued Medications Acetaminophen (Tylenol Extra Strength) 500 mg PO Q6H PRN PRN Reason: Headache Last Admin: 01/01/19 04:26 Dose: 500 mg Hydrocodone Bitart/Acetaminophen ([place] 325-5 Mg) 1 tab PO Q6H PRN PRN Reason: Pain Last Admin: 12/31/18 11:15 Dose: 1 tab Hydrocodone Bitart/Acetaminophen ([place] 325-5 Mg) 1 tab PO Q4H PRN PRN Reason: Pain Last Admin: 01/03/19 08:59 Dose: 1 tab Albuterol (Proventil Neb Soln) 2.5 mg NEB ONETIME PRN PRN Reason: Wheezing Albuterol/Ipratropium (Duoneb 3.0-0.5 Mg/3 Ml) 3 ml NEB Q4HRRT PRN PRN Reason: Shortness Of Breath/wheezing Last Admin: 12/29/18 04:13 Dose: 3 ml Allopurinol (Zyloprim) 300 mg PO DAILY [facility] Amlodipine Besylate (Norvasc) 5 mg PO DAILY [facility] Last Admin: 01/02/19 09:12 Dose: 5 mg Amlodipine Besylate (Norvasc) 10 mg PO DAILY [facility] Last Admin: 01/03/19 08:58 Dose: 10 mg Atropine Sulfate (Atropine 0.1 Mg/Ml) 0.5 mg IVPUSH ASDIRECTED PRN PRN Reason: Hypo-perfusion Atropine Sulfate (Atropine 0.1 Mg/Ml) 1 mg IVPUSH ASDIRECTED PRN PRN Reason: Hypo-Perfusion Benzonatate (Tessalon Perles) 100 mg PO TID PRN PRN Reason: Cough Last Admin: 01/02/19 11:57 Dose: 100 mg Bupivacaine HCl (Marcaine 0.5%) Confirm Administered Dose 30 ml .ROUTE .STK-MED ONE Stop: 12/28/18 11:43 Calcium Carbonate/Glycine (Tums) 1,000 mg PO ONETIME ONE Stop: 12/25/18 12:09 Last Admin: 12/25/18 13:24 Dose: 1,000 mg Cyanocobalamin (Vitamin B12) 1,000 mcg PO DAILY [facility] Last Admin: 01/03/19 08:59 Dose: 1,000 mcg Daptomycin (Cubicin) 700 mg IV Q24H [facility] Dextrose/Water (Dextrose 50% In Water) 50 ml IVPUSH ASDIRECTED PRN PRN Reason: Hypoglycemia Epinephrine HCl (Epinephrine 1:10,000) 1 mg IVPUSH ASDIRECTED PRN PRN Reason: ACLS Guidelines Fentanyl (Fentanyl) 50 mcg IVPUSH ONETIME ONE Stop: 12/28/18 10:45 Last Admin: 12/28/18 12:01 Dose: Not Given Fentanyl (Sublimaze) 50 mcg IVPUSH ONETIME ONE Stop: 12/28/18 11:31 Last Admin: 12/28/18 11:31 Dose: 50 mcg Fentanyl (Sublimaze) Confirm Administered Dose 100 mcg .ROUTE .STK-MED ONE Stop: 12/28/18 11:41 Fentanyl (Sublimaze) 50 mcg IVPUSH Q5M PRN PRN Reason: Pain Hydromorphone HCl (Dilaudid) 1 mg IVPUSH ONETIME ONE Stop: 12/24/18 15:04 Last Admin: 12/24/18 15:11 Dose: 1 mg Sodium Chloride (Normal Saline) 1,000 mls @ 999 mls/hr IV STAT ONE Stop: 12/24/18 14:28 Last Admin: 12/24/18 14:15 Dose: 999 mls/hr Vancomycin HCl 1 gm/ Sodium (Chloride) 250 mls @ 166 mls/hr IV ONETIME ONE Stop: 12/24/18 14:58 Last Admin: 12/24/18 14:19 Dose: 166 mls/hr Sodium Chloride (Normal Saline) 1,000 mls @ 100 mls/hr IV ASDIRECTED [facility] Last Admin: 12/26/18 07:21 Dose: 100 mls/hr Vancomycin HCl 1.25 gm/ Sodium (Chloride) 250 mls @ 250 mls/hr IV Q12H [facility] Last Admin: 12/26/18 01:19 Dose: 250 mls/hr Clindamycin Phosphate 900 mg/ (Premix) 50 mls @ 100 mls/hr IV ONETIME ONE Stop: 12/24/18 16:44 Last Admin: 12/24/18 16:22 Dose: 100 mls/hr Clindamycin Phosphate 300 mg/ (Premix) 50 mls @ 100 mls/hr IV Q8H [facility] Last Admin: 12/25/18 09:01 Dose: 100 mls/hr Cefepime HCl 2 gm/ Premix 50 mls @ 100 mls/hr IV Q8H [facility] Last Admin: 12/26/18 02:36 Dose: 100 mls/hr Vancomycin HCl 1 gm/ Sodium (Chloride) 250 mls @ 166 mls/hr IV Q12H [facility] Last Admin: 12/26/18 02:35 Dose: Not Given Vancomycin HCl 1.25 gm/ Sodium (Chloride) 250 mls @ 250 mls/hr IV Q12H [facility] Daptomycin 700 mg/ Sodium (Chloride) 14 mls @ 420 mls/hr IV Q24H [facility] Last Admin: 01/03/19 11:44 Dose: 420 mls/hr Sodium Chloride (Normal Saline) 1,000 mls @ 75 mls/hr IV ASDIRECTED [facility] Last Admin: 12/29/18 20:54 Dose: 75 mls/hr Sodium Chloride (Normal Saline) Confirm Administered Dose 20 mls @ as directed .ROUTE .STK-MED ONE Stop: 12/28/18 12:36 Lactated Ringer's (Ringers, Lactated) 1,000 mls @ 75 mls/hr IV ASDIRECTED [facility] Last Admin: 12/31/18 13:59 Dose: 75 mls/hr Pantoprazole Sodium 40 mg/ (Sodium Chloride) 10 mls @ 300 mls/hr IV BIDAC [facility] Last Admin: 01/03/19 06:40 Dose: 300 mls/hr Vancomycin HCl 1 gm/ Sodium (Chloride) 250 mls @ 166 mls/hr IV ONETIME ONE Stop: 12/31/18 11:44 Last Admin: 12/31/18 10:19 Dose: Not Given Iopamidol (Isovue Multipack-370 (76%)) 100 ml IVPUSH ONETIME STA Stop: 12/29/18 12:47 Last Admin: 12/29/18 12:47 Dose: 100 ml Ketorolac Tromethamine (Toradol) 30 mg IV Q6H PRN PRN Reason: Pain (moderate 4-6) Last Admin: 01/02/19 11:58 Dose: 30 mg Lidocaine (Xylocaine-Mpf 2%) Confirm Administered Dose 5 ml .ROUTE .STK-MED ONE Stop: 12/28/18 11:41 Magnesium Oxide (Magnesium Oxide) 800 mg PO ONETIME ONE Stop: 01/01/19 09:19 Last Admin: 01/01/19 09:47 Dose: 800 mg Metronidazole (Metronidazole) 500 mg PO Q8H [facility] Last Admin: 12/27/18 03:45 Dose: 500 mg Midazolam HCl (Versed 1 Mg/Ml) Confirm Administered Dose 2 mg .ROUTE .STK-MED ONE Stop: 12/28/18 11:41 Midazolam HCl (Versed 1 Mg/Ml) Confirm Administered Dose 2 mg .ROUTE .STK-MED ONE Stop: 12/31/18 10:02 Morphine Sulfate (Morphine) 2 mg IVPUSH Q4H PRN PRN Reason: Pain (severe 7-10) Stop: 12/25/18 15:01 Last Admin: 12/25/18 04:26 Dose: 2 mg Multivitamins/Minerals (Thera M Plus) 1 tab PO DAILY [facility] Last Admin: 01/03/19 08:59 Dose: 1 tab Naloxone HCl (Narcan) 0.1 mg IVPUSH ASDIRECTED PRN PRN Reason: Respiratory Depression Ondansetron HCl (Zofran) 4 mg IVPUSH Q4H PRN PRN Reason: Nausea/Vomiting Last Admin: 12/29/18 09:25 Dose: 4 mg Potassium Chloride (Klor-Con M20) 40 meq PO ONETIME STA Stop: 12/25/18 12:08 Last Admin: 12/25/18 13:23 Dose: 40 meq Propofol (Diprivan 20 Ml) Confirm Administered Dose 200 mg .ROUTE .STK-MED ONE Stop: 12/28/18 11:41 Vancomycin HCl (Pharmacy To Dose - Vancomycin) 1 dose .XX ASDIRECTED [facility] - Problem List & Annotations (1) Cellulitis SNOMED Code(s): 752796872 Code(s): L03.90 - CELLULITIS, UNSPECIFIED Status: Acute Qualifiers: Site of cellulitis of extremity: toe Laterality: left (2) HTN (hypertension) SNOMED Code(s): 37569906 Code(s): I10 - ESSENTIAL (PRIMARY) HYPERTENSION Status: Acute - Plan Plan:: I have seen and evaluated the patient and agree with the residents note unless specified in my note
[2019-01-01] MEDS: SODIUM CHLORIDE 0.9% IV SCH (12:02)
[2019-01-01] MEDS: DAPTOMYCIN IV SCH (12:02)
[2019-01-02] MEDS: Pantoprazole 40 MG in Sodium Chloride 0.9% 10 ML IV SCH ×2 (06:32→17:28)
[2019-01-02 07:24] LABS: BLOOD UREA NITROGEN,BUN 7 mg/dL (7.0-18.0); CARBON DIOXIDE,CO2 28.8 mmol/L (21.0-32.0); CHLORIDE,CL 109 mmol/L (98-107); GLUCOSE RANDOM 83 mg/dL (74-106); POTASSIUM,K 4.3 mmol/L (3.5-5.1); SODIUM,NA 142 mmol/L (136-148)
[2019-01-02] MEDS: amLODIPine 5 MG Tab PO SCH (09:12)
[2019-01-02] MEDS: Multivitamins with Iron/Calcium/Folic Acid/Minerals Tab PO SCH (09:13)
[2019-01-02] MEDS: Cyanocobalamin (Vitamin B12) 500 MCG Tab PO SCH (09:13)
[2019-01-02] MEDS: Acetaminophen/HYDROcodone 325-5 MG Tab PO PRN ×2 (10:17→17:49)
[2019-01-02] MEDS: DAPTOMYCIN IV SCH (11:27)
[2019-01-02] MEDS: SODIUM CHLORIDE 0.9% IV SCH (11:27)
[2019-01-02] MEDS: Benzonatate 100 MG Cap PO PRN (11:57)
[2019-01-02] MEDS: Ketorolac 30 MG/ML SDV IV PRN (11:58)
--- NOTE | 2019-01-02 16:25 | PCM.PN ---
<Wili Melgar M - Last Filed: 01/02/19 16:20> - General Info Date of Service: 01/02/19 Subjective Update: Patient reports no complains this morning, pain well controlled, tolerating PO diet. - Patient Data Vitals - Most Recent: Last Vital Signs Temp 97.4 F 01/02/19 08:00 Pulse 72 01/02/19 08:15 Resp 18 01/02/19 08:00 BP 154/79 H 01/02/19 09:12 Pulse Ox 95 01/02/19 08:00 Weight - Most Recent: 109.769 kg I&O - Last 24 Hours: Intake & Output 01/02/19 01/02/19 01/02/19 06:59 14:59 22:59 Intake Total 750 Output Total 680 Balance 70 Lab Results Last 24 Hours: Laboratory Results - last 24 hr 01/02/19 01/02/19 Range/Units 06:11 06:11 WBC 6.09 (4.0-11.0) K/uL RBC 4.70 (4.50-5.90) M/uL Hgb 13.7 (13.0-17.0) g/dL Hct 41.9 (38.0-50.0) % MCV 89.1 (80.0-98.0) fL MCH 29.1 (27.0-32.0) pg MCHC 32.7 (31.0-37.0) g/dL RDW Std Deviation 44.4 (28.0-62.0) fl RDW Coeff of Janeth 14 (11.0-15.0) % Plt Count 323 (150-400) K/uL MPV 9.10 (7.40-12.00) fL Neut % (Auto) 58.8 (48.0-80.0) % Lymph % (Auto) 27.4 (16.0-40.0) % [place] % (Auto) 8.7 (0.0-15.0) % Eos % (Auto) 4.6 (0.0-7.0) % Baso % (Auto) 0.5 (0.0-1.5) % Neut # (Auto) 3.6 (1.4-5.7) K/uL Lymph # (Auto) 1.7 (0.6-2.4) K/uL [place] # (Auto) 0.5 (0.0-0.8) K/uL Eos # (Auto) 0.3 (0.0-0.7) K/uL Baso # (Auto) 0.0 (0.0-0.1) K/uL Nucleated RBC % 0.0 /100WBC Nucleated RBCs # 0 K/uL Sodium 142 (136-148) mmol/L Potassium 4.3 (3.5-5.1) mmol/L Chloride 109 H (98-107) mmol/L Carbon Dioxide 28.8 (21.0-32.0) mmol/L BUN 7 (7.0-18.0) mg/dL Creatinine 1.1 (0.8-1.3) mg/dL Est Cr Clr Drug Dosing 67.57 mL/min Estimated GFR (MDRD) > 60.0 ml/min Glucose 83 (74-106) mg/dL Calcium 8.4 L (8.5-10.1) mg/dL Magnesium 1.9 (1.8-2.4) mg/dL Med Orders - Current: Current Medications Acetaminophen (Tylenol Extra Strength) 500 mg PO Q6H PRN PRN Reason: Headache Last Admin: 01/01/19 04:26 Dose: 500 mg Hydrocodone Bitart/Acetaminophen ([place] 325-5 Mg) 1 tab PO Q4H PRN PRN Reason: Pain Last Admin: 01/02/19 10:17 Dose: 1 tab Albuterol/Ipratropium (Duoneb 3.0-0.5 Mg/3 Ml) 3 ml NEB Q4HRRT PRN PRN Reason: Shortness Of Breath/wheezing Last Admin: 12/29/18 04:13 Dose: 3 ml Amlodipine Besylate (Norvasc) 10 mg PO DAILY ANNA Benzonatate (Tessalon Perles) 100 mg PO TID PRN PRN Reason: Cough Last Admin: 01/02/19 11:57 Dose: 100 mg Cyanocobalamin (Vitamin B12) 1,000 mcg PO DAILY ANNA Last Admin: 01/02/19 09:13 Dose: 1,000 mcg Daptomycin 700 mg/ Sodium (Chloride) 14 mls @ 420 mls/hr IV Q24H ANNA Last Admin: 01/02/19 11:27 Dose: 420 mls/hr Pantoprazole Sodium 40 mg/ (Sodium Chloride) 10 mls @ 300 mls/hr IV BIDAC [facility] Last Admin: 01/02/19 06:32 Dose: 300 mls/hr Ketorolac Tromethamine (Toradol) 30 mg IV Q6H PRN PRN Reason: Pain (moderate 4-6) Last Admin: 01/02/19 11:58 Dose: 30 mg Multivitamins/Minerals (Thera M Plus) 1 tab PO DAILY [facility] Last Admin: 01/02/19 09:13 Dose: 1 tab Ondansetron HCl (Zofran) 4 mg IVPUSH Q4H PRN PRN Reason: Nausea/Vomiting Last Admin: 12/29/18 09:25 Dose: 4 mg Discontinued Medications Hydrocodone Bitart/Acetaminophen ([place] 325-5 Mg) 1 tab PO Q6H PRN PRN Reason: Pain Last Admin: 12/31/18 11:15 Dose: 1 tab Albuterol (Proventil Neb Soln) 2.5 mg NEB ONETIME PRN PRN Reason: Wheezing Allopurinol (Zyloprim) 300 mg PO DAILY [facility] Amlodipine Besylate (Norvasc) 5 mg PO DAILY [facility] Last Admin: 01/02/19 09:12 Dose: 5 mg Atropine Sulfate (Atropine 0.1 Mg/Ml) 0.5 mg IVPUSH ASDIRECTED PRN PRN Reason: Hypo-perfusion Atropine Sulfate (Atropine 0.1 Mg/Ml) 1 mg IVPUSH ASDIRECTED PRN PRN Reason: Hypo-Perfusion Bupivacaine HCl (Marcaine 0.5%) Confirm Administered Dose 30 ml .ROUTE .STK-MED ONE Stop: 12/28/18 11:43 Calcium Carbonate/Glycine (Tums) 1,000 mg PO ONETIME ONE Stop: 12/25/18 12:09 Last Admin: 12/25/18 13:24 Dose: 1,000 mg Daptomycin (Cubicin) 700 mg IV Q24H [facility] Dextrose/Water (Dextrose 50% In Water) 50 ml IVPUSH ASDIRECTED PRN PRN Reason: Hypoglycemia Epinephrine HCl (Epinephrine 1:10,000) 1 mg IVPUSH ASDIRECTED PRN PRN Reason: ACLS Guidelines Fentanyl (Fentanyl) 50 mcg IVPUSH ONETIME ONE Stop: 12/28/18 10:45 Last Admin: 12/28/18 12:01 Dose: Not Given Fentanyl (Sublimaze) 50 mcg IVPUSH ONETIME ONE Stop: 12/28/18 11:31 Last Admin: 12/28/18 11:31 Dose: 50 mcg Fentanyl (Sublimaze) Confirm Administered Dose 100 mcg .ROUTE .STK-MED ONE Stop: 12/28/18 11:41 Fentanyl (Sublimaze) 50 mcg IVPUSH Q5M PRN PRN Reason: Pain Hydromorphone HCl (Dilaudid) 1 mg IVPUSH ONETIME ONE Stop: 12/24/18 15:04 Last Admin: 12/24/18 15:11 Dose: 1 mg Sodium Chloride (Normal Saline) 1,000 mls @ 999 mls/hr IV STAT ONE Stop: 12/24/18 14:28 Last Admin: 12/24/18 14:15 Dose: 999 mls/hr Vancomycin HCl 1 gm/ Sodium (Chloride) 250 mls @ 166 mls/hr IV ONETIME ONE Stop: 12/24/18 14:58 Last Admin: 12/24/18 14:19 Dose: 166 mls/hr Sodium Chloride (Normal Saline) 1,000 mls @ 100 mls/hr IV ASDIRECTED [facility] Last Admin: 12/26/18 07:21 Dose: 100 mls/hr Vancomycin HCl 1.25 gm/ Sodium (Chloride) 250 mls @ 250 mls/hr IV Q12H [facility] Last Admin: 12/26/18 01:19 Dose: 250 mls/hr Clindamycin Phosphate 900 mg/ (Premix) 50 mls @ 100 mls/hr IV ONETIME ONE Stop: 12/24/18 16:44 Last Admin: 12/24/18 16:22 Dose: 100 mls/hr Clindamycin Phosphate 300 mg/ (Premix) 50 mls @ 100 mls/hr IV Q8H [facility] Last Admin: 12/25/18 09:01 Dose: 100 mls/hr Cefepime HCl 2 gm/ Premix 50 mls @ 100 mls/hr IV Q8H [facility] Last Admin: 12/26/18 02:36 Dose: 100 mls/hr Vancomycin HCl 1 gm/ Sodium (Chloride) 250 mls @ 166 mls/hr IV Q12H [facility] Last Admin: 12/26/18 02:35 Dose: Not Given Vancomycin HCl 1.25 gm/ Sodium (Chloride) 250 mls @ 250 mls/hr IV Q12H [facility] Sodium Chloride (Normal Saline) 1,000 mls @ 75 mls/hr IV ASDIRECTED [facility] Last Admin: 12/29/18 20:54 Dose: 75 mls/hr Sodium Chloride (Normal Saline) Confirm Administered Dose 20 mls @ as directed .ROUTE .STK-MED ONE Stop: 12/28/18 12:36 Lactated Ringer's (Ringers, Lactated) 1,000 mls @ 75 mls/hr IV ASDIRECTED [facility] Last Admin: 12/31/18 13:59 Dose: 75 mls/hr Vancomycin HCl 1 gm/ Sodium (Chloride) 250 mls @ 166 mls/hr IV ONETIME ONE Stop: 12/31/18 11:44 Last Admin: 12/31/18 10:19 Dose: Not Given Iopamidol (Isovue Multipack-370 (76%)) 100 ml IVPUSH ONETIME STA Stop: 12/29/18 12:47 Last Admin: 12/29/18 12:47 Dose: 100 ml Lidocaine (Xylocaine-Mpf 2%) Confirm Administered Dose 5 ml .ROUTE .STK-MED ONE Stop: 12/28/18 11:41 Magnesium Oxide (Magnesium Oxide) 800 mg PO ONETIME ONE Stop: 01/01/19 09:19 Last Admin: 01/01/19 09:47 Dose: 800 mg Metronidazole (Metronidazole) 500 mg PO Q8H [facility] Last Admin: 12/27/18 03:45 Dose: 500 mg Midazolam HCl (Versed 1 Mg/Ml) Confirm Administered Dose 2 mg .ROUTE .STK-MED ONE Stop: 12/28/18 11:41 Midazolam HCl (Versed 1 Mg/Ml) Confirm Administered Dose 2 mg .ROUTE .STK-MED ONE Stop: 12/31/18 10:02 Morphine Sulfate (Morphine) 2 mg IVPUSH Q4H PRN PRN Reason: Pain (severe 7-10) Stop: 12/25/18 15:01 Last Admin: 12/25/18 04:26 Dose: 2 mg Naloxone HCl (Narcan) 0.1 mg IVPUSH ASDIRECTED PRN PRN Reason: Respiratory Depression Potassium Chloride (Klor-Con M20) 40 meq PO ONETIME STA Stop: 12/25/18 12:08 Last Admin: 12/25/18 13:23 Dose: 40 meq Propofol (Diprivan 20 Ml) Confirm Administered Dose 200 mg .ROUTE .STK-MED ONE Stop: 12/28/18 11:41 Vancomycin HCl (Pharmacy To Dose - Vancomycin) 1 dose .XX ASDIRECTED ANNA - Exam General: Alert, Oriented, Cooperative, No Acute Distress Lungs: Clear to Auscultation, Normal Respiratory Effort Cardiovascular: Regular Rate, Regular Rhythm Extremities: Other (mild edema, minimal erythema of left foot. wound vac in place on left foot.) - Problem List & Annotations (1) Hypokalemia SNOMED Code(s): 83934036 Code(s): E87.6 - HYPOKALEMIA Status: Acute (2) Hypocalcemia SNOMED Code(s): 4054813 Code(s): E83.51 - HYPOCALCEMIA Status: Acute (3) Cellulitis SNOMED Code(s): 937126645 Code(s): L03.90 - CELLULITIS, UNSPECIFIED Status: Acute Qualifiers: Site of cellulitis of extremity: toe Laterality: left (4) HTN (hypertension) SNOMED Code(s): 84420407 Code(s): I10 - ESSENTIAL (PRIMARY) HYPERTENSION Status: Acute - Problem List Review Problem List Initiated/Reviewed/Updated: Yes - My Orders Last 24 Hours: My Active Orders 01/03/19 09:00 amLODIPine [Norvasc] 10 mg PO DAILY - Assessment Assessment:: Assessment/Plan: 1. Left foot cellulitis with abscess s/p I and D x2 with wound vac placement POD #5. Patient remains on IV daptomycin qd. Wound cultures positive for MRSA. Dr. Vela was contacted in [place], [place] and agreed to place patient's PICC line for long-term IV antibiotics. Patient has scheduled appointment with Dr. Vela in [place], [place] tomorrow afternoon for PICC line placement. Patient will require 4 more weeks of IV daptomycin q24h and will need to have follow-up with orthopedic surgeon on discharge. 2. For chronic hematuria, CT abd/pelvis with hematuria protocol showed renal cyst in both left and right kidneys. Patient will need to follow-up with urologist in the outpatient setting. 3. For hypertension, increase amlodipine to 10 mg PO qd. 4. For DVT prophylaxis, cont SCD's. <Huseyin Hahn - Last Filed: 01/03/19 20:27> - Patient Data Vitals - Most Recent: Last Vital Signs Temp 37.2 C 01/03/19 08:00 Pulse 65 01/03/19 08:00 Resp 17 01/03/19 08:00 BP 156/71 H 01/03/19 08:58 Pulse Ox 94 L 01/03/19 08:00 I&O - Last 24 Hours: Intake & Output 01/03/19 01/03/19 01/03/19 06:59 14:59 22:59 Intake Total 700 314 Output Total 1050 200 Balance -350 114 Lab Results Last 24 Hours: Laboratory Results - last 24 hr 01/03/19 01/03/19 Range/Units 06:13 06:13 WBC 7.92 (4.0-11.0) K/uL RBC 4.67 (4.50-5.90) M/uL Hgb 13.7 (13.0-17.0) g/dL Hct 41.4 (38.0-50.0) % MCV 88.7 (80.0-98.0) fL MCH 29.3 (27.0-32.0) pg MCHC 33.1 (31.0-37.0) g/dL RDW Std Deviation 44.1 (28.0-62.0) fl RDW Coeff of Janeth 14 (11.0-15.0) % Plt Count 308 (150-400) K/uL MPV 8.80 (7.40-12.00) fL Neut % (Auto) 66.7 (48.0-80.0) % Lymph % (Auto) 21.3 (16.0-40.0) % [place] % (Auto) 7.2 (0.0-15.0) % Eos % (Auto) 4.2 (0.0-7.0) % Baso % (Auto) 0.6 (0.0-1.5) % Neut # (Auto) 5.3 (1.4-5.7) K/uL Lymph # (Auto) 1.7 (0.6-2.4) K/uL [place] # (Auto) 0.6 (0.0-0.8) K/uL Eos # (Auto) 0.3 (0.0-0.7) K/uL Baso # (Auto) 0.1 (0.0-0.1) K/uL Nucleated RBC % 0.0 /100WBC Nucleated RBCs # 0 K/uL Sodium 141 (136-148) mmol/L Potassium 3.9 (3.5-5.1) mmol/L Chloride 108 H (98-107) mmol/L Carbon Dioxide 25.7 (21.0-32.0) mmol/L BUN 10 (7.0-18.0) mg/dL Creatinine 1.1 (0.8-1.3) mg/dL Est Cr Clr Drug Dosing 67.57 mL/min Estimated GFR (MDRD) > 60.0 ml/min Glucose 90 (74-106) mg/dL Calcium 8.4 L (8.5-10.1) mg/dL Med Orders - Current: Current Medications Discontinued Medications Acetaminophen (Tylenol Extra Strength) 500 mg PO Q6H PRN PRN Reason: Headache Last Admin: 01/01/19 04:26 Dose: 500 mg Hydrocodone Bitart/Acetaminophen ([place] 325-5 Mg) 1 tab PO Q6H PRN PRN Reason: Pain Last Admin: 12/31/18 11:15 Dose: 1 tab Hydrocodone Bitart/Acetaminophen ([place] 325-5 Mg) 1 tab PO Q4H PRN PRN Reason: Pain Last Admin: 01/03/19 08:59 Dose: 1 tab Albuterol (Proventil Neb Soln) 2.5 mg NEB ONETIME PRN PRN Reason: Wheezing Albuterol/Ipratropium (Duoneb 3.0-0.5 Mg/3 Ml) 3 ml NEB Q4HRRT PRN PRN Reason: Shortness Of Breath/wheezing Last Admin: 12/29/18 04:13 Dose: 3 ml Allopurinol (Zyloprim) 300 mg PO DAILY ANNA Amlodipine Besylate (Norvasc) 5 mg PO DAILY ANNA Last Admin: 01/02/19 09:12 Dose: 5 mg Amlodipine Besylate (Norvasc) 10 mg PO DAILY ANNA Last Admin: 01/03/19 08:58 Dose: 10 mg Atropine Sulfate (Atropine 0.1 Mg/Ml) 0.5 mg IVPUSH ASDIRECTED PRN PRN Reason: Hypo-perfusion Atropine Sulfate (Atropine 0.1 Mg/Ml) 1 mg IVPUSH ASDIRECTED PRN PRN Reason: Hypo-Perfusion Benzonatate (Tessalon Perles) 100 mg PO TID PRN PRN Reason: Cough Last Admin: 01/02/19 11:57 Dose: 100 mg Bupivacaine HCl (Marcaine 0.5%) Confirm Administered Dose 30 ml .ROUTE .STK-MED ONE Stop: 12/28/18 11:43 Calcium Carbonate/Glycine (Tums) 1,000 mg PO ONETIME ONE Stop: 12/25/18 12:09 Last Admin: 12/25/18 13:24 Dose: 1,000 mg Cyanocobalamin (Vitamin B12) 1,000 mcg PO DAILY ANNA Last Admin: 01/03/19 08:59 Dose: 1,000 mcg Daptomycin (Cubicin) 700 mg IV Q24H ANNA Dextrose/Water (Dextrose 50% In Water) 50 ml IVPUSH ASDIRECTED PRN PRN Reason: Hypoglycemia Epinephrine HCl (Epinephrine 1:10,000) 1 mg IVPUSH ASDIRECTED PRN PRN Reason: ACLS Guidelines Fentanyl (Fentanyl) 50 mcg IVPUSH ONETIME ONE Stop: 12/28/18 10:45 Last Admin: 12/28/18 12:01 Dose: Not Given Fentanyl (Sublimaze) 50 mcg IVPUSH ONETIME ONE Stop: 12/28/18 11:31 Last Admin: 12/28/18 11:31 Dose: 50 mcg Fentanyl (Sublimaze) Confirm Administered Dose 100 mcg .ROUTE .STK-MED ONE Stop: 12/28/18 11:41 Fentanyl (Sublimaze) 50 mcg IVPUSH Q5M PRN PRN Reason: Pain Hydromorphone HCl (Dilaudid) 1 mg IVPUSH ONETIME ONE Stop: 12/24/18 15:04 Last Admin: 12/24/18 15:11 Dose: 1 mg Sodium Chloride (Normal Saline) 1,000 mls @ 999 mls/hr IV STAT ONE Stop: 12/24/18 14:28 Last Admin: 12/24/18 14:15 Dose: 999 mls/hr Vancomycin HCl 1 gm/ Sodium (Chloride) 250 mls @ 166 mls/hr IV ONETIME ONE Stop: 12/24/18 14:58 Last Admin: 12/24/18 14:19 Dose: 166 mls/hr Sodium Chloride (Normal Saline) 1,000 mls @ 100 mls/hr IV ASDIRECTED [facility] Last Admin: 12/26/18 07:21 Dose: 100 mls/hr Vancomycin HCl 1.25 gm/ Sodium (Chloride) 250 mls @ 250 mls/hr IV Q12H [facility] Last Admin: 12/26/18 01:19 Dose: 250 mls/hr Clindamycin Phosphate 900 mg/ (Premix) 50 mls @ 100 mls/hr IV ONETIME ONE Stop: 12/24/18 16:44 Last Admin: 12/24/18 16:22 Dose: 100 mls/hr Clindamycin Phosphate 300 mg/ (Premix) 50 mls @ 100 mls/hr IV Q8H [facility] Last Admin: 12/25/18 09:01 Dose: 100 mls/hr Cefepime HCl 2 gm/ Premix 50 mls @ 100 mls/hr IV Q8H [facility] Last Admin: 12/26/18 02:36 Dose: 100 mls/hr Vancomycin HCl 1 gm/ Sodium (Chloride) 250 mls @ 166 mls/hr IV Q12H [facility] Last Admin: 12/26/18 02:35 Dose: Not Given Vancomycin HCl 1.25 gm/ Sodium (Chloride) 250 mls @ 250 mls/hr IV Q12H [facility] Daptomycin 700 mg/ Sodium (Chloride) 14 mls @ 420 mls/hr IV Q24H [facility] Last Admin: 01/03/19 11:44 Dose: 420 mls/hr Sodium Chloride (Normal Saline) 1,000 mls @ 75 mls/hr IV ASDIRECTED [facility] Last Admin: 12/29/18 20:54 Dose: 75 mls/hr Sodium Chloride (Normal Saline) Confirm Administered Dose 20 mls @ as directed .ROUTE .STK-MED ONE Stop: 12/28/18 12:36 Lactated Ringer's (Ringers, Lactated) 1,000 mls @ 75 mls/hr IV ASDIRECTED [facility] Last Admin: 12/31/18 13:59 Dose: 75 mls/hr Pantoprazole Sodium 40 mg/ (Sodium Chloride) 10 mls @ 300 mls/hr IV BIDAC [facility] Last Admin: 01/03/19 06:40 Dose: 300 mls/hr Vancomycin HCl 1 gm/ Sodium (Chloride) 250 mls @ 166 mls/hr IV ONETIME ONE Stop: 12/31/18 11:44 Last Admin: 12/31/18 10:19 Dose: Not Given Iopamidol (Isovue Multipack-370 (76%)) 100 ml IVPUSH ONETIME STA Stop: 12/29/18 12:47 Last Admin: 12/29/18 12:47 Dose: 100 ml Ketorolac Tromethamine (Toradol) 30 mg IV Q6H PRN PRN Reason: Pain (moderate 4-6) Last Admin: 01/02/19 11:58 Dose: 30 mg Lidocaine (Xylocaine-Mpf 2%) Confirm Administered Dose 5 ml .ROUTE .STK-MED ONE Stop: 12/28/18 11:41 Magnesium Oxide (Magnesium Oxide) 800 mg PO ONETIME ONE Stop: 01/01/19 09:19 Last Admin: 01/01/19 09:47 Dose: 800 mg Metronidazole (Metronidazole) 500 mg PO Q8H [facility] Last Admin: 12/27/18 03:45 Dose: 500 mg Midazolam HCl (Versed 1 Mg/Ml) Confirm Administered Dose 2 mg .ROUTE .STK-MED ONE Stop: 12/28/18 11:41 Midazolam HCl (Versed 1 Mg/Ml) Confirm Administered Dose 2 mg .ROUTE .STK-MED ONE Stop: 12/31/18 10:02 Morphine Sulfate (Morphine) 2 mg IVPUSH Q4H PRN PRN Reason: Pain (severe 7-10) Stop: 12/25/18 15:01 Last Admin: 12/25/18 04:26 Dose: 2 mg Multivitamins/Minerals (Thera M Plus) 1 tab PO DAILY [facility] Last Admin: 01/03/19 08:59 Dose: 1 tab Naloxone HCl (Narcan) 0.1 mg IVPUSH ASDIRECTED PRN PRN Reason: Respiratory Depression Ondansetron HCl (Zofran) 4 mg IVPUSH Q4H PRN PRN Reason: Nausea/Vomiting Last Admin: 12/29/18 09:25 Dose: 4 mg Potassium Chloride (Klor-Con M20) 40 meq PO ONETIME STA Stop: 12/25/18 12:08 Last Admin: 12/25/18 13:23 Dose: 40 meq Propofol (Diprivan 20 Ml) Confirm Administered Dose 200 mg .ROUTE .STK-MED ONE Stop: 12/28/18 11:41 Vancomycin HCl (Pharmacy To Dose - Vancomycin) 1 dose .XX ASDIRECTED ANNA - Problem List & Annotations (1) Cellulitis SNOMED Code(s): 249967396 Code(s): L03.90 - CELLULITIS, UNSPECIFIED Status: Acute Qualifiers: Site of cellulitis of extremity: toe Laterality: left (2) HTN (hypertension) SNOMED Code(s): 22423642 Code(s): I10 - ESSENTIAL (PRIMARY) HYPERTENSION Status: Acute - Assessment Assessment:: I have seen and evaluated the patient and agree with the residents note unless specified in my note
--- NOTE | 2019-01-02 18:42 | PCM.PN ---
- General Info Date of Service: 01/02/19 Admission Dx/Problem (Free Text): left foot abscess Functional Status: Reports: Pain Controlled, Tolerating Diet, Ambulating, Urinating - Review of Systems General: Reports: No Symptoms HEENT: Reports: No Symptoms Pulmonary: Reports: No Symptoms Cardiovascular: Reports: No Symptoms Gastrointestinal: Reports: No Symptoms Genitourinary: Reports: No Symptoms Musculoskeletal: Reports: Foot Pain Skin: Reports: No Symptoms Neurological: Reports: No Symptoms Psychiatric: Reports: No Symptoms - Patient Data Vitals - Most Recent: Last Vital Signs Temp 36.3 C 01/02/19 08:00 Pulse 72 01/02/19 08:15 Resp 18 01/02/19 08:00 BP 154/79 H 01/02/19 09:12 Pulse Ox 95 01/02/19 08:00 Weight - Most Recent: 109.769 kg I&O - Last 24 Hours: Intake & Output 01/02/19 01/02/19 01/02/19 06:59 14:59 22:59 Intake Total 116 30 3793 Output Total 680 530 Balance 70 14 632 Lab Results Last 24 Hours: Laboratory Results - last 24 hr 01/02/19 01/02/19 Range/Units 06:11 06:11 WBC 6.09 (4.0-11.0) K/uL RBC 4.70 (4.50-5.90) M/uL Hgb 13.7 (13.0-17.0) g/dL Hct 41.9 (38.0-50.0) % MCV 89.1 (80.0-98.0) fL MCH 29.1 (27.0-32.0) pg MCHC 32.7 (31.0-37.0) g/dL RDW Std Deviation 44.4 (28.0-62.0) fl RDW Coeff of Janeth 14 (11.0-15.0) % Plt Count 323 (150-400) K/uL MPV 9.10 (7.40-12.00) fL Neut % (Auto) 58.8 (48.0-80.0) % Lymph % (Auto) 27.4 (16.0-40.0) % [place] % (Auto) 8.7 (0.0-15.0) % Eos % (Auto) 4.6 (0.0-7.0) % Baso % (Auto) 0.5 (0.0-1.5) % Neut # (Auto) 3.6 (1.4-5.7) K/uL Lymph # (Auto) 1.7 (0.6-2.4) K/uL [place] # (Auto) 0.5 (0.0-0.8) K/uL Eos # (Auto) 0.3 (0.0-0.7) K/uL Baso # (Auto) 0.0 (0.0-0.1) K/uL Nucleated RBC % 0.0 /100WBC Nucleated RBCs # 0 K/uL Sodium 142 (136-148) mmol/L Potassium 4.3 (3.5-5.1) mmol/L Chloride 109 H (98-107) mmol/L Carbon Dioxide 28.8 (21.0-32.0) mmol/L BUN 7 (7.0-18.0) mg/dL Creatinine 1.1 (0.8-1.3) mg/dL Est Cr Clr Drug Dosing 67.57 mL/min Estimated GFR (MDRD) > 60.0 ml/min Glucose 83 (74-106) mg/dL Calcium 8.4 L (8.5-10.1) mg/dL Magnesium 1.9 (1.8-2.4) mg/dL Med Orders - Current: Current Medications Acetaminophen (Tylenol Extra Strength) 500 mg PO Q6H PRN PRN Reason: Headache Last Admin: 01/01/19 04:26 Dose: 500 mg Hydrocodone Bitart/Acetaminophen ([place] 325-5 Mg) 1 tab PO Q4H PRN PRN Reason: Pain Last Admin: 01/02/19 17:49 Dose: 1 tab Albuterol/Ipratropium (Duoneb 3.0-0.5 Mg/3 Ml) 3 ml NEB Q4HRRT PRN PRN Reason: Shortness Of Breath/wheezing Last Admin: 12/29/18 04:13 Dose: 3 ml Amlodipine Besylate (Norvasc) 10 mg PO DAILY ANNA Benzonatate (Tessalon Perles) 100 mg PO TID PRN PRN Reason: Cough Last Admin: 01/02/19 11:57 Dose: 100 mg Cyanocobalamin (Vitamin B12) 1,000 mcg PO DAILY ANNA Last Admin: 11/26/19 09:13 Dose: 1,000 mcg Daptomycin 700 mg/ Sodium (Chloride) 14 mls @ 420 mls/hr IV Q24H [facility] [place] Last Admin: 01/02/19 11:27 Dose: 420 mls/hr Pantoprazole Sodium 40 mg/ (Sodium Chloride) 10 mls @ 300 mls/hr IV BIDAC [facility] [place] Last Admin: 01/02/19 17:28 Dose: 300 mls/hr Ketorolac Tromethamine (Toradol) 30 mg IV Q6H PRN PRN Reason: Pain (moderate 4-6) Last Admin: 01/02/19 11:58 Dose: 30 mg Multivitamins/Minerals (Thera M Plus) 1 tab PO DAILY [facility] [place] Last Admin: 01/02/19 09:13 Dose: 1 tab Ondansetron HCl (Zofran) 4 mg IVPUSH Q4H PRN PRN Reason: Nausea/Vomiting Last Admin: 12/29/18 09:25 Dose: 4 mg Discontinued Medications Hydrocodone Bitart/Acetaminophen ([place] 325-5 Mg) 1 tab PO Q6H PRN PRN Reason: Pain Last Admin: 12/31/18 11:15 Dose: 1 tab Albuterol (Proventil Neb Soln) 2.5 mg NEB ONETIME PRN PRN Reason: Wheezing Allopurinol (Zyloprim) 300 mg PO DAILY [facility] [place] Amlodipine Besylate (Norvasc) 5 mg PO DAILY [facility] [place] Last Admin: 01/02/19 09:12 Dose: 5 mg Atropine Sulfate (Atropine 0.1 Mg/Ml) 0.5 mg IVPUSH ASDIRECTED PRN PRN Reason: Hypo-perfusion Atropine Sulfate (Atropine 0.1 Mg/Ml) 1 mg IVPUSH ASDIRECTED PRN PRN Reason: Hypo-Perfusion Bupivacaine HCl (Marcaine 0.5%) Confirm Administered Dose 30 ml .ROUTE .STK-MED ONE Stop: 12/28/18 11:43 Calcium Carbonate/Glycine (Tums) 1,000 mg PO ONETIME ONE Stop: 12/25/18 12:09 Last Admin: 12/25/18 13:24 Dose: 1,000 mg Daptomycin (Cubicin) 700 mg IV Q24H [facility] [place] Dextrose/Water (Dextrose 50% In Water) 50 ml IVPUSH ASDIRECTED PRN PRN Reason: Hypoglycemia Epinephrine HCl (Epinephrine 1:10,000) 1 mg IVPUSH ASDIRECTED PRN PRN Reason: ACLS Guidelines Fentanyl (Fentanyl) 50 mcg IVPUSH ONETIME ONE Stop: 12/28/18 10:45 Last Admin: 12/28/18 12:01 Dose: Not Given Fentanyl (Sublimaze) 50 mcg IVPUSH ONETIME ONE Stop: 12/28/18 11:31 Last Admin: 12/28/18 11:31 Dose: 50 mcg Fentanyl (Sublimaze) Confirm Administered Dose 100 mcg .ROUTE .STK-MED ONE Stop: 12/28/18 11:41 Fentanyl (Sublimaze) 50 mcg IVPUSH Q5M PRN PRN Reason: Pain Hydromorphone HCl (Dilaudid) 1 mg IVPUSH ONETIME ONE Stop: 12/24/18 15:04 Last Admin: 12/24/18 15:11 Dose: 1 mg Sodium Chloride (Normal Saline) 1,000 mls @ 999 mls/hr IV STAT ONE Stop: 12/24/18 14:28 Last Admin: 12/24/18 14:15 Dose: 999 mls/hr Vancomycin HCl 1 gm/ Sodium (Chloride) 250 mls @ 166 mls/hr IV ONETIME ONE Stop: 12/24/18 14:58 Last Admin: 12/24/18 14:19 Dose: 166 mls/hr Sodium Chloride (Normal Saline) 1,000 mls @ 100 mls/hr IV ASDIRECTED [facility] [place] Last Admin: 12/26/18 07:21 Dose: 100 mls/hr Vancomycin HCl 1.25 gm/ Sodium (Chloride) 250 mls @ 250 mls/hr IV Q12H [facility] [place] Last Admin: 12/26/18 01:19 Dose: 250 mls/hr Clindamycin Phosphate 900 mg/ (Premix) 50 mls @ 100 mls/hr IV ONETIME ONE Stop: 12/24/18 16:44 Last Admin: 12/24/18 16:22 Dose: 100 mls/hr Clindamycin Phosphate 300 mg/ (Premix) 50 mls @ 100 mls/hr IV Q8H [facility] [place] Last Admin: 12/25/18 09:01 Dose: 100 mls/hr Cefepime HCl 2 gm/ Premix 50 mls @ 100 mls/hr IV Q8H [facility] [place] Last Admin: 12/26/18 02:36 Dose: 100 mls/hr Vancomycin HCl 1 gm/ Sodium (Chloride) 250 mls @ 166 mls/hr IV Q12H [facility] [place] Last Admin: 12/26/18 02:35 Dose: Not Given Vancomycin HCl 1.25 gm/ Sodium (Chloride) 250 mls @ 250 mls/hr IV Q12H [facility] [place] Sodium Chloride (Normal Saline) 1,000 mls @ 75 mls/hr IV ASDIRECTED [facility] [place] Last Admin: 12/29/18 20:54 Dose: 75 mls/hr Sodium Chloride (Normal Saline) Confirm Administered Dose 20 mls @ as directed .ROUTE .STK-MED ONE Stop: 12/28/18 12:36 Lactated Ringer's (Ringers, Lactated) 1,000 mls @ 75 mls/hr IV ASDIRECTED [facility] [place] Last Admin: 12/31/18 13:59 Dose: 75 mls/hr Vancomycin HCl 1 gm/ Sodium (Chloride) 250 mls @ 166 mls/hr IV ONETIME ONE Stop: 12/31/18 11:44 Last Admin: 12/31/18 10:19 Dose: Not Given Iopamidol (Isovue Multipack-370 (76%)) 100 ml IVPUSH ONETIME STA Stop: 12/29/18 12:47 Last Admin: 12/29/18 12:47 Dose: 100 ml Lidocaine (Xylocaine-Mpf 2%) Confirm Administered Dose 5 ml .ROUTE .STK-MED ONE Stop: 12/28/18 11:41 Magnesium Oxide (Magnesium Oxide) 800 mg PO ONETIME ONE Stop: 01/01/19 09:19 Last Admin: 01/01/19 09:47 Dose: 800 mg Metronidazole (Metronidazole) 500 mg PO Q8H [facility] [place] Last Admin: 12/27/18 03:45 Dose: 500 mg Midazolam HCl (Versed 1 Mg/Ml) Confirm Administered Dose 2 mg .ROUTE .STK-MED ONE Stop: 12/28/18 11:41 Midazolam HCl (Versed 1 Mg/Ml) Confirm Administered Dose 2 mg .ROUTE .STK-MED ONE Stop: 12/31/18 10:02 Morphine Sulfate (Morphine) 2 mg IVPUSH Q4H PRN PRN Reason: Pain (severe 7-10) Stop: 12/25/18 15:01 Last Admin: 12/25/18 04:26 Dose: 2 mg Naloxone HCl (Narcan) 0.1 mg IVPUSH ASDIRECTED PRN PRN Reason: Respiratory Depression Potassium Chloride (Klor-Con M20) 40 meq PO ONETIME STA Stop: 12/25/18 12:08 Last Admin: 12/25/18 13:23 Dose: 40 meq Propofol (Diprivan 20 Ml) Confirm Administered Dose 200 mg .ROUTE .STK-MED ONE Stop: 12/28/18 11:41 Vancomycin HCl (Pharmacy To Dose - Vancomycin) 1 dose .XX ASDIRECTED ANNA - Exam Quality Assessment: DVT Prophylaxis General: Alert, Cooperative, No Acute Distress HEENT: Pupils Equal, Pupils Reactive, EOMI, Mucous Membr. Moist/[place] Neck: Supple, Trachea Midline Extremities: Non-Tender, Limited Range of Motion Peripheral Pulses: 2+: Dorsalis Pedis (L) Skin: Warm, Dry, Intact Wound/Incisions: Healing Well, Dressing Dry and Intact, No Drainage Neurological: No New Focal Deficit Psy/Mental Status: Alert, Normal Affect, Normal Mood - Problem List & Annotations (1) Abscess of foot including toes SNOMED Code(s): 813245669 Code(s): L02.619 - CUTANEOUS ABSCESS OF UNSPECIFIED FOOT Status: Acute Current Visit: Yes (2) Cellulitis SNOMED Code(s): 915450076 Code(s): L03.90 - CELLULITIS, UNSPECIFIED Status: Acute Current Visit: Yes Qualifiers: Site of cellulitis of extremity: toe Laterality: left - Problem List Review Problem List Initiated/Reviewed/Updated: Yes - Assessment Assessment:: Assessment/Plan: 1. Left foot cellulitis with abscess s/p I and D x2 with wound vac placement POD #5. Patient remains on IV daptomycin qd. Wound cultures positive for MRSA. Dr. Vela was contacted in [place], [place] and agreed to place patient's PICC line for long-term IV antibiotics. Patient has scheduled appointment with Dr. Vela in [place], [place] tomorrow afternoon for PICC line placement. Patient will require 4 more weeks of IV daptomycin q24h and will need to have follow-up with orthopedic surgeon on discharge. 2. For chronic hematuria, CT abd/pelvis with hematuria protocol showed renal cyst in both left and right kidneys. Patient will need to follow-up with urologist in the outpatient setting. 3. For hypertension, increase amlodipine to 10 mg PO qd. 4. For DVT prophylaxis, cont SCD's. - Plan Plan:: removed large wound vac and applied emely with difficulty. will eval in am for possible d/c tomorrow with iv abx
[2019-01-03] MEDS: Acetaminophen/HYDROcodone 325-5 MG Tab PO PRN ×2 (04:35→08:59)
[2019-01-03 06:36] LABS: BLOOD UREA NITROGEN,BUN 10 mg/dL (7.0-18.0); CARBON DIOXIDE,CO2 25.7 mmol/L (21.0-32.0); CHLORIDE,CL 108 mmol/L (98-107); GLUCOSE RANDOM 90 mg/dL (74-106); POTASSIUM,K 3.9 mmol/L (3.5-5.1); SODIUM,NA 141 mmol/L (136-148)
[2019-01-03] MEDS: Pantoprazole 40 MG in Sodium Chloride 0.9% 10 ML IV SCH (06:40)
[2019-01-03 08:15] VITALS: BP 156/71; PULSE 65
[2019-01-03] MEDS: Multivitamins with Iron/Calcium/Folic Acid/Minerals Tab PO SCH (08:59)
[2019-01-03] MEDS: Cyanocobalamin (Vitamin B12) 500 MCG Tab PO SCH (08:59)
[2019-01-03] MEDS ORDERED: amLODIPine 5 MG Tab PO SCH (09:00)
--- NOTE | 2019-01-03 09:19 | PCM.DCSUM1 ---
<Wili Melgar - Last Filed: 01/03/19 13:12> Discharge Summary - Hospital Course Free Text/Narrative:: 68-year-old male admitted for left foot cellulitis with abscess. He has a PMH of hypertension and neuropathy. MRI of left foot revealed abnormal marrow signal within medial sesamoid bone and osteomyelitis could not be excluded. Orthopedic surgery was consulted who preformed I and D x 2 with wound vac placement. Patient was also treated with IV daptomycin during his hospitalization. Wound cultures positive for MRSA. Preparations for PICC line insertion were made with Dr. Caballero in [place], [place] on day of discharge and patient is set up with daily IV daptomycin infusions at infusion center in [place] for an additional 28 days. Appropriate follow-up appointments were made with patient's PCP and orthopedic surgeon. Furthermore, CT abdomen/pelvis with hematuria protocol was done for chronic hematuria. This revealed small cyst within each kidney. Patient will require outpatient followup with urologist and he had appointment made prior to discharge. - Discharge Data Discharge Date: 01/03/19 Discharge Disposition: Home, Self-Care 01 Condition: Stable - Referral to Home Health Primary Care Physician: Edwar Valadez MD - Discharge Diagnosis/Problem(s) (1) Hypokalemia SNOMED Code(s): 09301001 ICD Code: E87.6 - HYPOKALEMIA Status: Acute (2) Hypocalcemia SNOMED Code(s): 5647651 ICD Code: E83.51 - HYPOCALCEMIA Status: Acute (3) Cellulitis SNOMED Code(s): 232366466 ICD Code: L03.90 - CELLULITIS, UNSPECIFIED Status: Acute Qualifiers: Site of cellulitis of extremity: toe Laterality: left (4) HTN (hypertension) SNOMED Code(s): 59922990 ICD Code: I10 - ESSENTIAL (PRIMARY) HYPERTENSION Status: Acute - Patient Summary/Data Operative Procedure(s) Performed: repeat irrigation and debridement left foot. reapply wound vac <50cm2 Consults: Consultations 12/24/18 15:37 Consult to Wound Care Services [CONS] Routine 12/26/18 11:06 Wound Corporate Law Assistant Consult [Consult to Wound Care Services] [CONS] Routine 12/27/18 15:16 Consult to Orthopedics [CONS] Routine - Patient Instructions Diet: Usual Diet as Tolerated Activity: As Tolerated Notify Provider of: Fever, Increased Pain, Swelling and Redness, Drainage, Nausea and/or Vomiting - Discharge Plan *PRESCRIPTION DRUG MONITORING PROGRAM REVIEWED*: Not Applicable *COPY OF PRESCRIPTION DRUG MONITORING REPORT IN PATIENT CINDY: Not Applicable Prescriptions/Med Rec: Hydrocodone/Acetaminophen [Hydrocodon-Acetaminophen 5-325] 1 each PO Q6H PRN # 28 tablet PRN Reason: Pain Home Medications: Home Meds Allopurinol [Zyloprim] 1 tab PO DAILY 12/24/18 [History] Cyanocobalamin (Vitamin B12) [Vitamin B12] 1 tab PO DAILY 12/24/18 [History] Multivit-Min/FA/Lycopen/Lutein [Centrum Silver Tablet] 1 tab PO DAILY 12/24/18 [ History] Multivitamin [Multivitamins] 1 each PO DAILY 12/24/18 [History] Triamterene/Hydrochlorothiazid [Triamterene-HCTZ 37.5-25 MG] 1 tab PO DAILY [History] Hydrocodone/Acetaminophen [Hydrocodon-Acetaminophen 5-325] 1 each PO Q6H PRN # 28 tablet 01/02/19 [Rx] DAPTOmycin [Cubicin] 700 mg IV Q24H vial 01/03/19 [Rx] Oxygen Therapy Mode: Room Air Patient Handouts: Acetaminophen; Hydrocodone tablets or capsules, Cellulitis, Adult, [id number], Incision and Drainage, Care After, Negative Pressure Wound Therapy, Daptomycin injection, Hematuria, Adult Referrals: Edwar Valadez MD [Primary Care Provider] - 01/24/19 10:30 am Hugh Munoz DO [Physician] - 01/09/19 1:15 pm - Discharge Summary/Plan Comment DC Time >30 min.: No - Patient Data Vitals - Most Recent: Last Vital Signs Temp 99.0 F 01/03/19 08:00 Pulse 65 01/03/19 08:00 Resp 17 01/03/19 08:00 BP 156/71 H 01/03/19 08:58 Pulse Ox 94 L 01/03/19 08:00 Weight - Most Recent: 109.769 kg I&O - Last 24 hours: Intake & Output 01/02/19 01/03/19 01/03/19 22:59 06:59 14:59 Intake Total 1162 700 Output Total 530 1050 Balance 632 -350 Lab Results - Last 24 hrs: Laboratory Results - last 24 hr 01/03/19 01/03/19 Range/Units 06:13 06:13 WBC 7.92 (4.0-11.0) K/uL RBC 4.67 (4.50-5.90) M/uL Hgb 13.7 (13.0-17.0) g/dL Hct 41.4 (38.0-50.0) % MCV 88.7 (80.0-98.0) fL MCH 29.3 (27.0-32.0) pg MCHC 33.1 (31.0-37.0) g/dL RDW Std Deviation 44.1 (28.0-62.0) fl RDW Coeff of Janeth 14 (11.0-15.0) % Plt Count 308 (150-400) K/uL MPV 8.80 (7.40-12.00) fL Neut % (Auto) 66.7 (48.0-80.0) % Lymph % (Auto) 21.3 (16.0-40.0) % [place] % (Auto) 7.2 (0.0-15.0) % Eos % (Auto) 4.2 (0.0-7.0) % Baso % (Auto) 0.6 (0.0-1.5) % Neut # (Auto) 5.3 (1.4-5.7) K/uL Lymph # (Auto) 1.7 (0.6-2.4) K/uL [place] # (Auto) 0.6 (0.0-0.8) K/uL Eos # (Auto) 0.3 (0.0-0.7) K/uL Baso # (Auto) 0.1 (0.0-0.1) K/uL Nucleated RBC % 0.0 /100WBC Nucleated RBCs # 0 K/uL Sodium 141 (136-148) mmol/L Potassium 3.9 (3.5-5.1) mmol/L Chloride 108 H (98-107) mmol/L Carbon Dioxide 25.7 (21.0-32.0) mmol/L BUN 10 (7.0-18.0) mg/dL Creatinine 1.1 (0.8-1.3) mg/dL Est Cr Clr Drug Dosing 67.57 mL/min Estimated GFR (MDRD) > 60.0 ml/min Glucose 90 (74-106) mg/dL Calcium 8.4 L (8.5-10.1) mg/dL Med Orders - Current: Current Medications Acetaminophen (Tylenol Extra Strength) 500 mg PO Q6H PRN PRN Reason: Headache Last Admin: 01/01/19 04:26 Dose: 500 mg Hydrocodone Bitart/Acetaminophen ([place] 325-5 Mg) 1 tab PO Q4H PRN PRN Reason: Pain Last Admin: 01/03/19 08:59 Dose: 1 tab Albuterol/Ipratropium (Duoneb 3.0-0.5 Mg/3 Ml) 3 ml NEB Q4HRRT PRN PRN Reason: Shortness Of Breath/wheezing Last Admin: 12/29/18 04:13 Dose: 3 ml Amlodipine Besylate (Norvasc) 10 mg PO DAILY [facility] Last Admin: 01/03/19 08:58 Dose: 10 mg Benzonatate (Tessalon Perles) 100 mg PO TID PRN PRN Reason: Cough Last Admin: 01/02/19 11:57 Dose: 100 mg Cyanocobalamin (Vitamin B12) 1,000 mcg PO DAILY ANNA Last Admin: 01/03/19 08:59 Dose: 1,000 mcg Daptomycin 700 mg/ Sodium (Chloride) 14 mls @ 420 mls/hr IV Q24H ANNA Last Admin: 01/02/19 11:27 Dose: 420 mls/hr Pantoprazole Sodium 40 mg/ (Sodium Chloride) 10 mls @ 300 mls/hr IV BIDAC ANNA Last Admin: 01/03/19 06:40 Dose: 300 mls/hr Ketorolac Tromethamine (Toradol) 30 mg IV Q6H PRN PRN Reason: Pain (moderate 4-6) Last Admin: 01/02/19 11:58 Dose: 30 mg Multivitamins/Minerals (Thera M Plus) 1 tab PO DAILY ANNA Last Admin: 01/03/19 08:59 Dose: 1 tab Ondansetron HCl (Zofran) 4 mg IVPUSH Q4H PRN PRN Reason: Nausea/Vomiting Last Admin: 12/29/18 09:25 Dose: 4 mg Discontinued Medications Hydrocodone Bitart/Acetaminophen ([place] 325-5 Mg) 1 tab PO Q6H PRN PRN Reason: Pain Last Admin: 12/31/18 11:15 Dose: 1 tab Albuterol (Proventil Neb Soln) 2.5 mg NEB ONETIME PRN PRN Reason: Wheezing Allopurinol (Zyloprim) 300 mg PO DAILY ANNA Amlodipine Besylate (Norvasc) 5 mg PO DAILY ANNA Last Admin: 01/02/19 09:12 Dose: 5 mg Atropine Sulfate (Atropine 0.1 Mg/Ml) 0.5 mg IVPUSH ASDIRECTED PRN PRN Reason: Hypo-perfusion Atropine Sulfate (Atropine 0.1 Mg/Ml) 1 mg IVPUSH ASDIRECTED PRN PRN Reason: Hypo-Perfusion Bupivacaine HCl (Marcaine 0.5%) Confirm Administered Dose 30 ml .ROUTE .STK-MED ONE Stop: 12/28/18 11:43 Calcium Carbonate/Glycine (Tums) 1,000 mg PO ONETIME ONE Stop: 12/25/18 12:09 Last Admin: 12/25/18 13:24 Dose: 1,000 mg Daptomycin (Cubicin) 700 mg IV Q24H ANNA Dextrose/Water (Dextrose 50% In Water) 50 ml IVPUSH ASDIRECTED PRN PRN Reason: Hypoglycemia Epinephrine HCl (Epinephrine 1:10,000) 1 mg IVPUSH ASDIRECTED PRN PRN Reason: ACLS Guidelines Fentanyl (Fentanyl) 50 mcg IVPUSH ONETIME ONE Stop: 12/28/18 10:45 Last Admin: 12/28/18 12:01 Dose: Not Given Fentanyl (Sublimaze) 50 mcg IVPUSH ONETIME ONE Stop: 12/28/18 11:31 Last Admin: 12/28/18 11:31 Dose: 50 mcg Fentanyl (Sublimaze) Confirm Administered Dose 100 mcg .ROUTE .STK-MED ONE Stop: 12/28/18 11:41 Fentanyl (Sublimaze) 50 mcg IVPUSH Q5M PRN PRN Reason: Pain Hydromorphone HCl (Dilaudid) 1 mg IVPUSH ONETIME ONE Stop: 12/24/18 15:04 Last Admin: 12/24/18 15:11 Dose: 1 mg Sodium Chloride (Normal Saline) 1,000 mls @ 999 mls/hr IV STAT ONE Stop: 12/24/18 14:28 Last Admin: 12/24/18 14:15 Dose: 999 mls/hr Vancomycin HCl 1 gm/ Sodium (Chloride) 250 mls @ 166 mls/hr IV ONETIME ONE Stop: 12/24/18 14:58 Last Admin: 12/24/18 14:19 Dose: 166 mls/hr Sodium Chloride (Normal Saline) 1,000 mls @ 100 mls/hr IV ASDIRECTED [facility] Last Admin: 12/26/18 07:21 Dose: 100 mls/hr Vancomycin HCl 1.25 gm/ Sodium (Chloride) 250 mls @ 250 mls/hr IV Q12H [facility] Last Admin: 12/26/18 01:19 Dose: 250 mls/hr Clindamycin Phosphate 900 mg/ (Premix) 50 mls @ 100 mls/hr IV ONETIME ONE Stop: 12/24/18 16:44 Last Admin: 12/24/18 16:22 Dose: 100 mls/hr Clindamycin Phosphate 300 mg/ (Premix) 50 mls @ 100 mls/hr IV Q8H [facility] Last Admin: 12/25/18 09:01 Dose: 100 mls/hr Cefepime HCl 2 gm/ Premix 50 mls @ 100 mls/hr IV Q8H [facility] Last Admin: 12/26/18 02:36 Dose: 100 mls/hr Vancomycin HCl 1 gm/ Sodium (Chloride) 250 mls @ 166 mls/hr IV Q12H [facility] Last Admin: 12/26/18 02:35 Dose: Not Given Vancomycin HCl 1.25 gm/ Sodium (Chloride) 250 mls @ 250 mls/hr IV Q12H [facility] Sodium Chloride (Normal Saline) 1,000 mls @ 75 mls/hr IV ASDIRECTED [facility] Last Admin: 12/29/18 20:54 Dose: 75 mls/hr Sodium Chloride (Normal Saline) Confirm Administered Dose 20 mls @ as directed .ROUTE .STK-MED ONE Stop: 12/28/18 12:36 Lactated Ringer's (Ringers, Lactated) 1,000 mls @ 75 mls/hr IV ASDIRECTED [facility] Last Admin: 12/31/18 13:59 Dose: 75 mls/hr Vancomycin HCl 1 gm/ Sodium (Chloride) 250 mls @ 166 mls/hr IV ONETIME ONE Stop: 12/31/18 11:44 Last Admin: 12/31/18 10:19 Dose: Not Given Iopamidol (Isovue Multipack-370 (76%)) 100 ml IVPUSH ONETIME STA Stop: 12/29/18 12:47 Last Admin: 12/29/18 12:47 Dose: 100 ml Lidocaine (Xylocaine-Mpf 2%) Confirm Administered Dose 5 ml .ROUTE .STK-MED ONE Stop: 12/28/18 11:41 Magnesium Oxide (Magnesium Oxide) 800 mg PO ONETIME ONE Stop: 01/01/19 09:19 Last Admin: 01/01/19 09:47 Dose: 800 mg Metronidazole (Metronidazole) 500 mg PO Q8H [facility] Last Admin: 12/27/18 03:45 Dose: 500 mg Midazolam HCl (Versed 1 Mg/Ml) Confirm Administered Dose 2 mg .ROUTE .STK-MED ONE Stop: 12/28/18 11:41 Midazolam HCl (Versed 1 Mg/Ml) Confirm Administered Dose 2 mg .ROUTE .STK-MED ONE Stop: 12/31/18 10:02 Morphine Sulfate (Morphine) 2 mg IVPUSH Q4H PRN PRN Reason: Pain (severe 7-10) Stop: 12/25/18 15:01 Last Admin: 12/25/18 04:26 Dose: 2 mg Naloxone HCl (Narcan) 0.1 mg IVPUSH ASDIRECTED PRN PRN Reason: Respiratory Depression Potassium Chloride (Klor-Con M20) 40 meq PO ONETIME STA Stop: 12/25/18 12:08 Last Admin: 12/25/18 13:23 Dose: 40 meq Propofol (Diprivan 20 Ml) Confirm Administered Dose 200 mg .ROUTE .STK-MED ONE Stop: 12/28/18 11:41 Vancomycin HCl (Pharmacy To Dose - Vancomycin) 1 dose .XX ASDIRECTED [facility] <Huseyin Hahn - Last Filed: 01/04/19 19:59> Discharge Summary - Hospital Course HPI Initial Comments: I have seen and evaluated the patient and agree with the residents note unless specified in my note - Referral to Home Health Primary Care Physician: Edwar Valadez MD - Discharge Diagnosis/Problem(s) (1) Cellulitis SNOMED Code(s): 210822628 ICD Code: L03.90 - CELLULITIS, UNSPECIFIED Status: Acute Qualifiers: Site of cellulitis of extremity: toe Laterality: left (2) HTN (hypertension) SNOMED Code(s): 08094734 ICD Code: I10 - ESSENTIAL (PRIMARY) HYPERTENSION Status: Acute - Patient Summary/Data Consults: Consultations 12/24/18 15:37 Consult to Wound Care Services [CONS] Routine 12/26/18 11:06 Wound Corporate Law Assistant Consult [Consult to Wound Care Services] [CONS] Routine 12/27/18 15:16 Consult to Orthopedics [CONS] Routine - Patient Data Vitals - Most Recent: Last Vital Signs Temp 37.2 C 01/03/19 08:00 Pulse 65 01/03/19 08:00 Resp 17 01/03/19 08:00 BP 156/71 H 01/03/19 08:58 Pulse Ox 94 L 01/03/19 08:00 Med Orders - Current: Current Medications Discontinued Medications Acetaminophen (Tylenol Extra Strength) 500 mg PO Q6H PRN PRN Reason: Headache Last Admin: 01/01/19 04:26 Dose: 500 mg Hydrocodone Bitart/Acetaminophen ([place] 325-5 Mg) 1 tab PO Q6H PRN PRN Reason: Pain Last Admin: 12/31/18 11:15 Dose: 1 tab Hydrocodone Bitart/Acetaminophen ([place] 325-5 Mg) 1 tab PO Q4H PRN PRN Reason: Pain Last Admin: 01/03/19 08:59 Dose: 1 tab Albuterol (Proventil Neb Soln) 2.5 mg NEB ONETIME PRN PRN Reason: Wheezing Albuterol/Ipratropium (Duoneb 3.0-0.5 Mg/3 Ml) 3 ml NEB Q4HRRT PRN PRN Reason: Shortness Of Breath/wheezing Last Admin: 12/29/18 04:13 Dose: 3 ml Allopurinol (Zyloprim) 300 mg PO DAILY ANNA Amlodipine Besylate (Norvasc) 5 mg PO DAILY [facility] Last Admin: 01/02/19 09:12 Dose: 5 mg Amlodipine Besylate (Norvasc) 10 mg PO DAILY ANNA Last Admin: 01/03/19 08:58 Dose: 10 mg Atropine Sulfate (Atropine 0.1 Mg/Ml) 0.5 mg IVPUSH ASDIRECTED PRN PRN Reason: Hypo-perfusion Atropine Sulfate (Atropine 0.1 Mg/Ml) 1 mg IVPUSH ASDIRECTED PRN PRN Reason: Hypo-Perfusion Benzonatate (Tessalon Perles) 100 mg PO TID PRN PRN Reason: Cough Last Admin: 01/02/19 11:57 Dose: 100 mg Bupivacaine HCl (Marcaine 0.5%) Confirm Administered Dose 30 ml .ROUTE .STK-MED ONE Stop: 12/28/18 11:43 Calcium Carbonate/Glycine (Tums) 1,000 mg PO ONETIME ONE Stop: 12/25/18 12:09 Last Admin: 12/25/18 13:24 Dose: 1,000 mg Cyanocobalamin (Vitamin B12) 1,000 mcg PO DAILY ANNA Last Admin: 01/03/19 08:59 Dose: 1,000 mcg Daptomycin (Cubicin) 700 mg IV Q24H ANNA Dextrose/Water (Dextrose 50% In Water) 50 ml IVPUSH ASDIRECTED PRN PRN Reason: Hypoglycemia Epinephrine HCl (Epinephrine 1:10,000) 1 mg IVPUSH ASDIRECTED PRN PRN Reason: ACLS Guidelines Fentanyl (Fentanyl) 50 mcg IVPUSH ONETIME ONE Stop: 12/28/18 10:45 Last Admin: 12/28/18 12:01 Dose: Not Given Fentanyl (Sublimaze) 50 mcg IVPUSH ONETIME ONE Stop: 12/28/18 11:31 Last Admin: 12/28/18 11:31 Dose: 50 mcg Fentanyl (Sublimaze) Confirm Administered Dose 100 mcg .ROUTE .STK-MED ONE Stop: 12/28/18 11:41 Fentanyl (Sublimaze) 50 mcg IVPUSH Q5M PRN PRN Reason: Pain Hydromorphone HCl (Dilaudid) 1 mg IVPUSH ONETIME ONE Stop: 12/24/18 15:04 Last Admin: 12/24/18 15:11 Dose: 1 mg Sodium Chloride (Normal Saline) 1,000 mls @ 999 mls/hr IV STAT ONE Stop: 12/24/18 14:28 Last Admin: 12/24/18 14:15 Dose: 999 mls/hr Vancomycin HCl 1 gm/ Sodium (Chloride) 250 mls @ 166 mls/hr IV ONETIME ONE Stop: 12/24/18 14:58 Last Admin: 12/24/18 14:19 Dose: 166 mls/hr Sodium Chloride (Normal Saline) 1,000 mls @ 100 mls/hr IV ASDIRECTED [facility] Last Admin: 12/26/18 07:21 Dose: 100 mls/hr Vancomycin HCl 1.25 gm/ Sodium (Chloride) 250 mls @ 250 mls/hr IV Q12H [facility] Last Admin: 12/26/18 01:19 Dose: 250 mls/hr Clindamycin Phosphate 900 mg/ (Premix) 50 mls @ 100 mls/hr IV ONETIME ONE Stop: 12/24/18 16:44 Last Admin: 12/24/18 16:22 Dose: 100 mls/hr Clindamycin Phosphate 300 mg/ (Premix) 50 mls @ 100 mls/hr IV Q8H [facility] Last Admin: 12/25/18 09:01 Dose: 100 mls/hr Cefepime HCl 2 gm/ Premix 50 mls @ 100 mls/hr IV Q8H [facility] Last Admin: 12/26/18 02:36 Dose: 100 mls/hr Vancomycin HCl 1 gm/ Sodium (Chloride) 250 mls @ 166 mls/hr IV Q12H [facility] Last Admin: 12/26/18 02:35 Dose: Not Given Vancomycin HCl 1.25 gm/ Sodium (Chloride) 250 mls @ 250 mls/hr IV Q12H [facility] Daptomycin 700 mg/ Sodium (Chloride) 14 mls @ 420 mls/hr IV Q24H [facility] Last Admin: 01/03/19 11:44 Dose: 420 mls/hr Sodium Chloride (Normal Saline) 1,000 mls @ 75 mls/hr IV ASDIRECTED [facility] Last Admin: 12/29/18 20:54 Dose: 75 mls/hr Sodium Chloride (Normal Saline) Confirm Administered Dose 20 mls @ as directed .ROUTE .STK-MED ONE Stop: 12/28/18 12:36 Lactated Ringer's (Ringers, Lactated) 1,000 mls @ 75 mls/hr IV ASDIRECTED [facility] Last Admin: 12/31/18 13:59 Dose: 75 mls/hr Pantoprazole Sodium 40 mg/ (Sodium Chloride) 10 mls @ 300 mls/hr IV BIDAC [facility] Last Admin: 01/03/19 06:40 Dose: 300 mls/hr Vancomycin HCl 1 gm/ Sodium (Chloride) 250 mls @ 166 mls/hr IV ONETIME ONE Stop: 12/31/18 11:44 Last Admin: 12/31/18 10:19 Dose: Not Given Iopamidol (Isovue Multipack-370 (76%)) 100 ml IVPUSH ONETIME STA Stop: 12/29/18 12:47 Last Admin: 12/29/18 12:47 Dose: 100 ml Ketorolac Tromethamine (Toradol) 30 mg IV Q6H PRN PRN Reason: Pain (moderate 4-6) Last Admin: 01/02/19 11:58 Dose: 30 mg Lidocaine (Xylocaine-Mpf 2%) Confirm Administered Dose 5 ml .ROUTE .STK-MED ONE Stop: 12/28/18 11:41 Magnesium Oxide (Magnesium Oxide) 800 mg PO ONETIME ONE Stop: 01/01/19 09:19 Last Admin: 01/01/19 09:47 Dose: 800 mg Metronidazole (Metronidazole) 500 mg PO Q8H [facility] Last Admin: 12/27/18 03:45 Dose: 500 mg Midazolam HCl (Versed 1 Mg/Ml) Confirm Administered Dose 2 mg .ROUTE .STK-MED ONE Stop: 12/28/18 11:41 Midazolam HCl (Versed 1 Mg/Ml) Confirm Administered Dose 2 mg .ROUTE .STK-MED ONE Stop: 12/31/18 10:02 Morphine Sulfate (Morphine) 2 mg IVPUSH Q4H PRN PRN Reason: Pain (severe 7-10) Stop: 12/25/18 15:01 Last Admin: 12/25/18 04:26 Dose: 2 mg Multivitamins/Minerals (Thera M Plus) 1 tab PO DAILY [facility] Last Admin: 01/03/19 08:59 Dose: 1 tab Naloxone HCl (Narcan) 0.1 mg IVPUSH ASDIRECTED PRN PRN Reason: Respiratory Depression Ondansetron HCl (Zofran) 4 mg IVPUSH Q4H PRN PRN Reason: Nausea/Vomiting Last Admin: 12/29/18 09:25 Dose: 4 mg Potassium Chloride (Klor-Con M20) 40 meq PO ONETIME STA Stop: 12/25/18 12:08 Last Admin: 12/25/18 13:23 Dose: 40 meq Propofol (Diprivan 20 Ml) Confirm Administered Dose 200 mg .ROUTE .STK-MED ONE Stop: 12/28/18 11:41 Vancomycin HCl (Pharmacy To Dose - Vancomycin) 1 dose .XX ASDIRECTED [facility]
[2019-01-03] MEDS: SODIUM CHLORIDE 0.9% IV SCH (11:44)
[2019-01-03] MEDS: DAPTOMYCIN IV SCH (11:44)
--- NOTE | 2019-01-06 10:38 | OR ---
SURGEON: Hugh Munoz DATE OF PROCEDURE: 12/31/2018 PREOPERATIVE DIAGNOSIS: Abscess, left foot. POSTOPERATIVE DIAGNOSIS: Abscess, left foot. PROCEDURE: Repeat irrigation and debridement of left foot and re-application of wound VAC, less than 50 cm, 3 x 2 x 2 cm. Irrigation and debridement include skin, subcutaneous tissue, muscle, tendon, and bone. PRIMARY SURGEON: Hugh Munoz DO. ANESTHESIA: Moderate sedation. FLUID: Lactated Ringer's solution. ESTIMATED BLOOD LOSS: 0. COMPLICATIONS: None. SPECIMEN: None. DISCHARGE DISPOSITION: Stable to PACU. HISTORY AND INDICATIONS FOR THE PROCEDURE: The patient previously had a wound VAC placed 2 to 3 days prior. This was a repeat I and D for re-application of wound VAC. Risks and benefits of the procedure were explained to the patient. Informed consent was obtained. DETAILS OF PROCEDURE: The patient was seen preoperatively in his hospital room where the operative site was marked. He was brought to the operative suite by Anesthesia staff where moderate sedation was administered. The left lower extremity was then prepped and draped in a sterile manner. Time-out was called identifying the correct patient, the correct procedure, the correct site, and that antibiotics had been given within appropriate period of time. Removed the previous wound VAC prior to prepping and draping. We then irrigated again with Betadine-soaked irrigation. I closed as much as I could with a #1 PDS horizontal mattress. I applied two of these sutures to close as much as I could and then reapplied the sponge on the wound VAC in the same manner. After our goals had been accomplished, the patient was allowed to awaken from general anesthesia and taken to the PACU in stable condition. [id number] / MODL /[id number]
--- NOTE | 2019-01-06 11:02 | OR ---
SURGEON: Hugh Munoz DATE OF PROCEDURE: 12/25/2018 PREOPERATIVE DIAGNOSIS: Left foot abscess. POSTOPERATIVE DIAGNOSIS: Left foot abscess. PROCEDURES: Irrigation and debridement of left foot; wound VAC application of less than 50 ; measuring 2 cm x 3 cm x 3 cm through the superficial to the skin, subcutaneous tissues, muscle, and down to bone. PRIMARY SURGEON: Hugh Munoz DO. ANESTHESIA: General endotracheal intubation. FLUID: Lactated Ringer's solution. ESTIMATED BLOOD LOSS: 25 mL. COMPLICATIONS: None. SPECIMEN: Cultures. DISCHARGE DISPOSITION: Stable to PACU. HISTORY AND INDICATIONS FOR THE PROCEDURE: The patient was part of the Medicine Service. He had been treated with IV antibiotics. The Wound Service felt that he had a deep infection. An MRI was performed indicating infection down to the bone, possibly including the medial sesamoid of the great toe. Risks and benefits of the procedure were explained to the patient and his family and informed consent was obtained. DETAILS OF PROCEDURE: The patient was seen preoperatively by myself and the Anesthesia staff in the preoperative holding area where the operative site was marked. He was brought to the operative suite by the Anesthesia staff, where general anesthesia was administered. He was placed in the supine position. The left lower extremity was then prepped and draped in a sterile manner. Time-out was called identifying the correct patient, the correct procedure, the correct site, and that antibiotics had been given within appropriate period of time. I removed in elliptical manner some of the tissue around the foot abscess of the ball of the foot proximal to the great toe and then used rongeurs and curettes to clean out any tissue all the way down to the medial sesamoid going through skin, subcutaneous tissue, muscle, and down the bone. Tendons were visualized during the procedure. 2 L of irrigation using the pulse lavage was sent through the wound. I then placed Betadine-soaked sponge in the wound for approximately 5 minutes. I removed skin superficially to expose the remaining good skin underneath. He also had a wound to the dorsum, which I did cover with a sponge superficially. I applied vancomycin deep into the wound, which was vancomycin powder, and then applied my sponge deep into the wound and then applied the wound VAC and set it to 80 mmHg suction. After our goals been accomplished, I then removed our sheaths, and the patient was then taken to the PACU in stable condition. [id number] / MODL /[id number]
== END 2019-01-03 12:30 | disposition home or self-care (01) | DRG 581 ==
LOC: MW.ED 12:53 → MW.MS 14:43 → OBSVTOIN 12-25 16:11 → MW.MS 12-25 16:12
PROVIDERS: ADMIT Student in an Organized Health Care Education/Training Program; ATTEND Student in an Organized Health Care Education/Training Program
PROC: 0J9R0ZZ Drainage of Left Foot Subcutaneous Tissue and Fascia, Open Approach (ICD-10-PCS; principal; 2018-12-25)
PROC: 0J9R0ZZ Drainage of Left Foot Subcutaneous Tissue and Fascia, Open Approach (ICD-10-PCS; 2018-12-31)
DX: L03.116 Cellulitis of left lower limb (principal); N28.1 Cyst of kidney, acquired; B95.62 Methicillin resistant Staphylococcus aureus infection as the cause of diseases classified elsewhere; E87.6 Hypokalemia; E83.51 Hypocalcemia; E53.8 Deficiency of other specified B group vitamins; I10 Essential (primary) hypertension; R31.9 Hematuria, unspecified; Z89.021 Acquired absence of right finger(s); G62.9 Polyneuropathy, unspecified; G47.30 Sleep apnea, unspecified; E66.9 Obesity, unspecified; Z88.0 Allergy status to penicillin; Z79.899 Other long term (current) drug therapy; Z68.33 Body mass index [BMI] 33.0-33.9, adult
CPT/HCPCS: 36415 ×2; 71045; 73590; 73620; 80048; 80053; 81001; 83036; 83605; 83735; 84100; 85025 ×2; 85610; 85652; 86140; 87040 ×2; 87070 ×2; 87077 ×2; 87186 ×2; 93971; A9270 ×6; J0692; J1170; J1885 ×2; J2270 ×2; J3370 ×3; J3490 ×3; J7040 ×3; J7050 ×3; 73720-26-LT; 73720-LT; 74178; 74178-26; 76000; 76000-26; 80202; 87075; 87205; 87324; 88305; 96365; 96375; 99283; 99285-25; C9113; J0878; J2001; J2250; J2405; J2704; J3010; J7120; J7620-GY; Q9967

== ENCOUNTER 2019-02-19 14:50 | Inpatient (IN) | payer MEDICARE, BC ==
--- NOTE | 2019-02-19 16:30 | EDM.PDOC ---
ED HPI GENERAL MEDICAL PROBLEM - General Chief Complaint: Lower Extremity Injury/Pain Stated Complaint: left leg infection Time Seen by Provider: 02/19/19 15:32 Source of Information: Reports: Patient History Limitations: Reports: No Limitations - History of Present Illness INITIAL COMMENTS - FREE TEXT/NARRATIVE: This 68 year old male presents to the ED with a chief complaint of a return of infection involving his left foot about two to three days ago. He also complains of blood in his urine with burning and somewhat painful urination for the past two days. 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 He does not have a history of diabetes mellitus. He states that his problem started in early December of 2018 when he discovered that he stepped on a screw that went through his shoe. He was seen at [facility] in mid to late December with a foot infection that was debrided by Dr. Munoz (ortho). He states that since then he has had two other surgeries and has been diagnosed with MRSA. He states that he had a PIC line placed in for a 28 day course of antibiotics. Onset: Gradual (over the past two days his foot infection has returned.) Location: Reports: Lower Extremity, Left Severity: Mild (The patient has almost not feeling in his left seconday to polyneuropathy.) Associated Symptoms: Reports: Other (Blood in his urine for two days) right foot Pain Score (Numeric/FACES): 9 - Related Data Allergies Allergy/AdvReac Type Severity Reaction Status Date / Time Penicillins Allergy Other Verified 02/19/19 15:22 Home Meds: Home Meds Cyanocobalamin (Vitamin B12) [Vitamin B12] 1 tab PO DAILY 12/24/18 [History] Multivit-Min/FA/Lycopen/Lutein [Centrum Silver Tablet] 1 tab PO DAILY 12/24/18 [ History] Multivitamin [Multivitamins] 1 each PO DAILY 12/24/18 [History] Triamterene/Hydrochlorothiazid [Triamterene-HCTZ 37.5-25 MG] 1 tab PO DAILY [History] allopurinoL [Zyloprim] 1 tab PO DAILY 12/24/18 [History] amLODIPine [Norvasc] 10 mg PO DAILY 02/19/19 [History] Past Medical History HEENT History: Reports: None Cardiovascular History: Reports: Hypertension Respiratory History: Reports: Sleep Apnea Gastrointestinal History: Reports: None Genitourinary History: Reports: None Musculoskeletal History: Reports: Amputation Other Musculoskeletal History: tip of right middle finger Neurological History: Reports: None Psychiatric History: Reports: None Endocrine/Metabolic History: Reports: Obesity/BMI 30+ Hematologic History: Reports: B12 Deficiency Immunologic History: Reports: None Oncologic (Cancer) History: Reports: None Dermatologic History: Reports: None - Infectious Disease History Infectious Disease History: Reports: MRSA - Past Surgical History Head Surgeries/Procedures: Reports: None Musculoskeletal Surgical History: Reports: Arthroscopic Knee, Other (See Below) Other Musculoskeletal Surgeries/Procedures:: Right Calf Skin Graft. I&D of left foot- MRSA Social & Family History - Family History Family Medical History: Noncontributory - Tobacco Use Smoking Status *Q: Never Smoker - Caffeine Use Caffeine Use: Reports: Coffee - Alcohol Use Days Per Week of Alcohol Use: 7 Number of Drinks Per Day: 3 Total Drinks Per Week: 21 - Recreational Drug Use Recreational Drug Use: No Review of Systems - Review of Systems Review Of Systems: See Below Constitutional: Reports: No Symptoms Eyes: Reports: No Symptoms Ears: Reports: No Symptoms Nose: Reports: No Symptoms Mouth/Throat: Reports: No Symptoms Respiratory: Reports: No Symptoms Cardiovascular: Reports: No Symptoms GI/Abdominal: Reports: No Symptoms Genitourinary: Reports: Hematuria (gross hematuria for three days.) Musculoskeletal: Reports: Other (infection left foot) Skin: Reports: Other (infection left foot.) Neurological: Reports: No Symptoms Psychiatric: Reports: No Symptoms ED EXAM, GENERAL - Physical Exam Exam: See Below Exam Limited By: No Limitations General Appearance: Alert, WD/WN, No Apparent Distress Eye Exam: Bilateral Eye: EOMI, Normal Inspection, PERRL Ears: Normal External Exam, Normal Canal, Hearing Grossly Normal, Normal TMs Ear Exam: Bilateral Ear: Auricle Normal, Canal Normal, TM normal Nose: Normal Inspection, Normal Mucosa, No Blood Throat/Mouth: Normal Inspection, Normal Lips, Normal Teeth, Normal Gums, Normal Oropharynx, Normal Voice, No Airway Compromise Head: Atraumatic, Normocephalic Neck: Normal Inspection, Supple, Non-Tender, Full Range of Motion Respiratory/Chest: No Respiratory Distress, Lungs Clear, Normal Breath Sounds, No Accessory Muscle Use, Chest Non-Tender Cardiovascular: Normal Peripheral Pulses, Regular Rate, Rhythm, No JVD, No Murmur. No: No Rub, JVD Peripheral Pulses: 1+: Dorsalis Pedis (L), 2+: Dorsalis Pedis (R), 3+: Carotid ( L), Carotid (R), Femoral (L), Femoral (R) GI/Abdominal: Normal Bowel Sounds, Soft, Non-Tender, No Organomegaly, No Distention, No Abnormal Bruit, No Mass (Male) Exam: Deferred Rectal (Males) Exam: Deferred Back Exam: Normal Inspection, Full Range of Motion, NT Extremities: Normal Range of Motion, Slow Capillary Refill (left foot.), Increased Warmth (left foot.), Redness (as noted above.), Other (grossly infected left great toe from volar to dorsal with ulcer noted on the ball of the left great toe. Erythema is noted over most of the left foot that extends one third of the way to the anterior tibia. No significant discomfort when I palpate the left foot.). No: Melvin's Sign Neurological: Alert, Oriented, CN II-XII Intact, Normal Cognition, Normal Gait, Normal Reflexes, No Motor/Sensory Deficits Psychiatric: Normal Affect, Normal Mood Skin Exam: Erythema, Increased Warmth, Other (infection of left foot as noted above.) Course - Vital Signs Text/Narrative:: I talked with Dr. Hahn regarding this patient at at 6:37PM. She will admit this patient for further evaluation and treatment. I discussed this with the patient and he and the agrees with the admission. Last Recorded V/S: Last Vital Signs Temp 98.3 F 02/19/19 15:16 Pulse 84 02/19/19 15:16 Resp 18 02/19/19 15:16 BP 132/68 02/19/19 15:16 Pulse Ox 98 02/19/19 15:16 - Orders/Labs/Meds Orders: Active Orders 24 hr Category Date Time Status CULTURE BLOOD [BC] Stat Lab 02/19/19 17:12 Received CULTURE BLOOD [BC] Stat Lab 02/19/19 17:24 Received CULTURE URINE [RM] Stat Lab 02/19/19 15:41 Received Sodium Chloride 0.9% [Normal Saline] 500 ml Med 02/19/19 17:00 Active IV .BOLUS Blood Culture x2 Reflex Set [OM.PC] Stat Oth 02/19/19 16:55 Ordered Medication Orders Sodium Chloride (Normal Saline) 500 mls @ 500 mls/hr IV .BOLUS ANNA Labs: Laboratory Tests 02/19/19 02/19/19 02/19/19 Range/Units 15:41 16:58 16:58 WBC 11.59 H (4.0-11.0) K/uL RBC 4.72 (4.50-5.90) M/uL Hgb 13.5 (13.0-17.0) g/dL Hct 40.6 (38.0-50.0) % MCV 86.0 (80.0-98.0) fL MCH 28.6 (27.0-32.0) pg MCHC 33.3 (31.0-37.0) g/dL RDW Std Deviation 45.3 (28.0-62.0) fl RDW Coeff of Janeth 15 (11.0-15.0) % Plt Count 265 (150-400) K/uL MPV 9.30 (7.40-12.00) fL Neut % (Auto) 72.2 (48.0-80.0) % Lymph % (Auto) 10.1 L (16.0-40.0) % [place] % (Auto) 16.7 H (0.0-15.0) % Eos % (Auto) 0.7 (0.0-7.0) % Baso % (Auto) 0.3 (0.0-1.5) % Neut # (Auto) 8.4 H (1.4-5.7) K/uL Lymph # (Auto) 1.2 (0.6-2.4) K/uL [place] # (Auto) 1.9 H (0.0-0.8) K/uL Eos # (Auto) 0.1 (0.0-0.7) K/uL Baso # (Auto) 0.0 (0.0-0.1) K/uL Nucleated RBC % 0.0 /100WBC Nucleated RBCs # 0 K/uL Lactate 1.8 (0.20-2.00) mmol/L Sodium (136-148) mmol/L Potassium (3.5-5.1) mmol/L Chloride (98-107) mmol/L Carbon Dioxide (21.0-32.0) mmol/L BUN (7.0-18.0) mg/dL Creatinine (0.8-1.3) mg/dL Est Cr Clr Drug Dosing mL/min Estimated GFR (MDRD) ml/min Glucose (74-106) mg/dL Calcium (8.5-10.1) mg/dL Magnesium (1.8-2.4) mg/dL Total Bilirubin (0.2-1.0) mg/dL AST (15-37) IU/L ALT (14-63) IU/L Alkaline Phosphatase (46-116) U/L Total Protein (6.4-8.2) g/dL Albumin (3.4-5.0) g/dL Globulin (2.6-4.0) g/dL Albumin/Globulin Ratio (0.9-1.6) Urine Color BROWN Urine Appearance CLOUDY Urine pH 5.0 (5.0-8.0) Ur Specific [place] 1.025 (1.001-1.035) Urine Protein 100 H (NEGATIVE) mg/dL Urine Glucose (UA) NEGATIVE (NEGATIVE) mg/dL Urine Ketones TRACE H (NEGATIVE) mg/dL Urine Occult Blood LARGE H (NEGATIVE) Urine Nitrite POSITIVE H (NEGATIVE) Urine Bilirubin SMALL H (NEGATIVE) Urine Ictotest NEGATIVE Urine Urobilinogen 1.0 (<2.0) EU/dL Ur Leukocyte Esterase MODERATE H (NEGATIVE) Urine RBC 50-75 (0-2/HPF) Urine WBC TO NUMEROUS TO COUNT H (0-5/HPF) Ur Epithelial Cells FEW (NONE-FEW) Urine Bacteria 4+ H (NEGATIVE) 02/19/19 Range/Units 16:58 WBC (4.0-11.0) K/uL RBC (4.50-5.90) M/uL Hgb (13.0-17.0) g/dL Hct (38.0-50.0) % MCV (80.0-98.0) fL MCH (27.0-32.0) pg MCHC (31.0-37.0) g/dL RDW Std Deviation (28.0-62.0) fl RDW Coeff of Janeth (11.0-15.0) % Plt Count (150-400) K/uL MPV (7.40-12.00) fL Neut % (Auto) (48.0-80.0) % Lymph % (Auto) (16.0-40.0) % [place] % (Auto) (0.0-15.0) % Eos % (Auto) (0.0-7.0) % Baso % (Auto) (0.0-1.5) % Neut # (Auto) (1.4-5.7) K/uL Lymph # (Auto) (0.6-2.4) K/uL [place] # (Auto) (0.0-0.8) K/uL Eos # (Auto) (0.0-0.7) K/uL Baso # (Auto) (0.0-0.1) K/uL Nucleated RBC % /100WBC Nucleated RBCs # K/uL Lactate (0.20-2.00) mmol/L Sodium 136 (136-148) mmol/L Potassium 3.8 (3.5-5.1) mmol/L Chloride 99 (98-107) mmol/L Carbon Dioxide 26.8 (21.0-32.0) mmol/L BUN 22 H (7.0-18.0) mg/dL Creatinine 1.4 H (0.8-1.3) mg/dL Est Cr Clr Drug Dosing 52.29 mL/min Estimated GFR (MDRD) 50.1 ml/min Glucose 110 H (74-106) mg/dL Calcium 9.0 (8.5-10.1) mg/dL Magnesium 2.2 (1.8-2.4) mg/dL Total Bilirubin 0.7 (0.2-1.0) mg/dL AST 38 H (15-37) IU/L ALT 32 (14-63) IU/L Alkaline Phosphatase 134 H (46-116) U/L Total Protein 8.3 H (6.4-8.2) g/dL Albumin 2.7 L (3.4-5.0) g/dL Globulin 5.6 H (2.6-4.0) g/dL Albumin/Globulin Ratio 0.5 L (0.9-1.6) Urine Color Urine Appearance Urine pH (5.0-8.0) Ur Specific [place] (1.001-1.035) Urine Protein (NEGATIVE) mg/dL Urine Glucose (UA) (NEGATIVE) mg/dL Urine Ketones (NEGATIVE) mg/dL Urine Occult Blood (NEGATIVE) Urine Nitrite (NEGATIVE) Urine Bilirubin (NEGATIVE) Urine Ictotest Urine Urobilinogen (<2.0) EU/dL Ur Leukocyte Esterase (NEGATIVE) Urine RBC (0-2/HPF) Urine WBC (0-5/HPF) Ur Epithelial Cells (NONE-FEW) Urine Bacteria (NEGATIVE) Meds: Medications Generic Name Dose Route Start Last Admin Trade Name Freq PRN Reason Stop Dose Admin Sodium Chloride 500 mls @ 500 mls/hr 02/19/19 17:00 Normal Saline IV .BOLUS ANNA Discontinued Medications Generic Name Dose Route Start Last Admin Trade Name Freq PRN Reason Stop Dose Admin Levofloxacin/Dextrose 750 mg/ 150 mls @ 100 mls/hr 02/19/19 16:53 02/19/19 18 :54 Premix IV 02/19/19 18:22 100 mls/hr ONETIME ONE Administration Vancomycin HCl 1 gm/ Sodium 250 mls @ 166 mls/hr 02/19/19 16:53 02/19/19 17: 24 Chloride IV 02/19/19 18:23 166 mls/hr ONETIME ONE Administration Sodium Chloride Confirm 02/19/19 17:07 Normal Saline (Advbag) Administered 02/19/19 17:08 Dose 250 mls @ as directed .ROUTE .STK-MED ONE Vancomycin HCl Confirm 02/19/19 17:06 Vancomycin Administered 02/19/19 17:07 Dose 1 gm .ROUTE .STK-MED ONE Departure - Departure Time of Disposition: 19:01 Disposition: Refer to Observation Condition: Fair Clinical Impression: Cellulitis of right foot, Hemorrhagic cystitis - Discharge Information *PRESCRIPTION DRUG MONITORING PROGRAM REVIEWED*: Yes *COPY OF PRESCRIPTION DRUG MONITORING REPORT IN PATIENT CINDY: Yes Sepsis Event Note - Evaluation Sepsis Screening Result: No Definite Risk - Focused Exam Vital Signs: Vital Signs Temp Pulse Resp BP Pulse Ox 02/19/19 15:16 98.3 F 84 18 132/68 98 Date Exam was Performed: 02/19/19 Time Exam was Performed: 18:58 - My Orders Last 24 Hours: My Active Orders 02/19/19 15:41 CULTURE URINE [RM] Stat 02/19/19 16:55 Blood Culture x2 Reflex Set [OM.PC] Stat 02/19/19 17:00 Sodium Chloride 0.9% [Normal Saline] 500 ml IV .BOLUS 02/19/19 17:12 CULTURE BLOOD [BC] Stat 02/19/19 17:24 CULTURE BLOOD [BC] Stat - Assessment/Plan Last 24 Hours: My Active Orders 02/19/19 15:41 CULTURE URINE [RM] Stat 02/19/19 16:55 Blood Culture x2 Reflex Set [OM.PC] Stat 02/19/19 17:00 Sodium Chloride 0.9% [Normal Saline] 500 ml IV .BOLUS 02/19/19 17:12 CULTURE BLOOD [BC] Stat 02/19/19 17:24 CULTURE BLOOD [BC] Stat
[2019-02-19] MEDS ORDERED: Levofloxacin/Dextrose 5%-Water 750 MG in Premix Bag 1 BAG IV ONE (16:53)
[2019-02-19] MEDS ORDERED: Sodium Chloride 0.9% 500 ML IV SCH (17:00)
[2019-02-19] MEDS ORDERED: Vancomycin 1 GM SDV ONE (17:06)
[2019-02-19] MEDS ORDERED: Sodium Chloride 0.9% 250 ML ONE (17:07)
[2019-02-19 17:35] LABS: CARBON DIOXIDE,CO2 26.8 mmol/L (21.0-32.0); POTASSIUM,K 3.8 mmol/L (3.5-5.1)
--- NOTE | 2019-02-19 18:09 | CR ---
Left foot: 2 views left foot were obtained. Comparison: No prior foot exam is available. Soft tissue ulcer is identified. Diffuse soft tissue swelling is seen within the 1st digit. Joint space narrowing noted within the 1st MTP joint. Soft tissue swelling is also seen within the dorsum of the foot is noted on the lateral view. Calcaneal spur is noted as well as spurring at the attachment of the Achilles tendon to the calcaneus. No definite findings of osteomyelitis are seen at this time. Bony densities noted off the inferior medial malleolus compatible with old injury. Impression: 1. Soft tissue ulceration and diffuse soft tissue swelling. 2. Other findings believed to be incidental. 3. No definite findings of osteomyelitis although given the amount of soft tissue ulceration, patient is at risk for osteomyelitis. Recommend repeat left foot study in 7-10 days to further evaluate. Diagnostic code #3 This report was dictated in [place] Standard Time
--- NOTE | 2019-02-19 18:09 | CR ---
Left tibia and fibula: AP and lateral views left tibia and fibula were obtained. Comparison: Previous left tibia and fibula study of 12/24/18. Mild medial joint space narrowing is noted within the knee. Bony densities are seen off the medial and lateral malleolus compatible with old injury. Calcaneal spurs are again noted. Mild soft tissue swelling is noted. No focal erosive change is seen. No acute fracture or other abnormality is seen. Impression: 1. Soft tissue swelling. Chronic bony findings as noted above. 2. Nothing is seen at this time to indicate osteomyelitis. Diagnostic code #2 This report was dictated in [place] Standard Time
[2019-02-19] MEDS ORDERED: Acetaminophen 325 MG Tab PO ONE (19:03)
--- NOTE | 2019-02-19 19:08 | PCM.HP.2 ---
<Kalani Lopez - Last Filed: 02/19/19 19:17> H&P History of Present Illness - General Date of Service: 02/19/19 - History of Present Illness Initial Comments - Free Text/Narative: The patient is a 68 year old male with pmh of vascular polyneuropathy, HTN, gout , and osteomyelitis. Stepped on a screw in December 2018 which became infected. He underwent 3 I &Ds of the left foot, required PICC line for a month (ended Jan 30, 2019, and had a wound vac. Reports was doing fine then for no good reason starting swelling 2 days ago. Has had pain, redness, and swelling of the foot. Has wound ball of foot- great toe which he states has had pus. Denies fever, chest pain, shortness of breath, or abdominal pain. Also reports increase urinary urgency and hematuria. Reports this happened last time he was admitted and scans showed a cyst in each kidney. He is supposed to follow up in [place] for this. In the ER, white count showed 11.59 but lactate wnl. Creatinine elevated 1.4, baseline 1.1. UA with signs of infection and blood. XR of foot and tib/fib showed soft tissue swelling but no signs of osteomyelitis. Was given IVF, Vanco , and Levaquin in the ER. PCP- Dr. Valadez right foot Pain Score (Numeric/FACES): 9 - Related Data Allergies/Adverse Reactions: Allergies Allergy/AdvReac Type Severity Reaction Status Date / Time Penicillins Allergy Other Verified 02/19/19 20:42 Home Medications: Home Meds Cyanocobalamin (Vitamin B12) [Vitamin B12] 1 tab PO DAILY 12/24/18 [History] Multivit-Min/FA/Lycopen/Lutein [Centrum Silver Tablet] 1 tab PO DAILY 12/24/18 [ History] Multivitamin [Multivitamins] 1 each PO DAILY 12/24/18 [History] Triamterene/Hydrochlorothiazid [Triamterene-HCTZ 37.5-25 MG] 1 tab PO DAILY [History] allopurinoL [Zyloprim] 1 tab PO DAILY 12/24/18 [History] amLODIPine [Norvasc] 10 mg PO DAILY 02/19/19 [History] Past Medical History HEENT History: Reports: None Cardiovascular History: Reports: Hypertension Respiratory History: Reports: Sleep Apnea Gastrointestinal History: Reports: None Genitourinary History: Reports: None Musculoskeletal History: Reports: Amputation Other Musculoskeletal History: tip of right middle finger Neurological History: Reports: None Psychiatric History: Reports: None Endocrine/Metabolic History: Reports: Obesity/BMI 30+ Hematologic History: Reports: B12 Deficiency Immunologic History: Reports: None Oncologic (Cancer) History: Reports: None Dermatologic History: Reports: None - Infectious Disease History Infectious Disease History: Reports: MRSA - Past Surgical History Head Surgeries/Procedures: Reports: None Musculoskeletal Surgical History: Reports: Arthroscopic Knee, Other (See Below) Other Musculoskeletal Surgeries/Procedures:: Right Calf Skin Graft. I&D of left foot- MRSA Social & Family History - Family History Family Medical History: Noncontributory - Tobacco Use Smoking Status *Q: Never Smoker - Caffeine Use Caffeine Use: Reports: Coffee - Alcohol Use Days Per Week of Alcohol Use: 7 Number of Drinks Per Day: 3 Total Drinks Per Week: 21 - Recreational Drug Use Recreational Drug Use: No H&P Review of Systems - Review of Systems: Review Of Systems: See Below General: Reports: No Symptoms HEENT: Reports: No Symptoms Pulmonary: Reports: No Symptoms Cardiovascular: Reports: No Symptoms Gastrointestinal: Reports: No Symptoms Genitourinary: Reports: Urgency, Hematuria. Denies: Dysuria Musculoskeletal: Reports: Foot Pain Skin: Reports: Erythema, Wound Psychiatric: Reports: No Symptoms Neurological: Reports: No Symptoms Hematologic/Lymphatic: Reports: No Symptoms Immunologic: Reports: No Symptoms Exam - Exam Exam: See Below - Vital Signs Vital Signs: Last Vital Signs Temp 98.3 F 02/19/19 15:16 Pulse 84 02/19/19 15:16 Resp 18 02/19/19 15:16 BP 132/68 02/19/19 15:16 Pulse Ox 98 02/19/19 15:16 Weight: 106.594 kg - Exam General: Alert, Oriented HEENT: Conjunctiva Clear, EOMI, Mucosa Moist & [place], Posterior Pharynx Clear, Pupils Equal, Pupils Reactive Neck: Supple, Trachea Midline Lungs: Clear to Auscultation, Normal Respiratory Effort Cardiovascular: Regular Rate, Regular Rhythm GI/Abdominal Exam: Normal Bowel Sounds, Soft, Non-Tender, No Distention Extremities: Pedal Edema, Increased Warmth, Redness, Other (pulses intact) Skin: Wound (1 inch ball of foot- great toe- draining serosanginous fluid) Psychiatric: Alert, Normal Affect, Normal Mood - Patient Data Lab Results Last 24 hrs: Laboratory Results - last 24 hr 02/19/19 02/19/19 02/19/19 Range/Units 15:41 16:58 16:58 WBC 11.59 H (4.0-11.0) K/uL RBC 4.72 (4.50-5.90) M/uL Hgb 13.5 (13.0-17.0) g/dL Hct 40.6 (38.0-50.0) % MCV 86.0 (80.0-98.0) fL MCH 28.6 (27.0-32.0) pg MCHC 33.3 (31.0-37.0) g/dL RDW Std Deviation 45.3 (28.0-62.0) fl RDW Coeff of Janeth 15 (11.0-15.0) % Plt Count 265 (150-400) K/uL MPV 9.30 (7.40-12.00) fL Neut % (Auto) 72.2 (48.0-80.0) % Lymph % (Auto) 10.1 L (16.0-40.0) % [place] % (Auto) 16.7 H (0.0-15.0) % Eos % (Auto) 0.7 (0.0-7.0) % Baso % (Auto) 0.3 (0.0-1.5) % Neut # (Auto) 8.4 H (1.4-5.7) K/uL Lymph # (Auto) 1.2 (0.6-2.4) K/uL [place] # (Auto) 1.9 H (0.0-0.8) K/uL Eos # (Auto) 0.1 (0.0-0.7) K/uL Baso # (Auto) 0.0 (0.0-0.1) K/uL Nucleated RBC % 0.0 /100WBC Nucleated RBCs # 0 K/uL Lactate 1.8 (0.20-2.00) mmol/L Sodium (136-148) mmol/L Potassium (3.5-5.1) mmol/L Chloride (98-107) mmol/L Carbon Dioxide (21.0-32.0) mmol/L BUN (7.0-18.0) mg/dL Creatinine (0.8-1.3) mg/dL Est Cr Clr Drug Dosing mL/min Estimated GFR (MDRD) ml/min Glucose (74-106) mg/dL Calcium (8.5-10.1) mg/dL Magnesium (1.8-2.4) mg/dL Total Bilirubin (0.2-1.0) mg/dL AST (15-37) IU/L ALT (14-63) IU/L Alkaline Phosphatase (46-116) U/L Total Protein (6.4-8.2) g/dL Albumin (3.4-5.0) g/dL Globulin (2.6-4.0) g/dL Albumin/Globulin Ratio (0.9-1.6) Urine Color BROWN Urine Appearance CLOUDY Urine pH 5.0 (5.0-8.0) Ur Specific Left Hand 1.025 (1.001-1.035) Urine Protein 100 H (NEGATIVE) mg/dL Urine Glucose (UA) NEGATIVE (NEGATIVE) mg/dL Urine Ketones TRACE H (NEGATIVE) mg/dL Urine Occult Blood LARGE H (NEGATIVE) Urine Nitrite POSITIVE H (NEGATIVE) Urine Bilirubin SMALL H (NEGATIVE) Urine Ictotest NEGATIVE Urine Urobilinogen 1.0 (<2.0) EU/dL Ur Leukocyte Esterase MODERATE H (NEGATIVE) Urine RBC 50-75 (0-2/HPF) Urine WBC TO NUMEROUS TO COUNT H (0-5/HPF) Ur Epithelial Cells FEW (NONE-FEW) Urine Bacteria 4+ H (NEGATIVE) 02/19/19 Range/Units 16:58 WBC (4.0-11.0) K/uL RBC (4.50-5.90) M/uL Hgb (13.0-17.0) g/dL Hct (38.0-50.0) % MCV (80.0-98.0) fL MCH (27.0-32.0) pg MCHC (31.0-37.0) g/dL RDW Std Deviation (28.0-62.0) fl RDW Coeff of Janeth (11.0-15.0) % Plt Count (150-400) K/uL MPV (7.40-12.00) fL Neut % (Auto) (48.0-80.0) % Lymph % (Auto) (16.0-40.0) % [place] % (Auto) (0.0-15.0) % Eos % (Auto) (0.0-7.0) % Baso % (Auto) (0.0-1.5) % Neut # (Auto) (1.4-5.7) K/uL Lymph # (Auto) (0.6-2.4) K/uL [place] # (Auto) (0.0-0.8) K/uL Eos # (Auto) (0.0-0.7) K/uL Baso # (Auto) (0.0-0.1) K/uL Nucleated RBC % /100WBC Nucleated RBCs # K/uL Lactate (0.20-2.00) mmol/L Sodium 136 (136-148) mmol/L Potassium 3.8 (3.5-5.1) mmol/L Chloride 99 (98-107) mmol/L Carbon Dioxide 26.8 (21.0-32.0) mmol/L BUN 22 H (7.0-18.0) mg/dL Creatinine 1.4 H (0.8-1.3) mg/dL Est Cr Clr Drug Dosing 52.29 mL/min Estimated GFR (MDRD) 50.1 ml/min Glucose 110 H (74-106) mg/dL Calcium 9.0 (8.5-10.1) mg/dL Magnesium 2.2 (1.8-2.4) mg/dL Total Bilirubin 0.7 (0.2-1.0) mg/dL AST 38 H (15-37) IU/L ALT 32 (14-63) IU/L Alkaline Phosphatase 134 H (46-116) U/L Total Protein 8.3 H (6.4-8.2) g/dL Albumin 2.7 L (3.4-5.0) g/dL Globulin 5.6 H (2.6-4.0) g/dL Albumin/Globulin Ratio 0.5 L (0.9-1.6) Urine Color Urine Appearance Urine pH (5.0-8.0) Ur Specific Left Hand (1.001-1.035) Urine Protein (NEGATIVE) mg/dL Urine Glucose (UA) (NEGATIVE) mg/dL Urine Ketones (NEGATIVE) mg/dL Urine Occult Blood (NEGATIVE) Urine Nitrite (NEGATIVE) Urine Bilirubin (NEGATIVE) Urine Ictotest Urine Urobilinogen (<2.0) EU/dL Ur Leukocyte Esterase (NEGATIVE) Urine RBC (0-2/HPF) Urine WBC (0-5/HPF) Ur Epithelial Cells (NONE-FEW) Urine Bacteria (NEGATIVE) Result Diagrams: 02/19/19 16:58 02/19/19 16:58 Sepsis Event Note - Evaluation Sepsis Screening Result: No Definite Risk - Focused Exam Vital Signs: Vital Signs Temp Pulse Resp BP Pulse Ox 02/19/19 15:16 98.3 F 84 18 132/68 98 Date Exam was Performed: 02/19/19 Time Exam was Performed: 19:17 Problem List Initiated/Reviewed/Updated: Yes Orders Last 24hrs: Active Orders 24 hr Category Date Time Status CULTURE BLOOD [BC] Stat Lab 02/19/19 17:12 Received CULTURE BLOOD [BC] Stat Lab 02/19/19 17:24 Received CULTURE URINE [RM] Stat Lab 02/19/19 15:41 Received Sodium Chloride 0.9% [Normal Saline] 500 ml Med 02/19/19 17:00 Active IV .BOLUS Blood Culture x2 Reflex Set [OM.PC] Stat Oth 02/19/19 16:55 Ordered Medication Orders Sodium Chloride (Normal Saline) 500 mls @ 500 mls/hr IV .BOLUS ANNA Assessment/Plan Comment:: 1. Admit observation 2. Code status- full 3. Vitals per routine 4. I/Os per routine 5. Diet- regular 6. DVT prophylaxis with lovenox 7. Foot ulcer with cellulitis- continue IV Vancomycin and Levaquin. Continue IVF. Consult wound care. If continues to get worse consider further imaging for osteomyelitis and ortho consult. 8. UTI with hematuria-on antibiotics, urine culture pending. Patient reports he has follow up in [place] for bilateral renal cysts. Will get CT ab/pelvis to re-evaluate cysts. 9. RYLAN- IVF, recheck in AM. 10. Chronic conditions- HTN- continue home meds <Huseyin Hahn - Last Filed: 02/19/19 20:54> H&P History of Present Illness - General Admit Problem/Dx: Admission Diagnosis/Problem Admission Diagnosis/Problem Cellulitis of left foot Exam - Vital Signs Vital Signs: Last Vital Signs Temp 36.3 C 02/19/19 20:21 Pulse 79 02/19/19 20:21 Resp 18 02/19/19 20:21 BP 123/57 L 02/19/19 20:21 Pulse Ox 95 02/19/19 20:21 - Patient Data Lab Results Last 24 hrs: Laboratory Results - last 24 hr 02/19/19 02/19/19 02/19/19 Range/Units 15:41 16:58 16:58 WBC 11.59 H (4.0-11.0) K/uL RBC 4.72 (4.50-5.90) M/uL Hgb 13.5 (13.0-17.0) g/dL Hct 40.6 (38.0-50.0) % MCV 86.0 (80.0-98.0) fL MCH 28.6 (27.0-32.0) pg MCHC 33.3 (31.0-37.0) g/dL RDW Std Deviation 45.3 (28.0-62.0) fl RDW Coeff of Janeth 15 (11.0-15.0) % Plt Count 265 (150-400) K/uL MPV 9.30 (7.40-12.00) fL Neut % (Auto) 72.2 (48.0-80.0) % Lymph % (Auto) 10.1 L (16.0-40.0) % [place] % (Auto) 16.7 H (0.0-15.0) % Eos % (Auto) 0.7 (0.0-7.0) % Baso % (Auto) 0.3 (0.0-1.5) % Neut # (Auto) 8.4 H (1.4-5.7) K/uL Lymph # (Auto) 1.2 (0.6-2.4) K/uL [place] # (Auto) 1.9 H (0.0-0.8) K/uL Eos # (Auto) 0.1 (0.0-0.7) K/uL Baso # (Auto) 0.0 (0.0-0.1) K/uL Nucleated RBC % 0.0 /100WBC Nucleated RBCs # 0 K/uL Lactate 1.8 (0.20-2.00) mmol/L Sodium (136-148) mmol/L Potassium (3.5-5.1) mmol/L Chloride (98-107) mmol/L Carbon Dioxide (21.0-32.0) mmol/L BUN (7.0-18.0) mg/dL Creatinine (0.8-1.3) mg/dL Est Cr Clr Drug Dosing mL/min Estimated GFR (MDRD) ml/min Glucose (74-106) mg/dL Calcium (8.5-10.1) mg/dL Magnesium (1.8-2.4) mg/dL Total Bilirubin (0.2-1.0) mg/dL AST (15-37) IU/L ALT (14-63) IU/L Alkaline Phosphatase (46-116) U/L Total Protein (6.4-8.2) g/dL Albumin (3.4-5.0) g/dL Globulin (2.6-4.0) g/dL Albumin/Globulin Ratio (0.9-1.6) Urine Color BROWN Urine Appearance CLOUDY Urine pH 5.0 (5.0-8.0) Ur Specific Left Hand 1.025 (1.001-1.035) Urine Protein 100 H (NEGATIVE) mg/dL Urine Glucose (UA) NEGATIVE (NEGATIVE) mg/dL Urine Ketones TRACE H (NEGATIVE) mg/dL Urine Occult Blood LARGE H (NEGATIVE) Urine Nitrite POSITIVE H (NEGATIVE) Urine Bilirubin SMALL H (NEGATIVE) Urine Ictotest NEGATIVE Urine Urobilinogen 1.0 (<2.0) EU/dL Ur Leukocyte Esterase MODERATE H (NEGATIVE) Urine RBC 50-75 (0-2/HPF) Urine WBC TO NUMEROUS TO COUNT H (0-5/HPF) Ur Epithelial Cells FEW (NONE-FEW) Urine Bacteria 4+ H (NEGATIVE) 02/19/19 Range/Units 16:58 WBC (4.0-11.0) K/uL RBC (4.50-5.90) M/uL Hgb (13.0-17.0) g/dL Hct (38.0-50.0) % MCV (80.0-98.0) fL MCH (27.0-32.0) pg MCHC (31.0-37.0) g/dL RDW Std Deviation (28.0-62.0) fl RDW Coeff of Janeth (11.0-15.0) % Plt Count (150-400) K/uL MPV (7.40-12.00) fL Neut % (Auto) (48.0-80.0) % Lymph % (Auto) (16.0-40.0) % [place] % (Auto) (0.0-15.0) % Eos % (Auto) (0.0-7.0) % Baso % (Auto) (0.0-1.5) % Neut # (Auto) (1.4-5.7) K/uL Lymph # (Auto) (0.6-2.4) K/uL [place] # (Auto) (0.0-0.8) K/uL Eos # (Auto) (0.0-0.7) K/uL Baso # (Auto) (0.0-0.1) K/uL Nucleated RBC % /100WBC Nucleated RBCs # K/uL Lactate (0.20-2.00) mmol/L Sodium 136 (136-148) mmol/L Potassium 3.8 (3.5-5.1) mmol/L Chloride 99 (98-107) mmol/L Carbon Dioxide 26.8 (21.0-32.0) mmol/L BUN 22 H (7.0-18.0) mg/dL Creatinine 1.4 H (0.8-1.3) mg/dL Est Cr Clr Drug Dosing 52.29 mL/min Estimated GFR (MDRD) 50.1 ml/min Glucose 110 H (74-106) mg/dL Calcium 9.0 (8.5-10.1) mg/dL Magnesium 2.2 (1.8-2.4) mg/dL Total Bilirubin 0.7 (0.2-1.0) mg/dL AST 38 H (15-37) IU/L ALT 32 (14-63) IU/L Alkaline Phosphatase 134 H (46-116) U/L Total Protein 8.3 H (6.4-8.2) g/dL Albumin 2.7 L (3.4-5.0) g/dL Globulin 5.6 H (2.6-4.0) g/dL Albumin/Globulin Ratio 0.5 L (0.9-1.6) Urine Color Urine Appearance Urine pH (5.0-8.0) Ur Specific Left Hand (1.001-1.035) Urine Protein (NEGATIVE) mg/dL Urine Glucose (UA) (NEGATIVE) mg/dL Urine Ketones (NEGATIVE) mg/dL Urine Occult Blood (NEGATIVE) Urine Nitrite (NEGATIVE) Urine Bilirubin (NEGATIVE) Urine Ictotest Urine Urobilinogen (<2.0) EU/dL Ur Leukocyte Esterase (NEGATIVE) Urine RBC (0-2/HPF) Urine WBC (0-5/HPF) Ur Epithelial Cells (NONE-FEW) Urine Bacteria (NEGATIVE) Result Diagrams: 02/19/19 16:58 02/19/19 16:58 Sepsis Event Note - Focused Exam Vital Signs: Vital Signs Temp Temp Pulse Resp BP Pulse Ox 02/19/19 20:21 36.3 C 79 18 123/57 L 95 02/19/19 19:13 38.1 C 78 18 131/56 L 94 L 02/19/19 19:06 38.1 C 02/19/19 15:16 36.8 C 84 18 132/68 98 Date Exam was Performed: 02/19/19 Time Exam was Performed: 20:54 Orders Last 24hrs: Active Orders 24 hr Category Date Time Status Admission Status [Patient Status] [ADT] Stat ADT 02/19/19 19:02 Active Intake and Output [RC] ASDIRECTED Care 02/19/19 19:18 Active Telemetry Monitoring [Cardiac Monitoring] [RC] . Care 02/19/19 19:26 Active DIRECTED Vital Signs [RC] PER UNIT ROUTINE Care 02/19/19 19:18 Active Wound Copy Camera Operator Consult [Consult to Wound Care Cons 02/19/19 19:36 Active Services] [CONS] Stat Regular Diet [DIET] Diet 02/20/19 Breakfast Active CULTURE BLOOD [BC] Stat Lab 02/19/19 17:12 Received CULTURE BLOOD [BC] Stat Lab 02/19/19 17:24 Received CULTURE URINE [RM] Stat Lab 02/19/19 15:41 Received VANCOMYCIN TROUGH [CHEM] Timed Lab 02/21/19 07:30 Ordered Acetaminophen [Tylenol] Med 02/19/19 19:20 Active 650 mg PO Q4H PRN Enoxaparin [Lovenox] Med 02/19/19 19:30 Active 40 mg SUBCUT Q24H HCTZ/Triamterene [Maxzide 25-37.5 MG] Med 02/20/19 09:00 Active 1 each PO DAILY Lactated Ringers [Ringers, Lactated] 1,000 ml Med 02/19/19 19:45 Active IV ASDIRECTED Levofloxacin/Dextrose 5%-Water [Levaquin in D5W 750 MG/ Med 02/20/19 19:30 Active 150 ML] 750 mg Premix Bag 1 bag IV Q24H Ondansetron [Zofran] Med 02/19/19 19:20 Active 4 mg IVPUSH Q4H PRN Pharmacy to Dose - Vancomycin Med 02/19/19 19:30 Pending 1 dose .XX ASDIRECTED Sodium Chloride 0.9% [Normal Saline] 500 ml Med 02/19/19 17:00 Active IV .BOLUS Vancomycin [Vancocin] 1 gm Med 02/20/19 08:00 Active Sodium Chloride 0.9% [Normal Saline (AdvBag)] 250 ml IV Q12H allopurinoL [Zyloprim] Med 02/20/19 09:00 Active 300 mg PO DAILY amLODIPine [Norvasc] Med 02/20/19 09:00 Active 10 mg PO DAILY Blood Culture x2 Reflex Set [OM.PC] Stat Oth 02/19/19 16:55 Ordered Resuscitation Status Stat Resus Stat 02/19/19 19:18 Ordered Medication Orders Acetaminophen (Tylenol) 650 mg PO Q4H PRN PRN Reason: Pain/Fever Allopurinol (Zyloprim) 300 mg PO DAILY ANNA Amlodipine Besylate (Norvasc) 10 mg PO DAILY ANNA Enoxaparin Sodium (Lovenox) 40 mg SUBCUT Q24H ANNA Sodium Chloride (Normal Saline) 500 mls @ 500 mls/hr IV .BOLUS ANNA Levofloxacin/Dextrose 750 mg/ (Premix) 150 mls @ 100 mls/hr IV Q24H ANNA Lactated Ringer's (Ringers, Lactated) 1,000 mls @ 100 mls/hr IV ASDIRECTED ANNA Vancomycin HCl 1 gm/ Sodium (Chloride) 250 mls @ 166 mls/hr IV Q12H ANNA Ondansetron HCl (Zofran) 4 mg IVPUSH Q4H PRN PRN Reason: Nausea/Vomiting Triamterene/HCTZ (Maxzide 25-37.5 Mg) 1 each PO DAILY ANNA Vancomycin HCl (Pharmacy To Dose - Vancomycin) 1 dose .XX ASDIRECTED ANNA Assessment/Plan Comment:: I performed a history and physical exam of the patient and discussed management with resident. I have reviewed the residents note and agree with documented findings and plan unless otherwise specified in my note.
[2019-02-19] MEDS ORDERED: Ondansetron 4 MG/2 ML SDV IVPUSH PRN (19:20)
[2019-02-19] MEDS ORDERED: Enoxaparin 40 MG/0.4 ML Syringe SUBCUT SCH (19:30)
--- NOTE | 2019-02-19 20:30 | CT ---
CT abdomen and pelvis Technique: Multiple axial sections were obtained from above the dome of the diaphragm inferiorly through the pubic symphysis. Intravenous and oral contrast was not utilized. Reconstructed coronal and sagittal images were reviewed. Comparison: Previous CT abdomen and pelvis exam of 12/29/18. Findings: Visualized lung bases show nothing acute. Small to moderate size hiatal hernia is noted. Noncontrast appearance of the liver and spleen shows no discrete abnormality. Adrenal glands show no nodule. Gallbladder contains no calcified gallstones. Kidneys show no abnormal calcifications or hydronephrosis. Aorta shows atherosclerotic change without aneurysm. Pancreas shows no discrete abnormality. No mesenteric abnormalities are seen. No pelvic mass or adenopathy is seen. No ureteral dilatation or ureteral calcifications are seen. There is an area of increased density being seen within the bladder. This measures about 2.4 cm in size. There is a small area of increased density on previous study within the bladder. Since this is seen in retrospect on prior study it is difficult to exclude a bladder mass. No free fluid or inflammatory change is seen. Diverticuli are seen throughout the colon without inflammatory change of diverticulitis. Appendix is not definitely visualized. Impression: 1. Area of increased density within the bladder. Since this is unchanged from prior exam difficult to exclude a high density mass. Bladder ultrasound could be obtained to further evaluate or cystoscopy would be the gold standard for evaluation. 2. Small to moderate-sized hiatal hernia. 3. No other acute finding is definitely appreciated on noncontrast CT study of the abdomen and pelvis. Diagnostic code #9 This report was dictated in [place] Standard Time
[2019-02-19] MEDS: Enoxaparin 40 MG/0.4 ML Syringe SUBCUT SCH (22:05)
[2019-02-19] MEDS: oxyCODONE 5 MG Tab PO PRN (22:07)
[2019-02-19] MEDS: Lactated Ringers 1,000 ML IV SCH (22:36)
[2019-02-19] MEDS: Acetaminophen 325 MG Tab PO PRN (23:44)
[2019-02-20] MEDS: oxyCODONE 5 MG Tab PO PRN ×5 (05:15→21:50)
[2019-02-20 05:42] LABS: CARBON DIOXIDE,CO2 26.5 mmol/L (21.0-32.0); POTASSIUM,K 3.1 mmol/L (3.5-5.1)
[2019-02-20] MEDS: Acetaminophen 325 MG Tab PO PRN ×3 (06:28→20:04)
[2019-02-20] MEDS: Allopurinol 300 MG Tab PO SCH (08:21)
[2019-02-20] MEDS: Hydrochlorothiazide/Triamterene 25-37.5 Tab PO SCH (08:22)
[2019-02-20] MEDS: amLODIPine 5 MG Tab PO SCH (08:22)
[2019-02-20] MEDS: Lactated Ringers 1,000 ML IV SCH ×2 (08:34→21:55)
[2019-02-20] MEDS ORDERED: Potassium Chloride 20 MEQ Tab.ER PO ONE (11:30)
--- NOTE | 2019-02-20 11:34 | PCM.PN ---
- General Info Date of Service: 02/20/19 Admission Dx/Problem (Free Text): Admission Diagnosis/Problem Admission Diagnosis/Problem Cellulitis of left foot Subjective Update: Feeling ok today. reports concerned about foot and would to consult Orthopedic. Denies chest pain or SOB. Functional Status: Reports: Pain Controlled, Tolerating Diet, Ambulating, Urinating - Review of Systems General: Reports: No Symptoms. Denies: Weakness, Fatigue HEENT: Reports: No Symptoms. Denies: Headaches, Sore Throat, Visual Changes Pulmonary: Reports: No Symptoms. Denies: Shortness of Breath Cardiovascular: Reports: No Symptoms. Denies: Chest Pain Gastrointestinal: Reports: No Symptoms. Denies: Abdominal Pain, Nausea, Vomiting Genitourinary: Reports: No Symptoms. Denies: Dysuria, Frequency Musculoskeletal: Reports: Foot Pain Skin: Reports: No Symptoms Neurological: Reports: No Symptoms Psychiatric: Reports: No Symptoms - Patient Data Vitals - Most Recent: Last Vital Signs Temp 97.1 F 02/20/19 08:18 Pulse 61 02/20/19 08:18 Resp 16 02/20/19 08:18 BP 122/59 L 02/20/19 08:22 Pulse Ox 95 02/20/19 08:18 Weight - Most Recent: 103.9 kg I&O - Last 24 Hours: Intake & Output 02/19/19 02/20/19 02/20/19 22:59 06:59 14:59 Intake Total 500 2092 250 Output Total 750 Balance 500 1342 250 Lab Results Last 24 Hours: Laboratory Results - last 24 hr 02/19/19 02/19/19 02/19/19 Range/Units 15:41 16:58 16:58 WBC 11.59 H (4.0-11.0) K/uL RBC 4.72 (4.50-5.90) M/uL Hgb 13.5 (13.0-17.0) g/dL Hct 40.6 (38.0-50.0) % MCV 86.0 (80.0-98.0) fL MCH 28.6 (27.0-32.0) pg MCHC 33.3 (31.0-37.0) g/dL RDW Std Deviation 45.3 (28.0-62.0) fl RDW Coeff of Janeth 15 (11.0-15.0) % Plt Count 265 (150-400) K/uL MPV 9.30 (7.40-12.00) fL Neut % (Auto) 72.2 (48.0-80.0) % Lymph % (Auto) 10.1 L (16.0-40.0) % [place] % (Auto) 16.7 H (0.0-15.0) % Eos % (Auto) 0.7 (0.0-7.0) % Baso % (Auto) 0.3 (0.0-1.5) % Neut # (Auto) 8.4 H (1.4-5.7) K/uL Lymph # (Auto) 1.2 (0.6-2.4) K/uL [place] # (Auto) 1.9 H (0.0-0.8) K/uL Eos # (Auto) 0.1 (0.0-0.7) K/uL Baso # (Auto) 0.0 (0.0-0.1) K/uL Nucleated RBC % 0.0 /100WBC Nucleated RBCs # 0 K/uL Lactate 1.8 (0.20-2.00) mmol/L Sodium (136-148) mmol/L Potassium (3.5-5.1) mmol/L Chloride (98-107) mmol/L Carbon Dioxide (21.0-32.0) mmol/L BUN (7.0-18.0) mg/dL Creatinine (0.8-1.3) mg/dL Est Cr Clr Drug Dosing mL/min Estimated GFR (MDRD) ml/min Glucose (74-106) mg/dL Calcium (8.5-10.1) mg/dL Phosphorus (2.6-4.7) mg/dL Magnesium (1.8-2.4) mg/dL Total Bilirubin (0.2-1.0) mg/dL AST (15-37) IU/L ALT (14-63) IU/L Alkaline Phosphatase (46-116) U/L Total Protein (6.4-8.2) g/dL Albumin (3.4-5.0) g/dL Globulin (2.6-4.0) g/dL Albumin/Globulin Ratio (0.9-1.6) Urine Color BROWN Urine Appearance CLOUDY Urine pH 5.0 (5.0-8.0) Ur Specific [place] 1.025 (1.001-1.035) Urine Protein 100 H (NEGATIVE) mg/dL Urine Glucose (UA) NEGATIVE (NEGATIVE) mg/dL Urine Ketones TRACE H (NEGATIVE) mg/dL Urine Occult Blood LARGE H (NEGATIVE) Urine Nitrite POSITIVE H (NEGATIVE) Urine Bilirubin SMALL H (NEGATIVE) Urine Ictotest NEGATIVE Urine Urobilinogen 1.0 (<2.0) EU/dL Ur Leukocyte Esterase MODERATE H (NEGATIVE) Urine RBC 50-75 (0-2/HPF) Urine WBC TO NUMEROUS TO COUNT H (0-5/HPF) Ur Epithelial Cells FEW (NONE-FEW) Urine Bacteria 4+ H (NEGATIVE) 02/19/19 02/20/19 02/20/19 Range/Units 16:58 05:10 05:10 WBC 8.99 (4.0-11.0) K/uL RBC 4.36 L (4.50-5.90) M/uL Hgb 12.2 L (13.0-17.0) g/dL Hct 37.3 L (38.0-50.0) % MCV 85.6 (80.0-98.0) fL MCH 28.0 (27.0-32.0) pg MCHC 32.7 (31.0-37.0) g/dL RDW Std Deviation 45.2 (28.0-62.0) fl RDW Coeff of Janeth 15 (11.0-15.0) % Plt Count 242 (150-400) K/uL MPV 9.60 (7.40-12.00) fL Neut % (Auto) 70.6 (48.0-80.0) % Lymph % (Auto) 14.5 L (16.0-40.0) % [place] % (Auto) 12.5 (0.0-15.0) % Eos % (Auto) 2.1 (0.0-7.0) % Baso % (Auto) 0.3 (0.0-1.5) % Neut # (Auto) 6.4 H (1.4-5.7) K/uL Lymph # (Auto) 1.3 (0.6-2.4) K/uL [place] # (Auto) 1.1 H (0.0-0.8) K/uL Eos # (Auto) 0.2 (0.0-0.7) K/uL Baso # (Auto) 0.0 (0.0-0.1) K/uL Nucleated RBC % 0.0 /100WBC Nucleated RBCs # 0 K/uL Lactate (0.20-2.00) mmol/L Sodium 136 140 (136-148) mmol/L Potassium 3.8 3.1 L (3.5-5.1) mmol/L Chloride 99 103 (98-107) mmol/L Carbon Dioxide 26.8 26.5 (21.0-32.0) mmol/L BUN 22 H 22 H (7.0-18.0) mg/dL Creatinine 1.4 H 1.2 (0.8-1.3) mg/dL Est Cr Clr Drug Dosing 52.29 61.94 mL/min Estimated GFR (MDRD) 50.1 59.9 ml/min Glucose 110 H 106 (74-106) mg/dL Calcium 9.0 8.5 (8.5-10.1) mg/dL Phosphorus 3.7 (2.6-4.7) mg/dL Magnesium 2.2 2.0 (1.8-2.4) mg/dL Total Bilirubin 0.7 (0.2-1.0) mg/dL AST 38 H (15-37) IU/L ALT 32 (14-63) IU/L Alkaline Phosphatase 134 H (46-116) U/L Total Protein 8.3 H (6.4-8.2) g/dL Albumin 2.7 L (3.4-5.0) g/dL Globulin 5.6 H (2.6-4.0) g/dL Albumin/Globulin Ratio 0.5 L (0.9-1.6) Urine Color Urine Appearance Urine pH (5.0-8.0) Ur Specific [place] (1.001-1.035) Urine Protein (NEGATIVE) mg/dL Urine Glucose (UA) (NEGATIVE) mg/dL Urine Ketones (NEGATIVE) mg/dL Urine Occult Blood (NEGATIVE) Urine Nitrite (NEGATIVE) Urine Bilirubin (NEGATIVE) Urine Ictotest Urine Urobilinogen (<2.0) EU/dL Ur Leukocyte Esterase (NEGATIVE) Urine RBC (0-2/HPF) Urine WBC (0-5/HPF) Ur Epithelial Cells (NONE-FEW) Urine Bacteria (NEGATIVE) Med Orders - Current: Current Medications Acetaminophen (Tylenol) 650 mg PO Q4H PRN PRN Reason: Pain/Fever Last Admin: 02/20/19 06:28 Dose: 650 mg Allopurinol (Zyloprim) 300 mg PO DAILY [facility] Last Admin: 02/20/19 08:21 Dose: 300 mg Amlodipine Besylate (Norvasc) 10 mg PO DAILY [facility] Last Admin: 02/20/19 08:22 Dose: 10 mg Daptomycin (Cubicin) 620 mg 6 mg/kg (620 mg) IV Q24H [facility] Enoxaparin Sodium (Lovenox) 40 mg SUBCUT Q24H [facility] Last Admin: 02/19/19 22:05 Dose: 40 mg Sodium Chloride (Normal Saline) 500 mls @ 500 mls/hr IV .BOLUS [facility] Last Admin: 02/19/19 21:14 Dose: 500 mls/hr Levofloxacin/Dextrose 750 mg/ (Premix) 150 mls @ 100 mls/hr IV Q24H [facility] Lactated Ringer's (Ringers, Lactated) 1,000 mls @ 100 mls/hr IV ASDIRECTED [facility] Last Admin: 02/20/19 08:34 Dose: 100 mls/hr Ondansetron HCl (Zofran) 4 mg IVPUSH Q4H PRN PRN Reason: Nausea/Vomiting Oxycodone HCl (Oxycodone) 5 mg PO Q4H PRN PRN Reason: Pain Last Admin: 02/20/19 09:12 Dose: 5 mg Triamterene/HCTZ (Maxzide 25-37.5 Mg) 1 each PO DAILY [facility] Last Admin: 02/20/19 08:22 Dose: 1 each Discontinued Medications Acetaminophen (Tylenol) 650 mg PO NOW ONE Stop: 02/19/19 19:04 Last Admin: 02/19/19 19:06 Dose: 650 mg Enoxaparin Sodium (Lovenox) 40 mg SUBCUT Q24H [facility] Last Admin: 02/20/19 02:22 Dose: Not Given Levofloxacin/Dextrose 750 mg/ (Premix) 150 mls @ 100 mls/hr IV ONETIME ONE Stop: 02/19/19 18:22 Last Admin: 02/19/19 18:54 Dose: 100 mls/hr Vancomycin HCl 1 gm/ Sodium (Chloride) 250 mls @ 166 mls/hr IV ONETIME ONE Stop: 02/19/19 18:23 Last Admin: 02/19/19 17:24 Dose: 166 mls/hr Sodium Chloride (Normal Saline (Advbag)) Confirm Administered Dose 250 mls @ as directed .ROUTE .STK-MED ONE Stop: 02/19/19 17:08 Last Admin: 02/19/19 21:07 Dose: Not Given Vancomycin HCl 1 gm/ Sodium (Chloride) 250 mls @ 166 mls/hr IV Q12H [facility] Last Admin: 02/20/19 08:24 Dose: 166 mls/hr Potassium Chloride (Klor-Con M20) 40 meq PO ONETIME ONE Stop: 02/20/19 11:31 Vancomycin HCl (Vancomycin) Confirm Administered Dose 1 gm .ROUTE .STK-MED ONE Stop: 02/19/19 17:07 Last Admin: 02/19/19 21:08 Dose: Not Given Vancomycin HCl (Pharmacy To Dose - Vancomycin) 1 dose .XX ASDIRECTED ANNA - Exam General: Alert, Oriented, Cooperative, No Acute Distress Lungs: Clear to Auscultation, Normal Respiratory Effort Cardiovascular: Regular Rate, Regular Rhythm GI/Abdominal Exam: Normal Bowel Sounds, Soft, Non-Tender Extremities: Pedal Edema (L foot) Wound/Incisions: Drainage, Erythema, Other (maceration noted dorsum and and plantar surface on great toe. ) Psy/Mental Status: Alert, Normal Affect, Normal Mood Sepsis Event Note - Evaluation Sepsis Screening Result: No Definite Risk - Focused Exam Vital Signs: Vital Signs Temp Pulse Resp BP BP Pulse Ox 02/20/19 08:22 122/59 L 02/20/19 08:18 97.1 F 61 16 122/59 L 95 02/20/19 04:00 97.3 F 66 16 103/44 L 94 L 02/20/19 00:00 97.8 F 67 16 111/59 L 94 L Date Exam was Performed: 02/20/19 Time Exam was Performed: 12:11 - Problem List & Annotations (1) Cellulitis SNOMED Code(s): 955467892 Code(s): L03.90 - CELLULITIS, UNSPECIFIED Status: Acute Current Visit: No Qualifiers: Site of cellulitis of extremity: toe Laterality: left (2) Hx of osteomyelitis SNOMED Code(s): 820688660 Code(s): Z87.39 - PERSONAL HISTORY OF DISEASES OF THE MS SYS AND CONN TISS Status: Chronic Current Visit: Yes (3) HTN (hypertension) SNOMED Code(s): 59196578 Code(s): I10 - ESSENTIAL (PRIMARY) HYPERTENSION Status: Chronic Current Visit: No Qualifiers: Hypertension type: essential hypertension Qualified Code(s): I10 - Essential (primary) hypertension - Problem List Review Problem List Initiated/Reviewed/Updated: Yes - My Orders Last 24 Hours: My Active Orders 02/20/19 11:45 DAPTOmycin [Cubicin] 620 mg IV Q24H - Plan Plan:: 1. 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 Will switch to Dapto now. Continue IVF. Consult wound care. Consulted Dr Peters, he will come evaluate for further management. 2. UTI with hematuria: Continue Levaquin urine culture pending. Patient reports he has follow up in [place] for bilateral renal cysts. CT shows possible bladder mass. Will need to keep outpatient follow up with Urology 3. RYLAN- Improved with IVFs. 4. Chronic conditions- HTN- continue home meds
[2019-02-20] MEDS ORDERED: DAPTOmycin 500 MG Vial IV SCH (11:45)
[2019-02-20] MEDS: SODIUM CHLORIDE 0.9% IV SCH ×2 (12:57→13:09)
[2019-02-20] MEDS: DAPTOMYCIN IV SCH ×2 (12:57→13:09)
[2019-02-20] MEDS ORDERED: DAPTOmycin 600 MG in Sodium Chloride 0.9% 12 ML IV SCH ×2 (13:02→13:15)
[2019-02-20] MEDS: Levofloxacin/Dextrose 5%-Water 750 MG in Premix Bag 1 BAG IV SCH (19:17)
[2019-02-20] MEDS: Enoxaparin 40 MG/0.4 ML Syringe SUBCUT SCH (21:53)
[2019-02-21] MEDS: oxyCODONE 5 MG Tab PO PRN ×3 (01:55→14:41)
[2019-02-21] MEDS: Acetaminophen 325 MG Tab PO PRN ×2 (03:36→08:38)
[2019-02-21 06:39] LABS: BLOOD UREA NITROGEN,BUN 16 mg/dL (7.0-18.0); CARBON DIOXIDE,CO2 30.1 mmol/L (21.0-32.0); CHLORIDE,CL 103 mmol/L (98-107); GLUCOSE RANDOM 90 mg/dL (74-106); POTASSIUM,K 3.7 mmol/L (3.5-5.1); SODIUM,NA 141 mmol/L (136-148)
[2019-02-21] MEDS ORDERED: DAPTOmycin 1,000 MG in Sodium Chloride 0.9% 20 ML IV SCH (07:55)
--- NOTE | 2019-02-21 08:25 | PCM.PN ---
- General Info Date of Service: 02/21/19 Subjective Update: Patient reports foot pain about the same, under control with medications. Reports he is eating, drinking, and going to the bathroom without issue. Denies fever/chills. - Review of Systems General: Reports: No Symptoms HEENT: Reports: No Symptoms Pulmonary: Reports: No Symptoms Cardiovascular: Reports: No Symptoms Gastrointestinal: Reports: No Symptoms Genitourinary: Reports: Hematuria Musculoskeletal: Reports: Foot Pain Skin: Reports: No Symptoms Neurological: Reports: No Symptoms Psychiatric: Reports: No Symptoms - Patient Data Vitals - Most Recent: Last Vital Signs Temp 97.3 F 02/21/19 04:42 Pulse 70 02/21/19 04:42 Resp 18 02/21/19 04:42 BP 116/65 02/21/19 04:42 Pulse Ox 92 L 02/21/19 04:42 Weight - Most Recent: 103.9 kg I&O - Last 24 Hours: Intake & Output 02/20/19 02/21/19 02/21/19 22:59 06:59 14:59 Intake Total 2156 2317 Output Total 820 1050 Balance 1336 1267 Lab Results Last 24 Hours: Laboratory Results - last 24 hr 02/21/19 02/21/19 Range/Units 06:11 06:11 WBC 6.89 (4.0-11.0) K/uL RBC 4.41 L (4.50-5.90) M/uL Hgb 12.5 L (13.0-17.0) g/dL Hct 38.2 (38.0-50.0) % MCV 86.6 (80.0-98.0) fL MCH 28.3 (27.0-32.0) pg MCHC 32.7 (31.0-37.0) g/dL RDW Std Deviation 46.7 (28.0-62.0) fl RDW Coeff of Janeth 15 (11.0-15.0) % Plt Count 263 (150-400) K/uL MPV 9.30 (7.40-12.00) fL Neut % (Auto) 57.6 (48.0-80.0) % Lymph % (Auto) 26.0 (16.0-40.0) % [place] % (Auto) 11.0 (0.0-15.0) % Eos % (Auto) 4.8 (0.0-7.0) % Baso % (Auto) 0.6 (0.0-1.5) % Neut # (Auto) 4.0 (1.4-5.7) K/uL Lymph # (Auto) 1.8 (0.6-2.4) K/uL [place] # (Auto) 0.8 (0.0-0.8) K/uL Eos # (Auto) 0.3 (0.0-0.7) K/uL Baso # (Auto) 0.0 (0.0-0.1) K/uL Nucleated RBC % 0.0 /100WBC Nucleated RBCs # 0 K/uL Sodium 141 (136-148) mmol/L Potassium 3.7 (3.5-5.1) mmol/L Chloride 103 (98-107) mmol/L Carbon Dioxide 30.1 (21.0-32.0) mmol/L BUN 16 (7.0-18.0) mg/dL Creatinine 1.1 (0.8-1.3) mg/dL Est Cr Clr Drug Dosing 67.57 mL/min Estimated GFR (MDRD) > 60.0 ml/min Glucose 90 (74-106) mg/dL Calcium 9.1 (8.5-10.1) mg/dL [place]cy Results Last 24 Hours: Microbiology 02/19/19 15:41 Urine Culture - Final Urine, Clean Catch Escherichia Coli 02/19/19 17:24 Aerobic Blood Culture - Preliminary Blood - Venous - Lab Draw NO GROWTH AFTER 1 DAY Anaerobic Blood Culture - Preliminary 02/19/19 17:12 Aerobic Blood Culture - Preliminary Blood - Venous NO GROWTH AFTER 1 DAY Anaerobic Blood Culture - Preliminary NO GROWTH AFTER 1 DAY Med Orders - Current: Current Medications Acetaminophen (Tylenol) 650 mg PO Q4H PRN PRN Reason: Pain/Fever Last Admin: 02/21/19 03:36 Dose: 650 mg Allopurinol (Zyloprim) 300 mg PO DAILY [facility] Last Admin: 02/20/19 08:21 Dose: 300 mg Amlodipine Besylate (Norvasc) 10 mg PO DAILY [facility] Last Admin: 02/20/19 08:22 Dose: 10 mg Enoxaparin Sodium (Lovenox) 40 mg SUBCUT Q24H [facility] Last Admin: 02/20/19 21:53 Dose: 40 mg Sodium Chloride (Normal Saline) 500 mls @ 500 mls/hr IV .BOLUS [facility] Last Admin: 02/19/19 21:14 Dose: 500 mls/hr Levofloxacin/Dextrose 750 mg/ (Premix) 150 mls @ 100 mls/hr IV Q24H [facility] Last Admin: 02/20/19 19:17 Dose: 100 mls/hr Lactated Ringer's (Ringers, Lactated) 1,000 mls @ 100 mls/hr IV ASDIRECTED [facility] Last Admin: 02/20/19 21:55 Dose: 100 mls/hr Daptomycin 1,000 mg/ Sodium (Chloride) 20 mls @ 600 mls/hr IV Q24H [facility] Ondansetron HCl (Zofran) 4 mg IVPUSH Q4H PRN PRN Reason: Nausea/Vomiting Oxycodone HCl (Oxycodone) 5 mg PO Q4H PRN PRN Reason: Pain Last Admin: 02/21/19 06:18 Dose: 5 mg Triamterene/HCTZ (Maxzide 25-37.5 Mg) 1 each PO DAILY [facility] Last Admin: 02/20/19 08:22 Dose: 1 each Discontinued Medications Acetaminophen (Tylenol) 650 mg PO NOW ONE Stop: 02/19/19 19:04 Last Admin: 02/19/19 19:06 Dose: 650 mg Daptomycin (Cubicin) 620 mg 6 mg/kg (620 mg) IV Q24H [facility] Enoxaparin Sodium (Lovenox) 40 mg SUBCUT Q24H [facility] Last Admin: 02/20/19 02:22 Dose: Not Given Levofloxacin/Dextrose 750 mg/ (Premix) 150 mls @ 100 mls/hr IV ONETIME ONE Stop: 02/19/19 18:22 Last Admin: 02/19/19 18:54 Dose: 100 mls/hr Vancomycin HCl 1 gm/ Sodium (Chloride) 250 mls @ 166 mls/hr IV ONETIME ONE Stop: 02/19/19 18:23 Last Admin: 02/19/19 17:24 Dose: 166 mls/hr Sodium Chloride (Normal Saline (Advbag)) Confirm Administered Dose 250 mls @ as directed .ROUTE .STK-MED ONE Stop: 02/19/19 17:08 Last Admin: 02/19/19 21:07 Dose: Not Given Vancomycin HCl 1 gm/ Sodium (Chloride) 250 mls @ 166 mls/hr IV Q12H [facility] Last Admin: 02/20/19 08:24 Dose: 166 mls/hr Daptomycin 600 mg/ Sodium (Chloride) 6 mls @ 180 mls/hr IV Q24H [facility] Last Admin: 02/20/19 13:09 Dose: Not Given Daptomycin 600 mg/ Sodium (Chloride) 12 mls @ 360 mls/hr IV Q24H [facility] Last Admin: 02/20/19 13:08 Dose: Not Given Daptomycin 600 mg/ Sodium (Chloride) 12 mls @ 360 mls/hr IV Q24H [facility] Last Admin: 02/20/19 13:10 Dose: 360 mls/hr Daptomycin 1,000 mg/ Sodium (Chloride) 20 mls @ 600 mls/hr IV Q24H [facility] Potassium Chloride (Klor-Con M20) 40 meq PO ONETIME ONE Stop: 02/20/19 11:31 Last Admin: 02/20/19 11:44 Dose: 40 meq Vancomycin HCl (Vancomycin) Confirm Administered Dose 1 gm .ROUTE .STK-MED ONE Stop: 02/19/19 17:07 Last Admin: 02/19/19 21:08 Dose: Not Given Vancomycin HCl (Pharmacy To Dose - Vancomycin) 1 dose .XX ASDIRECTED [facility] - Exam General: Alert, Oriented, Cooperative Lungs: Clear to Auscultation, Normal Respiratory Effort Cardiovascular: Regular Rate, Regular Rhythm GI/Abdominal Exam: Normal Bowel Sounds, Soft, Non-Tender, No Distention Wound/Incisions: Drainage, Erythema, Other (ulcer bottom and top of foot around base of great toe) Neurological: No New Focal Deficit Psy/Mental Status: Alert, Normal Affect, Normal Mood Sepsis Event Note - Evaluation Sepsis Screening Result: No Definite Risk - Focused Exam Vital Signs: Vital Signs Temp Pulse Resp BP Pulse Ox 02/21/19 04:42 97.3 F 70 18 116/65 92 L 02/21/19 00:24 97.9 F 66 20 102/53 L 95 Date Exam was Performed: 02/21/19 Time Exam was Performed: 11:05 - Problem List Review Problem List Initiated/Reviewed/Updated: Yes - My Orders Last 24 Hours: My Active Orders 02/20/19 09:00 HCTZ/Triamterene [Maxzide 25-37.5 MG] 1 each PO DAILY allopurinoL [Zyloprim] 300 mg PO DAILY amLODIPine [Norvasc] 10 mg PO DAILY 02/20/19 16:18 Consult to Physician [CONS] Routine 02/20/19 16:19 Notify Provider Consults [RC] ASDIRECTED 02/20/19 17:22 Foot wo Cont Lt [MR] Stat 02/20/19 19:30 Levofloxacin/Dextrose 5%-Water [Levaquin in D5W 750 MG/150 ML] 750 mg Premix Bag 1 bag IV Q24H 02/20/19 19:36 CULTURE BLOOD [BC] Stat 02/20/19 19:47 CULTURE BLOOD [BC] Stat 02/21/19 05:11 Blood Culture x2 Reflex Set [OM.PC] AM - Plan Plan:: 1. 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 Continue Daptomycin. Ortho consulted and recommended MRI and then they will make a decision about possible surgery. Continue IVF. 2. Bacteremia- gram positive cocci in clusters- one bottle is growing bacteria , on appropriate antibiotics, repeat blood cultures today. 3. Ecoli UTI with hematuria: Growing Ecoli, sensitive to Levaquin, continue antibiotic. Previous CT showed bilateral renal cysts, recent CT showed possible bladder mass. Has outpatient follow up with urology in [place]. 4. RYLAN- Resolved with IVFs. 5. Chronic conditions- HTN- continue home meds 6. Hypokalemia- replaced and resolved.
[2019-02-21] MEDS: Hydrochlorothiazide/Triamterene 25-37.5 Tab PO SCH (08:37)
[2019-02-21] MEDS: Allopurinol 300 MG Tab PO SCH (08:38)
[2019-02-21] MEDS: amLODIPine 5 MG Tab PO SCH (08:38)
[2019-02-21] MEDS: Lactated Ringers 1,000 ML IV SCH ×2 (08:40→21:37)
--- NOTE | 2019-02-21 10:46 | PCM.CONS ---
H&P History of Present Illness - General Date of Service: 02/20/19 Admit Problem/Dx: Admission Diagnosis/Problem Admission Diagnosis/Problem Cellulitis of left foot Source of Information: Patient, Family, Old Records, Provider History Limitations: Reports: No Limitations - History of Present Illness Initial Comments - Free Text/Narative: 68-year-old male admitted for left foot cellulitis. He previously had an incision and drainage/debridement procedure by Dr. Munoz. There was concern that he had osteomyelitis in the foot. He was treated with 4 weeks of daptomycin. He was known to have MRSA. Prior to admission, the patient had travel to [place] and had a significant amount of walking in the airport terminals during the trip. He has neuropathy of both feet and is essentially insensate on the plantar aspect of both feet. I was consulted for evaluation and further treatment recommendations. He does not appear to be septic. Left Foot Pain Score (Numeric/FACES): 9 right foot Pain Score (Numeric/FACES): 7 - Related Data Allergies/Adverse Reactions: Allergies Allergy/AdvReac Type Severity Reaction Status Date / Time Penicillins Allergy Other Verified 02/19/19 20:42 Home Medications: Home Meds Cyanocobalamin (Vitamin B12) [Vitamin B12] 1,000 mcg PO DAILY 12/24/18 [History] Multivit-Min/FA/Lycopen/Lutein [Centrum Silver Tablet] 1 tab PO DAILY 12/24/18 [ History] Multivitamin [Multivitamins] 1 each PO DAILY 12/24/18 [History] Triamterene/Hydrochlorothiazid [Triamterene-HCTZ 37.5-25 MG] 1 tab PO DAILY [History] allopurinoL [Zyloprim] 300 mg PO DAILY 12/24/18 [History] amLODIPine [Norvasc] 10 mg PO DAILY 02/19/19 [History] Past Medical History HEENT History: Reports: None Cardiovascular History: Reports: Hypertension Respiratory History: Reports: Sleep Apnea Gastrointestinal History: Reports: None Genitourinary History: Reports: None Musculoskeletal History: Reports: Amputation Other Musculoskeletal History: tip of right middle finger Neurological History: Reports: Neuropathy, Peripheral, Other (See Below) Other Neuro History: hx guillian -barre Psychiatric History: Reports: None Endocrine/Metabolic History: Reports: Obesity/BMI 30+ Hematologic History: Reports: B12 Deficiency Immunologic History: Reports: None Oncologic (Cancer) History: Reports: None Dermatologic History: Reports: Cellulitis - Infectious Disease History Infectious Disease History: Reports: Chicken Pox, Measles, MRSA, Mumps - Past Surgical History Head Surgeries/Procedures: Reports: None Cardiovascular Surgical History: Reports: None Respiratory Surgical History: Reports: None Endocrine Surgical History: Reports: None Neurological Surgical History: Reports: None Musculoskeletal Surgical History: Reports: Arthroscopic Knee, Other (See Below) Other Musculoskeletal Surgeries/Procedures:: Right Calf Skin Graft. I&D of left foot- MRSA Social & Family History - Family History Family Medical History: Noncontributory - Tobacco Use Smoking Status *Q: Never Smoker Second Hand Smoke Exposure: No - Caffeine Use Caffeine Use: Reports: Coffee - Alcohol Use Days Per Week of Alcohol Use: 7 Number of Drinks Per Day: 3 Total Drinks Per Week: 21 - Recreational Drug Use Recreational Drug Use: No H&P Review of Systems - Review of Systems: Review Of Systems: See Below Exam - Exam Exam: See Below (Patient has 2 open draining wounds on the left foot, one on the plantar aspect over the first metatarsal head, second over the metatarsal phalangeal joint on the dorsal aspect of the foot) - Vital Signs Vital Signs: Last Vital Signs Temp 97 F 02/21/19 07:30 Pulse 68 02/21/19 07:30 Resp 18 02/21/19 07:30 BP 128/64 02/21/19 08:38 Pulse Ox 92 L 02/21/19 07:30 Weight: 229 lb 0.964 oz - Exam Physical Exam Comments:: Patient has 2 open wounds on his left foot. The first is on the plantar aspect over the first metatarsal head. The second is new and over the first metatarsal phalangeal joint on the dorsal aspect. Both appear to be draining purulent material. Swelling in the forefoot. Dorsalis pedis pulses palpable. Plantar aspect of the foot is insensate. - Patient Data Lab Results Last 24 hrs: Laboratory Results - last 24 hr 02/21/19 02/21/19 Range/Units 06:11 06:11 WBC 6.89 (4.0-11.0) K/uL RBC 4.41 L (4.50-5.90) M/uL Hgb 12.5 L (13.0-17.0) g/dL Hct 38.2 (38.0-50.0) % MCV 86.6 (80.0-98.0) fL MCH 28.3 (27.0-32.0) pg MCHC 32.7 (31.0-37.0) g/dL RDW Std Deviation 46.7 (28.0-62.0) fl RDW Coeff of Janeth 15 (11.0-15.0) % Plt Count 263 (150-400) K/uL MPV 9.30 (7.40-12.00) fL Neut % (Auto) 57.6 (48.0-80.0) % Lymph % (Auto) 26.0 (16.0-40.0) % [place] % (Auto) 11.0 (0.0-15.0) % Eos % (Auto) 4.8 (0.0-7.0) % Baso % (Auto) 0.6 (0.0-1.5) % Neut # (Auto) 4.0 (1.4-5.7) K/uL Lymph # (Auto) 1.8 (0.6-2.4) K/uL [place] # (Auto) 0.8 (0.0-0.8) K/uL Eos # (Auto) 0.3 (0.0-0.7) K/uL Baso # (Auto) 0.0 (0.0-0.1) K/uL Nucleated RBC % 0.0 /100WBC Nucleated RBCs # 0 K/uL Sodium 141 (136-148) mmol/L Potassium 3.7 (3.5-5.1) mmol/L Chloride 103 (98-107) mmol/L Carbon Dioxide 30.1 (21.0-32.0) mmol/L BUN 16 (7.0-18.0) mg/dL Creatinine 1.1 (0.8-1.3) mg/dL Est Cr Clr Drug Dosing 67.57 mL/min Estimated GFR (MDRD) > 60.0 ml/min Glucose 90 (74-106) mg/dL Calcium 9.1 (8.5-10.1) mg/dL Result Diagrams: 02/21/19 06:11 02/21/19 06:11 Percy Results Last 24 hrs: Microbiology 02/19/19 17:24 Aerobic Blood Culture - Preliminary Blood - Venous - Lab Draw Anaerobic Blood Culture - Preliminary 02/19/19 15:41 Urine Culture - Final Urine, Clean Catch Escherichia Coli 02/19/19 17:12 Aerobic Blood Culture - Preliminary Blood - Venous NO GROWTH AFTER 1 DAY Anaerobic Blood Culture - Preliminary NO GROWTH AFTER 1 DAY Sepsis Event Note - Evaluation Sepsis Screening Result: No Definite Risk - Focused Exam Vital Signs: Vital Signs Temp Pulse Resp BP BP BP Pulse Ox 02/21/19 08:38 128/64 02/21/19 07:30 97 F 68 18 109/42 L 92 L 02/21/19 04:42 97.3 F 70 18 116/65 92 L 02/21/19 00:24 97.9 F 66 20 102/53 L 95 Date Exam was Performed: 02/21/19 Time Exam was Performed: 10:41 Consult PN Assessment/Plan Procedures: Procedures ASSAY OF BLOOD/URIC ACID (05/27/17) ASSAY OF LACTIC ACID (12/25/18) ASSAY OF MAGNESIUM (12/25/18) ASSAY OF PHOSPHORUS (12/25/18) ASSAY OF VANCOMYCIN (12/25/18) ASSAY THYROID STIM HORMONE (05/27/17) BLOOD CULTURE FOR BACTERIA (12/25/18) C-REACTIVE PROTEIN (12/25/18) CLOSTRIDIUM AG IA (12/25/18) COMPLETE CBC W/AUTO DIFF WBC (12/25/18) COMPREHEN METABOLIC PANEL (12/25/18) CT ABD & PELV 1/> REGNS (12/25/18) CULTR BACTERIA EXCEPT BLOOD (12/25/18) CULTURE AEROBIC IDENTIFY (12/25/18) CULTURE OTHR SPECIMN AEROBIC (12/25/18) EMERGENCY DEPT VISIT (06/06/16) EXTREMITY STUDY (12/25/18) FLUOROSCOPY <1 HR PHYS/QHP (12/25/18) GLYCOSYLATED HEMOGLOBIN TEST (12/25/18) LIPID PANEL (05/27/17) METABOLIC PANEL TOTAL CA (12/25/18) MICROBE SUSCEPTIBLE PERCY (12/25/18) MRI LWR EXTREMITY W/O&W/DYE (12/25/18) OFFICE/OUTPATIENT VISIT EST (01/11/19) OFFICE/OUTPATIENT VISIT EST (05/27/17) ORGANIC ACID SINGLE QUANT (05/20/16) PROTEIN E-PHORESIS SERUM (05/20/16) PROTHROMBIN TIME (12/25/18) RBC SED RATE AUTOMATED (12/25/18) ROUTINE VENIPUNCTURE (12/25/18) SMEAR GRAM STAIN (12/25/18) THER/PROPH/DIAG INJ IV PUSH (01/28/19) THER/PROPH/DIAG IV INF ADDON (06/06/17) THER/PROPH/DIAG IV INF INIT (06/06/17) TISSUE EXAM BY PATHOLOGIST (12/25/18) URINALYSIS AUTO W/SCOPE (12/25/18) VIT D 1 25-DIHYDROXY (05/27/17) VITAMIN B-12 (05/20/16) X-RAY EXAM CHEST 1 VIEW (12/25/18) X-RAY EXAM KNEE 4 OR MORE (01/11/19) X-RAY EXAM OF FOOT (12/25/18) X-RAY EXAM OF LOWER LEG (12/25/18) Problem List Initiated/Reviewed/Updated: Yes Plan: I recommend an MRI to evaluate the soft tissues was afforded and see the extent of infection. Continue intravenous antibiotics. Elevate the left foot higher than the heart. Nonweightbearing on the left lower extremity. He may he'll weight-bear if he needs to weight-bear on the left lower extremity Consider adding left foot soaks twice a day to help with debridement. Further recommendations pending the MRI. I did briefly discuss with the patient the possibility of amputation so that he is aware of this possibility. He understands that this is a possibility.
--- NOTE | 2019-02-21 12:26 | MR ---
MRI left foot Technique: Proton fat suppressed and T1 weighted oblique axial; proton fat suppressed and proton weighted coronal; fat suppressed inversion recovery and proton weighted sagittal Findings: Diffuse soft tissue swelling is seen throughout the foot most prominent around the 1st digit. There is increased signal being seen within the head and proximal shaft of the 1st metatarsal compatible with bone marrow edema and is likely due to osteomyelitis. Additional increased signal compatible with edema seen within the proximal phalanx of the 1st digit likely representing additional osteomyelitis. Degenerative change is noted within the 1st MTP joint. No other findings of bone marrow edema are appreciated. Normal low signal tendons along the medial and lateral ankle are noted. Impression: 1. Diffuse soft tissue swelling most prominent around the 1st digit. Findings presumably represent prominent cellulitis. 2. Bone marrow edema within the distal head of the 1st metatarsal and within the proximal shaft of the 1st metatarsal as well as within the proximal phalanx of the 1st toe. This is felt compatible with osteomyelitis. 3. Other finding believed to be incidental as noted above. Diagnostic code #5 This report was dictated in [place] Standard Time
[2019-02-21] MEDS: DAPTOmycin 1,000 MG in Sodium Chloride 0.9% 20 ML IV SCH (13:18)
[2019-02-21] MEDS: Morphine 2 MG/ML Syringe IVPUSH PRN ×2 (16:36→21:19)
[2019-02-21] MEDS: Levofloxacin/Dextrose 5%-Water 750 MG in Premix Bag 1 BAG IV SCH (19:39)
[2019-02-21] MEDS: Enoxaparin 40 MG/0.4 ML Syringe SUBCUT SCH (21:25)
[2019-02-22 06:19] LABS: BLOOD UREA NITROGEN,BUN 11 mg/dL (7.0-18.0); CARBON DIOXIDE,CO2 29.3 mmol/L (21.0-32.0); CHLORIDE,CL 102 mmol/L (98-107); GLUCOSE RANDOM 87 mg/dL (74-106); POTASSIUM,K 3.5 mmol/L (3.5-5.1); SODIUM,NA 140 mmol/L (136-148)
[2019-02-22] MEDS: Lactated Ringers 1,000 ML IV SCH (07:23)
[2019-02-22] MEDS: Hydrochlorothiazide/Triamterene 25-37.5 Tab PO SCH (08:22)
[2019-02-22] MEDS: Allopurinol 300 MG Tab PO SCH (08:22)
[2019-02-22] MEDS: amLODIPine 5 MG Tab PO SCH (08:23)
[2019-02-22] MEDS: Acetaminophen 325 MG Tab PO PRN ×2 (08:24→13:24)
--- NOTE | 2019-02-22 08:26 | PCM.PN ---
- General Info Date of Service: 02/22/19 Subjective Update: Patient states he is doing fine, eating and drinking without issue, pain under control. MRI did show osteomyelitis. Has been afebrile. - Review of Systems General: Reports: No Symptoms HEENT: Reports: No Symptoms Pulmonary: Reports: No Symptoms Cardiovascular: Reports: No Symptoms Gastrointestinal: Reports: No Symptoms Genitourinary: Reports: No Symptoms Musculoskeletal: Reports: Foot Pain Skin: Reports: Other (foot wounds) Neurological: Reports: No Symptoms Psychiatric: Reports: No Symptoms - Patient Data Vitals - Most Recent: Last Vital Signs Temp 98.6 F 02/22/19 08:00 Pulse 82 02/22/19 08:00 Resp 18 02/22/19 08:00 BP 143/82 H 02/22/19 08:00 Pulse Ox 93 L 02/22/19 08:00 Weight - Most Recent: 103.9 kg I&O - Last 24 Hours: Intake & Output 02/21/19 02/22/19 02/22/19 22:59 06:59 14:59 Intake Total 1470 1528 Output Total 500 1380 Balance 970 148 Lab Results Last 24 Hours: Laboratory Results - last 24 hr 02/22/19 02/22/19 Range/Units 05:25 05:25 WBC 8.19 (4.0-11.0) K/uL RBC 4.43 L (4.50-5.90) M/uL Hgb 12.4 L (13.0-17.0) g/dL Hct 38.3 (38.0-50.0) % MCV 86.5 (80.0-98.0) fL MCH 28.0 (27.0-32.0) pg MCHC 32.4 (31.0-37.0) g/dL RDW Std Deviation 46.3 (28.0-62.0) fl RDW Coeff of Janeth 15 (11.0-15.0) % Plt Count 366 (150-400) K/uL MPV 9.50 (7.40-12.00) fL Neut % (Auto) 64.2 (48.0-80.0) % Lymph % (Auto) 20.3 (16.0-40.0) % [place] % (Auto) 11.8 (0.0-15.0) % Eos % (Auto) 3.1 (0.0-7.0) % Baso % (Auto) 0.6 (0.0-1.5) % Neut # (Auto) 5.3 (1.4-5.7) K/uL Lymph # (Auto) 1.7 (0.6-2.4) K/uL [place] # (Auto) 1.0 H (0.0-0.8) K/uL Eos # (Auto) 0.3 (0.0-0.7) K/uL Baso # (Auto) 0.1 (0.0-0.1) K/uL Nucleated RBC % 0.0 /100WBC Nucleated RBCs # 0 K/uL Sodium 140 (136-148) mmol/L Potassium 3.5 (3.5-5.1) mmol/L Chloride 102 (98-107) mmol/L Carbon Dioxide 29.3 (21.0-32.0) mmol/L BUN 11 (7.0-18.0) mg/dL Creatinine 1.0 (0.8-1.3) mg/dL Est Cr Clr Drug Dosing 74.33 mL/min Estimated GFR (MDRD) > 60.0 ml/min Glucose 87 (74-106) mg/dL Calcium 9.2 (8.5-10.1) mg/dL Percy Results Last 24 Hours: Microbiology 02/19/19 17:24 Aerobic Blood Culture - Preliminary Blood - Venous - Lab Draw Anaerobic Blood Culture - Final Staphylococcus Aureus 02/20/19 19:47 Aerobic Blood Culture - Preliminary Blood - Venous - Lab Draw NO GROWTH AFTER 1 DAY Anaerobic Blood Culture - Preliminary NO GROWTH AFTER 1 DAY 02/20/19 19:36 Aerobic Blood Culture - Preliminary Blood - Venous NO GROWTH AFTER 1 DAY Anaerobic Blood Culture - Preliminary NO GROWTH AFTER 1 DAY 02/19/19 17:12 Aerobic Blood Culture - Preliminary Blood - Venous NO GROWTH AFTER 2 DAYS Anaerobic Blood Culture - Preliminary NO GROWTH AFTER 2 DAYS 02/19/19 15:41 Urine Culture - Final Urine, Clean Catch Escherichia Coli Med Orders - Current: Current Medications Acetaminophen (Tylenol) 650 mg PO Q4H PRN PRN Reason: Pain/Fever Last Admin: 02/21/19 08:38 Dose: 650 mg Allopurinol (Zyloprim) 300 mg PO DAILY ANNA Last Admin: 02/21/19 08:38 Dose: 300 mg Amlodipine Besylate (Norvasc) 10 mg PO DAILY [facility] Last Admin: 02/21/19 08:38 Dose: 10 mg Enoxaparin Sodium (Lovenox) 40 mg SUBCUT Q24H [facility] Last Admin: 02/21/19 21:25 Dose: 40 mg Levofloxacin/Dextrose 750 mg/ (Premix) 150 mls @ 100 mls/hr IV Q24H [facility] Last Admin: 02/21/19 19:39 Dose: 100 mls/hr Lactated Ringer's (Ringers, Lactated) 1,000 mls @ 100 mls/hr IV ASDIRECTED [facility] Last Admin: 02/22/19 07:23 Dose: 100 mls/hr Daptomycin 1,000 mg/ Sodium (Chloride) 20 mls @ 600 mls/hr IV Q24H [facility] Last Admin: 02/21/19 13:18 Dose: 600 mls/hr Morphine Sulfate (Morphine) 2 mg IVPUSH Q4H PRN PRN Reason: Pain (severe 7-10) Last Admin: 02/21/19 21:19 Dose: 2 mg Ondansetron HCl (Zofran) 4 mg IVPUSH Q4H PRN PRN Reason: Nausea/Vomiting Oxycodone HCl (Oxycodone) 5 mg PO Q4H PRN PRN Reason: Pain Last Admin: 02/21/19 14:41 Dose: 5 mg Senna/Docusate Sodium (Senna Plus) 1 tab PO BID PRN PRN Reason: Constipation Triamterene/HCTZ (Maxzide 25-37.5 Mg) 1 each PO DAILY [facility] Last Admin: 02/21/19 08:37 Dose: 1 each Discontinued Medications Acetaminophen (Tylenol) 650 mg PO NOW ONE Stop: 02/19/19 19:04 Last Admin: 02/19/19 19:06 Dose: 650 mg Daptomycin (Cubicin) 620 mg 6 mg/kg (620 mg) IV Q24H [facility] Enoxaparin Sodium (Lovenox) 40 mg SUBCUT Q24H [facility] Last Admin: 02/20/19 02:22 Dose: Not Given Levofloxacin/Dextrose 750 mg/ (Premix) 150 mls @ 100 mls/hr IV ONETIME ONE Stop: 02/19/19 18:22 Last Admin: 01/13/20 18:54 Dose: 100 mls/hr Sodium Chloride (Normal Saline) 500 mls @ 500 mls/hr IV .BOLUS [facility] Last Admin: 02/19/19 21:14 Dose: 500 mls/hr Vancomycin HCl 1 gm/ Sodium (Chloride) 250 mls @ 166 mls/hr IV ONETIME ONE Stop: 02/19/19 18:23 Last Admin: 02/19/19 17:24 Dose: 166 mls/hr Sodium Chloride (Normal Saline (Advbag)) Confirm Administered Dose 250 mls @ as directed .ROUTE .[facility] ONE Stop: 02/19/19 17:08 Last Admin: 02/19/19 21:07 Dose: Not Given Vancomycin HCl 1 gm/ Sodium (Chloride) 250 mls @ 166 mls/hr IV Q12H [facility] Last Admin: 02/20/19 08:24 Dose: 166 mls/hr Daptomycin 600 mg/ Sodium (Chloride) 6 mls @ 180 mls/hr IV Q24H [facility] Last Admin: 02/20/19 13:09 Dose: Not Given Daptomycin 600 mg/ Sodium (Chloride) 12 mls @ 360 mls/hr IV Q24H [facility] Last Admin: 02/20/19 13:08 Dose: Not Given Daptomycin 600 mg/ Sodium (Chloride) 12 mls @ 360 mls/hr IV Q24H [facility] Last Admin: 02/20/19 13:10 Dose: 360 mls/hr Daptomycin 1,000 mg/ Sodium (Chloride) 20 mls @ 600 mls/hr IV Q24H [facility] Potassium Chloride (Klor-Con M20) 40 meq PO ONETIME ONE Stop: 02/20/19 11:31 Last Admin: 02/20/19 11:44 Dose: 40 meq Vancomycin HCl (Vancomycin) Confirm Administered Dose 1 gm .ROUTE .[facility] ONE Stop: 02/19/19 17:07 Last Admin: 02/19/19 21:08 Dose: Not Given Vancomycin HCl (Pharmacy To Dose - Vancomycin) 1 dose .XX ASDIRECTED [facility] - Exam General: Alert, Oriented, Cooperative Lungs: Clear to Auscultation, Normal Respiratory Effort Cardiovascular: Regular Rate, Regular Rhythm GI/Abdominal Exam: Normal Bowel Sounds, Soft, Non-Tender, No Distention Neurological: No New Focal Deficit Psy/Mental Status: Alert, Normal Affect, Normal Mood Sepsis Event Note - Evaluation Sepsis Screening Result: No Definite Risk - Focused Exam Vital Signs: Vital Signs Temp Pulse Resp BP Pulse Ox 02/22/19 08:00 98.6 F 82 18 143/82 H 93 L 02/22/19 04:42 98.3 F 76 20 118/50 L 94 L 02/22/19 00:58 98.7 F 88 14 123/61 94 L 02/21/19 21:35 99.0 F 85 14 149/70 H 97 Date Exam was Performed: 02/22/19 Time Exam was Performed: 10:57 - Problem List Review Problem List Initiated/Reviewed/Updated: Yes - My Orders Last 24 Hours: My Active Orders 02/21/19 15:44 Morphine 2 mg IVPUSH Q4H PRN 02/22/19 07:45 Docusate Sodium/Sennosides [Senna Plus] 1 tab PO BID PRN - Plan Plan:: 1. Osteomyelitis -great toe/left foot- Continue Daptomycin. In discussion with ortho yesterday, they felt that he should try 6 weeks outpatient IV antibiotics and then be reassessed. Did not think he needed surgical intervention at this time. Ortho plans to meet with family over noon to discuss plan/options. Discussed the case with Dr. Vilchis, [place], [place] who recommended wound culture and IV Dapto, Rocephin, and Flagyl until cultures are back. She states at least 6 weeks but likely longer. States needs good wound care as well. Wound culture obtained. Will switch antibiotics to ID recommendation. 2. Bacteremia- growing MSSA- on appropriate antibiotics, repeat blood cultures negative thus far. 3. Ecoli UTI with hematuria: Growing Ecoli, on appropriate antibiotics. Previous CT showed bilateral renal cysts, recent CT showed possible bladder mass. Has outpatient follow up with urology in [place]. 4. Chronic conditions- HTN- continue home meds
[2019-02-22] MEDS: cefTRIAXone 2 GM in Premix Bag 1 BAG IV SCH (11:47)
--- NOTE | 2019-02-22 12:23 | PCM.SN ---
- Free Text/Narrative Note: Orthopedic Surgery Note I met with the patient and his . We initially discussed the patient's priorities and his top priority is to retain his foot. He does not want to have amputation surgery. We reviewed the MRI findings and that he has osteomyelitis in his first metatarsal and proximal phalanx of his great toe. There is no abscess or infection that needs to be drained. Infectious diseases in [place] was contacted by the resident and they recommend wound cultures and triple IV antibiotics until the cultures are back. The cultures have been obtained. He should continue twice a day foot soaks and wet-to-dry dressing changes between the soaks. I also explained that he needs to be strictly nonweightbearing on his foot because his foot is insensate and he does not know if he is damaging the tissues. He will need at least 6 weeks of intravenous antibiotics because of the osteomyelitis. He should be seen by UDAY Elliott, in 2 weeks in clinic for wound healing assessment. All questions were answered.
[2019-02-22] MEDS: DAPTOmycin 1,000 MG in Sodium Chloride 0.9% 20 ML IV SCH (13:04)
[2019-02-22] MEDS: metroNIDAZOLE/Normal Saline 500 MG in Premix Bag 1 BAG IV SCH ×3 (13:05→23:42)
[2019-02-22] MEDS: Morphine 2 MG/ML Syringe IVPUSH PRN (13:20)
[2019-02-22] MEDS: Sodium Chloride 0.9% 1,000 ML IV SCH ×2 (13:33→23:42)
[2019-02-22] MEDS: Enoxaparin 40 MG/0.4 ML Syringe SUBCUT SCH (21:01)
[2019-02-23] MEDS: metroNIDAZOLE/Normal Saline 500 MG in Premix Bag 1 BAG IV SCH ×4 (05:49→23:22)
[2019-02-23 05:55] LABS: BLOOD UREA NITROGEN,BUN 12 mg/dL (7.0-18.0); CHLORIDE,CL 106 mmol/L (98-107); GLUCOSE RANDOM 96 mg/dL (74-106); POTASSIUM,K 3.7 mmol/L (3.5-5.1); SODIUM,NA 145 mmol/L (136-148)
[2019-02-23] MEDS: Hydrochlorothiazide/Triamterene 25-37.5 Tab PO SCH (08:55)
[2019-02-23] MEDS: amLODIPine 5 MG Tab PO SCH (08:55)
[2019-02-23] MEDS: Allopurinol 300 MG Tab PO SCH (08:55)
[2019-02-23] MEDS: cefTRIAXone 2 GM in Premix Bag 1 BAG IV SCH (10:45)
[2019-02-23] MEDS: oxyCODONE 5 MG Tab PO PRN ×3 (10:55→20:31)
--- NOTE | 2019-02-23 11:35 | PCM.PN ---
- General Info Date of Service: 02/23/19 Subjective Update: Patient reports he is doing well, has no complaints, feels like his foot is getting better everyday. - Review of Systems General: Reports: No Symptoms HEENT: Reports: No Symptoms Pulmonary: Reports: No Symptoms Cardiovascular: Reports: No Symptoms Gastrointestinal: Reports: No Symptoms Genitourinary: Reports: No Symptoms Musculoskeletal: Reports: No Symptoms Skin: Reports: Other (wound- foot) Neurological: Reports: No Symptoms Psychiatric: Reports: No Symptoms - Patient Data Vitals - Most Recent: Last Vital Signs Temp 98 F 02/23/19 07:30 Pulse 73 02/23/19 07:30 Resp 16 02/23/19 07:30 BP 117/59 L 02/23/19 08:55 Pulse Ox 93 L 02/23/19 07:30 Weight - Most Recent: 103.9 kg I&O - Last 24 Hours: Intake & Output 02/22/19 02/23/19 02/23/19 22:59 06:59 14:59 Intake Total 1366 1940 Output Total 1175 1195 Balance 191 745 Lab Results Last 24 Hours: Laboratory Results - last 24 hr 02/23/19 02/23/19 Range/Units 05:03 05:03 WBC 7.31 (4.0-11.0) K/uL RBC 4.47 L (4.50-5.90) M/uL Hgb 12.7 L (13.0-17.0) g/dL Hct 38.7 (38.0-50.0) % MCV 86.6 (80.0-98.0) fL MCH 28.4 (27.0-32.0) pg MCHC 32.8 (31.0-37.0) g/dL RDW Std Deviation 47.7 (28.0-62.0) fl RDW Coeff of Janeth 15 (11.0-15.0) % Plt Count 387 (150-400) K/uL MPV 9.00 (7.40-12.00) fL Add Manual Diff YES Neutrophils % (Manual) 40 L (48.0-80.0) % Band Neutrophils % 21 % Lymphocytes % (Manual) 17 (16.0-40.0) % Monocytes % (Manual) 14 (0.0-15.0) % Eosinophils % (Manual) 8 H (0.0-7.0) % Nucleated RBC % 0.0 /100WBC Absolute Seg Neuts 2.9 (1.4-5.7) Band Neutrophils # 1.5 Lymphocytes # (Manual) 1.2 (0.6-2.4) Monocytes # (Manual) 1.0 H (0.0-0.8) Eosinophils # (Manual) 0.6 (0.0-0.7) Nucleated RBCs # 0 K/uL Sodium 145 (136-148) mmol/L Potassium 3.7 (3.5-5.1) mmol/L Chloride 106 (98-107) mmol/L Carbon Dioxide 29.0 (21.0-32.0) mmol/L BUN 12 (7.0-18.0) mg/dL Creatinine 1.0 (0.8-1.3) mg/dL Est Cr Clr Drug Dosing 74.33 mL/min Estimated GFR (MDRD) > 60.0 ml/min Glucose 96 (74-106) mg/dL Calcium 9.0 (8.5-10.1) mg/dL Percy Results Last 24 Hours: Microbiology 02/22/19 11:15 Wound Culture - Preliminary Foot, Left 02/20/19 19:47 Aerobic Blood Culture - Preliminary Blood - Venous - Lab Draw NO GROWTH AFTER 2 DAYS Anaerobic Blood Culture - Preliminary NO GROWTH AFTER 2 DAYS 02/20/19 19:36 Aerobic Blood Culture - Preliminary Blood - Venous NO GROWTH AFTER 2 DAYS Anaerobic Blood Culture - Preliminary NO GROWTH AFTER 2 DAYS 02/19/19 17:12 Aerobic Blood Culture - Preliminary Blood - Venous NO GROWTH AFTER 3 DAYS Anaerobic Blood Culture - Preliminary NO GROWTH AFTER 3 DAYS 02/19/19 17:24 Aerobic Blood Culture - Final Blood - Venous - Lab Draw Anaerobic Blood Culture - Final Staphylococcus Aureus Med Orders - Current: Current Medications Acetaminophen (Tylenol) 650 mg PO Q4H PRN PRN Reason: Pain/Fever Last Admin: 02/22/19 13:24 Dose: 650 mg Allopurinol (Zyloprim) 300 mg PO DAILY [facility] Last Admin: 02/23/19 08:55 Dose: 300 mg Amlodipine Besylate (Norvasc) 10 mg PO DAILY [facility] Last Admin: 02/23/19 08:55 Dose: 10 mg Enoxaparin Sodium (Lovenox) 40 mg SUBCUT Q24H [facility] Last Admin: 02/22/19 21:01 Dose: 40 mg Daptomycin 1,000 mg/ Sodium (Chloride) 20 mls @ 600 mls/hr IV Q24H [facility] Last Admin: 02/22/19 13:04 Dose: 600 mls/hr Ceftriaxone Sodium/Dextrose 2 (gm/ Premix) 50 mls @ 100 mls/hr IV Q24H [facility] Last Admin: 02/23/19 10:45 Dose: 100 mls/hr Metronidazole 500 mg/ Premix 100 mls @ 100 mls/hr IV QID [facility] Last Admin: 02/23/19 05:49 Dose: 100 mls/hr Sodium Chloride (Normal Saline) 1,000 mls @ 100 mls/hr IV ASDIRECTED [facility] Last Admin: 02/22/19 23:42 Dose: 100 mls/hr Morphine Sulfate (Morphine) 2 mg IVPUSH Q4H PRN PRN Reason: Pain (severe 7-10) Last Admin: 02/22/19 13:20 Dose: 2 mg Ondansetron HCl (Zofran) 4 mg IVPUSH Q4H PRN PRN Reason: Nausea/Vomiting Oxycodone HCl (Oxycodone) 5 mg PO Q4H PRN PRN Reason: Pain Last Admin: 02/23/19 10:55 Dose: 5 mg Senna/Docusate Sodium (Senna Plus) 1 tab PO BID PRN PRN Reason: Constipation Triamterene/HCTZ (Maxzide 25-37.5 Mg) 1 each PO DAILY [facility] Last Admin: 02/23/19 08:55 Dose: 1 each Discontinued Medications Acetaminophen (Tylenol) 650 mg PO NOW ONE Stop: 02/19/19 19:04 Last Admin: 02/19/19 19:06 Dose: 650 mg Daptomycin (Cubicin) 620 mg 6 mg/kg (620 mg) IV Q24H [facility] Enoxaparin Sodium (Lovenox) 40 mg SUBCUT Q24H [facility] Last Admin: 02/20/19 02:22 Dose: Not Given Levofloxacin/Dextrose 750 mg/ (Premix) 150 mls @ 100 mls/hr IV ONETIME ONE Stop: 02/19/19 18:22 Last Admin: 02/19/19 18:54 Dose: 100 mls/hr Sodium Chloride (Normal Saline) 500 mls @ 500 mls/hr IV .BOLUS [facility] Last Admin: 02/19/19 21:14 Dose: 500 mls/hr Vancomycin HCl 1 gm/ Sodium (Chloride) 250 mls @ 166 mls/hr IV ONETIME ONE Stop: 02/19/19 18:23 Last Admin: 02/19/19 17:24 Dose: 166 mls/hr Sodium Chloride (Normal Saline (Advbag)) Confirm Administered Dose 250 mls @ as directed .ROUTE .STK-MED ONE Stop: 02/19/19 17:08 Last Admin: 02/19/19 21:07 Dose: Not Given Levofloxacin/Dextrose 750 mg/ (Premix) 150 mls @ 100 mls/hr IV Q24H [facility] Last Admin: 02/21/19 19:39 Dose: 100 mls/hr Lactated Ringer's (Ringers, Lactated) 1,000 mls @ 100 mls/hr IV ASDIRECTED [facility] Last Admin: 02/22/19 07:23 Dose: 100 mls/hr Vancomycin HCl 1 gm/ Sodium (Chloride) 250 mls @ 166 mls/hr IV Q12H [facility] Last Admin: 02/20/19 08:24 Dose: 166 mls/hr Daptomycin 600 mg/ Sodium (Chloride) 6 mls @ 180 mls/hr IV Q24H [facility] Last Admin: 02/20/19 13:09 Dose: Not Given Daptomycin 600 mg/ Sodium (Chloride) 12 mls @ 360 mls/hr IV Q24H [facility] Last Admin: 02/20/19 13:08 Dose: Not Given Daptomycin 600 mg/ Sodium (Chloride) 12 mls @ 360 mls/hr IV Q24H [facility] Last Admin: 02/20/19 13:10 Dose: 360 mls/hr Daptomycin 1,000 mg/ Sodium (Chloride) 20 mls @ 600 mls/hr IV Q24H [facility] Potassium Chloride (Klor-Con M20) 40 meq PO ONETIME ONE Stop: 02/20/19 11:31 Last Admin: 02/20/19 11:44 Dose: 40 meq Vancomycin HCl (Vancomycin) Confirm Administered Dose 1 gm .ROUTE .STK-MED ONE Stop: 02/19/19 17:07 Last Admin: 02/19/19 21:08 Dose: Not Given Vancomycin HCl (Pharmacy To Dose - Vancomycin) 1 dose .XX ASDIRECTED [facility] - Exam General: Alert, Oriented, Cooperative Lungs: Clear to Auscultation, Normal Respiratory Effort Cardiovascular: Regular Rate, Regular Rhythm GI/Abdominal Exam: Normal Bowel Sounds, Soft, Non-Tender, No Distention Wound/Incisions: Healing Well, Erythema Improving Neurological: No New Focal Deficit Psy/Mental Status: Alert, Normal Affect, Normal Mood Sepsis Event Note - Evaluation Sepsis Screening Result: No Definite Risk - Focused Exam Vital Signs: Vital Signs Temp Pulse Resp BP BP Pulse Ox 02/23/19 08:55 117/59 L 02/23/19 07:30 98 F 73 16 117/59 L 93 L 02/23/19 04:00 99 F 80 16 131/60 94 L 02/22/19 23:43 97.2 F 70 18 125/66 96 Date Exam was Performed: 02/23/19 Time Exam was Performed: 11:33 - Problem List Review Problem List Initiated/Reviewed/Updated: Yes - My Orders Last 24 Hours: My Active Orders 02/22/19 11:00 Sodium Chloride 0.9% [Normal Saline] 1,000 ml IV ASDIRECTED cefTRIAXone [Rocephin in Dextrose,Iso-Osm 2 GM/50 ML] 2 gm Premix Bag 1 bag IV Q24H 02/22/19 11:15 CULTURE WOUND [RM] Routine 02/22/19 12:00 metroNIDAZOLE/Normal Saline [Flagyl 500 MG in NS 100 ML] 500 mg Premix Bag 1 bag IV QID - Plan Plan:: 1. Osteomyelitis -great toe/left foot- Continue Daptomycin, Rocephin and Flagyl until wound cultures result.. In discussion with ortho yesterday, they felt that he should try 6 weeks outpatient IV antibiotics and then be reassessed. Continue IVF. Continue foot soaks and dressing changes. 2. Bacteremia- growing MSSA- on appropriate antibiotics, repeat blood cultures negative thus far. 3. Ecoli UTI with hematuria: Growing Ecoli, on appropriate antibiotics. Previous CT showed bilateral renal cysts, recent CT showed possible bladder mass. Has outpatient follow up with urology in [place]. 4. Chronic conditions- HTN- continue home meds
[2019-02-23] MEDS: Sodium Chloride 0.9% 1,000 ML IV SCH ×2 (12:07→23:20)
[2019-02-23] MEDS: Morphine 2 MG/ML Syringe IVPUSH PRN ×2 (12:59→18:42)
[2019-02-23] MEDS: DAPTOmycin 1,000 MG in Sodium Chloride 0.9% 20 ML IV SCH (13:37)
[2019-02-23] MEDS: Enoxaparin 40 MG/0.4 ML Syringe SUBCUT SCH (22:05)
[2019-02-24] MEDS: oxyCODONE 5 MG Tab PO PRN ×2 (06:38→10:48)
[2019-02-24] MEDS: metroNIDAZOLE/Normal Saline 500 MG in Premix Bag 1 BAG IV SCH ×3 (06:40→20:25)
[2019-02-24 06:43] LABS: BLOOD UREA NITROGEN,BUN 12 mg/dL (7.0-18.0); CARBON DIOXIDE,CO2 25.9 mmol/L (21.0-32.0); CHLORIDE,CL 106 mmol/L (98-107); GLUCOSE RANDOM 91 mg/dL (74-106); SODIUM,NA 143 mmol/L (136-148)
[2019-02-24] MEDS: amLODIPine 5 MG Tab PO SCH (08:27)
[2019-02-24] MEDS: Allopurinol 300 MG Tab PO SCH (08:28)
[2019-02-24] MEDS: Hydrochlorothiazide/Triamterene 25-37.5 Tab PO SCH (08:28)
[2019-02-24] MEDS: cefTRIAXone 2 GM in Premix Bag 1 BAG IV SCH (10:51)
[2019-02-24] MEDS: Sodium Chloride 0.9% 1,000 ML IV SCH ×2 (10:52→22:33)
[2019-02-24] MEDS: DAPTOmycin 1,000 MG in Sodium Chloride 0.9% 20 ML IV SCH (13:01)
--- NOTE | 2019-02-24 13:09 | PCM.PN ---
- General Info Date of Service: 02/24/19 - Patient Data Vitals - Most Recent: Last Vital Signs Temp 37.0 C 02/24/19 12:21 Pulse 63 02/24/19 12:21 Resp 18 02/24/19 12:21 BP 114/61 02/24/19 12:21 Pulse Ox 95 02/24/19 12:21 Weight - Most Recent: 103.9 kg I&O - Last 24 Hours: Intake & Output 02/23/19 02/24/19 02/24/19 22:59 06:59 14:59 Intake Total 2326 2325 Output Total 800 1900 Balance 1526 425 Lab Results Last 24 Hours: Laboratory Results - last 24 hr 02/24/19 02/24/19 Range/Units 05:55 05:55 WBC 7.86 (4.0-11.0) K/uL RBC 4.51 (4.50-5.90) M/uL Hgb 12.5 L (13.0-17.0) g/dL Hct 39.0 (38.0-50.0) % MCV 86.5 (80.0-98.0) fL MCH 27.7 (27.0-32.0) pg MCHC 32.1 (31.0-37.0) g/dL RDW Std Deviation 47.0 (28.0-62.0) fl RDW Coeff of Janeth 15 (11.0-15.0) % Plt Count 391 (150-400) K/uL MPV 9.10 (7.40-12.00) fL Add Manual Diff YES Neutrophils % (Manual) 69 (48.0-80.0) % Band Neutrophils % 2 % Lymphocytes % (Manual) 20 (16.0-40.0) % Monocytes % (Manual) 7 (0.0-15.0) % Eosinophils % (Manual) 1 (0.0-7.0) % Myelocytes % 1 % Nucleated RBC % 0.0 /100WBC Absolute Seg Neuts 5.4 (1.4-5.7) Band Neutrophils # 0.2 Lymphocytes # (Manual) 1.6 (0.6-2.4) Monocytes # (Manual) 0.6 (0.0-0.8) Eosinophils # (Manual) 0.1 (0.0-0.7) Absolute Myelocytes 0.1 Nucleated RBCs # 0 K/uL Sodium 143 (136-148) mmol/L Potassium 4.0 (3.5-5.1) mmol/L Chloride 106 (98-107) mmol/L Carbon Dioxide 25.9 (21.0-32.0) mmol/L BUN 12 (7.0-18.0) mg/dL Creatinine 1.1 (0.8-1.3) mg/dL Est Cr Clr Drug Dosing 67.57 mL/min Estimated GFR (MDRD) > 60.0 ml/min Glucose 91 (74-106) mg/dL Calcium 8.7 (8.5-10.1) mg/dL Percy Results Last 24 Hours: Microbiology 02/22/19 11:15 Wound Culture - Final Foot, Left Staphylococcus Aureus 02/20/19 19:47 Aerobic Blood Culture - Preliminary Blood - Venous - Lab Draw NO GROWTH AFTER 3 DAYS Anaerobic Blood Culture - Preliminary NO GROWTH AFTER 3 DAYS 02/20/19 19:36 Aerobic Blood Culture - Preliminary Blood - Venous NO GROWTH AFTER 3 DAYS Anaerobic Blood Culture - Preliminary NO GROWTH AFTER 3 DAYS 02/19/19 17:12 Aerobic Blood Culture - Preliminary Blood - Venous NO GROWTH AFTER 4 DAYS Anaerobic Blood Culture - Preliminary NO GROWTH AFTER 4 DAYS Med Orders - Current: Current Medications Acetaminophen (Tylenol) 650 mg PO Q4H PRN PRN Reason: Pain/Fever Last Admin: 02/22/19 13:24 Dose: 650 mg Allopurinol (Zyloprim) 300 mg PO DAILY [facility] Last Admin: 02/24/19 08:28 Dose: 300 mg Amlodipine Besylate (Norvasc) 10 mg PO DAILY [facility] Last Admin: 02/24/19 08:27 Dose: 10 mg Enoxaparin Sodium (Lovenox) 40 mg SUBCUT Q24H [facility] Last Admin: 02/23/19 22:05 Dose: 40 mg Daptomycin 1,000 mg/ Sodium (Chloride) 20 mls @ 600 mls/hr IV Q24H [facility] Last Admin: 02/24/19 13:01 Dose: 600 mls/hr Ceftriaxone Sodium/Dextrose 2 (gm/ Premix) 50 mls @ 100 mls/hr IV Q24H [facility] Last Admin: 02/24/19 10:51 Dose: 100 mls/hr Metronidazole 500 mg/ Premix 100 mls @ 100 mls/hr IV QID [facility] Last Admin: 02/24/19 11:47 Dose: 100 mls/hr Sodium Chloride (Normal Saline) 1,000 mls @ 100 mls/hr IV ASDIRECTED [facility] Last Admin: 02/24/19 10:52 Dose: 100 mls/hr Morphine Sulfate (Morphine) 2 mg IVPUSH Q4H PRN PRN Reason: Pain (severe 7-10) Last Admin: 02/23/19 18:42 Dose: 2 mg Ondansetron HCl (Zofran) 4 mg IVPUSH Q4H PRN PRN Reason: Nausea/Vomiting Oxycodone HCl (Oxycodone) 5 mg PO Q4H PRN PRN Reason: Pain Last Admin: 02/24/19 10:48 Dose: 5 mg Senna/Docusate Sodium (Senna Plus) 1 tab PO BID PRN PRN Reason: Constipation Triamterene/HCTZ (Maxzide 25-37.5 Mg) 1 each PO DAILY [facility] Last Admin: 02/24/19 08:28 Dose: 1 each Discontinued Medications Acetaminophen (Tylenol) 650 mg PO NOW ONE Stop: 02/19/19 19:04 Last Admin: 02/19/19 19:06 Dose: 650 mg Daptomycin (Cubicin) 620 mg 6 mg/kg (620 mg) IV Q24H [facility] Enoxaparin Sodium (Lovenox) 40 mg SUBCUT Q24H [facility] Last Admin: 02/20/19 02:22 Dose: Not Given Levofloxacin/Dextrose 750 mg/ (Premix) 150 mls @ 100 mls/hr IV ONETIME ONE Stop: 02/19/19 18:22 Last Admin: 02/19/19 18:54 Dose: 100 mls/hr Sodium Chloride (Normal Saline) 500 mls @ 500 mls/hr IV .BOLUS [facility] Last Admin: 02/19/19 21:14 Dose: 500 mls/hr Vancomycin HCl 1 gm/ Sodium (Chloride) 250 mls @ 166 mls/hr IV ONETIME ONE Stop: 02/19/19 18:23 Last Admin: 02/19/19 17:24 Dose: 166 mls/hr Sodium Chloride (Normal Saline (Advbag)) Confirm Administered Dose 250 mls @ as directed .ROUTE .STK-MED ONE Stop: 02/19/19 17:08 Last Admin: 02/19/19 21:07 Dose: Not Given Levofloxacin/Dextrose 750 mg/ (Premix) 150 mls @ 100 mls/hr IV Q24H [facility] Last Admin: 02/21/19 19:39 Dose: 100 mls/hr Lactated Ringer's (Ringers, Lactated) 1,000 mls @ 100 mls/hr IV ASDIRECTED [facility] Last Admin: 02/22/19 07:23 Dose: 100 mls/hr Vancomycin HCl 1 gm/ Sodium (Chloride) 250 mls @ 166 mls/hr IV Q12H [facility] Last Admin: 02/20/19 08:24 Dose: 166 mls/hr Daptomycin 600 mg/ Sodium (Chloride) 6 mls @ 180 mls/hr IV Q24H [facility] Last Admin: 02/20/19 13:09 Dose: Not Given Daptomycin 600 mg/ Sodium (Chloride) 12 mls @ 360 mls/hr IV Q24H [facility] Last Admin: 02/20/19 13:08 Dose: Not Given Daptomycin 600 mg/ Sodium (Chloride) 12 mls @ 360 mls/hr IV Q24H [facility] Last Admin: 02/20/19 13:10 Dose: 360 mls/hr Daptomycin 1,000 mg/ Sodium (Chloride) 20 mls @ 600 mls/hr IV Q24H [facility] Potassium Chloride (Klor-Con M20) 40 meq PO ONETIME ONE Stop: 02/20/19 11:31 Last Admin: 02/20/19 11:44 Dose: 40 meq Vancomycin HCl (Vancomycin) Confirm Administered Dose 1 gm .ROUTE .STK-MED ONE Stop: 02/19/19 17:07 Last Admin: 02/19/19 21:08 Dose: Not Given Vancomycin HCl (Pharmacy To Dose - Vancomycin) 1 dose .XX ASDIRECTED [facility] - Exam General: Alert, Oriented Neck: Supple Lungs: Clear to Auscultation, Normal Respiratory Effort Cardiovascular: Regular Rate, Regular Rhythm GI/Abdominal Exam: Soft, Non-Tender Extremities: Non-Tender, No Pedal Edema Skin: Warm, Dry, Intact Sepsis Event Note - Evaluation Sepsis Screening Result: No Definite Risk - Focused Exam Vital Signs: Vital Signs Temp Pulse Resp BP BP Pulse Ox 02/24/19 12:21 37.0 C 63 18 114/61 95 02/24/19 08:27 114/55 L 02/24/19 07:10 37.0 C 66 18 114/55 L 94 L 02/24/19 04:00 36.6 C 73 18 136/67 93 L Date Exam was Performed: 02/24/19 Time Exam was Performed: 13:07 - Problem List Review Problem List Initiated/Reviewed/Updated: Yes - Plan Plan:: 68 yo male admitted for osteomyelitis of left foot. We will continue daptomycin , Rocephin and Flagyl. Awaiting culture results.
[2019-02-24] MEDS: Enoxaparin 40 MG/0.4 ML Syringe SUBCUT SCH (21:30)
[2019-02-24] MEDS: Morphine 2 MG/ML Syringe IVPUSH PRN (23:11)
[2019-02-25] MEDS: metroNIDAZOLE/Normal Saline 500 MG in Premix Bag 1 BAG IV SCH ×3 (02:51→08:57)
[2019-02-25 06:40] LABS: BLOOD UREA NITROGEN,BUN 10 mg/dL (7.0-18.0); CARBON DIOXIDE,CO2 24.3 mmol/L (21.0-32.0); CHLORIDE,CL 106 mmol/L (98-107); GLUCOSE RANDOM 96 mg/dL (74-106); POTASSIUM,K 3.7 mmol/L (3.5-5.1); SODIUM,NA 141 mmol/L (136-148)
[2019-02-25] MEDS: Acetaminophen 325 MG Tab PO PRN ×2 (07:45→12:40)
[2019-02-25] MEDS: Allopurinol 300 MG Tab PO SCH (08:07)
[2019-02-25] MEDS: amLODIPine 5 MG Tab PO SCH (08:07)
[2019-02-25] MEDS: Hydrochlorothiazide/Triamterene 25-37.5 Tab PO SCH (08:07)
[2019-02-25] MEDS: Morphine 2 MG/ML Syringe IVPUSH PRN ×3 (10:32→21:19)
[2019-02-25] MEDS: cefTRIAXone 2 GM in Premix Bag 1 BAG IV SCH (10:33)
[2019-02-25] MEDS: Sodium Chloride 0.9% 1,000 ML IV SCH ×2 (10:49→20:35)
[2019-02-25] MEDS: DAPTOmycin 1,000 MG in Sodium Chloride 0.9% 20 ML IV SCH (12:40)
--- NOTE | 2019-02-25 12:40 | PCM.PN ---
- General Info Date of Service: 02/25/19 Subjective Update: Patient states he is getting better everyday. Wants to practice with wheelchair today, as he will need one when he goes home. Wants to be able to do IV antibiotics at home because [place]. Denies fever/ chills, chest pain, shortness of breath, or abdominal pain. - Review of Systems General: Reports: No Symptoms HEENT: Reports: No Symptoms Pulmonary: Reports: No Symptoms Cardiovascular: Reports: No Symptoms Gastrointestinal: Reports: No Symptoms Genitourinary: Reports: No Symptoms Musculoskeletal: Reports: No Symptoms Skin: Reports: No Symptoms Neurological: Reports: No Symptoms Psychiatric: Reports: No Symptoms - Patient Data Vitals - Most Recent: Last Vital Signs Temp 98.0 F 02/25/19 11:52 Pulse 65 02/25/19 11:52 Resp 18 02/25/19 11:52 BP 112/60 02/25/19 11:52 Pulse Ox 95 02/25/19 11:52 Weight - Most Recent: 103.9 kg I&O - Last 24 Hours: Intake & Output 02/24/19 02/25/19 02/25/19 22:59 06:59 14:59 Intake Total 2588 3096 Output Total 1175 950 Balance 1413 2146 Lab Results Last 24 Hours: Laboratory Results - last 24 hr 02/25/19 02/25/19 Range/Units 05:45 05:45 WBC 8.79 (4.0-11.0) K/uL RBC 4.52 (4.50-5.90) M/uL Hgb 12.8 L (13.0-17.0) g/dL Hct 39.0 (38.0-50.0) % MCV 86.3 (80.0-98.0) fL MCH 28.3 (27.0-32.0) pg MCHC 32.8 (31.0-37.0) g/dL RDW Std Deviation 46.9 (28.0-62.0) fl RDW Coeff of Janeth 15 (11.0-15.0) % Plt Count 419 H (150-400) K/uL MPV 9.00 (7.40-12.00) fL Neut % (Auto) 74.8 (48.0-80.0) % Lymph % (Auto) 14.6 L (16.0-40.0) % Hitchcock % (Auto) 7.8 (0.0-15.0) % Eos % (Auto) 2.3 (0.0-7.0) % Baso % (Auto) 0.5 (0.0-1.5) % Neut # (Auto) 6.6 H (1.4-5.7) K/uL Lymph # (Auto) 1.3 (0.6-2.4) K/uL Hitchcock # (Auto) 0.7 (0.0-0.8) K/uL Eos # (Auto) 0.2 (0.0-0.7) K/uL Baso # (Auto) 0.0 (0.0-0.1) K/uL Nucleated RBC % 0.0 /100WBC Nucleated RBCs # 0 K/uL Sodium 141 (136-148) mmol/L Potassium 3.7 (3.5-5.1) mmol/L Chloride 106 (98-107) mmol/L Carbon Dioxide 24.3 (21.0-32.0) mmol/L BUN 10 (7.0-18.0) mg/dL Creatinine 1.0 (0.8-1.3) mg/dL Est Cr Clr Drug Dosing 74.33 mL/min Estimated GFR (MDRD) > 60.0 ml/min Glucose 96 (74-106) mg/dL Calcium 8.7 (8.5-10.1) mg/dL Percy Results Last 24 Hours: Microbiology 02/20/19 19:47 Aerobic Blood Culture - Preliminary Blood - Venous - Lab Draw NO GROWTH AFTER 4 DAYS Anaerobic Blood Culture - Preliminary NO GROWTH AFTER 4 DAYS 02/20/19 19:36 Aerobic Blood Culture - Preliminary Blood - Venous NO GROWTH AFTER 4 DAYS Anaerobic Blood Culture - Preliminary NO GROWTH AFTER 4 DAYS 02/19/19 17:12 Aerobic Blood Culture - Final Blood - Venous NO GROWTH AFTER 5 DAYS Anaerobic Blood Culture - Final NO GROWTH AFTER 5 DAYS 02/22/19 11:15 Wound Culture - Final Foot, Left Staphylococcus Aureus Med Orders - Current: Current Medications Acetaminophen (Tylenol) 650 mg PO Q4H PRN PRN Reason: Pain/Fever Last Admin: 02/25/19 07:45 Dose: 650 mg Allopurinol (Zyloprim) 300 mg PO DAILY [facility] Last Admin: 02/25/19 08:07 Dose: 300 mg Amlodipine Besylate (Norvasc) 10 mg PO DAILY [facility] Last Admin: 02/25/19 08:07 Dose: 10 mg Enoxaparin Sodium (Lovenox) 40 mg SUBCUT Q24H [facility] Last Admin: 02/24/19 21:30 Dose: 40 mg Daptomycin 1,000 mg/ Sodium (Chloride) 20 mls @ 600 mls/hr IV Q24H [facility] Last Admin: 02/24/19 13:01 Dose: 600 mls/hr Ceftriaxone Sodium/Dextrose 2 (gm/ Premix) 50 mls @ 100 mls/hr IV Q24H [facility] Last Admin: 02/25/19 10:33 Dose: 100 mls/hr Sodium Chloride (Normal Saline) 1,000 mls @ 100 mls/hr IV ASDIRECTED [facility] Last Admin: 02/25/19 10:49 Dose: 100 mls/hr Morphine Sulfate (Morphine) 2 mg IVPUSH Q4H PRN PRN Reason: Pain (severe 7-10) Last Admin: 02/25/19 10:32 Dose: 2 mg Ondansetron HCl (Zofran) 4 mg IVPUSH Q4H PRN PRN Reason: Nausea/Vomiting Oxycodone HCl (Oxycodone) 5 mg PO Q4H PRN PRN Reason: Pain Last Admin: 02/24/19 10:48 Dose: 5 mg Senna/Docusate Sodium (Senna Plus) 1 tab PO BID PRN PRN Reason: Constipation Triamterene/HCTZ (Maxzide 25-37.5 Mg) 1 each PO DAILY [facility] Last Admin: 02/25/19 08:07 Dose: 1 each Discontinued Medications Acetaminophen (Tylenol) 650 mg PO NOW ONE Stop: 02/19/19 19:04 Last Admin: 02/19/19 19:06 Dose: 650 mg Acetaminophen (Tylenol) 650 mg PO Q4H PRN PRN Reason: Pain/Fever Last Admin: 02/22/19 13:24 Dose: 650 mg Daptomycin (Cubicin) 620 mg 6 mg/kg (620 mg) IV Q24H [facility] Enoxaparin Sodium (Lovenox) 40 mg SUBCUT Q24H [facility] Last Admin: 02/20/19 02:22 Dose: Not Given Levofloxacin/Dextrose 750 mg/ (Premix) 150 mls @ 100 mls/hr IV ONETIME ONE Stop: 02/19/19 18:22 Last Admin: 02/19/19 18:54 Dose: 100 mls/hr Sodium Chloride (Normal Saline) 500 mls @ 500 mls/hr IV .BOLUS [facility] Last Admin: 02/19/19 21:14 Dose: 500 mls/hr Vancomycin HCl 1 gm/ Sodium (Chloride) 250 mls @ 166 mls/hr IV ONETIME ONE Stop: 02/19/19 18:23 Last Admin: 02/19/19 17:24 Dose: 166 mls/hr Sodium Chloride (Normal Saline (Advbag)) Confirm Administered Dose 250 mls @ as directed .ROUTE .STK-MED ONE Stop: 02/19/19 17:08 Last Admin: 02/19/19 21:07 Dose: Not Given Levofloxacin/Dextrose 750 mg/ (Premix) 150 mls @ 100 mls/hr IV Q24H [facility] Last Admin: 02/21/19 19:39 Dose: 100 mls/hr Lactated Ringer's (Ringers, Lactated) 1,000 mls @ 100 mls/hr IV ASDIRECTED [facility] Last Admin: 02/22/19 07:23 Dose: 100 mls/hr Vancomycin HCl 1 gm/ Sodium (Chloride) 250 mls @ 166 mls/hr IV Q12H [facility] Last Admin: 02/20/19 08:24 Dose: 166 mls/hr Daptomycin 600 mg/ Sodium (Chloride) 6 mls @ 180 mls/hr IV Q24H [facility] Last Admin: 02/20/19 13:09 Dose: Not Given Daptomycin 600 mg/ Sodium (Chloride) 12 mls @ 360 mls/hr IV Q24H [facility] Last Admin: 02/20/19 13:08 Dose: Not Given Daptomycin 600 mg/ Sodium (Chloride) 12 mls @ 360 mls/hr IV Q24H [facility] Last Admin: 02/20/19 13:10 Dose: 360 mls/hr Daptomycin 1,000 mg/ Sodium (Chloride) 20 mls @ 600 mls/hr IV Q24H [facility] Metronidazole 500 mg/ Premix 100 mls @ 100 mls/hr IV QID [facility] Last Admin: 02/25/19 04:47 Dose: Not Given Metronidazole 500 mg/ Premix 100 mls @ 100 mls/hr IV Q6H [facility] Last Admin: 02/25/19 08:57 Dose: 100 mls/hr Potassium Chloride (Klor-Con M20) 40 meq PO ONETIME ONE Stop: 02/20/19 11:31 Last Admin: 02/20/19 11:44 Dose: 40 meq Vancomycin HCl (Vancomycin) Confirm Administered Dose 1 gm .ROUTE .STK-MED ONE Stop: 02/19/19 17:07 Last Admin: 02/19/19 21:08 Dose: Not Given Vancomycin HCl (Pharmacy To Dose - Vancomycin) 1 dose .XX ASDIRECTED [facility] - Exam General: Alert, Oriented, Cooperative Lungs: Clear to Auscultation, Normal Respiratory Effort Cardiovascular: Regular Rate, Regular Rhythm GI/Abdominal Exam: Normal Bowel Sounds, Soft, Non-Tender, No Distention Wound/Incisions: Drainage (improving), Erythema Improving Psy/Mental Status: Alert, Normal Affect, Normal Mood Sepsis Event Note - Evaluation Sepsis Screening Result: No Definite Risk - Focused Exam Vital Signs: Vital Signs Temp Pulse Resp BP BP Pulse Ox 02/25/19 11:52 98.0 F 65 18 112/60 95 02/25/19 08:07 125/58 L 02/25/19 07:15 97.7 F 83 16 125/58 L 93 L 02/25/19 04:00 98.8 F 78 17 139/67 95 Date Exam was Performed: 02/25/19 Time Exam was Performed: 12:35 - Problem List Review Problem List Initiated/Reviewed/Updated: Yes - My Orders Last 24 Hours: My Active Orders 02/24/19 20:23 Acetaminophen [Tylenol] 650 mg PO Q4H PRN 02/26/19 05:11 BASIC METABOLIC PANEL,BMP [CHEM] AM CBC WITH AUTO DIFF [HEME] AM 02/27/19 05:11 BASIC METABOLIC PANEL,BMP [CHEM] AM CBC WITH AUTO DIFF [HEME] AM 02/28/19 05:11 BASIC METABOLIC PANEL,BMP [CHEM] AM CBC WITH AUTO DIFF [HEME] AM - Plan Plan:: 1. Osteomyelitis of left foot- WC back and growing MSSA. Discussed the case with ID again and they recommended continuing on Dapto and Rocephin but that he could d/c flagyl. They recommended at least 6 weeks of IV antibiotics with weekly inflammatory markers. We will need to get patient set up with PICC line as outpatient in [place] on Tuesday and look into if he can do antibiotics at home. 2. Bacteremia- cleared 3. Ecoli UTI- treated 4. HTN- continue home meds 5. Bladder mass and renal cysts- outpatient urology appt
[2019-02-25] MEDS: oxyCODONE 5 MG Tab PO PRN (20:36)
[2019-02-25] MEDS: Enoxaparin 40 MG/0.4 ML Syringe SUBCUT SCH (21:01)
[2019-02-26] MEDS: Morphine 2 MG/ML Syringe IVPUSH PRN (01:27)
[2019-02-26] MEDS: Sodium Chloride 0.9% 1,000 ML IV SCH (06:30)
[2019-02-26] MEDS: oxyCODONE 5 MG Tab PO PRN (06:31)
[2019-02-26 06:38] LABS: BLOOD UREA NITROGEN,BUN 8 mg/dL (7.0-18.0); CARBON DIOXIDE,CO2 24.5 mmol/L (21.0-32.0); CHLORIDE,CL 106 mmol/L (98-107); GLUCOSE RANDOM 86 mg/dL (74-106); POTASSIUM,K 3.8 mmol/L (3.5-5.1); SODIUM,NA 140 mmol/L (136-148)
[2019-02-26] MEDS: Allopurinol 300 MG Tab PO SCH (08:47)
[2019-02-26] MEDS: Hydrochlorothiazide/Triamterene 25-37.5 Tab PO SCH (08:47)
[2019-02-26] MEDS: amLODIPine 5 MG Tab PO SCH (08:47)
[2019-02-26] MEDS: cefTRIAXone 2 GM in Premix Bag 1 BAG IV SCH (10:34)
[2019-02-26] MEDS: Acetaminophen 325 MG Tab PO PRN (10:34)
--- NOTE | 2019-02-26 11:56 | PCM.DCSUM1 ---
Discharge Summary - Hospital Course HPI Initial Comments: Admission Date: 02/19/19 Discharge Date: 02/26/19 Admission Diagnosis: 1. Foot ulcer with cellulitis 2. UTI with hematuria 3. RYLAN 4. Chronic condition- HTN Discharge Diagnosis: 1. Osteomyelitis left 1st metatarsal and proximal phalange 2. Ecoli UTI with hematuria- resolved 3. RYLAN- resolved 4. Chronic condition- HTN/gout-stable 5. Bladder mass 6. MSSA bacteremia- resolved Procedures: None Consults: Ortho, ID (phone consult) Hospital Course: The patient is a 68-year-old male with pmh of vascular polyneuropathy, HTN, gout, and MRSA osteomyelitis. Stepped on a screw in December 2018 which became infected. He underwent 3 I &Ds of the left foot, required PICC line for a month (ended Jan 30, 2019) and had a wound vac. Presented to the ER with open wounds on his left foot and hematuria. In the ER , white count showed 11.59 but lactate wnl. Creatinine elevated 1.4, baseline 1.1. UA with signs of infection and blood. XR of foot and tib/fib showed soft tissue swelling but no signs of osteomyelitis. Was given IVF, Vanco, and Levaquin in the ER. Was admitted to the medical floor. For his foot infection , ortho was consulted. They recommended a MRI, which showed osteomyelitis. They discussed the case with family, and they agreed to no surgical intervention at this time. Discussed case with ID in [place], they recommended switching antibiotics to Daptomycin, Rocephin, and Flagyl until wound culture sensitivities return. Wound culture grew out MSSA. Updated ID, they recommended at least 6 weeks of IV Daptomycin and Rocephin, with good wound care, and weekly lab draws (CPK, ESR, CRP, BMP). Ortho recommended patient be non-weight bearing, so wheelchair was prescribed. Foot was soaked in chlorhexidine bid and had dressing changes, by day of discharge wound had significantly improved. Blood cultures were obtained and initially grew out MSSA, he was on appropriate antibiotics, and repeat blood cultures were negative. For his UTI, urine culture grew out Ecoli, he was treated with antibiotics and symptoms resolved. He did have hematuria, so CT scan was obtained, it showed possible bladder mass. On his previous admission, imaging found bilateral renal cysts. He was supposed to follow up with urology as outpatient but the appt has been delayed due to weather/travel. He was treated with IVF and his RYLAN resolved. He was continued on home meds for HTN and gout. By day of discharge his wound had improved and patient felt ready to go home. The patient will need to go home on home health. The patient will be homebound , as he will be non-weight bearing and will have difficulty navigating stairs safely and has weakness/deconditioning due to recent hospitalization. He will require skilled services. He will need wound care for assessment of wound healing and assist with dressing changes. He will need physical therapy to help with strengthening due to weakness from recent hospitalization. He will need help administering IV antibiotics via PICC line. He will need weekly blood draws. His PCP, Dr. Valadez, will be following patient once d/c from hospital. Disposition: Home with home health Discharge Condition: vitals stable, tolerating oral diet, ambulating without difficulty, symptom improvement Discharge Instructions: regular diet as tolerated, non-weight bearing, take medications as prescribed. Symptoms to report to physician include fever/chills , chest pain, shortness of breath, abdominal pain, erythema, drainage/discharge , or not improving as expected. You will need to soak foot in twice daily in chlorhexidine and change dressing. Present to [facility] for the next 3 days for IV antibiotics. PICC line will be placed in [place], [place] on 03/01/19. Home health will follow up on Tuesday03/02/19. You will need weekly labs. Discharge Medications: Cyanocobalamin (Vitamin B12) [Vitamin B12] 1,000 mcg PO DAILY Multivit-Min/FA/Lycopen/Lutein [Centrum Silver Tablet] 1 tab PO DAILY Multivitamin [Multivitamins] 1 each PO DAILY Triamterene/Hydrochlorothiazid [Triamterene-HCTZ 37.5-25 MG] 1 tab PO DAILY allopurinoL [Zyloprim] 300 mg PO DAILY amLODIPine [Norvasc] 10 mg PO DAILY DAPTOmycin [Cubicin] 1,000 mg IV Q24H vial 02/26/19 cefTRIAXone [Rocephin in Dextrose,Iso-Osm 2 GM/50 ML] 2 gm IV Q24H bag Oxycodone 5 mg 1 tab PO q6 prn pain Follow-up: 1. PCP- Dr. Valadez 2. Ortho- 2 weeks 3. Urology - Discharge Data Discharge Date: 02/26/19 Discharge Disposition: Home, W Home Health Agency 06 Condition: Stable - Referral to Home Health Date of Face to Face Encounter: 02/26/19 Reason for Homebound Status: osteomyelitis left foot- non weight bearing Primary Care Physician: Edwar Valadez MD Skilled Need: IV antibiotics, wound care, PT - Patient Summary/Data Consults: Consultations 02/19/19 19:36 Wound Flight Hostess Consult [Consult to Wound Care Services] [CONS] Stat 02/20/19 16:18 Consult to Physician [CONS] Routine - Patient Instructions Diet: Usual Diet as Tolerated Activity: Non Weight Bearing Showering/Bathing: May Shower Wound/Incision Care: Keep Operative Site/Wound Site Clean and Dry, Change Dressing Daily Notify Provider of: Fever, Increased Pain, Swelling and Redness, Drainage, Nausea and/or Vomiting Other/Special Instructions: Additional symptoms include chest pain, shortness of breath, or abdominal pain. You will get the PICC line on 03/01/19 in [place], [place]. [facility] will come after that and get you set up with antibiotics. - Discharge Plan *PRESCRIPTION DRUG MONITORING PROGRAM REVIEWED*: No *COPY OF PRESCRIPTION DRUG MONITORING REPORT IN PATIENT CINDY: No Home Medications: Home Meds Cyanocobalamin (Vitamin B12) [Vitamin B12] 1,000 mcg PO DAILY 12/24/18 [History] Multivit-Min/FA/Lycopen/Lutein [Centrum Silver Tablet] 1 tab PO DAILY 12/24/18 [ History] Multivitamin [Multivitamins] 1 each PO DAILY 12/24/18 [History] Triamterene/Hydrochlorothiazid [Triamterene-HCTZ 37.5-25 MG] 1 tab PO DAILY [History] allopurinoL [Zyloprim] 300 mg PO DAILY 12/24/18 [History] amLODIPine [Norvasc] 10 mg PO DAILY 02/19/19 [History] DAPTOmycin [Cubicin] 1,000 mg IV Q24H vial 02/26/19 [Rx] cefTRIAXone [Rocephin in Dextrose,Iso-Osm 2 GM/50 ML] 2 gm IV Q24H bag [Rx] Patient Handouts: Bone and Joint Infections, Adult, Cellulitis, Adult, Easy-to- Read Referrals: [facility] [Outside] Alix Duque NP [Nurse Practitioner] - 03/09/19 11:30 am Edwar Valadez MD [Primary Care Provider] - 03/12/19 1:15 pm - Discharge Summary/Plan Comment DC Time >30 min.: Yes - Patient Data Vitals - Most Recent: Last Vital Signs Temp 97.6 F 02/26/19 07:00 Pulse 70 02/26/19 07:00 Resp 16 02/26/19 07:00 BP 125/63 02/26/19 08:47 Pulse Ox 93 L 02/26/19 07:00 Weight - Most Recent: 103.9 kg I&O - Last 24 hours: Intake & Output 02/25/19 02/26/19 02/26/19 22:59 06:59 14:59 Intake Total 2521 1787 Output Total 850 1230 Balance 1671 557 Lab Results - Last 24 hrs: Laboratory Results - last 24 hr 02/26/19 02/26/19 02/26/19 Range/Units 05:50 05:50 05:50 WBC 8.13 (4.0-11.0) K/uL RBC 4.43 L (4.50-5.90) M/uL Hgb 12.5 L (13.0-17.0) g/dL Hct 38.3 (38.0-50.0) % MCV 86.5 (80.0-98.0) fL MCH 28.2 (27.0-32.0) pg MCHC 32.6 (31.0-37.0) g/dL RDW Std Deviation 47.5 (28.0-62.0) fl RDW Coeff of Janeth 15 (11.0-15.0) % Plt Count 408 H (150-400) K/uL MPV 8.80 (7.40-12.00) fL Neut % (Auto) 65.4 (48.0-80.0) % Lymph % (Auto) 21.2 (16.0-40.0) % [place] % (Auto) 10.5 (0.0-15.0) % Eos % (Auto) 2.5 (0.0-7.0) % Baso % (Auto) 0.4 (0.0-1.5) % Neut # (Auto) 5.3 (1.4-5.7) K/uL Lymph # (Auto) 1.7 (0.6-2.4) K/uL [place] # (Auto) 0.9 H (0.0-0.8) K/uL Eos # (Auto) 0.2 (0.0-0.7) K/uL Baso # (Auto) 0.0 (0.0-0.1) K/uL Nucleated RBC % 0.0 /100WBC Nucleated RBCs # 0 K/uL ESR 65 H (0-19) mm/hr Sodium 140 (136-148) mmol/L Potassium 3.8 (3.5-5.1) mmol/L Chloride 106 (98-107) mmol/L Carbon Dioxide 24.5 (21.0-32.0) mmol/L BUN 8 (7.0-18.0) mg/dL Creatinine 1.0 (0.8-1.3) mg/dL Est Cr Clr Drug Dosing 74.33 mL/min Estimated GFR (MDRD) > 60.0 ml/min Glucose 86 (74-106) mg/dL Calcium 8.6 (8.5-10.1) mg/dL C-Reactive Protein 4.80 H (0.00-0.90) mg/dL KIMBERLY Results - Last 24 hrs: Microbiology 02/20/19 19:47 Aerobic Blood Culture - Final Blood - Venous - Lab Draw NO GROWTH AFTER 5 DAYS Anaerobic Blood Culture - Final NO GROWTH AFTER 5 DAYS 02/20/19 19:36 Aerobic Blood Culture - Final Blood - Venous NO GROWTH AFTER 5 DAYS Anaerobic Blood Culture - Final NO GROWTH AFTER 5 DAYS Med Orders - Current: Current Medications Acetaminophen (Tylenol) 650 mg PO Q4H PRN PRN Reason: Pain/Fever Last Admin: 02/26/19 10:34 Dose: 650 mg Allopurinol (Zyloprim) 300 mg PO DAILY [facility] Last Admin: 02/26/19 08:47 Dose: 300 mg Amlodipine Besylate (Norvasc) 10 mg PO DAILY [facility] Last Admin: 02/26/19 08:47 Dose: 10 mg Enoxaparin Sodium (Lovenox) 40 mg SUBCUT Q24H [facility] Last Admin: 02/25/19 21:01 Dose: 40 mg Daptomycin 1,000 mg/ Sodium (Chloride) 20 mls @ 600 mls/hr IV Q24H [facility] Last Admin: 02/25/19 12:40 Dose: 600 mls/hr Ceftriaxone Sodium/Dextrose 2 (gm/ Premix) 50 mls @ 100 mls/hr IV Q24H [facility] Last Admin: 02/26/19 10:34 Dose: 100 mls/hr Sodium Chloride (Normal Saline) 1,000 mls @ 100 mls/hr IV ASDIRECTED [facility] Last Admin: 02/26/19 06:30 Dose: 100 mls/hr Ondansetron HCl (Zofran) 4 mg IVPUSH Q4H PRN PRN Reason: Nausea/Vomiting Oxycodone HCl (Oxycodone) 5 mg PO Q4H PRN PRN Reason: Pain Last Admin: 02/26/19 06:31 Dose: 5 mg Senna/Docusate Sodium (Senna Plus) 1 tab PO BID PRN PRN Reason: Constipation Triamterene/HCTZ (Maxzide 25-37.5 Mg) 1 each PO DAILY [facility] Last Admin: 02/26/19 08:47 Dose: 1 each Discontinued Medications Acetaminophen (Tylenol) 650 mg PO NOW ONE Stop: 02/19/19 19:04 Last Admin: 02/19/19 19:06 Dose: 650 mg Acetaminophen (Tylenol) 650 mg PO Q4H PRN PRN Reason: Pain/Fever Last Admin: 02/22/19 13:24 Dose: 650 mg Daptomycin (Cubicin) 620 mg 6 mg/kg (620 mg) IV Q24H [facility] Enoxaparin Sodium (Lovenox) 40 mg SUBCUT Q24H [facility] Last Admin: 02/20/19 02:22 Dose: Not Given Levofloxacin/Dextrose 750 mg/ (Premix) 150 mls @ 100 mls/hr IV ONETIME ONE Stop: 02/19/19 18:22 Last Admin: 02/19/19 18:54 Dose: 100 mls/hr Sodium Chloride (Normal Saline) 500 mls @ 500 mls/hr IV .BOLUS [facility] Last Admin: 02/19/19 21:14 Dose: 500 mls/hr Vancomycin HCl 1 gm/ Sodium (Chloride) 250 mls @ 166 mls/hr IV ONETIME ONE Stop: 02/19/19 18:23 Last Admin: 02/19/19 17:24 Dose: 166 mls/hr Sodium Chloride (Normal Saline (Advbag)) Confirm Administered Dose 250 mls @ as directed .ROUTE .STK-MED ONE Stop: 02/19/19 17:08 Last Admin: 02/19/19 21:07 Dose: Not Given Levofloxacin/Dextrose 750 mg/ (Premix) 150 mls @ 100 mls/hr IV Q24H [facility] Last Admin: 02/21/19 19:39 Dose: 100 mls/hr Lactated Ringer's (Ringers, Lactated) 1,000 mls @ 100 mls/hr IV ASDIRECTED [facility] Last Admin: 02/22/19 07:23 Dose: 100 mls/hr Vancomycin HCl 1 gm/ Sodium (Chloride) 250 mls @ 166 mls/hr IV Q12H [facility] Last Admin: 02/20/19 08:24 Dose: 166 mls/hr Daptomycin 600 mg/ Sodium (Chloride) 6 mls @ 180 mls/hr IV Q24H [facility] Last Admin: 02/20/19 13:09 Dose: Not Given Daptomycin 600 mg/ Sodium (Chloride) 12 mls @ 360 mls/hr IV Q24H [facility] Last Admin: 02/20/19 13:08 Dose: Not Given Daptomycin 600 mg/ Sodium (Chloride) 12 mls @ 360 mls/hr IV Q24H [facility] Last Admin: 02/20/19 13:10 Dose: 360 mls/hr Daptomycin 1,000 mg/ Sodium (Chloride) 20 mls @ 600 mls/hr IV Q24H [facility] Metronidazole 500 mg/ Premix 100 mls @ 100 mls/hr IV QID [facility] Last Admin: 02/25/19 04:47 Dose: Not Given Metronidazole 500 mg/ Premix 100 mls @ 100 mls/hr IV Q6H [facility] Last Admin: 02/25/19 08:57 Dose: 100 mls/hr Morphine Sulfate (Morphine) 2 mg IVPUSH Q4H PRN PRN Reason: Pain (severe 7-10) Last Admin: 02/26/19 01:27 Dose: 2 mg Potassium Chloride (Klor-Con M20) 40 meq PO ONETIME ONE Stop: 02/20/19 11:31 Last Admin: 02/20/19 11:44 Dose: 40 meq Vancomycin HCl (Vancomycin) Confirm Administered Dose 1 gm .ROUTE .STK-MED ONE Stop: 02/19/19 17:07 Last Admin: 02/19/19 21:08 Dose: Not Given Vancomycin HCl (Pharmacy To Dose - Vancomycin) 1 dose .XX ASDIRECTED [facility]
[2019-02-26] MEDS: DAPTOmycin 1,000 MG in Sodium Chloride 0.9% 20 ML IV SCH (13:07)
[2019-02-26 14:47] VITALS: BP 126/60; PULSE 71
== END 2019-02-26 13:53 | disposition home health service (06) | DRG 540 ==
LOC: MW.ED 14:50 → OBSVTOIN 19:02 → MW.MS 19:02
PROVIDERS: ADMIT Student in an Organized Health Care Education/Training Program; ATTEND Student in an Organized Health Care Education/Training Program
DX: M86.9 Osteomyelitis, unspecified (principal); N30.91 Cystitis, unspecified with hematuria; G62.9 Polyneuropathy, unspecified; N39.0 Urinary tract infection, site not specified; N17.9 Acute kidney failure, unspecified; L03.116 Cellulitis of left lower limb; E53.8 Deficiency of other specified B group vitamins; Z86.14 Personal history of Methicillin resistant Staphylococcus aureus infection; R78.81 Bacteremia; Z89.021 Acquired absence of right finger(s); B95.61 Methicillin susceptible Staphylococcus aureus infection as the cause of diseases classified elsewhere; Z68.32 Body mass index [BMI] 32.0-32.9, adult; B96.20 Unspecified Escherichia coli [E. coli] as the cause of diseases classified elsewhere; R31.9 Hematuria, unspecified; L97.529 Non-pressure chronic ulcer of other part of left foot with unspecified severity; E87.6 Hypokalemia; G62.89 Other specified polyneuropathies; M10.9 Gout, unspecified; N28.1 Cyst of kidney, acquired; N32.89 Other specified disorders of bladder; E66.9 Obesity, unspecified; G47.30 Sleep apnea, unspecified; I10 Essential (primary) hypertension; Z88.0 Allergy status to penicillin; Z79.899 Other long term (current) drug therapy; Z68.31 Body mass index [BMI] 31.0-31.9, adult; Z79.2 Long term (current) use of antibiotics
CPT/HCPCS: 36415; 73590; 73620; 80053; 81001; 83605; 83735; 85025; 87040 ×2; 87077; 87086; 87088; 87186 ×2; 96365; 96367; 99285; J1956; J3370; J7050; 73718-26-LT; 73718-LT; 74176; 74176-26; 80048; 84100; 85652; 86140; 87070; 96361; 96366; 96372; 96375; 99284; A9270-GY; G0378; J0696; J0878; J1650; J2270; J3490; J7030; J7040; J7120

== ENCOUNTER 2020-04-13 16:23 | Emergency (ER) | payer MEDICARE, BC ==
[2020-04-13] MEDS ORDERED: Sodium Chloride 0.9% 2.5 ML Syringe FLUSH PRN (16:42)
[2020-04-13] MEDS ORDERED: Sodium Chloride 0.9% 10 ML Syringe FLUSH PRN (16:42)
[2020-04-13] MEDS ORDERED: Sodium Chloride 0.9% 10 ML SDV IV PRN (16:42)
--- NOTE | 2020-04-13 16:44 | EDM.PDOC ---
ED HPI GENERAL MEDICAL PROBLEM - General Chief Complaint: Lower Extremity Injury/Pain Stated Complaint: EMS Time Seen by Provider: 04/13/20 16:33 Source of Information: Reports: Patient History Limitations: Reports: No Limitations - History of Present Illness INITIAL COMMENTS - FREE TEXT/NARRATIVE: 69-year-old male with history of peripheral neuropathy, left foot osteomyelitis presents with left lower extremity weakness since 1400 today. He initially noted that his throat felt tight, followed by inability to move his left leg at 2 PM (as last known well). He normally has lower extremity paresthesia bilaterally so he is not able to feel his legs from his knees down. He was able to ambulate yesterday with no difficulty on his left leg but today at 2 PM he has been unable to utilize motor function to his left leg from his knee down. ROS: A 10-point review of systems, other than pertinent positives and negatives as stated per HPI, is otherwise negative Past medical history: No additional pertinent history Past Surgical history: No additional pertinent history Social history: No additional pertinent history Family history: No additional pertinent history PHYSICAL EXAM General: AOx4, GCS = 15, No distress HEENT: dry mucous membrane, no swelling to posterior oropharynx, Mallampati score = 1 Neck: supple, no meningismus, no Kernig or Brudzinski Cardiac: S1S2 RRR Respiratory: CTAB, no crackles or rales, no wheezing Abdomen: Soft, nontender, no rebound or guarding, nondistended, no pulsatile mass. Back: nontender Musculoskeletal: NVI distally, no deformity Neuro: No focal deficits, hypoesthesia to bilateral legs from the knee down, decreased strength to his left lower leg. left leg Pain Score (Numeric/FACES): 11 - Related Data Allergies Allergy/AdvReac Type Severity Reaction Status Date / Time Penicillins Allergy Other Verified 04/13/20 16:51 Home Meds: Home Meds Cyanocobalamin (Vitamin B12) [Vitamin B12] 1,000 mcg PO DAILY 12/24/18 [History] Multivit-Min/FA/Lycopen/Lutein [Centrum Silver Tablet] 1 tab PO DAILY 12/24/18 [History] Multivitamin [Multivitamins] 1 each PO DAILY 12/24/18 [History] Triamterene/Hydrochlorothiazid [Triamterene-HCTZ 37.5-25 MG] 1 tab PO DAILY 12/24/18 [History] allopurinoL [Zyloprim] 300 mg PO DAILY 12/24/18 [History] amLODIPine [Norvasc] 10 mg PO DAILY 02/19/19 [History] DAPTOmycin [Cubicin] 1,000 mg IV Q24H vial 02/26/19 [Rx] cefTRIAXone [Rocephin in Dextrose,Iso-Osm 2 GM/50 ML] 2 gm IV Q24H bag 02/26/19 [Rx] Past Medical History HEENT History: Reports: None Cardiovascular History: Reports: Hypertension Respiratory History: Reports: Sleep Apnea Gastrointestinal History: Reports: None Genitourinary History: Reports: None Musculoskeletal History: Reports: Amputation Other Musculoskeletal History: tip of right middle finger Neurological History: Reports: Neuropathy, Peripheral, Other (See Below) Other Neuro History: hx guillian -barre Psychiatric History: Reports: None Endocrine/Metabolic History: Reports: Obesity/BMI 30+ Hematologic History: Reports: B12 Deficiency Immunologic History: Reports: None Oncologic (Cancer) History: Reports: None Dermatologic History: Reports: Cellulitis - Infectious Disease History Infectious Disease History: Reports: Chicken Pox, Measles, MRSA, Mumps - Past Surgical History Head Surgeries/Procedures: Reports: None Cardiovascular Surgical History: Reports: None Respiratory Surgical History: Reports: None Endocrine Surgical History: Reports: None Neurological Surgical History: Reports: None Musculoskeletal Surgical History: Reports: Arthroscopic Knee, Other (See Below) Other Musculoskeletal Surgeries/Procedures:: Right Calf Skin Graft. I&D of left foot- MRSA Social & Family History - Family History Family Medical History: No Pertinent Family History - Caffeine Use Caffeine Use: Reports: Coffee Review of Systems - Review of Systems Review Of Systems: See Below (see dictation) ED EXAM, GENERAL - Physical Exam Exam: See Below (see dictation) #1 Interpretation EKG Interpretation Comments: Heart rate = 67 bpm, NE = 290 MS, first-degree AV block, normal sinus rhythm, normal QRS interval, no STEMI. EKG and rhythm strip interpreted by me at 1644 Course - Vital Signs Last Recorded V/S: Last Vital Signs Temp 96.6 F L 04/13/20 16:34 Pulse 66 04/13/20 16:34 Resp 16 04/13/20 16:34 BP 94/71 04/13/20 16:34 Pulse Ox 98 04/13/20 16:34 - Orders/Labs/Meds Orders: Active Orders 24 hr Category Date Time Status Assess Neurological Status [RC] ASDIRECTED Care 04/13/20 16:42 Active Cardiac Monitoring [RC] . DIRECTED Care 04/13/20 16:42 Active EKG Documentation Completion [RC] STAT Care 04/13/20 16:42 Active Initiate Acute Stroke Protocol [RC] STAT Care 04/13/20 16:42 Active NIH Stroke Scale [RC] ASDIRECTED Care 04/13/20 16:42 Active Oxygen Therapy [RC] ASDIRECTED Care 04/13/20 16:42 Active Ang Chest [CT] Stat Exams 04/13/20 18:08 Taken CTA Abd Pelv w Cont [CT] Stat Exams 04/13/20 18:08 Taken UA W/MICROSCOPIC [URIN] Stat Lab 04/13/20 16:42 Ordered Esmolol 2,500 mg Med 04/13/20 19:15 Active Sodium Chloride 0.9% [Normal Saline] 250 ml IV TITRATE Sodium Chloride 0.9% [Normal Saline] Med 04/13/20 16:42 Active 10 ml IV ASDIRECTED PRN Sodium Chloride 0.9% [Saline Flush] Med 04/13/20 16:42 Active 10 ml FLUSH ASDIRECTED PRN Sodium Chloride 0.9% [Saline Flush] Med 04/13/20 16:42 Active 2.5 ml FLUSH ASDIRECTED PRN niCARdipine/Normal Saline @ 5 MG/HR(200ml) Med 04/13/20 19:45 Ordered niCARdipine/Normal Saline [Cardenein NS 40 MG/200 ML] 40 mg in 200 ml IV TITRATE Peripheral IV Insertion Adult [OM.PC] Stat Oth 04/13/20 16:42 Ordered Medication Orders Esmolol HCl 2,500 mg/ Sodium (Chloride) 500 mls @ 65.317 mls/hr IV TITRATE ANNA; Protocol Nicardipine HCl (Cardenein Ns 40 Mg/200 Ml) 40 mg in 200 mls @ 25 mls/hr IV TITRATE ANNA; Protocol Sodium Chloride (Saline Flush) 10 ml FLUSH ASDIRECTED PRN PRN Reason: Keep Vein Open Last Admin: 04/13/20 18:35 Dose: 10 ml Documented by: ARANANAntonio Sodium Chloride (Saline Flush) 2.5 ml FLUSH ASDIRECTED PRN PRN Reason: Keep Vein Open Last Admin: 04/13/20 18:35 Dose: 2.5 ml Documented by: ARANUHAG Sodium Chloride (Normal Saline) 10 ml IV ASDIRECTED PRN PRN Reason: IV Use Labs: Laboratory Tests 04/13/20 04/13/20 04/13/20 Range/Units 16:49 16:59 16:59 WBC 14.40 H (4.0-11.0) K/uL RBC 5.13 (4.50-5.90) M/uL Hgb 15.6 (13.0-17.0) g/dL Hct 46.5 (38.0-50.0) % MCV 90.6 (80.0-98.0) fL MCH 30.4 (27.0-32.0) pg MCHC 33.5 (31.0-37.0) g/dL RDW Std Deviation 49.5 (28.0-62.0) fl RDW Coeff of Janeth 15 (11.0-15.0) % Plt Count 255 (150-400) K/uL MPV 9.30 (7.40-12.00) fL Neut % (Auto) 79.7 (48.0-80.0) % Lymph % (Auto) 12.6 L (16.0-40.0) % [place] % (Auto) 7.2 (0.0-15.0) % Eos % (Auto) 0.3 (0.0-7.0) % Baso % (Auto) 0.2 (0.0-1.5) % Neut # (Auto) 11.5 H (1.4-5.7) K/uL Lymph # (Auto) 1.8 (0.6-2.4) K/uL [place] # (Auto) 1.0 H (0.0-0.8) K/uL Eos # (Auto) 0.0 (0.0-0.7) K/uL Baso # (Auto) 0.0 (0.0-0.1) K/uL Nucleated RBC % 0.0 /100WBC Nucleated RBCs # 0 K/uL INR 1.11 APTT 26.2 (18.6-31.3) SEC Sodium (136-148) mmol/L Potassium (3.5-5.1) mmol/L Chloride (98-107) mmol/L Carbon Dioxide (21.0-32.0) mmol/L BUN (7.0-18.0) mg/dL Creatinine (0.8-1.3) mg/dL Est Cr Clr Drug Dosing mL/min Estimated GFR (MDRD) ml/min Glucose (74-106) mg/dL POC Glucose 104 (60-110) mg/dL Calcium (8.5-10.1) mg/dL Magnesium (1.8-2.4) mg/dL Total Bilirubin (0.2-1.0) mg/dL AST (15-37) IU/L ALT (14-63) IU/L Alkaline Phosphatase (46-116) U/L Troponin I (0.000-0.056) ng/mL Total Protein (6.4-8.2) g/dL Albumin (3.4-5.0) g/dL Globulin (2.6-4.0) g/dL Albumin/Globulin Ratio (0.9-1.6) TSH 3rd Generation (0.36-3.74) uIU/mL 04/13/20 Range/Units 16:59 WBC (4.0-11.0) K/uL RBC (4.50-5.90) M/uL Hgb (13.0-17.0) g/dL Hct (38.0-50.0) % MCV (80.0-98.0) fL MCH (27.0-32.0) pg MCHC (31.0-37.0) g/dL RDW Std Deviation (28.0-62.0) fl RDW Coeff of Janeth (11.0-15.0) % Plt Count (150-400) K/uL MPV (7.40-12.00) fL Neut % (Auto) (48.0-80.0) % Lymph % (Auto) (16.0-40.0) % [place] % (Auto) (0.0-15.0) % Eos % (Auto) (0.0-7.0) % Baso % (Auto) (0.0-1.5) % Neut # (Auto) (1.4-5.7) K/uL Lymph # (Auto) (0.6-2.4) K/uL [place] # (Auto) (0.0-0.8) K/uL Eos # (Auto) (0.0-0.7) K/uL Baso # (Auto) (0.0-0.1) K/uL Nucleated RBC % /100WBC Nucleated RBCs # K/uL INR APTT (18.6-31.3) SEC Sodium 138 (136-148) mmol/L Potassium 3.3 L (3.5-5.1) mmol/L Chloride 103 (98-107) mmol/L Carbon Dioxide 13.7 L (21.0-32.0) mmol/L BUN 8 (7.0-18.0) mg/dL Creatinine 1.1 (0.8-1.3) mg/dL Est Cr Clr Drug Dosing 67.61 mL/min Estimated GFR (MDRD) > 60.0 ml/min Glucose 111 H (74-106) mg/dL POC Glucose (60-110) mg/dL Calcium 8.2 L (8.5-10.1) mg/dL Magnesium 2.1 (1.8-2.4) mg/dL Total Bilirubin 0.4 (0.2-1.0) mg/dL AST 29 (15-37) IU/L ALT 41 (14-63) IU/L Alkaline Phosphatase 121 H (46-116) U/L Troponin I < 0.050 (0.000-0.056) ng/mL Total Protein 7.7 (6.4-8.2) g/dL Albumin 3.4 (3.4-5.0) g/dL Globulin 4.3 H (2.6-4.0) g/dL Albumin/Globulin Ratio 0.8 L (0.9-1.6) TSH 3rd Generation 2.67 (0.36-3.74) uIU/mL Meds: Medications Generic Name Dose Route Start Last Admin Trade Name Freq PRN Reason Stop Dose Admin Esmolol HCl 2,500 mg/ Sodium 500 mls @ 65.317 mls/hr 04/13/20 19:15 Chloride IV TITRATE ANNA Protocol 50 MCG/KG/MIN Nicardipine HCl 40 mg in 200 mls @ 25 mls/hr 04/13/20 19:45 Cardenein Ns 40 Mg/200 Ml IV TITRATE ANNA Protocol 5 MG/HR Sodium Chloride 10 ml 04/13/20 16:42 04/13/20 18:35 Saline Flush FLUSH 10 ml ASDIRECTED PRN Administration Keep Vein Open Sodium Chloride 2.5 ml 04/13/20 16:42 04/13/20 18:35 Saline Flush FLUSH 2.5 ml ASDIRECTED PRN Administration Keep Vein Open Sodium Chloride 10 ml 04/13/20 16:42 Normal Saline IV ASDIRECTED PRN IV Use Discontinued Medications Generic Name Dose Route Start Last Admin Trade Name Freq PRN Reason Stop Dose Admin Iopamidol 100 ml 04/13/20 17:40 04/13/20 17:40 Isovue Multipack-370 (76%) IVPUSH 04/13/20 17:41 100 ml ONETIME ONE Administration Iopamidol 100 ml 04/13/20 18:38 04/13/20 18:39 Isovue Multipack-370 (76%) IVPUSH 04/13/20 18:39 100 ml ONETIME ONE Administration - Re-Assessments/Exams Free Text/Narrative Re-Assessment/Exam: 04/13/20 16:45 Code stroke activated 04/13/20 18:36 Patient will require transfer to outside facility for the need of higher level of care not available at this facility, and the need for information resource consultant services unavailable at this facility. Any emergency conditions have been stabilized to the ability of the ED prior to the transfer. Case was discussed and accepted by Dr Menjivar at [facility]. Case d/w Graciela Soto on [facility], recommends consulting CT surgery for ascending dissection. d/w CT surgery at [facility] Dr. Mckeon, he recommends transferring to [place] as he is uncomfortable taking care of him. 04/13/20 18:59 d/w [facility] CT Surgery, Dr. Corky June recommends esmolol drip and will take the patient to the operating room, will be accepting physician. He recommends goal SBP = 120. 04/13/20 19:37 Harpal is at bedside about to take the patient. Pharmacist states we do not have the necessary number of vials for esmolol and may delay transfer, however have Sha initiate Cardene drip with goal SBP of 120. 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 The services I provided to this patient were to treat and/or prevent clinically significant deterioration. Services included the following: chart data review, reviewing nursing notes and/or old charts, documentation time, information resource consultant collaboration regarding findings and treatment options, medication orders and management, direct patient care, vital sign assessments and ordering, interpreting and reviewing diagnostic studies/lab tests. Aggregate critical care time includes only time during which I was engaged in work directly related to the patient's care, as described above, whether at the bedside or elsewhere in the Emergency Department. It did not include time spent performing other reported procedures or the services of residents, students, nurses or physician assistants. Frequent interventions and/or frequent repeat evaluations were required as well as counseling and coordination of care regarding prognosis, treatments, and discussions with patient, staff and consultants. Critical Care (excluding other procedures): 50 minutes Sepsis Event Note (ED) - Focused Exam Vital Signs: Vital Signs Temp Pulse Resp BP Pulse Ox 04/13/20 16:34 96.6 F L 66 16 94/71 98 - My Orders Last 24 Hours: My Active Orders 04/13/20 18:08 Ang Chest [CT] Stat CTA Abd Pelv w Cont [CT] Stat 04/13/20 19:15 Esmolol 2,500 mg Sodium Chloride 0.9% [Normal Saline] 250 ml IV TITRATE 04/13/20 19:45 niCARdipine/Normal Saline @ 5 MG/HR(200ml) niCARdipine/Normal Saline [Cardenein NS 40 MG/200 ML] 40 mg in 200 ml IV TITRATE - Assessment/Plan Last 24 Hours: My Active Orders 04/13/20 18:08 Ang Chest [CT] Stat CTA Abd Pelv w Cont [CT] Stat 04/13/20 19:15 Esmolol 2,500 mg Sodium Chloride 0.9% [Normal Saline] 250 ml IV TITRATE 04/13/20 19:45 niCARdipine/Normal Saline @ 5 MG/HR(200ml) niCARdipine/Normal Saline [Cardenein NS 40 MG/200 ML] 40 mg in 200 ml IV TITRATE
[2020-04-13 17:38] LABS: BLOOD UREA NITROGEN,BUN 8 mg/dL (7.0-18.0); CARBON DIOXIDE,CO2 13.7 mmol/L (21.0-32.0); CHLORIDE,CL 103 mmol/L (98-107); GLUCOSE RANDOM 111 mg/dL (74-106); POTASSIUM,K 3.3 mmol/L (3.5-5.1); SODIUM,NA 138 mmol/L (136-148)
[2020-04-13] MEDS ORDERED: Iopamidol 755 MG/ML 500 ML Multipack Bottle IVPUSH ONE ×2 (17:40→18:38)
--- NOTE | 2020-04-13 18:02 | CT ---
Indication: Left lower extremity weakness. Technique: Multiple contiguous axial images were obtained from the skullbase to the vertex without intravenous contrast enhancement. Please note that all CT scans at this facility use dose modulation, iterative reconstruction, and/or weight-based dosing when appropriate to reduce radiation dose to as low as reasonably achievable. Comparison: None Findings: The ventricles are symmetric and normal in size and morphology. There is only mild diffuse volume loss. Mild confluent areas of low-attenuation are identified in the periventricular white matter, consistent with changes of chronic small vessel ischemia. No intra-axial or extra-axial hemorrhage is identified. No mass, mass effect or midline shift is seen. The bony calvarium is intact. The visualized paranasal sinuses and mastoid air cells are clear. Impression: No acute intracranial process. Please note that all CT scans at this facility use dose modulation, iterative reconstruction, and/or weight-based dosing when appropriate to reduce radiation dose to as low as reasonably achievable. Dictated by Laura Francis MD @ Apr 13 2020 5:58PM Signed by Dr. Laura Francis @ Apr 13 2020 6:00PM
--- NOTE | 2020-04-13 18:10 | CT ---
INDICATION: Acute stroke, left lower extremity weakness. TECHNIQUE: After standard noncontrast head CT, high resolution axial CT images acquired through the head and neck following rapid intravenous administration of iodinated contrast. Multiplanar MIPS of cranial and cervical vasculature performed. FINDINGS: Noncontrast head CT: There is no intracranial hemorrhage or fluid collection. The montes-white matter differentiation is maintained. Brain parenchymal volume loss is noted. There are nonspecific white matter hypodensities commonly seen with cerebral small vessel disease. The ventricles are of normal morphology. The basal cisterns are clear. CTA head: There is normal filling of the intracranial vasculature; i.e. there is no large vessel occlusion or intracranial stenosis. There is no cerebral aneurysm or evidence for vascular malformation. CTA neck: There is a type A aortic dissection (please see chest CTA report for details). As a result, the right vertebral artery opacifies to a lesser extent as it is on the side of the false lumen. Both carotid arteries and the left vertebral artery opacify normally. There is minor carotid atherosclerotic disease without significant stenosis. There is no evidence for carotid or vertebral artery dissection. Marked redundancy of the internal carotid arteries, especially on the left, incidentally noted. IMPRESSION: Reduced right vertebral artery flow due to the type A aortic dissection. Otherwise normal filling of the intracranial vasculature. Dr. Francis discussed the preliminary findings with Dr. Beltran at 1806 hours on 04/13/2020. Jef Walker MD Neurointerventional [employer] Please note that all CT scans at this facility use dose modulation, iterative reconstruction, and/or weight-based dosing when appropriate to reduce radiation dose to as low as reasonably achievable. Dictated by Jef Walker MD @ Apr 13 2020 7:45PM Signed by Dr. Jef Walker @ Apr 13 2020 8:10PM
--- NOTE | 2020-04-13 18:32 | CR ---
Indication: Stroke code Technique: AP portable view of the chest. Comparison: December 24, 2018. Findings: The right hemidiaphragm is elevated. The heart is borderline in size. There is widening of the superior mediastinum. CTA of the chest is pending. No pleural effusion or pneumothorax is identified. Impression: Widening of the superior mediastinum. A CTA of the chest has already been requested Dictated by Laura Francis MD @ Apr 13 2020 6:29PM Signed by Dr. Laura Francis @ Apr 13 2020 6:30PM
[2020-04-13] MEDS ORDERED: Esmolol 2,500 MG in Sodium Chloride 0.9% 250 ML IV SCH (19:15)
[2020-04-13] MEDS ORDERED: niCARdipine/Normal Saline 20 MG/200 ML BAG ONE ×2 (19:35→20:29)
[2020-04-13] MEDS ORDERED: niCARdipine/Normal Saline 40 MG/200 ML BAG IV SCH (19:45)
--- NOTE | 2020-04-13 19:56 | CT ---
INDICATION: Aortic dissection demonstrated on carotid CTA. TECHNIQUE: Volumetric helical scanning of chest, abdomen and pelvis was then performed with 100 cc of Isovue 370 contrast material IV, timing optimized for aortic opacification. Coronal and sagittal reconstructions were obtained. COMPARISON: Today`s carotid CTA. FINDINGS: The aorta is well opacified. A type A aortic dissection is demonstrated, extending from the aortic valve to the iliac arteries. The false lumen is opacified throughout. The ascending aorta measures up to 5.1 cm in diameter. A small hemopericardium is demonstrated as well as small amount of free blood in the mediastinum which appears to be mildly constricting the main pulmonary artery. The heart size is normal. Calcified coronary arterial plaque is demonstrated. The left external iliac artery is occluded but the left common femoral artery is reconstituted. The lungs, airways and pleural spaces are clear. No mediastinal or hilar lymphadenopathy is evident. A hiatal hernia of moderate size is noted. Fatty change is demonstrated in the liver. The liver is normal in size and shape. No bile duct dilation is evident. The spleen, adrenal glands and pancreas are unremarkable. The kidneys are unremarkable except for small parenchymal cysts bilaterally. No lymphadenopathy or free intraperitoneal fluid is noted. 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 Colonic diverticulosis is noted. The bowel is otherwise unremarkable. The prostate is unremarkable. IMPRESSION: 1. Type A aortic dissection extending to the iliac arteries. Small hemopericardium and small amount of free mediastinal blood with mild constriction of the main pulmonary artery. 2. Ascending aorta measured at up to 5.1 cm in diameter. Aorta is otherwise normal in caliber. 3. Left external iliac artery occluded and common femoral artery reconstituted. 4. Fatty liver. 5. 5 cm masslike structure in the pelvis apparently associated with small-bowel and suspected represented joint diverticulum. Nonemergent follow up examination with oral contrast material suggested. Please note that all CT scans at this facility use dose modulation, iterative reconstruction, and/or weight-based dosing when appropriate to reduce radiation dose to as low as reasonably achievable. Dictated by Clayton Lynn MD @ Apr 13 2020 7:36PM Signed by Dr. Clayton Lynn @ Apr 13 2020 7:54PM
--- NOTE | 2020-04-14 10:40 | CT ---
EXAM DATE: 04/13/20 PATIENT'S AGE: 69 Patient: LOLA ROBERT Facility: [facility] Site . Site : [id number] Study: CT-Chest Angio WHOLE AORTA /CAP-04/13/2020 7:09:05 PM Ordering Physician: Devin Ny Final Report: INDICATION: Aortic dissection demonstrated on carotid CTA. TECHNIQUE: Volumetric helical scanning of chest, abdomen and pelvis was then performed with 100 cc of Isovue 370 contrast material IV, timing optimized for aortic opacification. Coronal and sagittal reconstructions were obtained. COMPARISON: Today`s carotid CTA. FINDINGS: The aorta is well opacified. A type A aortic dissection is demonstrated, extending from the aortic valve to the iliac arteries. The false lumen is opacified throughout. The ascending aorta measures up to 5.1 cm in diameter. A small hemopericardium is demonstrated as well as small amount of free blood in the mediastinum which appears to be mildly constricting the main pulmonary artery. The heart size is normal. Calcified coronary arterial plaque is demonstrated. The left external iliac artery is occluded but the left common femoral artery is reconstituted. The lungs, airways and pleural spaces are clear. No mediastinal or hilar lymphadenopathy is evident. A hiatal hernia of moderate size is noted. Fatty change is demonstrated in the liver. The liver is normal in size and shape. No bile duct dilation is evident. The spleen, adrenal glands and pancreas are unremarkable. The kidneys are unremarkable except for small parenchymal cysts bilaterally. No lymphadenopathy or free intraperitoneal fluid is noted. 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 Colonic diverticulosis is noted. The bowel is otherwise unremarkable. The prostate is unremarkable. IMPRESSION: 1. Type A aortic dissection extending to the iliac arteries. Small hemopericardium and small amount of free mediastinal blood with mild constriction of the main pulmonary artery. 2. Ascending aorta measured at up to 5.1 cm in diameter. Aorta is otherwise normal in caliber. 3. Left external iliac artery occluded and common femoral artery reconstituted. 4. Fatty liver. 5. 5 cm masslike structure in the pelvis apparently associated with small-bowel and suspected represented joint diverticulum. Nonemergent follow up examination with oral contrast material suggested. Please note that all CT scans at this facility use dose modulation, iterative reconstruction, and/or weight-based dosing when appropriate to reduce radiation dose to as low as reasonably achievable. Dictated by Clayton Lynn MD @ Apr 13 2020 7:36PM Signed by: Clayton Lynn MD @04/13/2020 7:54:13 PM (Electronic Signature) Report Signed by Proxy. MTDD
[2020-04-19 19:45] VITALS: BP 147/60; PULSE 74
== END 2020-04-13 20:50 ==
LOC: MW.ED 16:23
DX: I71.01 Dissection of thoracic aorta (principal); G62.9 Polyneuropathy, unspecified; I10 Essential (primary) hypertension; E66.9 Obesity, unspecified; Z68.32 Body mass index [BMI] 32.0-32.9, adult; Z79.899 Other long term (current) drug therapy; Z88.0 Allergy status to penicillin
CPT/HCPCS: 36415; 70450; 70496; 70498; 71045; 71275; 74174; 80053; 82962; 83735; 84443; 84484; 85025; 85610; 85730; 93005; 99285; Q9967; 93010; 99291

== ENCOUNTER 2020-10-02 14:19 | Observation (INO) | payer MEDICARE, BC ==
--- NOTE | 2020-10-02 14:40 | EDM.PDOC ---
ED HPI GENERAL MEDICAL PROBLEM - General Chief Complaint: Chest Pain Stated Complaint: CHEST PAINS Time Seen by Provider: 10/02/20 14:27 Source of Information: Reports: Patient History Limitations: Reports: No Limitations - History of Present Illness INITIAL COMMENTS - FREE TEXT/NARRATIVE: She is a 70-year-old male with a history of aortic dissection will repair presents today for pressure-like feeling in his chest. He says pain is been there for about a week actually starting to improve from when it started. He called his PMD was obstructed come in today for evaluation. Pain is not radiating pain is not made better or worse with any events. He also reports some shortness of breath states he can walk a few feet before you start which is new for him. Denies any fever chills nausea vomiting. - Related Data Allergies Allergy/AdvReac Type Severity Reaction Status Date / Time Penicillins Allergy Other Verified 10/02/20 14:32 Home Meds: Home Meds allopurinoL [Zyloprim] 300 mg PO DAILY 12/24/18 [History] amLODIPine [Norvasc] 10 mg PO DAILY 02/19/19 [History] Metoprolol Succinate 100 mg PO DAILY 10/02/20 [History] Triamterene/Hydrochlorothiazid [Triamterene-HCTZ 37.5-25 MG] 1 tab PO DAILY 10/02/20 [History] Warfarin Sodium 4 mg PO DAILY 10/02/20 [History] Past Medical History HEENT History: Reports: None Cardiovascular History: Reports: Hypertension Respiratory History: Reports: Sleep Apnea Gastrointestinal History: Reports: None Genitourinary History: Reports: None Musculoskeletal History: Reports: Amputation Other Musculoskeletal History: tip of right middle finger Neurological History: Reports: Neuropathy, Peripheral, Other (See Below) Other Neuro History: hx guillian -barre Psychiatric History: Reports: None Endocrine/Metabolic History: Reports: Obesity/BMI 30+ Hematologic History: Reports: B12 Deficiency Immunologic History: Reports: None Oncologic (Cancer) History: Reports: None Dermatologic History: Reports: Cellulitis - Infectious Disease History Infectious Disease History: Reports: Chicken Pox, Measles, MRSA, Mumps - Past Surgical History Head Surgeries/Procedures: Reports: None Cardiovascular Surgical History: Reports: None Respiratory Surgical History: Reports: None GI Surgical History: Reports: Hernia, Abdominal Endocrine Surgical History: Reports: None Neurological Surgical History: Reports: None Musculoskeletal Surgical History: Reports: Arthroscopic Knee, Other (See Below) Other Musculoskeletal Surgeries/Procedures:: Right Calf Skin Graft. I&D of left foot- MRSA Social & Family History - Family History Family Medical History: No Pertinent Family History - Caffeine Use Caffeine Use: Reports: Coffee ED ROS GENERAL - Review of Systems Review Of Systems: See Below Constitutional: Reports: No Symptoms HEENT: Reports: No Symptoms Respiratory: Reports: No Symptoms Cardiovascular: Reports: Chest Pain Endocrine: Reports: No Symptoms GI/Abdominal: Reports: No Symptoms : Reports: No Symptoms Musculoskeletal: Reports: No Symptoms Skin: Reports: No Symptoms Neurological: Reports: No Symptoms Psychiatric: Reports: No Symptoms Hematologic/Lymphatic: Reports: No Symptoms Immunologic: Reports: No Symptoms ED EXAM, GENERAL - Physical Exam Exam: See Below Exam Limited By: No Limitations General Appearance: Alert, WD/WN, No Apparent Distress Eye Exam: Bilateral Eye: EOMI, PERRL Respiratory/Chest: No Respiratory Distress, Lungs Clear, Normal Breath Sounds Cardiovascular: Normal Peripheral Pulses, Regular Rate, Rhythm GI/Abdominal: Normal Bowel Sounds, Soft, Non-Tender Extremities: Normal Inspection, Normal Range of Motion Neurological: Alert, Oriented, CN II-XII Intact, Normal Cognition, Normal Gait Course - Vital Signs Last Recorded V/S: Last Vital Signs Temp 96.3 F L 10/02/20 14:30 Pulse 73 10/02/20 14:30 Resp 18 10/02/20 14:30 BP 157/75 H 10/02/20 14:30 Pulse Ox 94 L 10/02/20 14:30 - Orders/Labs/Meds Orders: Active Orders 24 hr Category Date Time Status Patient Status [ADT] Routine ADT 10/02/20 16:12 Ordered Labs: Laboratory Tests 10/02/20 10/02/20 Range/Units 14:31 14:31 WBC 9.41 (4.0-11.0) K/uL RBC 5.67 (4.50-5.90) M/uL Hgb 15.6 (13.0-17.0) g/dL Hct 47.3 (38.0-50.0) % MCV 83.4 (80.0-98.0) fL MCH 27.5 (27.0-32.0) pg MCHC 33.0 (31.0-37.0) g/dL RDW Std Deviation 51.3 (28.0-62.0) fl RDW Coeff of Janeth 17 H (11.0-15.0) % Plt Count 280 (150-400) K/uL MPV 9.50 (7.40-12.00) fL Neut % (Auto) 68.1 (48.0-80.0) % Lymph % (Auto) 20.2 (16.0-40.0) % [place] % (Auto) 8.6 (0.0-15.0) % Eos % (Auto) 2.8 (0.0-7.0) % Baso % (Auto) 0.3 (0.0-1.5) % Neut # (Auto) 6.4 H (1.4-5.7) K/uL Lymph # (Auto) 1.9 (0.6-2.4) K/uL [place] # (Auto) 0.8 (0.0-0.8) K/uL Eos # (Auto) 0.3 (0.0-0.7) K/uL Baso # (Auto) 0.0 (0.0-0.1) K/uL Nucleated RBC % 0.0 /100WBC Nucleated RBCs # 0 K/uL Sodium 138 (136-148) mmol/L Potassium 3.9 (3.5-5.1) mmol/L Chloride 102 (98-107) mmol/L Carbon Dioxide 26.5 (21.0-32.0) mmol/L BUN 9 (7.0-18.0) mg/dL Creatinine 1.3 (0.8-1.3) mg/dL Est Cr Clr Drug Dosing TNP Estimated GFR (MDRD) 54.3 ml/min Glucose 98 (74-106) mg/dL Calcium 8.6 (8.5-10.1) mg/dL Phosphorus 3.5 (2.6-4.7) mg/dL Magnesium 2.2 (1.8-2.4) mg/dL Total Bilirubin 1.1 H (0.2-1.0) mg/dL AST 19 (15-37) IU/L ALT 15 (14-63) IU/L Alkaline Phosphatase 137 H (46-116) U/L Creatine Kinase 52 (26-308) U/L Troponin I < 0.050 (0.000-0.056) ng/mL Total Protein 8.1 (6.4-8.2) g/dL Albumin 3.2 L (3.4-5.0) g/dL Globulin 4.9 H (2.6-4.0) g/dL Albumin/Globulin Ratio 0.7 L (0.9-1.6) Lipase 64 L (73-393) U/L - Re-Assessments/Exams Free Text/Narrative Re-Assessment/Exam: 10/02/20 16:13 Patient x-ray labs and EKG reviewed. Patient admitted for observation. Departure - Departure Time of Disposition: 16:13 Disposition: Refer to Observation Condition: Good Clinical Impression: Chest pain, unspecified Forms: ED Department Discharge Sepsis Event Note (ED) - Evaluation Sepsis Screening Result: No Definite Risk - Focused Exam Vital Signs: Vital Signs Temp Pulse Resp BP Pulse Ox 10/02/20 14:30 96.3 F L 73 18 157/75 H 94 L - My Orders Last 24 Hours: My Active Orders 10/02/20 16:12 Patient Status [ADT] Routine - Assessment/Plan Last 24 Hours: My Active Orders 10/02/20 16:12 Patient Status [ADT] Routine Plan: Patient is a 70-year-old male history of aortic dissection with repair presents today for pressure-like feeling in his chest. Will obtain EKG labs x-ray and reassess patient.
--- NOTE | 2020-10-02 15:19 | CR ---
Indication: Chest pain Technique: Chest 2 view Comparison: December 24, 2018 Findings/Impression: Stable cardiac size. Normal pulmonary vasculature. Status post median sternotomy. Clear lungs and pleural spaces. Surgical clips in the right axilla. No acute osseous abnormality. Dictated by Justyna Floyd MD @ 10/02/2020 3:18:[address] Justyna Floyd @ Oct 02 2020 3:18PM
[2020-10-02 15:36] LABS: BLOOD UREA NITROGEN,BUN 9 mg/dL (7.0-18.0); CARBON DIOXIDE,CO2 26.5 mmol/L (21.0-32.0); CHLORIDE,CL 102 mmol/L (98-107); GLUCOSE RANDOM 98 mg/dL (74-106); LIPASE 64 U/L (73-393); POTASSIUM,K 3.9 mmol/L (3.5-5.1); SODIUM,NA 138 mmol/L (136-148)
--- NOTE | 2020-10-02 22:55 | PCM.HP.2 ---
H&P History of Present Illness - General Date of Service: 10/02/20 Admit Problem/Dx: Admission Diagnosis/Problem Admission Diagnosis/Problem Chest pain of uncertain etiology - History of Present Illness Initial Comments - Free Text/Narative: 70 you male with pmh of aortic dissection and repair in April who presents to the ED with complaint of chest pain. Patient reports for the past few weeks he gets intermitent chest pain that is located in his upper chest bilaterally and radiates to the abdomen. The pain occurs with deep breaths. He has not had any chest pain for the past two days. He told his daughter about the chest pain who then told him to talk with his doctor. He called Dr. Izquierdo who told him to go the ER. ER physician recommend admitted for ACS rule out. - Related Data Allergies/Adverse Reactions: Allergies Allergy/AdvReac Type Severity Reaction Status Date / Time Penicillins Allergy Other Verified 10/02/20 21:03 Home Medications: Home Meds allopurinoL [Zyloprim] 300 mg PO DAILY 12/24/18 [History] amLODIPine [Norvasc] 10 mg PO DAILY 02/19/19 [History] Aspirin 81 mg PO DAILY 10/02/20 [History] Metoprolol Succinate 100 mg PO DAILY 10/02/20 [History] Multivit-Min/FA/Lycopen/Lutein [Centrum Silver Ultra Men's] 1 tab PO DAILY 10/02/20 [History] Triamterene/Hydrochlorothiazid [Triamterene-HCTZ 37.5-25 MG] 1 tab PO DAILY 10/02/20 [History] Past Medical History HEENT History: Reports: None Cardiovascular History: Reports: Hypertension, Other (See Below) Other Cardiovascular History: Aortic disection Respiratory History: Reports: Sleep Apnea Gastrointestinal History: Reports: None Genitourinary History: Reports: Other (See Below) Other Genitourinary History: hemorrhafic cystisis Musculoskeletal History: Reports: Amputation, Other (See Below) Other Musculoskeletal History: tip of right middle finger, osteomyletis Neurological History: Reports: Neuropathy, Peripheral, Other (See Below) Other Neuro History: hx guillian -barre Psychiatric History: Reports: None Endocrine/Metabolic History: Reports: Obesity/BMI 30+ Hematologic History: Reports: B12 Deficiency Immunologic History: Reports: None Oncologic (Cancer) History: Reports: None Dermatologic History: Reports: Cellulitis - Infectious Disease History Infectious Disease History: Reports: Chicken Pox, Measles, MRSA, Mumps - Past Surgical History Head Surgeries/Procedures: Reports: None Cardiovascular Surgical History: Reports: Vascular Surgery Respiratory Surgical History: Reports: None GI Surgical History: Reports: Hernia, Abdominal Male Surgical History: Reports: None Endocrine Surgical History: Reports: None Neurological Surgical History: Reports: None Musculoskeletal Surgical History: Reports: Arthroscopic Knee, Other (See Below) Other Musculoskeletal Surgeries/Procedures:: Right Calf Skin Graft. I&D of left foot- MRSA Social & Family History - Family History Family Medical History: No Pertinent Family History - Caffeine Use Caffeine Use: Reports: Coffee H&P Review of Systems - Review of Systems: Review Of Systems: Comprehensive ROS is negative, except as noted in HPI. Exam - Exam Exam: See Below - Vital Signs Vital Signs: Last Vital Signs Temp 36.2 C 10/02/20 20:50 Pulse 61 10/02/20 20:50 Resp 16 10/02/20 20:50 BP 149/60 H 10/02/20 20:50 Pulse Ox 96 10/02/20 20:50 Weight: 106.594 kg - Exam General: Alert, Oriented HEENT: Mucosa Moist & Verdi Neck: Supple Lungs: Clear to Auscultation, Normal Respiratory Effort Cardiovascular: Regular Rate, Regular Rhythm GI/Abdominal Exam: Normal Bowel Sounds, Soft, Non-Tender Extremities: Non-Tender, No Pedal Edema - Patient Data Lab Results Last 24 hrs: Laboratory Results - last 24 hr 10/02/20 10/02/20 10/02/20 Range/Units 14:31 14:31 16:25 WBC 9.41 (4.0-11.0) K/uL RBC 5.67 (4.50-5.90) M/uL Hgb 15.6 (13.0-17.0) g/dL Hct 47.3 (38.0-50.0) % MCV 83.4 (80.0-98.0) fL MCH 27.5 (27.0-32.0) pg MCHC 33.0 (31.0-37.0) g/dL RDW Std Deviation 51.3 (28.0-62.0) fl RDW Coeff of Janeth 17 H (11.0-15.0) % Plt Count 280 (150-400) K/uL MPV 9.50 (7.40-12.00) fL Neut % (Auto) 68.1 (48.0-80.0) % Lymph % (Auto) 20.2 (16.0-40.0) % [place] % (Auto) 8.6 (0.0-15.0) % Eos % (Auto) 2.8 (0.0-7.0) % Baso % (Auto) 0.3 (0.0-1.5) % Neut # (Auto) 6.4 H (1.4-5.7) K/uL Lymph # (Auto) 1.9 (0.6-2.4) K/uL [place] # (Auto) 0.8 (0.0-0.8) K/uL Eos # (Auto) 0.3 (0.0-0.7) K/uL Baso # (Auto) 0.0 (0.0-0.1) K/uL Nucleated RBC % 0.0 /100WBC Nucleated RBCs # 0 K/uL INR Sodium 138 (136-148) mmol/L Potassium 3.9 (3.5-5.1) mmol/L Chloride 102 (98-107) mmol/L Carbon Dioxide 26.5 (21.0-32.0) mmol/L BUN 9 (7.0-18.0) mg/dL Creatinine 1.3 (0.8-1.3) mg/dL Est Cr Clr Drug Dosing TNP Estimated GFR (MDRD) 54.3 ml/min Glucose 98 (74-106) mg/dL Calcium 8.6 (8.5-10.1) mg/dL Phosphorus 3.5 (2.6-4.7) mg/dL Magnesium 2.2 (1.8-2.4) mg/dL Total Bilirubin 1.1 H (0.2-1.0) mg/dL AST 19 (15-37) IU/L ALT 15 (14-63) IU/L Alkaline Phosphatase 137 H (46-116) U/L Creatine Kinase 52 (26-308) U/L Troponin I < 0.050 (0.000-0.056) ng/mL Total Protein 8.1 (6.4-8.2) g/dL Albumin 3.2 L (3.4-5.0) g/dL Globulin 4.9 H (2.6-4.0) g/dL Albumin/Globulin Ratio 0.7 L (0.9-1.6) Lipase 64 L (73-393) U/L SARS-CoV-2 RNA (JOSE) NEGATIVE (NEGATIVE) 10/02/20 10/02/20 Range/Units 20:00 20:00 WBC (4.0-11.0) K/uL RBC (4.50-5.90) M/uL Hgb (13.0-17.0) g/dL Hct (38.0-50.0) % MCV (80.0-98.0) fL MCH (27.0-32.0) pg MCHC (31.0-37.0) g/dL RDW Std Deviation (28.0-62.0) fl RDW Coeff of Janeth (11.0-15.0) % Plt Count (150-400) K/uL MPV (7.40-12.00) fL Neut % (Auto) (48.0-80.0) % Lymph % (Auto) (16.0-40.0) % [place] % (Auto) (0.0-15.0) % Eos % (Auto) (0.0-7.0) % Baso % (Auto) (0.0-1.5) % Neut # (Auto) (1.4-5.7) K/uL Lymph # (Auto) (0.6-2.4) K/uL [place] # (Auto) (0.0-0.8) K/uL Eos # (Auto) (0.0-0.7) K/uL Baso # (Auto) (0.0-0.1) K/uL Nucleated RBC % /100WBC Nucleated RBCs # K/uL INR 1.02 Sodium (136-148) mmol/L Potassium (3.5-5.1) mmol/L Chloride (98-107) mmol/L Carbon Dioxide (21.0-32.0) mmol/L BUN (7.0-18.0) mg/dL Creatinine (0.8-1.3) mg/dL Est Cr Clr Drug Dosing Estimated GFR (MDRD) ml/min Glucose (74-106) mg/dL Calcium (8.5-10.1) mg/dL Phosphorus (2.6-4.7) mg/dL Magnesium (1.8-2.4) mg/dL Total Bilirubin (0.2-1.0) mg/dL AST (15-37) IU/L ALT (14-63) IU/L Alkaline Phosphatase (46-116) U/L Creatine Kinase (26-308) U/L Troponin I < 0.050 (0.000-0.056) ng/mL Total Protein (6.4-8.2) g/dL Albumin (3.4-5.0) g/dL Globulin (2.6-4.0) g/dL Albumin/Globulin Ratio (0.9-1.6) Lipase (73-393) U/L SARS-CoV-2 RNA (JOSE) (NEGATIVE) Result Diagrams: 10/02/20 14:31 10/02/20 14:31 Sepsis Event Note - Evaluation Sepsis Screening Result: No Definite Risk - Focused Exam Vital Signs: Vital Signs Temp Pulse Resp BP Pulse Ox 10/02/20 20:50 36.2 C 61 16 149/60 H 96 10/02/20 18:44 60 18 106/67 96 10/02/20 17:36 70 16 134/68 95 10/02/20 16:34 60 16 157/74 H 97 10/02/20 14:30 35.7 C L 73 18 157/75 H 94 L Problem List Initiated/Reviewed/Updated: Yes Orders Last 24hrs: Active Orders 24 hr Category Date Time Status Patient Status [ADT] Routine ADT 10/02/20 16:12 Active TROPONIN I [CHEM] Q6H Lab 10/03/20 01:31 Ordered Aspirin Med 10/03/20 09:00 Ordered 81 mg PO DAILY HCTZ/Triamterene [Maxzide 25-37.5 MG] Med 10/03/20 09:00 Ordered 1 each PO DAILY Metoprolol Succinate [Toprol XL] Med 10/03/20 09:00 Ordered 100 mg PO DAILY Multivit-Min/FA/Lycopen/Lutein [Centrum Silver Ultra Med 10/03/20 09:00 Ordered Men's] 1 tab PO DAILY allopurinoL [Zyloprim] Med 10/03/20 09:00 Ordered 300 mg PO DAILY amLODIPine [Norvasc] Med 10/03/20 09:00 Ordered 10 mg PO DAILY Assessment/Plan Comment:: 70 yo male admitted for chest pain. He ruled out for ACS with serial negative cardiac enzymes and EKG. He was monitored overnight on telemetry and has no symptoms of chest pain or dizziness. He was noted to have a prolonged VT interval. He was discharged home with a Zio patch. He is to follow up with Dr. Izquierdo and Dr. Mercedes.
[2020-10-03 07:47] VITALS: BP 168/76; PULSE 67
[2020-10-03] MEDS ORDERED: Allopurinol 300 MG Tab PO SCH (09:00)
[2020-10-03] MEDS ORDERED: amLODIPine 5 MG Tab PO SCH (09:00)
[2020-10-03] MEDS ORDERED: Multivitamins with Iron/Calcium/Folic Acid/Minerals Tab PO SCH (09:00)
[2020-10-03] MEDS ORDERED: Metoprolol Succinate 100 MG Tab.ER PO SCH (09:00)
[2020-10-03] MEDS ORDERED: Aspirin 81 MG Tab.Chew PO SCH (09:00)
[2020-10-03] MEDS ORDERED: Hydrochlorothiazide/Triamterene 25-37.5 Tab PO SCH (09:00)
== END 2020-10-03 10:15 | disposition home or self-care (01) ==
LOC: MW.ED 14:19 → MW.MS 16:12 → MW.ED 18:44 → UNDOADMOB 19:07 → MW.MS 19:07
PROVIDERS: ADMIT Internal Medicine; ATTEND Internal Medicine
DX: R07.9 Chest pain, unspecified (principal); I10 Essential (primary) hypertension; M86.9 Osteomyelitis, unspecified; E66.9 Obesity, unspecified; Z68.31 Body mass index [BMI] 31.0-31.9, adult; Z79.01 Long term (current) use of anticoagulants; Z79.82 Long term (current) use of aspirin; Z79.899 Other long term (current) drug therapy; Z20.822 Contact with and (suspected) exposure to COVID-19
CPT/HCPCS: 36415; 71046; 80053; 82550; 83690; 83735; 84100; 84484; 85025; 85610; 93005; 99285; A9270; U0002; G0378

== ENCOUNTER 2022-04-29 10:39 | Inpatient (IN) | payer MEDICARE, BC ==
[2022-04-29 11:19] LABS: CARBON DIOXIDE,CO2 24.2 mmol/L (21.0-32.0); POTASSIUM,K 3.5 mmol/L (3.5-5.1)
[2022-04-29 11:27] LABS: CORONAVIRUS COVID-19 NAA NEGATIVE (NEGATIVE); INFLUENZA A NAA NEGATIVE (NEGATIVE); INFLUENZA B NAA NEGATIVE (NEGATIVE)
[2022-04-29] MEDS ORDERED: Heparin Sodium 5,000 Units/ML Vial IVPUSH ONE (12:21)
[2022-04-29] MEDS ORDERED: Heparin Sodium/0.45% NaCl 500 ML IV SCH (12:30)
[2022-04-29] MEDS ORDERED: Heparin Sodium 5,000 Units/ML Vial ONE (14:33)
[2022-04-29] MEDS ORDERED: Bisacodyl 10 MG Supp RECTAL ONE (14:37)
[2022-04-29] MEDS ORDERED: Heparin Sodium 5,000 Units/ML Vial IVPUSH PRN (15:16)
[2022-04-29] MEDS ORDERED: Sodium Chloride 0.9% 2.5 ML Syringe FLUSH PRN (15:21)
[2022-04-29] MEDS ORDERED: Sodium Chloride 0.9% 10 ML Syringe FLUSH PRN (15:21)
[2022-04-29] MEDS ORDERED: Ondansetron 4 MG/2 ML SDV IVPUSH PRN (15:21)
[2022-04-29] MEDS: Heparin Sodium/0.45% NaCl 500 ML IV SCH (17:09)
[2022-04-29] MEDS ORDERED: Cefdinir 300 MG Cap PO SCH (21:00)
[2022-04-29] MEDS: Melatonin 3 MG Tab PO PRN (22:51)
[2022-04-29 22:58] LABS: CARBON DIOXIDE,CO2 24.3 mmol/L (21.0-32.0); POTASSIUM,K 3.6 mmol/L (3.5-5.1)
[2022-04-30] MEDS ORDERED: Potassium Chloride 20 MEQ Tab.ER PO ONE (01:00)
[2022-04-30] MEDS ORDERED: Magnesium Sulfate/Water 2 GM in Premix Bag 1 BAG IV ONE (01:00)
[2022-04-30] MEDS: Acetaminophen 325 MG Tab PO PRN (01:13)
[2022-04-30] MEDS: Heparin Sodium/0.45% NaCl 500 ML IV SCH (08:40)
[2022-04-30] MEDS: amLODIPine 5 MG Tab PO SCH (08:46)
[2022-04-30] MEDS: Aspirin 81 MG Tab.Chew PO SCH (08:46)
[2022-04-30] MEDS: Allopurinol 300 MG Tab PO SCH (08:46)
[2022-04-30 08:50] LABS: BLOOD UREA NITROGEN,BUN 21 mg/dL (7.0-18.0); CARBON DIOXIDE,CO2 23.6 mmol/L (21.0-32.0); CHLORIDE,CL 104 mmol/L (98-107); GLUCOSE RANDOM 95 mg/dL (74-106); POTASSIUM,K 4.2 mmol/L (3.5-5.1); SODIUM,NA 137 mmol/L (136-148)
[2022-04-30 08:54] LABS: ESTIMATED GFR 58 mL/min (>60)
[2022-04-30] MEDS: Melatonin 3 MG Tab PO PRN (22:23)
[2022-05-01] MEDS: traZODone 50 MG Tab PO PRN (01:15)
[2022-05-01] MEDS: Heparin Sodium/0.45% NaCl 500 ML IV SCH ×2 (04:07→23:23)
[2022-05-01 07:47] LABS: BLOOD UREA NITROGEN,BUN 19 mg/dL (7.0-18.0); CARBON DIOXIDE,CO2 22.9 mmol/L (21.0-32.0); CHLORIDE,CL 104 mmol/L (98-107); GLUCOSE RANDOM 91 mg/dL (74-106); SODIUM,NA 136 mmol/L (136-148)
[2022-05-01 07:48] LABS: ESTIMATED GFR 64 mL/min (>60)
[2022-05-01] MEDS: amLODIPine 5 MG Tab PO SCH (08:43)
[2022-05-01] MEDS: Allopurinol 300 MG Tab PO SCH (08:43)
[2022-05-01] MEDS: Aspirin 81 MG Tab.Chew PO SCH (08:43)
[2022-05-01] MEDS: Melatonin 3 MG Tab PO PRN (23:23)
[2022-05-02] MEDS: traZODone 50 MG Tab PO PRN (01:18)
[2022-05-02 06:49] LABS: BLOOD UREA NITROGEN,BUN 19 mg/dL (7.0-18.0); CARBON DIOXIDE,CO2 21.4 mmol/L (21.0-32.0); CHLORIDE,CL 106 mmol/L (98-107); GLUCOSE RANDOM 85 mg/dL (74-106); SODIUM,NA 139 mmol/L (136-148)
[2022-05-02 06:54] LABS: ESTIMATED GFR 64 mL/min (>60)
[2022-05-02] MEDS: amLODIPine 5 MG Tab PO SCH (09:27)
[2022-05-02] MEDS: Allopurinol 300 MG Tab PO SCH (09:28)
[2022-05-02] MEDS: Aspirin 81 MG Tab.Chew PO SCH (09:28)
[2022-05-02] MEDS: Multivitamin Tab PO SCH (10:26)
[2022-05-02] MEDS: Cyanocobalamin (Vitamin B12) 500 MCG Tab PO SCH (10:26)
[2022-05-02] MEDS ORDERED: Heparin Sodium 5,000 Units/ML Vial IVPUSH ONE (16:53)
[2022-05-02] MEDS: Heparin Sodium/0.45% NaCl 500 ML IV SCH (18:31)
[2022-05-02] MEDS: Acetaminophen 325 MG Tab PO PRN (22:48)
[2022-05-03] MEDS: Allopurinol 300 MG Tab PO SCH (09:09)
[2022-05-03] MEDS: Aspirin 81 MG Tab.Chew PO SCH (09:09)
[2022-05-03] MEDS: amLODIPine 5 MG Tab PO SCH (09:09)
[2022-05-03] MEDS: Multivitamin Tab PO SCH (09:09)
[2022-05-03] MEDS: Cyanocobalamin (Vitamin B12) 500 MCG Tab PO SCH (09:10)
[2022-05-03] MEDS: Heparin Sodium/0.45% NaCl 500 ML IV SCH (12:30)
[2022-05-03 18:24] VITALS: BP 124/61; PULSE 72
== END 2022-05-03 17:10 | DRG 176 ==
LOC: MW.ED 10:39 → MW.MS 14:11
PROVIDERS: ADMIT Internal Medicine; ATTEND Internal Medicine
DX: I26.94 Multiple subsegmental thrombotic pulmonary emboli without acute cor pulmonale (principal); E44.0 Moderate protein-calorie malnutrition; I10 Essential (primary) hypertension; M10.9 Gout, unspecified; G47.33 Obstructive sleep apnea (adult) (pediatric); Z20.822 Contact with and (suspected) exposure to COVID-19; G62.9 Polyneuropathy, unspecified; E66.9 Obesity, unspecified; E53.8 Deficiency of other specified B group vitamins; G62.89 Other specified polyneuropathies; Z68.30 Body mass index [BMI] 30.0-30.9, adult; Z98.890 Other specified postprocedural states; Z79.82 Long term (current) use of aspirin; Z79.899 Other long term (current) drug therapy; Z89.9 Acquired absence of limb, unspecified; Z86.79 Personal history of other diseases of the circulatory system
CPT/HCPCS: 0240U; 36415; 80048; 80053; 81003; 83735; 84100; 84484; 85025; 85610; 85730; 86156; 86850; 86900; 86901; 93005; 93010; 93306; 96365; 96376; 97161-GP; 97530-GP; 99284-25; 99285; A9270-GY; J1644; J3475

== ENCOUNTER 2022-11-09 13:05 | Emergency (ER) | payer MEDICARE, BC ==
[2022-11-09] MEDS ORDERED: Alteplase 2 MG Vial IVPUSH STA (13:42)
[2022-11-09 16:17] VITALS: BP 123/75; PULSE 89
== END 2022-11-09 16:16 | disposition home or self-care (01) ==
LOC: MW.ED 13:05
DX: T82.594A Other mechanical complication of infusion catheter, initial encounter (principal); I10 Essential (primary) hypertension; E66.9 Obesity, unspecified; Z68.33 Body mass index [BMI] 33.0-33.9, adult; Z88.0 Allergy status to penicillin; Z79.82 Long term (current) use of aspirin; Z79.899 Other long term (current) drug therapy
CPT/HCPCS: 96374; 99283; J2997

== ENCOUNTER 2022-11-10 17:34 | Emergency (ER) | payer MEDICARE, BC ==
[2022-11-10 18:00] VITALS: BP 164/68; PULSE 74
== END 2022-11-10 18:03 | disposition left against medical advice (07) ==
LOC: MW.ED 17:34
DX: Z53.21 Procedure and treatment not carried out due to patient leaving prior to being seen by health care provider (principal)

== ENCOUNTER 2024-07-31 15:45 | Emergency (ER) | payer MEDICARE, BC ==
[2024-07-31] MEDS ORDERED: Sodium Chloride 0.9% 10 ML Syringe FLUSH PRN (16:30)
[2024-07-31] MEDS ORDERED: Sodium Chloride 0.9% 20 ML SDV IV PRN (16:30)
[2024-07-31] MEDS ORDERED: Sodium Chloride 0.9% 2.5 ML Syringe FLUSH PRN (16:30)
[2024-07-31] MEDS: Lactated Ringers 1,000 ML IV SCH (17:13)
[2024-07-31] MEDS: Lactated Ringers 1,000 ML IV STA (17:14)
[2024-07-31 17:23] LABS: BASOPHILS ABSOLUTE AUTO 0.06 K/uL (0.00-0.20); BASOPHILS PERCENT AUTO 0.4 % (0.0-1.0); EOSINOPHILS ABSOLUTE AUTO 0.44 K/uL (0.00-0.45); EOSINOPHILS PERCENT AUTO 3.1 % (0.0-6.0); HEMATOCRIT 42.8 % (42.0-52.0); HEMOGLOBIN 13.9 g/dL (14.0-18.0); IMMATURE GRAN ABSOLUTE AUTO 0.07 K/uL (0.00-0.05); IMMATURE GRAN PERCENT AUTO 0.5 % (0.0-0.4); LYMPHOCYTES ABSOLUTE AUTO 1.63 K/uL (1.00-4.80); LYMPHOCYTES PERCENT AUTO 11.5 % (24.0-44.0); MEAN CORPUSCULAR HEMOGLOBIN 27.7 pg (28.0-32.0); MEAN CORPUSCULAR HGB CONC 32.5 g/dL (32.0-36.0); MEAN CORPUSCULAR VOLUME 85.4 fL (83.0-99.0); MEAN PLATELET VOLUME 9.8 fL (9.4-12.4); MONOCYTES ABSOLUTE AUTO 0.93 K/uL (0.00-0.80); MONOCYTES PERCENT AUTO 6.5 % (0.0-8.0); NEUTROPHILS ABSOLUTE AUTO 11.07 K/uL (1.80-7.70); PLATELET COUNT,PLT 301 K/uL (150-400); RED BLOOD CELL COUNT 5.01 M/uL (4.52-5.90)
[2024-07-31 18:00] LABS: A/G RATIO 0.8 (0.9-1.6); ALBUMIN 2.8 g/dL (3.4-5.0); BILIRUBIN TOTAL 0.6 mg/dL (0.2-1.0); CALCIUM 8.4 mg/dL (8.5-10.1); CARBON DIOXIDE,CO2 24.8 mmol/L (21.0-32.0); CREATININE 1.5 mg/dL (0.8-1.3); EST CRCL DRUG DOSING (CG) 46.7 mL/min; MAGNESIUM 1.8 mg/dL (1.8-2.4); POTASSIUM,K 3.2 mmol/L (3.5-5.1); PROTEIN TOTAL,TP 6.5 g/dL (6.4-8.2)
[2024-07-31] MEDS: Potassium Chloride 20 MEQ Tab.ER PO ONE (18:51)
[2024-07-31] MEDS: Iopamidol 755 MG/ML 500 ML Multipack Bottle IVPUSH STA (18:58)
[2024-07-31 20:09] LABS: APPEARANCE,URINE SLT CLOUDY; BILIRUBIN,URINE NEGATIVE (NEGATIVE); COLOR,URINE YELLOW; GLUCOSE,URINE NEGATIVE (NEGATIVE); KETONES,URINE NEGATIVE (NEGATIVE); LEUKOCYTE ESTERASE,URINE NEGATIVE (NEGATIVE); NITRITE,URINE NEGATIVE (NEGATIVE); OCCULT BLOOD,URINE NEGATIVE (NEGATIVE); PH,URINE 5.5 (5.0-8.0); PROTEIN,URINE TRACE mg/dL (NEGATIVE); UROBILINOGEN,URINE 0.2 EU/dL (<2.0)
[2024-07-31 20:23] LABS: BACTERIA,URINE NOT SEEN (NEGATIVE); EPITHELIAL CELLS,URINE FEW (NONE-FEW); RBC,URINE 0-2 (0-2/HPF)
[2024-07-31] MEDS: Dicyclomine 10 MG Cap PO ONE (20:56)
[2024-07-31 21:03] VITALS: BP 159/70; PULSE 67
== END 2024-07-31 21:03 | disposition home or self-care (01) ==
LOC: MW.ED 15:45
DX: K52.9 Noninfective gastroenteritis and colitis, unspecified (principal); I11.0 Hypertensive heart disease with heart failure; I50.9 Heart failure, unspecified; E78.00 Pure hypercholesterolemia, unspecified; M19.90 Unspecified osteoarthritis, unspecified site; Z88.0 Allergy status to penicillin; Z79.82 Long term (current) use of aspirin; Z79.01 Long term (current) use of anticoagulants; Z79.899 Other long term (current) drug therapy; Z75.3 Unavailability and inaccessibility of health-care facilities
CPT/HCPCS: 36415; 74177; 80053; 81001; 83605; 83735; 84484; 85025; 87040; 93005; 96360; 96361; 99285; A9270; J7120; Q9967; 93010; 99284

== ENCOUNTER 2024-08-02 00:25 | Inpatient (IN) | payer MEDICARE, BC ==
[2024-08-02 00:56] LABS: BASOPHILS ABSOLUTE AUTO 0.08 K/uL (0.00-0.20); BASOPHILS PERCENT AUTO 0.6 % (0.0-1.0); EOSINOPHILS ABSOLUTE AUTO 0.69 K/uL (0.00-0.45); EOSINOPHILS PERCENT AUTO 5.2 % (0.0-6.0); HEMATOCRIT 44.4 % (42.0-52.0); HEMOGLOBIN 14.2 g/dL (14.0-18.0); IMMATURE GRAN ABSOLUTE AUTO 0.05 K/uL (0.00-0.05); IMMATURE GRAN PERCENT AUTO 0.4 % (0.0-0.4); LYMPHOCYTES ABSOLUTE AUTO 1.85 K/uL (1.00-4.80); MEAN CORPUSCULAR HEMOGLOBIN 27.5 pg (28.0-32.0); MEAN CORPUSCULAR VOLUME 85.9 fL (83.0-99.0); MEAN PLATELET VOLUME 9.9 fL (9.4-12.4); MONOCYTES ABSOLUTE AUTO 0.84 K/uL (0.00-0.80); MONOCYTES PERCENT AUTO 6.4 % (0.0-8.0); NEUTROPHILS ABSOLUTE AUTO 9.67 K/uL (1.80-7.70); NEUTROPHILS PERCENT AUTO 73.4 % (41.0-71.0); PLATELET COUNT,PLT 331 K/uL (150-400); RED BLOOD CELL COUNT 5.17 M/uL (4.52-5.90); WHITE BLOOD CELL COUNT,WBC 13.18 K/uL (3.9-11.3)
[2024-08-02 01:23] LABS: A/G RATIO 0.7 (0.9-1.6); ALBUMIN 2.7 g/dL (3.4-5.0); BILIRUBIN TOTAL 0.7 mg/dL (0.2-1.0); CALCIUM 8.3 mg/dL (8.5-10.1); CARBON DIOXIDE,CO2 25.4 mmol/L (21.0-32.0); CREATININE 1.4 mg/dL (0.8-1.3); EST CRCL DRUG DOSING (CG) 50.04 mL/min; POTASSIUM,K 3.4 mmol/L (3.5-5.1); PROTEIN TOTAL,TP 6.4 g/dL (6.4-8.2)
[2024-08-02] MEDS: Ondansetron 4 MG/2 ML SDV IVPUSH ONE (01:33)
[2024-08-02] MEDS: Morphine 4 MG/ML Syringe IVPUSH ONE (01:44)
[2024-08-02] MEDS: Morphine 4 MG/ML Syringe IM ONE (01:45)
[2024-08-02] MEDS: Morphine 2 MG/ML SYRINGE IVPUSH ONE (02:26)
[2024-08-02] MEDS: Ciprofloxacin in D5W 400 MG in Premix Bag 1 BAG IV STA (02:29)
[2024-08-02] MEDS: metroNIDAZOLE/Normal Saline 500 MG in Premix Bag 1 BAG IV ONE (02:30)
[2024-08-02] MEDS ORDERED: Naloxone 0.4 MG/ML SDV IVPUSH PRN (07:52)
[2024-08-02] MEDS ORDERED: Ondansetron 4 MG/2 ML SDV IVPUSH PRN (07:54)
[2024-08-02] MEDS ORDERED: Albuterol/Ipratropium 3.0-0.5 MG/3 ML Neb Soln NEB PRN (07:54)
[2024-08-02] MEDS ORDERED: Sodium Chloride 0.9% 2.5 ML Syringe FLUSH PRN (07:54)
[2024-08-02] MEDS ORDERED: Sodium Chloride 0.9% 10 ML Syringe FLUSH PRN (07:54)
[2024-08-02] MEDS ORDERED: Ciprofloxacin in D5W 400 MG in Premix Bag 1 BAG IV SCH (08:00)
[2024-08-02] MEDS ORDERED: metroNIDAZOLE/Normal Saline 500 MG in Premix Bag 1 BAG IV SCH (08:00)
[2024-08-02] MEDS: Gabapentin 100 MG Cap PO SCH (08:51)
[2024-08-02] MEDS: Carvedilol 12.5 MG Tab PO SCH (08:51)
[2024-08-02] MEDS: Apixaban 5 MG Tab PO SCH (08:51)
[2024-08-02] MEDS: Potassium Chloride 20 MEQ Tab.ER PO ONE (08:52)
[2024-08-02] MEDS: Allopurinol 300 MG Tab PO SCH (08:52)
[2024-08-02] MEDS: Aspirin 81 MG Tab.Chew PO SCH (08:53)
[2024-08-02] MEDS: VANCOmycin 2 GM/400 ML 2 GM in Premix Bag 1 BAG IV ONE (08:53)
[2024-08-02] MEDS: Sodium Chloride 0.9% 1,000 ML IV SCH (09:05)
[2024-08-02] MEDS: VANCOmycin 125 MG Cap PO SCH (09:08)
[2024-08-02 13:42] LABS: APPEARANCE,URINE CLEAR; COLOR,URINE YELLOW; GLUCOSE,URINE NEGATIVE (NEGATIVE); KETONES,URINE TRACE mg/dL (NEGATIVE); LEUKOCYTE ESTERASE,URINE NEGATIVE (NEGATIVE); NITRITE,URINE POSITIVE (NEGATIVE); OCCULT BLOOD,URINE NEGATIVE (NEGATIVE); PROTEIN,URINE 30 mg/dL (NEGATIVE)
[2024-08-02 13:56] LABS: BACTERIA,URINE MANY (NEGATIVE); BILIRUBIN,URINE SMALL (NEGATIVE); EPITHELIAL CELLS,URINE RARE (NONE-FEW); RBC,URINE 0-2 (0-2/HPF)
[2024-08-02] MEDS: VANCOmycin 1 GM in Sodium Chloride 0.9% 250 ML IV SCH (19:44)
[2024-08-02] MEDS: Mirtazapine 15 MG Tab PO SCH (21:12)
[2024-08-03 06:14] LABS: BASOPHILS ABSOLUTE AUTO 0.06 K/uL (0.00-0.20); BASOPHILS PERCENT AUTO 0.7 % (0.0-1.0); EOSINOPHILS PERCENT AUTO 7.2 % (0.0-6.0); HEMATOCRIT 39.9 % (42.0-52.0); HEMOGLOBIN 12.1 g/dL (14.0-18.0); IMMATURE GRAN ABSOLUTE AUTO 0.03 K/uL (0.00-0.05); IMMATURE GRAN PERCENT AUTO 0.4 % (0.0-0.4); LYMPHOCYTES ABSOLUTE AUTO 1.74 K/uL (1.00-4.80); LYMPHOCYTES PERCENT AUTO 20.8 % (24.0-44.0); MEAN CORPUSCULAR HEMOGLOBIN 26.7 pg (28.0-32.0); MEAN CORPUSCULAR HGB CONC 30.3 g/dL (32.0-36.0); MEAN CORPUSCULAR VOLUME 88.1 fL (83.0-99.0); MEAN PLATELET VOLUME 10.2 fL (9.4-12.4); MONOCYTES ABSOLUTE AUTO 0.65 K/uL (0.00-0.80); MONOCYTES PERCENT AUTO 7.8 % (0.0-8.0); NEUTROPHILS ABSOLUTE AUTO 5.29 K/uL (1.80-7.70); NEUTROPHILS PERCENT AUTO 63.1 % (41.0-71.0); PLATELET COUNT,PLT 273 K/uL (150-400); RED BLOOD CELL COUNT 4.53 M/uL (4.52-5.90); WHITE BLOOD CELL COUNT,WBC 8.37 K/uL (3.9-11.3)
[2024-08-03 06:48] LABS: CALCIUM 7.9 mg/dL (8.5-10.1); CARBON DIOXIDE,CO2 22.4 mmol/L (21.0-32.0); CREATININE 1.3 mg/dL (0.8-1.3); EST CRCL DRUG DOSING (CG) 53.89 mL/min; MAGNESIUM 1.8 mg/dL (1.8-2.4); PHOSPHORUS 3.2 mg/dL (2.6-4.7); POTASSIUM,K 3.6 mmol/L (3.5-5.1)
[2024-08-03] MEDS: Acetaminophen 325 MG Tab PO PRN (17:04)
[2024-08-04 06:39] LABS: BASOPHILS ABSOLUTE AUTO 0.05 K/uL (0.00-0.20); BASOPHILS PERCENT AUTO 0.7 % (0.0-1.0); EOSINOPHILS ABSOLUTE AUTO 0.68 K/uL (0.00-0.45); EOSINOPHILS PERCENT AUTO 9.4 % (0.0-6.0); HEMATOCRIT 38.4 % (42.0-52.0); IMMATURE GRAN ABSOLUTE AUTO 0.03 K/uL (0.00-0.05); IMMATURE GRAN PERCENT AUTO 0.4 % (0.0-0.4); LYMPHOCYTES ABSOLUTE AUTO 1.38 K/uL (1.00-4.80); MEAN CORPUSCULAR HEMOGLOBIN 26.9 pg (28.0-32.0); MEAN CORPUSCULAR HGB CONC 31.3 g/dL (32.0-36.0); MEAN CORPUSCULAR VOLUME 86.1 fL (83.0-99.0); MEAN PLATELET VOLUME 10.2 fL (9.4-12.4); MONOCYTES ABSOLUTE AUTO 0.56 K/uL (0.00-0.80); MONOCYTES PERCENT AUTO 7.7 % (0.0-8.0); NEUTROPHILS ABSOLUTE AUTO 4.56 K/uL (1.80-7.70); NEUTROPHILS PERCENT AUTO 62.8 % (41.0-71.0); PLATELET COUNT,PLT 277 K/uL (150-400); RED BLOOD CELL COUNT 4.46 M/uL (4.52-5.90); WHITE BLOOD CELL COUNT,WBC 7.26 K/uL (3.9-11.3)
[2024-08-04 06:56] LABS: CARBON DIOXIDE,CO2 23.8 mmol/L (21.0-32.0); CREATININE 1.1 mg/dL (0.8-1.3); EST CRCL DRUG DOSING (CG) 63.69 mL/min; MAGNESIUM 1.7 mg/dL (1.8-2.4); POTASSIUM,K 3.9 mmol/L (3.5-5.1)
[2024-08-04] MEDS: VANCOmycin 1.5 GM in Sodium Chloride 0.9% 250 ML IV SCH (08:30)
[2024-08-04] MEDS: Magnesium Sulfate 2 GM/50 mL 2 GM in Premix Bag 1 BAG IV ONE (12:24)
[2024-08-05] MEDS: Morphine 2 MG/ML SYRINGE IVPUSH PRN (01:13)
[2024-08-05 06:33] LABS: BASOPHILS ABSOLUTE AUTO 0.05 K/uL (0.00-0.20); BASOPHILS PERCENT AUTO 0.7 % (0.0-1.0); EOSINOPHILS ABSOLUTE AUTO 0.57 K/uL (0.00-0.45); EOSINOPHILS PERCENT AUTO 7.7 % (0.0-6.0); HEMATOCRIT 38.3 % (42.0-52.0); HEMOGLOBIN 12.3 g/dL (14.0-18.0); IMMATURE GRAN ABSOLUTE AUTO 0.03 K/uL (0.00-0.05); IMMATURE GRAN PERCENT AUTO 0.4 % (0.0-0.4); LYMPHOCYTES PERCENT AUTO 24.3 % (24.0-44.0); MEAN CORPUSCULAR HEMOGLOBIN 27.4 pg (28.0-32.0); MEAN CORPUSCULAR HGB CONC 32.1 g/dL (32.0-36.0); MEAN CORPUSCULAR VOLUME 85.3 fL (83.0-99.0); MEAN PLATELET VOLUME 9.9 fL (9.4-12.4); MONOCYTES PERCENT AUTO 6.8 % (0.0-8.0); NEUTROPHILS ABSOLUTE AUTO 4.45 K/uL (1.80-7.70); NEUTROPHILS PERCENT AUTO 60.1 % (41.0-71.0); PLATELET COUNT,PLT 311 K/uL (150-400); RED BLOOD CELL COUNT 4.49 M/uL (4.52-5.90)
[2024-08-05 06:56] LABS: CARBON DIOXIDE,CO2 24.1 mmol/L (21.0-32.0); CREATININE 1.1 mg/dL (0.8-1.3); EST CRCL DRUG DOSING (CG) 63.69 mL/min; POTASSIUM,K 4.1 mmol/L (3.5-5.1)
[2024-08-05] MEDS: Melatonin 3 MG Tab PO PRN (22:44)
[2024-08-06 06:17] LABS: BASOPHILS ABSOLUTE AUTO 0.05 K/uL (0.00-0.20); BASOPHILS PERCENT AUTO 0.6 % (0.0-1.0); HEMATOCRIT 38.9 % (42.0-52.0); HEMOGLOBIN 12.4 g/dL (14.0-18.0); IMMATURE GRAN ABSOLUTE AUTO 0.05 K/uL (0.00-0.05); IMMATURE GRAN PERCENT AUTO 0.6 % (0.0-0.4); LYMPHOCYTES ABSOLUTE AUTO 1.84 K/uL (1.00-4.80); MEAN CORPUSCULAR HEMOGLOBIN 27.3 pg (28.0-32.0); MEAN CORPUSCULAR HGB CONC 31.9 g/dL (32.0-36.0); MEAN CORPUSCULAR VOLUME 85.5 fL (83.0-99.0); MEAN PLATELET VOLUME 10.3 fL (9.4-12.4); MONOCYTES ABSOLUTE AUTO 0.61 K/uL (0.00-0.80); MONOCYTES PERCENT AUTO 7.3 % (0.0-8.0); NEUTROPHILS ABSOLUTE AUTO 5.33 K/uL (1.80-7.70); NEUTROPHILS PERCENT AUTO 63.5 % (41.0-71.0); PLATELET COUNT,PLT 323 K/uL (150-400); RED BLOOD CELL COUNT 4.55 M/uL (4.52-5.90); WHITE BLOOD CELL COUNT,WBC 8.38 K/uL (3.9-11.3)
[2024-08-06 06:42] LABS: CARBON DIOXIDE,CO2 25.5 mmol/L (21.0-32.0); CREATININE 1.2 mg/dL (0.8-1.3); EST CRCL DRUG DOSING (CG) 58.38 mL/min; MAGNESIUM 1.9 mg/dL (1.8-2.4); POTASSIUM,K 4.5 mmol/L (3.5-5.1)
[2024-08-06 14:05] VITALS: BP 135/65; PULSE 62
== END 2024-08-06 14:55 | disposition home health service (06) | DRG 372 ==
LOC: MW.ED 00:25 → MW.MS 05:41
PROVIDERS: ADMIT Family Medicine; ATTEND Family Medicine
DX: A04.72 Enterocolitis due to Clostridium difficile, not specified as recurrent (principal); E44.0 Moderate protein-calorie malnutrition; I50.9 Heart failure, unspecified; I11.0 Hypertensive heart disease with heart failure; E78.00 Pure hypercholesterolemia, unspecified; G47.30 Sleep apnea, unspecified; M19.90 Unspecified osteoarthritis, unspecified site; G62.9 Polyneuropathy, unspecified; E66.9 Obesity, unspecified; N28.9 Disorder of kidney and ureter, unspecified; M06.9 Rheumatoid arthritis, unspecified; Z95.1 Presence of aortocoronary bypass graft; Z90.89 Acquired absence of other organs; Z86.79 Personal history of other diseases of the circulatory system; Z68.35 Body mass index [BMI] 35.0-35.9, adult; Z95.0 Presence of cardiac pacemaker; Z98.890 Other specified postprocedural states; Z88.0 Allergy status to penicillin; Z79.899 Other long term (current) drug therapy; Z79.01 Long term (current) use of anticoagulants; Z86.718 Personal history of other venous thrombosis and embolism
CPT/HCPCS: 36415; 51798; 71045; 71045-26; 80048; 80053; 80202; 81001; 83605; 83690; 83735; 84100; 85025; 93005; 93010; 96365; 96368; 96375; 97161-GP; 99285; 99285-25; A9270-GY; J0744; J1836; J2270; J2405; J3370; J3371; J3372; J3475; J7030; J7050

== ENCOUNTER 2024-08-23 11:37 | Inpatient (IN) | payer MEDICARE, BC ==
[2024-08-23] MEDS ORDERED: Sodium Chloride 0.9% 2.5 ML Syringe FLUSH PRN (13:14)
[2024-08-23] MEDS ORDERED: Sodium Chloride 0.9% 10 ML Syringe FLUSH PRN (13:14)
[2024-08-23 13:29] LABS: BASOPHILS ABSOLUTE AUTO 0.06 K/uL (0.00-0.20); BASOPHILS PERCENT AUTO 0.5 % (0.0-1.0); EOSINOPHILS ABSOLUTE AUTO 0.47 K/uL (0.00-0.45); EOSINOPHILS PERCENT AUTO 3.9 % (0.0-6.0); IMMATURE GRAN ABSOLUTE AUTO 0.04 K/uL (0.00-0.05); IMMATURE GRAN PERCENT AUTO 0.3 % (0.0-0.4); LYMPHOCYTES ABSOLUTE AUTO 1.52 K/uL (1.00-4.80); LYMPHOCYTES PERCENT AUTO 12.6 % (24.0-44.0); MEAN PLATELET VOLUME 9.8 fL (9.4-12.4); MONOCYTES ABSOLUTE AUTO 0.73 K/uL (0.00-0.80); MONOCYTES PERCENT AUTO 6.1 % (0.0-8.0); NEUTROPHILS ABSOLUTE AUTO 9.23 K/uL (1.80-7.70); NEUTROPHILS PERCENT AUTO 76.6 % (41.0-71.0); NRBC ABSOLUTE 0.00 K/uL (0.00-0.02); NRBC PERCENT 0.0 /100WBC (0.0-0.2); PLATELET COUNT,PLT 300 K/uL (150-400); RED BLOOD CELL COUNT 5.38 M/uL (4.52-5.90); WHITE BLOOD CELL COUNT,WBC 12.05 K/uL (3.9-11.3)
[2024-08-23 14:07] LABS: A/G RATIO 0.7 (0.9-1.6); ALANINE AMINOTRANSFERASE,ALT 11.0 IU/L (14-63); ASPARTATE AMNIOTRANSFERASE,AST 19.0 IU/L (15-37); BILIRUBIN TOTAL 1.1 mg/dL (0.2-1.0); BLOOD UREA NITROGEN,BUN 13.0 mg/dL (7.0-18.0); CARBON DIOXIDE,CO2 26.1 mmol/L (21.0-32.0); CHLORIDE,CL 105.0 mmol/L (98-107); CREATININE 1.6 mg/dL (0.8-1.3); EST CRCL DRUG DOSING (CG) 43.78 mL/min; GLUCOSE RANDOM 98.0 mg/dL (74-106); POTASSIUM,K 4.2 mmol/L (3.5-5.1); PROTEIN TOTAL,TP 7.5 g/dL (6.4-8.2); SODIUM,NA 141.0 mmol/L (136-148)
[2024-08-23 14:10] LABS: ESTIMATED GFR 45.0 mL/min (>60)
[2024-08-23] MEDS: Iopamidol 755 MG/ML 500 ML Multipack Bottle IVPUSH STA (15:54)
[2024-08-23] MEDS: VANCOmycin 2 GM/400 ML 2 GM in Premix Bag 1 BAG IV ONE (17:28)
[2024-08-23] MEDS ORDERED: Ondansetron 4 MG/2 ML SDV IVPUSH PRN (18:09)
[2024-08-23 18:34] LABS: APPEARANCE,URINE CLEAR; GLUCOSE,URINE NEGATIVE (NEGATIVE); OCCULT BLOOD,URINE NEGATIVE (NEGATIVE)
[2024-08-23 18:44] LABS: EPITHELIAL CELLS,URINE FEW (NONE-FEW)
[2024-08-24] MEDS: Acetaminophen/HYDROcodone 325-5 MG Tab PO PRN (00:11)
[2024-08-24 06:22] LABS: BASOPHILS ABSOLUTE AUTO 0.07 K/uL (0.00-0.20); BASOPHILS PERCENT AUTO 0.4 % (0.0-1.0); EOSINOPHILS ABSOLUTE AUTO 0.42 K/uL (0.00-0.45); EOSINOPHILS PERCENT AUTO 2.5 % (0.0-6.0); IMMATURE GRAN ABSOLUTE AUTO 0.09 K/uL (0.00-0.05); IMMATURE GRAN PERCENT AUTO 0.5 % (0.0-0.4); LYMPHOCYTES ABSOLUTE AUTO 1.52 K/uL (1.00-4.80); LYMPHOCYTES PERCENT AUTO 9.0 % (24.0-44.0); MEAN PLATELET VOLUME 10.0 fL (9.4-12.4); MONOCYTES ABSOLUTE AUTO 1.43 K/uL (0.00-0.80); MONOCYTES PERCENT AUTO 8.5 % (0.0-8.0); NEUTROPHILS ABSOLUTE AUTO 13.27 K/uL (1.80-7.70); NEUTROPHILS PERCENT AUTO 79.1 % (41.0-71.0); NRBC ABSOLUTE 0.00 K/uL (0.00-0.02); NRBC PERCENT 0.0 /100WBC (0.0-0.2); PLATELET COUNT,PLT 271 K/uL (150-400); RED BLOOD CELL COUNT 4.68 M/uL (4.52-5.90); WHITE BLOOD CELL COUNT,WBC 16.80 K/uL (3.9-11.3)
[2024-08-24 06:40] LABS: BLOOD UREA NITROGEN,BUN 17.0 mg/dL (7.0-18.0); CARBON DIOXIDE,CO2 21.0 mmol/L (21.0-32.0); CHLORIDE,CL 105.0 mmol/L (98-107); CREATININE 2.0 mg/dL (0.8-1.3); EST CRCL DRUG DOSING (CG) 35.03 mL/min; GLUCOSE RANDOM 113.0 mg/dL (74-106); POTASSIUM,K 3.8 mmol/L (3.5-5.1); SODIUM,NA 138.0 mmol/L (136-148)
[2024-08-24 06:41] LABS: ESTIMATED GFR 34.0 mL/min (>60)
[2024-08-24] MEDS ORDERED: Sodium Chloride 0.9% 10 ML Syringe FLUSH PRN (14:25)
[2024-08-24] MEDS ORDERED: Sodium Chloride 0.9% 2.5 ML Syringe FLUSH PRN (14:25)
[2024-08-25 07:29] LABS: BASOPHILS ABSOLUTE AUTO 0.05 K/uL (0.00-0.20); BASOPHILS PERCENT AUTO 0.6 % (0.0-1.0); EOSINOPHILS ABSOLUTE AUTO 0.51 K/uL (0.00-0.45); EOSINOPHILS PERCENT AUTO 6.1 % (0.0-6.0); IMMATURE GRAN ABSOLUTE AUTO 0.03 K/uL (0.00-0.05); IMMATURE GRAN PERCENT AUTO 0.4 % (0.0-0.4); LYMPHOCYTES ABSOLUTE AUTO 1.76 K/uL (1.00-4.80); LYMPHOCYTES PERCENT AUTO 21.0 % (24.0-44.0); MEAN PLATELET VOLUME 9.9 fL (9.4-12.4); MONOCYTES ABSOLUTE AUTO 0.64 K/uL (0.00-0.80); MONOCYTES PERCENT AUTO 7.6 % (0.0-8.0); NEUTROPHILS ABSOLUTE AUTO 5.38 K/uL (1.80-7.70); NEUTROPHILS PERCENT AUTO 64.3 % (41.0-71.0); NRBC ABSOLUTE 0.00 K/uL (0.00-0.02); NRBC PERCENT 0.0 /100WBC (0.0-0.2); PLATELET COUNT,PLT 212 K/uL (150-400); RED BLOOD CELL COUNT 4.43 M/uL (4.52-5.90); WHITE BLOOD CELL COUNT,WBC 8.37 K/uL (3.9-11.3)
[2024-08-25 08:00] LABS: BLOOD UREA NITROGEN,BUN 16.0 mg/dL (7.0-18.0); CARBON DIOXIDE,CO2 21.1 mmol/L (21.0-32.0); CHLORIDE,CL 108.0 mmol/L (98-107); CREATININE 1.5 mg/dL (0.8-1.3); EST CRCL DRUG DOSING (CG) 46.7 mL/min; GLUCOSE RANDOM 89.0 mg/dL (74-106); POTASSIUM,K 3.5 mmol/L (3.5-5.1); SODIUM,NA 140.0 mmol/L (136-148)
[2024-08-25 08:03] LABS: ESTIMATED GFR 48.0 mL/min (>60)
[2024-08-26 06:26] LABS: BASOPHILS ABSOLUTE AUTO 0.04 K/uL (0.00-0.20); BASOPHILS PERCENT AUTO 0.5 % (0.0-1.0); EOSINOPHILS ABSOLUTE AUTO 0.58 K/uL (0.00-0.45); EOSINOPHILS PERCENT AUTO 7.5 % (0.0-6.0); IMMATURE GRAN ABSOLUTE AUTO 0.03 K/uL (0.00-0.05); IMMATURE GRAN PERCENT AUTO 0.4 % (0.0-0.4); LYMPHOCYTES ABSOLUTE AUTO 1.48 K/uL (1.00-4.80); LYMPHOCYTES PERCENT AUTO 19.2 % (24.0-44.0); MEAN PLATELET VOLUME 10.4 fL (9.4-12.4); MONOCYTES ABSOLUTE AUTO 0.54 K/uL (0.00-0.80); MONOCYTES PERCENT AUTO 7.0 % (0.0-8.0); NEUTROPHILS ABSOLUTE AUTO 5.02 K/uL (1.80-7.70); NEUTROPHILS PERCENT AUTO 65.4 % (41.0-71.0); NRBC ABSOLUTE 0.00 K/uL (0.00-0.02); NRBC PERCENT 0.0 /100WBC (0.0-0.2); PLATELET COUNT,PLT 212 K/uL (150-400); RED BLOOD CELL COUNT 4.34 M/uL (4.52-5.90); WHITE BLOOD CELL COUNT,WBC 7.69 K/uL (3.9-11.3)
[2024-08-26 06:48] LABS: BLOOD UREA NITROGEN,BUN 11.0 mg/dL (7.0-18.0); CARBON DIOXIDE,CO2 22.6 mmol/L (21.0-32.0); CHLORIDE,CL 108.0 mmol/L (98-107); CREATININE 1.2 mg/dL (0.8-1.3); EST CRCL DRUG DOSING (CG) 58.38 mL/min; GLUCOSE RANDOM 111.0 mg/dL (74-106); POTASSIUM,K 3.4 mmol/L (3.5-5.1); SODIUM,NA 140.0 mmol/L (136-148)
[2024-08-26 07:03] LABS: ESTIMATED GFR 63.0 mL/min (>60)
[2024-08-26] MEDS: Potassium Chloride 20 MEQ Tab.ER PO ONE (09:37)
[2024-08-27 12:23] VITALS: BP 135/63; PULSE 64
== END 2024-08-27 13:55 | disposition home health service (06) | DRG 372 ==
LOC: MW.ED 11:37 → OBSVTOIN 17:20 → MW.MS 17:20
PROVIDERS: ADMIT Internal Medicine; ATTEND Internal Medicine
DX: R19.7 Diarrhea, unspecified (principal); A04.71 Enterocolitis due to Clostridium difficile, recurrent; G61.81 Chronic inflammatory demyelinating polyneuritis; I50.9 Heart failure, unspecified; M86.9 Osteomyelitis, unspecified; N17.9 Acute kidney failure, unspecified; I10 Essential (primary) hypertension; M10.9 Gout, unspecified; E86.0 Dehydration; Z68.29 Body mass index [BMI] 29.0-29.9, adult; H54.7 Unspecified visual loss; I11.0 Hypertensive heart disease with heart failure; E78.00 Pure hypercholesterolemia, unspecified; G47.30 Sleep apnea, unspecified; M19.90 Unspecified osteoarthritis, unspecified site; E66.9 Obesity, unspecified; E53.8 Deficiency of other specified B group vitamins; Z90.49 Acquired absence of other specified parts of digestive tract; Z79.82 Long term (current) use of aspirin; Z98.890 Other specified postprocedural states; Z86.79 Personal history of other diseases of the circulatory system; Z87.891 Personal history of nicotine dependence; Z68.34 Body mass index [BMI] 34.0-34.9, adult; Z88.0 Allergy status to penicillin; Z79.899 Other long term (current) drug therapy; Z95.1 Presence of aortocoronary bypass graft; Z95.0 Presence of cardiac pacemaker; Z79.01 Long term (current) use of anticoagulants; Z95.5 Presence of coronary angioplasty implant and graft
CPT/HCPCS: 36415; 74177; 80053; 83690; 83735; 84484; 85025; 87324; 93005 ×2; 99285; J7030; Q9967; 80048; 81001; 96365; 96366; 96374; 99222; 99231; 99232; 99238; 99284; A9270-GY; G0378; J3375